=== PATIENT | female | born 1945 | race Caucasian/White ===

== ENCOUNTER 2023-12-09 09:37 | Day surgery (SDC) | payer OTHER, SELFPAY ==
[2023-12-09] VITALS (9 sets, daily range): BP systolic 142–179; BP diastolic 33–99; BMI 33.1
[2023-12-09] MEDS: NSS 262 ML IV (10:28)
[2023-12-09 10:33] LABS: Glucose - Point of Care 152 mg/dl (70-99)
[2023-12-09 12:07] LABS: ACT-LR - POC 361 Seconds (116-155)
--- NOTE | 2023-12-09 16:50 | ITS.CL.CATH ---
[employer] - Catheterization
Cardiac Catheterization
Procedure Report:
LEFT HEART CATHETERIZATION
Date of Procedure: December 09, 2023
Procedures performed:
1: Coronary angiography
2: Left ventricular hemodynamic assessment
3: Physiologic lesion assessment left anterior descending artery
Primary Care Physician: Dr. Radha Tamez
Primary Medical Office Administrator: Dr. Fernie Cox
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
hyperlipidemia, diabetes mellitus, and known perivalvular aortic insufficiency with preserved LV systolic function. She developed a gangrenous appendix and had a somewhat complicated hospitalizations at [facility] which was treated with
IV antibiotics and percutaneous placement of a drain by interventional radiology which was later pulled. She had no cardiac complications during that admission in August. Since then she has reported increasing exertional chest discomfort concerning
for angina. Of note, she was in the [facility] emergency room on November 27 and ruled out for ACS. At that time she did have episodes of significant bradycardia with heart rates in the 40s. Last echocardiography was performed in July
which revealed normal LV systolic function with a mean gradient across the 21 mm trifecta tissue valve of 23 mmHg along with moderate aortic regurgitation which was believed to be possibly perivalvular. Her creatinine has also been inching up was
1.0 in April 2023, 1.45 in July 2023 and 1.67 on December 07, 2023.
ACCESS: The patient was prepped and draped in usual sterile fashion. A 6 Ecuadorean sheath was placed in the right radial artery using the Seldinger over the wire technique.
HEMODYNAMIC FINDINGS (mmHg):
LV(s/d,EDP): 208/11, 19
Ao(s/d,m): 180/46, 96
Mean aortic valve gradient with simultaneous pressure measurement: 39 mmHg
ANGIOGRAPHIC FINDINGS:
Single-plane Left Ventriculography in AVILES Projection: Not done.
Coronary Angiography:
Dominance: Right
Left Main: Normal
Left Anterior Descending: The left anterior descending artery is a medium caliber vessel that gives rise to 1 major diagonal branch. The LAD has moderate proximal and mid calcification which is also notable at the mid LAD/diagonal bifurcation which
makes accurate angiographic assessment difficult. There appears to be a smooth 50% stenosis in the LAD at the diagonal takeoff. There is a smooth 40% focal mid LAD stenosis just beyond that. The distal vessel appears widely patent with normal
flow. There are extensive septal collaterals that fill the right-sided posterior descending artery. The major diagonal branch has a calcific eccentric 60-70% proximal stenosis which again is difficult to visualize due to calcification and vascular
overlap. The distal diagonal branch has normal flow. This is unchanged from prior cath performed in November 2022 at [facility].
Left Circumflex: The left circumflex is a medium caliber vessel that gives rise to a small OM1, medium sized OM 2, and larger OM 3. The previously placed stent is widely patent and extends from the circumflex into the third obtuse marginal branch
jailing OM1 and OM 2. The proximal circumflex has mild diffuse luminal irregularity. OM1 is patent with mild ostial disease and normal distal flow. The second obtuse marginal branch also has a severe ostial 80% stenosis but improved antegrade
flow as compared to when the stent was placed in 2019 and unchanged from last cath 11/2022. The distal OM 2 fills via apical left to left collaterals. There is normal flow in OM 3.
Right Coronary: The right coronary artery is a small caliber dominant vessel that is occluded in the midportion just beyond an RV marginal branch. The PDA fills via faint right to right and left to right collaterals. This is unchanged compared to
prior angiography 11/2022.
SVG to OM-2: Known to be previously occluded by cath in 2019.
Other angiography:
1: In light of her new symptoms and somewhat ambiguous calcific disease in the LAD diagonal bifurcation, I elected to perform physiologic lesion assessment. The patient was pretreated with aspirin and unfractionated heparin was given. A 6 Ecuadorean
XB 3.0 guiding catheter was used to engage the left main. A Omni pressure wire was advanced easily down across the lesion with the transducer positioned in the mid to distal LAD. The IFR was measured at 0.84, 0.84, and 0.85 which is below the
ischemic threshold. The wire was removed and final angiography confirmed no change.
Fluoroscopy Time (min): 14.1
Radiation Dose (mGy): 523
DAP (Gy.cm2): 39
Closure device: None. A TR band was applied for hemostasis at the right wrist.
Complications: None.
ASSESSMENT:
1: Unchanged coronary anatomy with on grafted dominant distal RCA and widely patent deering left circumflex stent. iFR positive physiologic lesion assessment of the left anterior descending artery. I suspect this was probably also positive in
November 2022 since imaging was similar at that time. The involved major diagonal branch seems to be a reasonable surgical target and certainly also has obstructive disease.
2: Very wide pulse pressure with hemodynamics suggesting significant aortic insufficiency. On review of serial echoes this appears to be newly present on 09/24/2022 echo and was not noted on 2017, 2018, and 2020 echoes. Although some transthoracic
imaging suggest this may be paravalvular, given that it is new in 2022 I suspect it may just be valve deterioration. The gradients across that valve are certainly going up with a mean gradient of 39 mmHg measured today in the setting of significant
systemic hypertension. The mean gradient measured on July 24, 2023 echo was 23 mmHg.
3: Fairly well compensated LV filling pressures despite significant AI.
CONCLUSIONS and RECOMMENDATIONS:
1: Formal CT surgical evaluation for possible repeat aortic intervention in the setting of significant aortic insufficiency and some degree of aortic stenosis. May consider DEMAR to better delineate etiology for valve dysfunction. If repeat aortic
valve indication is felt to be indicated, would then consider GARCIA to LAD, SVG to diagonal, and SVG to distal RCA (which was not found surgically in 2017 and therefore may be impossible). If she is felt to be a poor redo surgical candidate we could
consider PCI of the LAD however this would certainly jeopardize the major diagonal branch. Case discussed with Dr. Jaime Trivedi who will see the patient on December 17 in formal consult.
2: Continue aggressive medical therapy for coronary artery disease and hypertension with close clinical follow-up with Dr. Cox as scheduled.
3: Will place 7-day Bardy monitor given her episodic bradycardia. I doubt this is playing a significant role however she has had heart rates in the 40s during her [facility] ER visit and had intermittent low heart rates in the 50s and
recovery after her catheterization today.
4: Will perform repeat echo today to reassess LV systolic function as well as LV size and reevaluate aortic insufficiency given that this has not been done since her septic illness in August.
Tim Cochran M.D.
== END 2023-12-09 17:09 | disposition home or self-care (01) ==
LOC: CATH 09:37
PROVIDERS: ATTENDING PHYSICIAN Internal Medicine Interventional Cardiology; PRIMARYCARE PHYSICIAN Family Medicine; REFERRING PHYSICIAN Internal Medicine Cardiovascular Disease
DX: I25.10 Atherosclerotic heart disease of native coronary artery without angina pectoris (principal); R07.89 Other chest pain; I08.0 Rheumatic disorders of both mitral and aortic valves; Z95.1 Presence of aortocoronary bypass graft; Z95.5 Presence of coronary angioplasty implant and graft; I10 Essential (primary) hypertension; E78.5 Hyperlipidemia, unspecified; E11.9 Type 2 diabetes mellitus without complications; Z79.82 Long term (current) use of aspirin; Z79.02 Long term (current) use of antithrombotics/antiplatelets; Z79.84 Long term (current) use of oral hypoglycemic drugs
CPT/HCPCS: 93799; C1894; C1887; C1769; 82962; 85347; 93306; 93459; Q9967

== ENCOUNTER → 2023-12-21 08:27 | Outpatient (REF) | payer OTHER, SELFPAY | LOC: RAD 08:27 | PROVIDERS: ATTENDING PHYSICIAN Thoracic Surgery (Cardiothoracic Vascular Surgery); FAMILY PHYSICIAN Family Medicine; OTHER PHYSICIAN Internal Medicine Interventional Cardiology; REFERRING PHYSICIAN Internal Medicine Cardiovascular Disease | DX: I35.0 Nonrheumatic aortic (valve) stenosis (principal); I35.1 Nonrheumatic aortic (valve) insufficiency; I25.10 Atherosclerotic heart disease of native coronary artery without angina pectoris | CPT/HCPCS: 74174; 75572; Q9967 ==

== ENCOUNTER → 2024-01-15 11:58 | Outpatient (REF) | payer OTHER, SELFPAY | LOC: RAD 11:58 | PROVIDERS: ATTENDING PHYSICIAN Thoracic Surgery (Cardiothoracic Vascular Surgery); FAMILY PHYSICIAN Family Medicine | DX: I65.21 Occlusion and stenosis of right carotid artery (principal) | CPT/HCPCS: 70496; 70498; Q9967 ==

== ENCOUNTER 2024-01-19 04:38 | Inpatient (IN) | payer OTHER, SELFPAY ==
[2024-01-11 09:25] LABS: Urine Albumin 1+ (Neg - Trace); Urine Bilirubin Negative (Negative); Urine Character Clear (Clear); Urine Color Yellow; Urine Glucose 3+ (Negative); Urine Ketone Negative (Negative); Urine Leukocyte Negative (Negative); Urine Nitrite Negative (Negative); Urine Occult Blood Negative (Negative); Urine Specific Gravity 1.015 (<1.030); Urine Urobilinogen Negative (Neg - 1+)
[2024-01-11 09:40] LABS: INR 1.03; PT 13.3 Sec (11.4-14.6)
[2024-01-11 09:42] LABS: % Basophils 0.7 % (0-2); % Lymphocytes 10.2 % (20.5-51.1); % Neutrophils 77.1 % (42.2-75.2); Absolute Basophils 0.1 10^3/uL (0-0.2); Absolute Eosinophils 0.2 10^3/uL (0-0.7); Absolute Immature Granulocytes 0.1 10^3/uL (0-0.05); Absolute Lymphocytes 0.8 10^3/uL (1.2-3.4); Absolute Monocytes 0.7 10^3/uL (0.1-0.6); Absolute Neutrophils 6.2 10^3/uL (1.4-6.5); Hematocrit 35.2 % (37.0-47.0); Hemoglobin 11.7 g/dL (12.0-16.0); Mean Corp Hgb Conc. 33.2 g/dL (33.0-37.0); Mean Corpuscular Volume 87.3 fL (81.0-99.0); Mean Platelet Volume 10.6 fL (7.4-10.4); Nucleated Red Blood Cells % 0 %; Platelet Count 147 10^3/uL (130-400); Red Blood Cell Count 4.03 10^6/uL (4.20-5.40); Red Cell Dist. Width 14.4 % (11.5-14.5)
[2024-01-11 10:15] LABS: Glycohemoglobin (HgbA1c) 6.8 % (4.0-5.6)
[2024-01-11 10:22] LABS: ALT (SGPT) 16 U/L (0-35); AST (SGOT) 21 U/L (14-36); Albumin 4.4 g/dl (3.5-5.0); Alkaline Phosphatase 72 U/L (38-126); Blood Urea Nitrogen 45 mg/dl (7-17); Calcium 10.6 mg/dl (8.4-10.2); Carbon Dioxide 25 mmol/L (22-30); Chloride 105 mmol/L (98-107); Direct Bilirubin 0.1 mg/dl (0.0-0.4); Glucose 160 mg/dl (70-99); Potassium 4.6 mmol/L (3.5-5.1); Sodium 141 mmol/L (135-145); Total Bilirubin 0.6 mg/dl (0.2-1.3); Total Protein 6.7 g/dl (6.3-8.2); eGFR 38.27
[2024-01-11 10:54] LABS: Urine Squamous Cell 26-30 /LPF (Few); Urine Urothelial Cell 0-2 /LPF (FEW)
[2024-01-11 10:56] LABS: Urine Bacteria Moderate (Negative)
--- NOTE | 2024-01-11 13:22 | CM ---
spoke to pt i PAT's, we discussed PAT AVR/CABG/Aortic root teaching including sternal and driving restrictions. pt is prev indep, lives alone in a 1 story home with no steps to enter. she has a cane and a walker to use if needed from her husb.
when he was ill. she has the cardiac educ book, soap and instructions. her daughter will be staying with her for a while after her dc. cm role explained and all questions answered. plan is for AVR/CABG/Aortic root 01/18.
[2024-01-11 13:49] VITALS: BMI 34.0
[2024-01-19 04:54] VITALS: BP 183/37
[2024-01-19 05:04] VITALS: BP 167/56
[2024-01-19] MEDS: BACTROBAN 2% OINTMENT 1 APPLIC NASAL ×2 (05:12→23:20)
[2024-01-19] MEDS: LOPRESSOR 25 MG PO (05:12)
[2024-01-19] MEDS: MAGNESIUM OXIDE 500 MG PO (05:12)
[2024-01-19] MEDS: PROTONIX 40 MG PO (05:12)
--- NOTE | 2024-01-19 05:44 | PTCARENOTE ---
Patient arrived onto unit and showed to her room. AOx3, no acute complaints. Patient changed into gown and socks, patient's own clothing stored in room closet. Admission questionnaire completed, VS and height and weight obtained, medications
confirmed, and patient clipped and prepped per protocol for surgery.
[2024-01-19 06:00] VITALS: BMI 33.0
--- NOTE | 2024-01-19 06:27 | W.CVOR.SURPR ---
CVOR Surgeon Immed Pre Op
-
I have examined this patient prior to performance of the scheduled procedure.
The patient's condition is unchanged from the time of the dictated/written History and
Physical and the patient is able to undergo the scheduled procedure.
High risk, redo sternotomy, AVR/Root replacement, CABG
[2024-01-19 07:36] LABS: ACT+ - POC 93 Seconds (82-134)
[2024-01-19 07:51] LABS: Urine Albumin 2+ (Neg - Trace); Urine Bilirubin Negative (Negative); Urine Character Clear (Clear); Urine Color Straw; Urine Glucose 3+ (Negative); Urine Ketone Negative (Negative); Urine Leukocyte Negative (Negative); Urine Nitrite Negative (Negative); Urine Occult Blood Negative (Negative); Urine Urobilinogen Negative (Neg - 1+)
[2024-01-19 08:06] LABS: Urine Bacteria Few (Negative); Urine Red Blood Cell 0-2 /HPF (0-2); Urine White Cell 0-2 /HPF (0-5)
[2024-01-19 09:02] LABS: B.E. - POC -5.9 mmol/L; HCO3 - POC 19 mmol/L (21-28); Hematocrit - POC 29 % PCV (37-47); O2 Saturation %Calculated-POC 99.5 % (94-98); PCO2 - POC 35 mmHg (35-48); PO2 - POC 175 mmHg (83-108); POC Comment BASELINE; Sodium - POC 143 mmol/L (136-145); pH - POC 7.35 (7.35-7.45)
[2024-01-19 09:03] LABS: Glucose - POC 141 mg/dl (70-99); Hemodilution- POC No; Hemoglobin Calculated - POC 9.8; Ionized Calcium - POC 1.26 mmol/L (1.15-1.33); Potassium - POC 4.4 mmol/L (3.5-5.1)
--- NOTE | 2024-01-19 10:41 | CM ---
Chart reviewed. Patient is in the OR today. Patient is independent of ADLS, lives alone in a 1 STH, 0 SERGIO, has a SPC and walker if needed. Plan is for her daughter to stay with her when she is medically stable for discharge. Patient will go
home with her daughter and CT Transitional RN. CM to follow
[2024-01-19 10:52] LABS: B.E. - POC -1.1 mmol/L; Glucose - POC 169 mg/dl (70-99); HCO3 - POC 24 mmol/L (21-28); Hematocrit - POC 24 % PCV (37-47); Hemodilution- POC Yes; Hemoglobin Calculated - POC 8.2; Ionized Calcium - POC 1.12 mmol/L (1.15-1.33); PCO2 - POC 39 mmHg (35-48); PO2 - POC 484 mmHg (83-108); POC Comment CPB; Potassium - POC 4.5 mmol/L (3.5-5.1); Sodium - POC 141 mmol/L (136-145); pH - POC 7.39 (7.35-7.45)
[2024-01-19 11:28] LABS: B.E. - POC -2.2 mmol/L; Glucose - POC 154 mg/dl (70-99); HCO3 - POC 22 mmol/L (21-28); Hematocrit - POC 24 % PCV (37-47); Hemodilution- POC Yes; Hemoglobin Calculated - POC 8.2; PCO2 - POC 35 mmHg (35-48); PO2 - POC 394 mmHg (83-108); POC Comment CPB; Potassium - POC 5.2 mmol/L (3.5-5.1); Sodium - POC 143 mmol/L (136-145); pH - POC 7.41 (7.35-7.45)
[2024-01-19 12:20] LABS: B.E. - POC -2.3 mmol/L; Glucose - POC 146 mg/dl (70-99); HCO3 - POC 22 mmol/L (21-28); Hematocrit - POC 25 % PCV (37-47); Hemodilution- POC Yes; Hemoglobin Calculated - POC 8.6; Ionized Calcium - POC 1.19 mmol/L (1.15-1.33); PCO2 - POC 37 mmHg (35-48); PO2 - POC 400 mmHg (83-108); POC Comment CPB; Potassium - POC 4.6 mmol/L (3.5-5.1); Sodium - POC 143 mmol/L (136-145); pH - POC 7.39 (7.35-7.45)
[2024-01-19 12:51] LABS: B.E. - POC -0.3 mmol/L; Glucose - POC 165 mg/dl (70-99); HCO3 - POC 25 mmol/L (21-28); Hematocrit - POC 25 % PCV (37-47); Hemodilution- POC Yes; Hemoglobin Calculated - POC 8.5; O2 Saturation %Calculated-POC 99.9 % (94-98); PCO2 - POC 43 mmHg (35-48); PO2 - POC 345 mmHg (83-108); POC Comment CPB; Potassium - POC 4.5 mmol/L (3.5-5.1); Sodium - POC 145 mmol/L (136-145); pH - POC 7.37 (7.35-7.45)
[2024-01-19 13:09] LABS: ACT+ - POC > 1003 Seconds (82-134)
[2024-01-19 13:09] LABS: ACT+ - POC > 1003 Seconds (82-134)
[2024-01-19 13:09] LABS: ACT+ - POC > 1003 Seconds (82-134)
[2024-01-19 13:09] LABS: ACT+ - POC > 1003 Seconds (82-134)
[2024-01-19 13:09] LABS: ACT+ - POC > 1003 Seconds (82-134)
[2024-01-19 13:09] LABS: ACT+ - POC > 1003 Seconds (82-134)
[2024-01-19 13:26] LABS: B.E. - POC -2.7 mmol/L; Glucose - POC 169 mg/dl (70-99); HCO3 - POC 24 mmol/L (21-28); Hematocrit - POC 26 % PCV (37-47); Hemodilution- POC Yes; O2 Saturation %Calculated-POC 99.9 % (94-98); PCO2 - POC 46 mmHg (35-48); PO2 - POC 336 mmHg (83-108); POC Comment CPB; Potassium - POC 3.9 mmol/L (3.5-5.1); Sodium - POC 144 mmol/L (136-145); pH - POC 7.32 (7.35-7.45)
[2024-01-19 14:27] LABS: B.E. - POC -2.3 mmol/L; Glucose - POC 129 mg/dl (70-99); HCO3 - POC 23 mmol/L (21-28); Hematocrit - POC 26 % PCV (37-47); Hemodilution- POC Yes; Hemoglobin Calculated - POC 8.9; Ionized Calcium - POC 1.21 mmol/L (1.15-1.33); O2 Saturation %Calculated-POC 99.9 % (94-98); PCO2 - POC 40 mmHg (35-48); PO2 - POC 356 mmHg (83-108); POC Comment CPB; Potassium - POC 3.7 mmol/L (3.5-5.1); Sodium - POC 146 mmol/L (136-145); pH - POC 7.36 (7.35-7.45)
[2024-01-19 14:43] LABS: ACT+ - POC 789 Seconds (82-134)
[2024-01-19 14:45] LABS: B.E. - POC 3.3 mmol/L; Glucose - POC 103 mg/dl (70-99); HCO3 - POC 29 mmol/L (21-28); Hematocrit - POC 22 % PCV (37-47); Hemodilution- POC Yes; Hemoglobin Calculated - POC 7.5; Ionized Calcium - POC 1.04 mmol/L (1.15-1.33); PCO2 - POC 47 mmHg (35-48); PO2 - POC 563 mmHg (83-108); POC Comment WARM; Potassium - POC 3.2 mmol/L (3.5-5.1); Sodium - POC 149 mmol/L (136-145)
[2024-01-19 15:07] LABS: ACT+ - POC 731 Seconds (82-134)
[2024-01-19 15:19] LABS: B.E. - POC -2.3 mmol/L; Glucose - POC 103 mg/dl (70-99); HCO3 - POC 20 mmol/L (21-28); Hematocrit - POC 25 % PCV (37-47); Hemodilution- POC Yes; Hemoglobin Calculated - POC 8.5; Ionized Calcium - POC 0.97 mmol/L (1.15-1.33); PCO2 - POC 26 mmHg (35-48); PO2 - POC 337 mmHg (83-108); POC Comment WARM; Potassium - POC 4.3 mmol/L (3.5-5.1); Sodium - POC 147 mmol/L (136-145)
[2024-01-19 15:29] LABS: ACT+ - POC 517 Seconds (82-134)
[2024-01-19 16:11] LABS: B.E. - POC -3.6 mmol/L; Glucose - POC 119 mg/dl (70-99); HCO3 - POC 21 mmol/L (21-28); Hematocrit - POC 26 % PCV (37-47); Hemodilution- POC Yes; Ionized Calcium - POC 1.03 mmol/L (1.15-1.33); PCO2 - POC 33 mmHg (35-48); PO2 - POC 446 mmHg (83-108); POC Comment WARM; Potassium - POC 4.1 mmol/L (3.5-5.1); Sodium - POC 149 mmol/L (136-145)
[2024-01-19 16:14] LABS: ACT+ - POC 85 Seconds (82-134)
[2024-01-19 16:32] LABS: B.E. - POC -1.1 mmol/L; Glucose - POC 127 mg/dl (70-99); HCO3 - POC 24 mmol/L (21-28); Hematocrit - POC 25 % PCV (37-47); Hemodilution- POC Yes; Hemoglobin Calculated - POC 8.7; Ionized Calcium - POC 0.75 mmol/L (1.15-1.33); O2 Saturation %Calculated-POC 99.9 % (94-98); PCO2 - POC 38 mmHg (35-48); PO2 - POC 350 mmHg (83-108); POC Comment POST; Potassium - POC 4.3 mmol/L (3.5-5.1); Sodium - POC 150 mmol/L (136-145)
[2024-01-19 17:01] LABS: Glucose - Point of Care 152 mg/dl (70-99)
--- NOTE | 2024-01-19 17:02 | W.PN.CT.SURG ---
CT Surgery Operative Note
-
CARDIAC SURGERY OPERATIVE REPORT
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
Postoperative Diagnosis: Same
Procedure(s) Performed:
1. Ultrasound-guided Seldinger access to the right common femoral artery and vein with placement of 5 Gabonese sheath
2. Redo sternotomy with extensive adhesiolysis needed secondary to previous cardiac surgery (modifier 22)
3. Coronary bypass grafting x 2 [in situ GARCIA to LAD and reverse saphenous vein graft from ascending aortic graft to distal RCA
4. Explant of prior 21 mm trifecta aortic valve
5. Freestyle aortic root replacement with reimplantation of coronary buttons
6. Hypothermic circulatory arrest with selective cerebral perfusion, ascending aortic replacement with a 26 mm straight tube graft
7. Placement of temporary ventricular pacing wire
8. Transesophageal echocardiography
9. Chest left open and packed with sternal brace (one retained vaginal pack)
10. Endoscopic vein harvest of the right lower extremity
Date of Surgery: 01/19/2024
Comorbidities:
1. 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
2. Multivessel coronary artery disease with anginal/exertional chest pain
3. Morbidly obese with a BMI of greater than 30
4. Hypertension
5. Hyperlipidemia
6. Previous PCI with cardiac stent to the OM
7. Previous cardiac surgery with aortic valve replacement and single-vessel bypass to the OM
7. Diabetes mellitus
8. Severe carotid stenosis of the right side
9. Hard of hearing
Attending Surgeon: Durga Trivedi MD, MS
Assistants: Durga Cheatham PA-C (present and necessary to assistant unit forester, retraction, suction, exposure, suture management, and wound closure under my direction), Dr. Rufus Perea (can in to assist with hemostasis and packing of open chest), and Pat
RAKESH Plummer (vein harvest)
Anesthesiology: Prateek Allen MD and Connor Wetzel CRNA
Scrub and Circulating RNs: Kavya No RN and Abi Kaiser, RN, Tali Hemphill, YUDY and Alexandra Al RN
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
Anesthesia: GETA
EBL: per perfusion records
Products: 2 plts, 2 ffp, factor 7
CPB Time: 332 minutes
Aortic Cross Clamp Time: 249 minutes
Circulatory Arrest Time: 21 minutes
Selective Antegrade Cerebral Perfusion: 14 minutes
Indication(s) for Procedures: This is a 78-year-old female who underwent previous cardiac surgery 2017 the form of a s1 mm trifecta aortic valve replacement and single-vessel bypass to the OM. The vein graft subsequently went down and she recently
developed worsening progressive heart failure symptoms. She was found to have an intra valvular leak secondary to a torn leaflet resulting in severe AI. She was initially evaluated for TAVR and possible complex PCI however a coronary heights were
discovered to be extremely low with a stovepipe sinus of Valsalva making TAVR inside SAVR not possible. Given her ongoing symptoms, she was brought back to my office twice and also discussed at our multidisciplinary team meeting. She was offered
high risk surgical reintervention which she accepted and so we proceeded. I quoted her mortality risk of approximate 10% as anticipated explant of her prior bioprosthetic AVR would result in destruction of her root necessitating a replacement with
extremely low coronaries inserting nearly at the annulus.
Aortic Valve bioprosthetic description: Heavily diseased with torn leaflets. The core knots of the bioprosthetic valve were also embedded into the annulus and lower portion of the sinuses. The left main coronary ostia came off basically at the
annulus and the right coronary ostium had 2 small conal branches and was extremely hard to cannulate to give cardioplegia.
Findings: Her left ventricular ejection fraction preoperatively was preserved at approximately 55 to 60%. Following surgery EF remained the same at approximate 50-55% on 5 dobutamine and some Cardene. Her RV function was normal preoperatively and
mild to moderately depressed postoperatively. The vein conduit obtained from the right lower extremity was marginal at best. There was significant sections of varicosities and the tissue itself was very friable. I was able to identify the distal
RCA and a vein graft was placed here with the proximal anastomosis coming off of the ascending aortic graft. Her LAD was identified and found to be a very suitable target. The GARCIA was harvested in a skeletonized fashion and grafted here in an
end-to-side anastomosis. Following aortic root replacement, there was no aortic valve insufficiency with a new freestyle porcine root replacement. Her previous Trifecta valve was explanted and a total of 11 core knots were retrieved with some
pledgets. As the bioprosthetic valve was extremely embedded into the annulus, the annulus became shredded with explant of that bioprosthetic valve. The coronary buttons were mobilized accordingly in order to produce some height. Using a freestyle
sizer, the annulus was sized to a 21 Medtronic freestyle valve. A total of 24 single interrupted nonpledgeted 2 Ethibond sutures were placed circumferentially securing the porcine valve in place using bovine pericardium as a gasket. Each of the
securing sutures were tied down with approximately 6 to 8 knots. Before performing the freestyle valve to afognak aortic anastomosis, I inspected the inside of the aorta and found that there is heavy calcification that had crumbled resulting in a
tear of the ascending aorta. This propagated distally towards the clamp site. At this point I chose to cooled down to 28 �C and performed hypothermic circulatory arrest with selective cerebral perfusion up the left common carotid using a
retrograde cannula. Her head sats maintained in the high 60s throughout the procedure. This required approximately 14 minutes of ACP time and a total circulatory arrest time of 21 minutes. A 26 mm straight graft was then used to perform the
distal anastomosis. The clip was then repositioned on the new ascending aortic graft and we started to rewarmed to a target temperature 35 �C. The proximal anastomosis was then performed in a running fashion with 4-0 Prolene. Using eye cautery,
small hole was made in the ascending aortic graft and the vein graft was anastomosed in end-to-side fashion with 7-0 Prolene. There was a significant mismatch in size of the ascending aortic graft to the Medtronic freestyle graft. Multiple repair
sutures were placed to the graft graft as well as the proximal vein graft anastomosis. After coming off of cardiopulmonary bypass, we reversed with protamine and then gave factor VII as well as blood products. Her cardiac index was depressed at
approximately 1.5 on 5 dobutamine. She did not require any pacing and was not her own afognak sinus rhythm following surgery. Due to the extended pump time, mild RV dysfunction, and required multiple blood products due to coagulopathy, I elected to
leave her chest open and packed with 1 vaginal pack. Sternum was braced with a 60 cc syringe fashion in order to help keep the bone . Modifier 22: Due to the extensive adhesions and difficult to dissection in this case, and an additional
1 to 2 hours of surgical time was require,
Specimen(s): Previous bioprosthetic aortic valve and ascending aortic tissue.
Prosthesis:
1. 21 mm Medtronic freestyle bioprosthetic aortic root complex, serial number [id number]
2. 26 mm Hemashield [place] straight tube graft, serial #[id number]
3. Bovine pericardium, serial number [id number]
4. BioGlue, serial number [id number]
Description of Procedure: The patient was taken to the operating room. Their identity and procedure to be performed were verified and they were positioned supine on the operating table. Induction via general anesthesia with endotracheal intubation
was performed and central venous access and arterial monitoring were inserted. A preoperative transesophageal echocardiogram was performed to assess cardiac function and valvular function. The patient was then prepped and draped from chin to feet in
a sterile fashion. A preoperative time-out was performed with all members of the team present. Ultrasound was used to obtain access to the right common femoral vessels using Seldinger technique with micropuncture. 5 Gabonese sheath were placed and
each 1 and flushed with hep saline. A midline chest incision was performed along with redo median sternotomy using an oscillating saw after extraction of the sternal wire. The left hemisternum was then elevated and the heart was freed from the
posterior table. The same was done with the right side hemisternum. A Rultract retractor was then placed to elevate the left hemisternum and I entered into the pleural space. The GARCIA was harvested in a skeletonized fashion. Simultaneous
endoscopic harvesting converted to open harvesting of the right lower extremity was performed. Once completed, a median sternotomy retractor was then placed and I started with dissection at the base of the heart towards the diaphragm. A plane was
then developed and carried towards the apex and laterally towards the right atrium. Next I entered down onto the previous saphenous vein graft and dissected circumferentially around the aorta. The previous cannulation site was identified as well
as a previous aortic suture line. Additional dissection was then performed along the lateral side of the heart and more towards the right atrium. Once I felt I had sufficient cannulation sites, full heparinization was given equaling to a total of
50,000 units of heparin. The aortic cannulation site was chosen where it was soft, pliable, and free of calcium just below the previous cannulation site. Cannulation was performed with an arterial cannula in the ascending aorta and 25 Gabonese
percutaneous right common femoral vein using Seldinger access with DEMAR guidance visualizing the wire in the SVC. The tract was serially dilated and then a 25 Gabonese cannulas placed with ease into the SVC. The arterial cannula line had an
appropriate bounce and correlating pressures with test dosing. The pulmonary artery was away from the aorta to facilitate a clamp site and aortotomy. A retrograde coronary sinus catheter was placed for the RA with DEMAR and manual guidance.
The ACT was confirmed to be over 400 and retrograde autologous priming was performed before commencing cardiopulmonary bypass. I was unable to identify the right superior pulmonary vein in a safe fashion and so an LV vent was not placed. The aortic
cross-clamp was placed after decreasing the flow on the bypass and mean arterial pressure. An aortotomy was performed just below the previous suture line and stay sutures were placed in order to allow for visualization. A total of 1.2L initial
dose of a retrograde and antegrade Del-Nido cardioplegia solution was given and planned for re-dosing every 75 minutes as necessary. Cardioplegia was visualized emanating from the left main and some from the right coronary ostium. There was rapid
electro-mechanical arrest of the heart at 500 cc of cardioplegia. The left ventricle was observed for distention on echocardiogram and manual palpation. Cold slush was placed into a sponge and topically on the RV while we systemically cooled to 32
degrees centigrade.
I then identified the distal right coronary artery and dissected with a [place] blade. A small coronary arteriotomy was created and enlarged with Whiting scissors. The vein graft was then beveled accordingly and end-to-side anastomosis was created
with 7-0 Prolene in a running fashion. Test dosing of antegrade was given down the vein graft which demonstrated a mean flow of approximately 50 cc a minute with a pressure of 80 mmHg. There was good hemostasis. The vein graft was in the left as
her access to the right coronary system for cardioplegia. I then turned my attention towards the LAD identified it using a [place] blade. Again a small coronary arteriotomy was created and enlarged with Whiting scissors. The GARCIA was then brought
back into the field and found to have excellent flow. It was beveled accordingly and end-to-side anastomosis was created with 7-0 Prolene. Due to the dense amount of adhesions and scar on top of the heart, I was unable to visualize the usual flow
in the LAD territory, however removal of the bulldog clamp did result in pinking up of the apex and lateral side of the heart.
Carbon dioxide was used to flood the field. Additional dissection was then performed around the root. Mobilizing the pulmonary artery off of the left main coronary artery. I started with using a Schnidt clamps in order to mobilize the previous
trifecta valve. It was very clear that the previous valve was wedged into place at the core knots were heavily embedded and pointing sideways. Once a core knot was able to identify address this with a Schnidt clamp and using a freer elevator I
mobilized in order to expose the suture at its base. This was cut with a 15 blade and serially repeated circumferentially. Once the cuff was then freed, I used a freer elevator to lift the sewing cuff off of the afognak annulus. It was densely
embedded into the afognak tissue. As I mentioned previously, the left and right coronary ostia were found coming off very low to the annulus. After fully explanting the previous aortic valve, it was apparent that the annulus was shredded with some
of the fragile tissue dissecting up towards the left main ostium. At this point stay sutures were placed at the 12 o'clock position of each coronary ostium and they were mobilized using tenotomy scissors. The afognak aortic tissue was then cut out,
and I placed circumferentially interrupted 2 Ethibond sutures into the annulus and what ever suitable tissue I could find. A total of 24 nonpledgeted 2 Ethibond sutures were used. A freestyle sizer was used and I was able to easily pass a 21 mm
sizer. The porcine aortic root was then brought into the field and then sutures were placed through the base of the complex. An 8 mm strip of bovine pericardium was then passed between the sutures and then the aortic root complex was then
parachuted into place. I then circumferentially tied down each of the Ethibond sutures using a total of 6 to 8 knots. BioGlue was used to reinforce the root. On the left side, the afognak left main on the porcine root was then transected and the
incision was enlarged. I reimplanted the left main coronary ostium using 5-0 Prolene in a running fashion using bovine pericardium as a gasket. BioGlue was also used to reinforce the suture line. The right coronary ostium was very very low I
mobilized it as best I could and a small incision was made just below the porcine afognak right coronary ostium. The patient's right coronary button was then reimplanted with 5-0 Prolene in a running fashion also using bovine pericardium as a
gasket. BioGlue was also used to reinforce the suture line. I then turned my attention towards the ascending aorta. I inspected it as it was heavily calcified towards the lesser curve. There was disruption of the calcium here which then
propagated up towards the clamp site demonstrating a very clear tear in the ascending aorta distally. This was unsuitable for suturing and so I opted to cooled the patient down to 28 �C and placed the patient to asleep Trendelenburg position. Once
we reached our target temperature, circulatory arrest was performed with selective cerebral perfusion of the left common carotid using a retrograde coronary sinus catheter. The ascending aorta was sized to a 26 mm straight graft which was sewn with
4-0 Prolene using bovine pericardium as a gasket. Once anastomosis was created, I slowly turned on to 1.5 L of flow to the air the patient's ascending thoracic aorta. The cross-clamp was then placed on the ascending aortic graft. The graft was
trimmed according to size as was the Medtronic freestyle valve conduit. An end-to-end anastomosis was graded with 4-0 Prolene. There was some mismatch in size and so I had to plicate the ascending aortic 26 mm graft in order to fit the Medtronic
freestyle conduit. De-airing maneuvers were performed and temporary bipolar ventricular pacing wires were placed on the base of the right ventricle. The patient was placed in a Trendelenburg position and flows on bypass were lowered. The aortic
cross clamp was removed and flows were slowly brought back up. Using 2 Schnidt clamps, I clamped partially on the ascending aortic graft in order to allow me to create a small hole using eye cautery. The vein graft was then anastomosed while the
heart was reperfusing. Transesophageal echocardiography revealed no AI and appropriate prosthetic function. Multiple repair sutures were placed along the proximal anastomosis as well as the vein graft. After verifying acceptable parameters, we
initiated weaning from cardiopulmonary bypass. Once we were off cardiopulmonary bypass, the venous cannula was clamped. A test dose of protamine was administered and the patient was monitored for any adverse reaction before resuming protamine. Once
half of the protamine dose was delivered, pump suckers were turned off and the systolic blood pressure was lowered for aortic decannulation. The aortic cannula was removed and pursestrings were tied down. All cannulation sites were oversewn with a
4-0 prolene. Hemostasis was achieved with multiple packing routines around the proximal and distal suture lines as well as the vein graft. Factor VII was also given at this point with good effect. Once I felt that we had achieve acceptable level
of hemostasis, fibrillar was packed around the surgical sites and drains were placed. A total of 2 x 24 Oscar drains were placed within the pericardium as well as a 24 Oscar drain to the left pleural space. The suture lines were inspected and
hemostasis was confirmed. Mediastinal hemostasis was obtained and a single vaginal pack was then placed around the root and circumferentially. A 28 straight chest tube was then placed over top of the dressing and [place] was used to cover the open
chest after placing a sternal bar which was fashioned from a 60 cc syringe. All drains were then placed to suction and the skin wound was cleansed and dressed.
All instrument, sponge, and needle counts were confirmed to be correct x 2 at the end of the operation. Again there was 1 retained vaginal pack that was purposely placed for the open chest. The patient was transferred to the cardiac intensive care
unit in guarded condition.
I, Dr. Durga Trivedi, was present, scrubbed for, and performed all critical elements of this procedure.
Durga Trivedi MD, MS
Cardiothoracic Surgeon
[facility]
This dictation was created using the [employer] dictation system. Please excuse any grammatical, typographical, or 'sound alike' errors
[2024-01-19 17:08] LABS: B.E. -0.7 mmol/L; HCO3 24.2 mmol/L (21-28); Ionized Calcium 1.14 mMOL/L (1.15-1.33); O2 Saturation % 99.4 % (94-98); PCO2 40 mmHg (32-35); PO2 263 mmHg (83-108); Potassium 3.8 mMOL/L (3.5-5.1); Sodium 145 mMOL/L (136-145); pH 7.39 (7.35-7.45)
--- NOTE | 2024-01-19 17:10 | PTCARENOTE ---
Received pt from [facility] at 1645; pt intubated and sedated; Open chest dressing C/D/I; Epicardial V wires set to 30/15/0.8 and no pacing noted; RIJ [place], [place] floated to 40, Left radial A-line, Right femoral A-line and PIV x1 all lines leveled and
zeroed; Insulin, Dobutamine, Cardene, Milrinone, Precedex see flow sheet for details; Lungs diminished; CT x4 to -20 to wall suction, no air leak and on crepitus noted; Hypoactive bowel sounds; NG tube placed by CVNP and confirmed on Xray; Crowder
catheter draining blood tinged urine; weal lower extremity pulses and positive radial pulses present; generalized +1 edema noted; all surgical sites C/D/I; see nursing documentation for further details.
CI 1.61
CO 3.10
SVR 1338
[2024-01-19 17:12] LABS: Hematocrit 27.5 % (37.0-47.0); Hemoglobin 9.9 g/dL (12.0-16.0); O2 Therapy Air vent; Platelet Count 55 10^3/uL (130-400)
[2024-01-19 17:21] LABS: INR 1.04; PT 13.4 Sec (11.4-14.6)
[2024-01-19 17:23] LABS: APTT 43.6 Sec (23.4-35.0)
[2024-01-19] MEDS: CALCIUM GLUCONATE 100 IV (17:29)
[2024-01-19] MEDS: KCL 50 IV (17:29)
--- NOTE | 2024-01-19 17:30 | CON.CAR ---
Consultation
Consultation Request
Date/Time Consultation Requested: January 19, 2024
Requesting Provider: Dr. Durga Trivedi
Performing Provider: Dr. René Case
Reason for Consultation: Postop complex redo median sternotomy w Ao root and AV and CABx2
Medical History
-
History of Present Illness:
This is a 78-year-old female with a complex prior medical history including SAVR wtih CABG (single-vessel SVG-OM) in 2016 nad PCI of the [place] circumflex with REBECCA in 2019. She has a history of hypertension, hyperlipidemia, and DM. The prior
history AVR replacement was with a 21 mm Trifecta aortic valve in 2016. She developed significant paravalvular aortic insufficiency as well as bioprosthetic valve aortic stenosis. As discussed at a [facility]ve [facility] and it was unclear whether
transcatheter aortic valve would actually seal the eccentric jet of aortic. A TAVR CT scan was performed and was notable for very low coronary heights measuring 4.6 mm on the left and 7.2 mm on the right. Given this finding it was felt that
surgical intervention would be most appropriate.
She underwent a long complex surgery today including resection of the existing Trifecta AV with placement of a Freestyle 21 mm valve and reimplantation of her coronary arteries. She required replacement of her ascending aorta and underwent CABG
with GARCIA-LAD and SVG-RCA. She came out of the OR with open sternum because of oozing, edema, and RV dysfunction. Slowly improving
PMH/PSH:
-Prior median sternotomy and AVR with Trifecta 21 mm valve and single vessel SVG-OM in 03/2016
-CADz with PCI of LCx
-Hypertension
-Hyperlipidemia
-Bioprosthetic Aortic valve dysfunction with and AI
-Gangrenous appendix
SH: deferred. Patient intubated
ROS: Deferred patient intubated
Allergies / Home Medications
Allergy/AdvReac Type Severity Reaction Status Date / Time
No Known Allergies Allergy Unverified 01/08/24 13:37
�Medication �Instructions �Recorded �Confirmed �Type
aspirin 81 mg tablet,delayed 81 mg PO DAILY Blood clot 03/26/16 01/19/24 History
release (Aspir-Low) prevention/tx
atorvastatin 20 mg tablet 20 mg PO QPM High cholesterol 09/22/19 01/19/24 History
clopidogrel 75 mg tablet 75 mg PO DAILY #90 tabs 09/22/19 01/19/24 Rx
metoprolol tartrate 50 mg tablet 50 mg PO BID Heart 09/22/19 01/19/24 History
disease/condition
amlodipine 5 mg tablet 5 mg PO DAILY 12/09/23 01/19/24 History
empagliflozin 25 mg tablet 25 mg PO DAILY 12/09/23 01/19/24 History
(Jardiance)
furosemide 20 mg tablet 20 mg PO DAILY 12/09/23 01/19/24 History
isosorbide mononitrate 30 mg 30 mg PO DAILY 12/09/23 01/19/24 History
tablet,extended release 24 hr
spironolactone 25 mg tablet 25 mg PO DAILY 12/09/23 01/19/24 History
valsartan 160 mg tablet 160 mg PO BID 12/09/23 01/19/24 History
Physical Exam
Vital Signs
Temp Pulse Resp BP Pulse Ox
95.9 F L 68 10 167/56 100
01/19/24 17:00 01/19/24 16:50 01/19/24 16:55 01/19/24 05:12 01/19/24 17:05
PHYSICAL EXAM:
GEN: Post op critically ill. Chest incision is dressed but not closed. She is intubated and unresponsive coming from anesthesia
HEENT: NC/AT, ET tube in place
LUNGS: Intubated. Clear anterolateral lung naqvi. No wheezing
CV: Median sternotomy is open but dressed. Regular rate and rhythm. II/ murmur at USB.
ABD : Soft, Scant bowel sounds are present.
EXT: No CCE
NEURO: No focal neurologic deficits
Impression / Plan
-
Cardiology: Dr. Fernie Cox
PCP: Dr. Radha Tamez
IMPRESSION:
-Bioprosthetic valve aortic stenosis and aortic insufficiency: Not TAVR candidate with low coronary heights and narrow SOV
Freestyle 21 mm AV replacement with replacement of ascending aorta to innominate
-Coronary artery disease s/p CABG with GARCIA-LAD and SVG-RCA. Diagonal could not be grafted
-Open sternotomy secondary to oozing, edema, RV dysfunction on multiple pressors dobutamine and milrinone
-Diabetes
-Hyperlipidemia
RECOMMENDATIONS
-Supportive care for now
-PA catheter in place. Hemodynamics improving
-Will continue to follow
Data Reviewed
-
CT Scan: Image Personally Visualized and interpreted and Report Reviewed by me
Medical Tests (Nuc Med, Echo etc): Image Personally Visualized and interpreted
Labs: Labs Reviewed by me, Discussed with Physician and Discussed with Nurse
Old Records: Reviewed
Total Time Spent with Patient (in minutes): 90
[2024-01-19] MEDS: ANCEF 10 IV ×2 (17:32→17:33)
--- NOTE | 2024-01-19 17:32 | W.PN.UPDATE ---
Update Note
Progress Note Update
IV fluids: 1500
U.O.:� 950
UF:� 2200
Blood:� 5 uPRBCS, 2 FFp, 2 plts
Wires:� V wires
Inotropes:� Dobutamine
Pressors:� None (patient arrived on Cardene)
Sedatives:� Precedex
�
NEURO: sedated on precedex, pupils +2mm B/L
RESP: #8OT @22cm> 10/500/100/5 Lungs clear B/L. Med A 0ml, Med B 70, Lpl 5ml on arrival chest tubes to -20cm suction. Sanguineous drainage
CV: RRR +S1, S2, no S3, no�rub, no murmur. Dermabond to median sternotomy. RIJ w/[place] locked @ XXcm. PA 27/13; CVP 14; C.O 3.4/CI 1.6
ABD: round, soft, no BS
EXT: no edema, +2/4 DP pulses B/L, no femoral bruit, RLE LEEROY wrap intact; Left radial A-line intact Right femoral arterial line
: Crowder with erin pink urine
�
A/P: POD #0 s/p Coronary bypass grafting x 2 [in situ GARCIA to LAD and reverse saphenous vein graft from ascending aortic graft to distal RCA, Explant of prior 21 mm trifecta aortic valve, and Freestyle aortic root replacement with reimplantation of
coronary buttons
DEMAR: EF�Nml
- Will keep intubated until chest closure.
>>goal to wean precedex and check neurostatus, once complete can switch to propofol and fentanyl infusion for sedation
- Monitor CT and urine output
- OGT placed for low intermittent suction and medications
- Follow up labs and CXR
- Wean levophed for maps >65
- Wean cardene for goal SBP 90-100
- Gavin 0.9 upon arrival and with concern for RV function patient was started on milrinone. If there continues to be concern for RV dysfunction will start inhaled flolan
- Labs (cmp, MVO2, ABG will be trended q6h)
- will hold ASA and start tomorrow.
- EKG done
- Cards consulted
- will need instruction regarding antibiotic prophylaxis for dental and invasive procedures
�
# acute surgical blood loss anemia-expected
- trend CBC
- Will transfuse 1 ffp and 1 plt now
- given novoseven in the OR
- continue to monitor for signs of bleeding
�
# T2DM (A1C 6.8)
- insulin infusion x 48h
�
# Hyperlipidemia
- resume�statin when able
[2024-01-19 17:33] LABS: Fibrinogen 230 MG/DL (199-459)
[2024-01-19] MEDS: NEURONTIN 100 MG PO (17:33)
[2024-01-19] MEDS: NSS 500 IV (17:34)
[2024-01-19] MEDS: PACERONE PO ×2 (17:35→23:21)
[2024-01-19] MEDS: TYLENOL PO ×2 (17:35→23:21)
--- NOTE | 2024-01-19 17:43 | PTCARENOTE ---
OG Tube not NG tube placed by CVNP.
--- NOTE | 2024-01-19 17:46 | PTCARENOTE ---
Pupils 2mm, equal and reactive; Precedex off to check mental status.
[2024-01-19 17:52] LABS: Blood Urea Nitrogen 32 mg/dl (7-17); Estimated Creatinine Clearance 54 ml/min; Glucose 136 mg/dl (70-99); Triglycerides 80 mg/dl (10-149)
--- NOTE | 2024-01-19 18:00 | PTCARENOTE ---
1 unit of FFP and 1 unit Platelets transfused without difficulties.
[2024-01-19 18:17] LABS: Glucose - Point of Care 172 mg/dl (70-99)
[2024-01-19 18:50] VITALS: BP_SYST 92
--- NOTE | 2024-01-19 19:00 | PTCARENOTE ---
received pt from precvious rn. pt sedated and intubated. pt NSR per tele HR 70s, v wire set to 30 15 0.8. ABP SBP 90s, ART 90/30, PA 24/15, CVP 10-12, CI 1.89 CO 3.64, weak pedal pulses, palpbale radial pulses. ET tube 8.0 21 at the lip. Vent set to
SIMV 80% 500 10 5 5, pox 100%, lungs diminished, CTx4 hooked to -20cm wall suction draingin red blood, no air leak/tidaling/crepitus, hypoactive bs, OG tube 59 at the lip, [place] draining yellow urine, all surgical incisions intact, RIJ Cordis, [place]
floated to 40, Left radial A-line, Right femoral A-line and PIV x1 all lines leveled and zeroed
Insulin, Dobutamine, Milrinone, Levo,
[2024-01-19] MEDS: VANCOCIN 200 IV (19:02)
[2024-01-19 19:07] LABS: Glucose - Point of Care 187 mg/dl (70-99)
--- NOTE | 2024-01-19 19:30 | PTCARENOTE ---
sedation paused to check mental status, pt arousable, able to follow commands, and move all extremities. fentanyl and propofol started per CTNP Kailyn
[2024-01-19] MEDS: SUBLIMAZE 85 MCG IV (19:43)
[2024-01-19] MEDS: SUBLIMAZE 100 IV (19:50)
--- NOTE | 2024-01-19 20:00 | PTCARENOTE ---
pt experiencing ectopy, frequent PACs SBP dropping to 50s, titrating up on levo CTPA Tsilina at bedside, labs drawn and sent
[2024-01-19 20:15] LABS: Mixed Venous O2 Saturation 70.7 %
[2024-01-19 20:18] LABS: B.E. -0.4 mmol/L; HCO3 24.1 mmol/L (21-28); Ionized Calcium 1.26 mMOL/L (1.15-1.33); O2 Saturation % 99.4 % (94-98); PCO2 38 mmHg (32-35); PO2 192 mmHg (83-108); Potassium 4.8 mMOL/L (3.5-5.1); pH 7.41 (7.35-7.45)
[2024-01-19 20:20] LABS: Glucose - Point of Care 251 mg/dl (70-99)
[2024-01-19] MEDS: DIPRIVAN 100 IV (20:21)
[2024-01-19 20:23] LABS: Hematocrit 22.9 % (37.0-47.0); Hemoglobin 8.3 g/dL (12.0-16.0); Platelet Count 119 10^3/uL (130-400)
[2024-01-19 20:58] LABS: Glucose - Point of Care 232 mg/dl (70-99)
--- NOTE | 2024-01-19 21:20 | PTCARENOTE ---
1 unit of RBC transfusing
[2024-01-19 21:54] LABS: Glucose - Point of Care 246 mg/dl (70-99)
[2024-01-19] MEDS: ANCEF 5 IV (22:54)
[2024-01-19 22:55] LABS: B.E. -0.8 mmol/L; HCO3 23.4 mmol/L (21-28); Ionized Calcium 1.27 mMOL/L (1.15-1.33); O2 Saturation % 99.4 % (94-98); PCO2 36 mmHg (32-35); PO2 146 mmHg (83-108); Potassium 4.5 mMOL/L (3.5-5.1); pH 7.42 (7.35-7.45)
[2024-01-19 22:57] LABS: Mixed Venous O2 Saturation 70.8 %
[2024-01-19 22:59] LABS: Hematocrit 27.5 % (37.0-47.0); Hemoglobin 9.9 g/dL (12.0-16.0); Platelet Count 160 10^3/uL (130-400)
[2024-01-19 23:00] LABS: Glucose - Point of Care 242 mg/dl (70-99)
[2024-01-19 23:05] LABS: INR 0.85; PT 11.4 Sec (11.4-14.6)
[2024-01-19 23:06] LABS: APTT 32.5 Sec (23.4-35.0)
--- NOTE | 2024-01-19 23:07 | PTCARENOTE ---
labs drawn and sent, BP 92/43 on 18 of levo, assessment remains unchanged otherwise
[2024-01-19 23:09] LABS: Estimated Creatinine Clearance 37 ml/min
[2024-01-19] MEDS: NEURONTIN PO (23:21)
[2024-01-19] MEDS: SENOKOT-S PO (23:21)
[2024-01-19] MEDS: LEVOPHED 250 IV (23:40)
[2024-01-19 23:57] LABS: Glucose - Point of Care 227 mg/dl (70-99)
[2024-01-20] MEDS: CORDARONE 103 MG IV (00:28)
[2024-01-20] MEDS: CALCIUM CHLORIDE 10% SYRINGE 500 MG IV (00:34)
[2024-01-20 00:38] LABS: Mixed Venous O2 Saturation 68.8 %
[2024-01-20 00:41] LABS: Hemoglobin 10.4 g/dL (12.0-16.0); Mean Corp Hgb Conc. 35.9 g/dL (33.0-37.0); Mean Corpuscular Hgb 29.4 pg (27.0-31.0); Mean Corpuscular Volume 81.9 fL (81.0-99.0); Mean Platelet Volume 11.1 fL (7.4-10.4); Platelet Count 155 10^3/uL (130-400); Red Blood Cell Count 3.54 10^6/uL (4.20-5.40); Red Cell Dist. Width 14.6 % (11.5-14.5); White Blood Cell Count 14.9 10^3/uL (4.8-10.8)
[2024-01-20 00:58] LABS: Glucose - Point of Care 235 mg/dl (70-99)
[2024-01-20] MEDS: NOVOLIN R INSULIN INFUSION 100 IV ×2 (00:59→06:27)
[2024-01-20 01:05] LABS: AST (SGOT) 67 U/L (14-36); Albumin 2.9 g/dl (3.5-5.0); Alkaline Phosphatase 52 U/L (38-126); Blood Urea Nitrogen 38 mg/dl (7-17); Calcium 9.3 mg/dl (8.4-10.2); Carbon Dioxide 23 mmol/L (22-30); Chloride 107 mmol/L (98-107); Estimated Creatinine Clearance 35 ml/min; Glucose 220 mg/dl (70-99); Potassium 4.1 mmol/L (3.5-5.1); Sodium 142 mmol/L (135-145); Total Bilirubin 1.1 mg/dl (0.2-1.3); Total Protein 4.7 g/dl (6.3-8.2); eGFR 38.27
[2024-01-20 01:10] LABS: Magnesium 2.7 mg/dl (1.6-2.3)
[2024-01-20] MEDS: CORDARONE 518 MG IV ×2 (01:13→16:16)
[2024-01-20 01:20] LABS: B.E. -3.3 mmol/L; HCO3 21.2 mmol/L (21-28); Ionized Calcium 1.39 mMOL/L (1.15-1.33); O2 Saturation % 99.2 % (94-98); PCO2 35 mmHg (32-35); PO2 106 mmHg (83-108); Potassium 4.1 mMOL/L (3.5-5.1); Sodium 141 mMOL/L (136-145); pH 7.39 (7.35-7.45)
[2024-01-20 01:22] LABS: O2 Therapy VENT
[2024-01-20 01:23] LABS: ALT (SGPT) 31 U/L (0-35)
[2024-01-20] MEDS: SODIUM BICARBONATE 50 MEQ IV ×2 (01:25→02:45)
--- NOTE | 2024-01-20 01:52 | PTCARENOTE ---
per Dr. Trivedi to turn off Milronone
[2024-01-20 01:59] LABS: Glucose - Point of Care 205 mg/dl (70-99)
[2024-01-20] MEDS: FLEXBUMIN 100 IV ×2 (02:20→09:53)
[2024-01-20 02:33] LABS: B.E. -3.4 mmol/L; HCO3 21.3 mmol/L (21-28); O2 Saturation % 98.3 % (94-98); PCO2 36 mmHg (32-35); PO2 96 mmHg (83-108); Potassium 3.8 mMOL/L (3.5-5.1); pH 7.38 (7.35-7.45)
[2024-01-20] MEDS: PITRESSIN 100 IV ×2 (02:49→15:14)
[2024-01-20] MEDS: LEVOPHED 258 MG IV (02:50)
[2024-01-20] MEDS: DOBUTREX 250 MG IV (02:50)
[2024-01-20 02:59] LABS: Glucose - Point of Care 199 mg/dl (70-99)
[2024-01-20 03:00] VITALS: BP_SYST 96
[2024-01-20] MEDS: ALBUMIN 5% 250 IV (03:15)
[2024-01-20] MEDS: KCL 50 IV (03:53)
[2024-01-20 04:01] LABS: Glucose - Point of Care 145 mg/dl (70-99)
--- NOTE | 2024-01-20 04:09 | PTCARENOTE ---
pt now on 10 of levo and 0.02 of vaso BP 97/42, assessment remains unchanged otherwise.
[2024-01-20] MEDS: VERSED 0.5 MG IV (04:28)
--- NOTE | 2024-01-20 05:00 | PTCARENOTE ---
pt had episode of bradycardia, HR 50s, CTPA Tsilina at bedside paced with v wire at 90 for a minute, pacer paused pt back into NSR
[2024-01-20] MEDS: DIPRIVAN 100 IV ×4 (05:14→20:17)
[2024-01-20] MEDS: TYLENOL PO ×3 (05:21→22:41)
[2024-01-20 05:32] LABS: B.E. 0 mmol/L; HCO3 23.3 mmol/L (21-28); Ionized Calcium 1.27 mMOL/L (1.15-1.33); O2 Saturation % 98.6 % (94-98); PCO2 32 mmHg (32-35); PO2 104 mmHg (83-108); Potassium 4.3 mMOL/L (3.5-5.1); Sodium 144 mMOL/L (136-145); pH 7.47 (7.35-7.45)
[2024-01-20 05:34] LABS: Mixed Venous O2 Saturation 61.2 %; O2 Therapy VENT
[2024-01-20 05:40] VITALS: BMI 35.4
[2024-01-20 05:41] LABS: Hematocrit 24.9 % (37.0-47.0); Hemoglobin 8.9 g/dL (12.0-16.0); Mean Corp Hgb Conc. 35.7 g/dL (33.0-37.0); Mean Corpuscular Hgb 29.9 pg (27.0-31.0); Mean Corpuscular Volume 83.6 fL (81.0-99.0); Mean Platelet Volume 11.3 fL (7.4-10.4); Platelet Count 96 10^3/uL (130-400); Red Blood Cell Count 2.98 10^6/uL (4.20-5.40); Red Cell Dist. Width 14.7 % (11.5-14.5); White Blood Cell Count 12.9 10^3/uL (4.8-10.8)
--- NOTE | 2024-01-20 05:55 | W.PN.CT ---
Today's Communication / Plan
-
-pod #1
-remains intubated, sedated with open chest
-pt was moving all extremities and followed commands prior to starting sedation
-hypotensive overnight - s/p 1 PRBC, 250cc 5% Albumin, and 25% Albumin x2
-at 5 am became bradycardic 50s and hypotensive - briefly paced @ 88- back to nsr 70s
-drips: Levo 10, Dobut 5, Vaso 0.02, Fentanyl 30, Propofol 10, Insulin 12. Milrinone is off d/t ectopy and low BP
-CI 1.78, CO 3.41, SVR 1000. mVO2 61.2
-CT outputs: 2 meds 125/315, Med A 240/370. L pleur 70/130
-Levo and Dobut are double concentrated
-on vent 10/500/40% fiO2/peep 5
-OG tube in place
-maintain Hansa rodrigues, pw (VVI), [place]ha
Assessment / Plan
-
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
LAD and reverse saphenous vein graft from ascending aortic graft to distal RCA; EVH of RLE; Explant of prior 21 mm trifecta aortic valve; 21 mm Medtronic Freestyle aortic root complex replacement with reimplantation of coronary buttons; Hypothermic
circulatory arrest with selective cerebral perfusion, ascending aortic replacement with a 26 mm straight tube graft pm 01/19/[address] Trivedi, pod #1
- Intraop DEMAR: LVEF preop was preserved at approximately 55 to 60%. Following surgery EF remained the same at approximate 50-55% on 5 dobutamine and some Cardene. Her RV function was normal preoperatively and mild to moderately depressed
postoperatively. Following aortic root replacement, there was no aortic valve insufficiency with a new freestyle porcine root replacement.
-Her cardiac index was depressed at approximately 1.5 on 5 dobutamine. She did not require any pacing and was on her own [place] sinus rhythm following surgery. Due to the extended pump time, mild RV dysfunction, and required multiple blood
products due to coagulopathy, chest was left open and packed with 1 vaginal pack.
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
- Multivessel coronary artery disease with anginal/exertional chest pain
- Class 1 obesity, BMI 33
- Hypertension
- Hyperlipidemia
- Previous PCI with cardiac stent to the OM
- Previous cardiac surgery with [place] trifecta # 21 aortic valve replacement and single-vessel bypass to the OM in 2017
- Diabetes mellitus (A1c 6.8)
- Severe carotid stenosis of the right side
(US 01/11/24: Mixed plaque within the right carotid bulb, velocity measurements suggestive of greater than 70% stenosis, internal to common carotid ratio suggestive of 50-69% stenosis)
- Hard of hearing
- WILNER
- b/l breast biopsies
- Acute postop anemia- s/p 6 pRBCs
- Acute postop coagulopathy/thrombocytopenia - s/p Factor 7 in OR, total 3 FFPs, 3 units platelets
- Acute postop atelectasis
- Acute postop hypovolemia with subsequent hypervolemia
- Acute postop hypotension d/t cardiogenic shock, requiring inotrops and pressors
- Acute postop ectopy (PACs, PVCs)- tx with Amio bolus and drip, now off - improved with discontinuing Milrinone
Discussed patient care with: Nursing and Care Team
Subjective
-
Date of Service: January 20, 2024
Objective Data
-
PT 11.4 Sec (11.4-14.6) 01/19/24 22:50
INR 0.85 01/19/24 22:50
APTT 32.5 Sec (23.4-35.0) 01/19/24 22:50
Vital Signs
Vital Signs
Temp Pulse Resp BP Pulse Ox
98.1 F 86 0 167/56 98
01/20/24 00:00 01/20/24 00:05 01/20/24 00:05 01/19/24 05:12 01/20/24 00:35
CT Intake/Output/Weight
01/19/24 01/19/24 01/20/24
06:59 18:59 06:59
Intake Total 158.8 / 1075.7 916.9 / 1075.7
Output Total 500 / 1000 500 / 1000
Balance -341.2 / 75.7 416.9 / 75.7
SaO2: 98
Physical Exam
-
General: Other (intubated, sedated. Pt was waking up and moving all extremities and squeezing hands b/l prior to sedation)
Cardiovascular: Regular rate & rhythm, No Murmurs and No Rub
Respiratory: Decreased Breath Sounds
Sternum: Other (left open)
Incision: Other
Extremities: Edema +1 (DPs by Doppler b/l, warm, soft b/l. Bryan wrap on RLE)
Data Reviewed
-
Lab Results: Results Reviewed
Medications: Active Meds Reviewed
Chest X-Ray: Report Reviewed and Image Reviewed
ECG: Report Reviewed and Image Reviewed
[2024-01-20 05:59] LABS: AST (SGOT) 70 U/L (14-36); Albumin 3.5 g/dl (3.5-5.0); Alkaline Phosphatase 36 U/L (38-126); Blood Urea Nitrogen 38 mg/dl (7-17); Calcium 9.9 mg/dl (8.4-10.2); Carbon Dioxide 23 mmol/L (22-30); Chloride 108 mmol/L (98-107); Estimated Creatinine Clearance 32 ml/min; Glucose 115 mg/dl (70-99); Magnesium 2.6 mg/dl (1.6-2.3); Potassium 4.2 mmol/L (3.5-5.1); Sodium 147 mmol/L (135-145); Total Bilirubin 0.8 mg/dl (0.2-1.3)
[2024-01-20] MEDS: ANCEF 5 IV ×3 (06:12→22:40)
[2024-01-20 06:34] LABS: ALT (SGPT) < 30 U/L (0-35)
[2024-01-20 06:51] VITALS: BP_SYST 110
--- NOTE | 2024-01-20 07:14 | W.PN.ANS.POP ---
Anesthesia Post Operative
- Anesthesia Post Op Note
Vital Signs Stable-See Nursing Note: Yes
Airway Patent: Yes
Adequate Pain Control: Yes
Change in Mental Status: No
Current Postoperative Nausea & Vomiting: No
Anesthesia Complications: No
General Anesthetic Recall: No
Unplanned Admission: No
Post Op Hydration Adequate: Yes
--- NOTE | 2024-01-20 08:00 | PTCARENOTE ---
Patient received from seam feller resting in bed, intubated and sedated. NSR via cm, SaO2 @ 96% on ventilator, FiO2 @ 40%. RIJ Cordis/Dalbo-Zane catheter, L radial arterial line, R femoral arterial line, all leveled, flushed, and calibrated w/good
waveforms returned. Epicardial V-wire to pulse generator, no spikes noted. Mediastinal chest tubes x 3 (2 pleurevacs), L pleural chest tube to seperate pleurevac - all to -10cm suction w/no air leak appreciated. Crowder catheter to gravity. OGT to
LIWS, scant drainage. LE DP/PT obtainable via doppler. Open chest, all procedural sites stable. Dr. Trivedi and team to bedside for am rounds. See work list for full assessment, interventions performed, and intravenous infusions and titrations.
--- NOTE | 2024-01-20 08:07 | CON.INTV ---
Consultation
Consultation Request
Date/Time Consultation Requested: 01/19/2024
Date/Time Consultation Performed: 01/20/2020
Requesting Provider: Dr. Trivedi
Performing Provider: Dr. Dion Mayes
Medical History
-
History of Present Illness:
78-year-old woman with complex cardiac history including surgical valve aortic replacement with coronary artery bypass in 2016, prior stent placement in 2019. Admitted for complex cardiac surgery due to deemed not a candidate for percutaneous
approach.
Underwent prolonged complex cardiothoracic surgery, explantation of existing aortic valve with a replacement,, coronary artery bypass, came out of the operating room with open chest due to hemodynamic instability, RV dysfunction, edema and oozing.
Overnight remained intubated, sedated, open chest.
On evaluation following commands with sedation breaks.
Overnight hypotensive requiring blood transfusion and volume resuscitation with colloids.
Remains on multiple inotropes/vasopressors.
Unable to provide history, records reviewed
Past Medical History
Past Medical History: Other (See assessment and plan)
Social History
Tobacco: Non-smoker
Personal:
Living: Alone
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
Family History
Family History: Unable to Obtain
Allergies / Home Medications
Allergies
Allergy/AdvReac Type Severity Reaction Status Date / Time
No Known Allergies Allergy Unverified 01/08/24 13:37
Home Medications
�Medication �Instructions �Recorded �Confirmed �Last Taken �Type
aspirin 81 mg tablet,delayed 81 mg PO DAILY Blood clot 03/26/16 01/19/24 01/14/24 09:00 History
release (Aspir-Low) prevention/tx
atorvastatin 20 mg tablet 20 mg PO QPM High cholesterol 09/22/19 01/19/24 01/18/24 09:00 History
clopidogrel 75 mg tablet 75 mg PO DAILY #90 tabs 09/22/19 01/19/24 01/13/24 09:00 Rx
metoprolol tartrate 50 mg tablet 50 mg PO BID Heart 09/22/19 01/19/24 01/18/24 09:00 History
disease/condition
amlodipine 5 mg tablet 5 mg PO DAILY 12/09/23 01/19/24 01/18/24 09:00 History
empagliflozin 25 mg tablet 25 mg PO DAILY 12/09/23 01/19/24 01/18/24 09:00 History
(Jardiance)
furosemide 20 mg tablet 20 mg PO DAILY 12/09/23 01/19/24 01/18/24 09:00 History
isosorbide mononitrate 30 mg 30 mg PO DAILY 12/09/23 01/19/24 01/18/24 09:00 History
tablet,extended release 24 hr
spironolactone 25 mg tablet 25 mg PO DAILY 12/09/23 01/19/24 01/18/24 09:00 History
valsartan 160 mg tablet 160 mg PO BID 12/09/23 01/19/24 01/18/24 09:00 History
Review of Systems
-
Unable to Obtain full review of systems at this time due to: Patient Intubation
Vitals / Labs / Diagnostic Testing
Vital Signs
Temp Pulse Resp BP Pulse Ox
97.8 F 70 20 167/56 98
01/20/24 07:00 01/20/24 07:10 01/20/24 07:10 01/19/24 05:12 01/20/24 07:05
Laboratory Results
01/19/24 01/19/24 01/19/24
16:55 20:08 22:49
PT 13.4
INR 1.04
APTT 43.6 H
pH 7.39 7.41 7.42
pCO2 40 H 38 H 36 H
pO2 263 H 192 H 146 H
HCO3 24.2 24.1 23.4
O2 Delivery Level Air vent 80% fio2
01/19/24 01/20/24 01/20/24
22:50 01:08 02:20
PT 11.4
INR 0.85
APTT 32.5
pH 7.39 7.38
pCO2 35 36 H
pO2 106 96
HCO3 21.2 21.3
O2 Delivery Level Vent unk
01/20/24
04:56
PT
INR
APTT
pH 7.47 H
pCO2 32
pO2 104
HCO3 23.3
O2 Delivery Level Vent
Diagnostic Testing:
Physical Exam
-
HEENT: Normocephalic and Other ( ET tube in place)
Cardiovascular: S1/S2 and Other (Open chest,)
Respiratory: Non-Labored Respirations
GI: Soft
Neurology: Other (Sedated, mechanical ventilation. Opening eyes occasionally. Following commands with sedation)
Skin: Warm
General: Comfortable
Assessment
-
Status post coronary artery bypass/aortic root replacement/redo sternotomy with lysis of adhesions/explant of prior aortic valve.
Open chest
Postoperative respiratory failure require mechanical ventilation
Postoperative
Conditions present prior admission:
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
Heart failure
Multivessel coronary artery disease
Morbid obesity
Hypertension
Hyperlipidemia
Coronary artery disease with prior stents
Prior aortic valve replacement with single-vessel bypass
Type 2 diabetes
Severe carotic stenosis on the right
Hard of hearing
Assessment and plan
Critically ill, open chest postoperatively-currently on mechanical ventilation and appears comfortable.
ABG reviewed:
Continue mechanical ventilation without tgixlo-[id number]-[id number]/500/10/40%/+ 5
Serial ABGs
Not ready for spontaneous breathing trial
Anemia noted-no evidence of acute bleeding
Follow H&H serially
Hemodynamics -remains tenuous but stable from overnight
Continue to titrate inotropic vasopressor based on hemodynamics
PA catheter and arterial line in place. Normal renal function
Crowder placed
Adequate urinary output
Diuretics to be started
Chest tube with no excessive drainage-no air leak.
Chest x-ray reviewed: Lines endotracheal tube in correct position. No pneumothorax. No significant collections.
Remain nothing by mouth
Head of the bed elevation
Glycemic control per protocol
DVT prophylaxis when safe from the surgical perspective.
Critical care statement: A total of 31 minutes of critical care time was provided for this patient today. This includes management of unstable vital signs, evaluation of the patient at bedside, reviewing the patient's pertinent medical records
including ventilator settings, arterial blood gases, radiographs, microbiology, laboratory evaluations and discussion with primary team, critical care nursing, and respiratory therapy.
[2024-01-20] MEDS: BUMEX 50 IV (08:11)
[2024-01-20] MEDS: BACTROBAN 2% OINTMENT 1 APPLIC NASAL ×2 (08:56→21:53)
[2024-01-20 08:57] LABS: ACT+ - POC > 1003 Seconds (82-134)
[2024-01-20] MEDS: LIDOCAINE 4% PATCH TOPICAL (09:00)
[2024-01-20] MEDS: MAGNESIUM OXIDE PO ×2 (09:49→21:52)
[2024-01-20] MEDS: PACERONE PO ×3 (09:49→22:41)
[2024-01-20] MEDS: NEURONTIN PO ×3 (09:49→22:41)
[2024-01-20] MEDS: FEOSOL PO (09:49)
[2024-01-20] MEDS: VITAMIN C PO (09:50)
[2024-01-20] MEDS: SENOKOT-S PO ×2 (09:50→21:52)
[2024-01-20 09:54] LABS: Mixed Venous O2 Saturation 64.7 %
[2024-01-20 10:00] LABS: Glucose - Point of Care 92 mg/dl (70-99)
[2024-01-20 10:00] LABS: Glucose - Point of Care 79 mg/dl (70-99)
[2024-01-20 10:00] LABS: Glucose - Point of Care 128 mg/dl (70-99)
[2024-01-20 10:04] LABS: Glucose - Point of Care 112 mg/dl (70-99)
[2024-01-20] MEDS: PROTONIX IV 40 MG IV (10:29)
[2024-01-20] MEDS: NSS (PRESERVATIVE FREE) 10 ML IV (10:29)
[2024-01-20 11:00] VITALS: BP_SYST 127
[2024-01-20 11:00] LABS: Glucose - Point of Care 105 mg/dl (70-99)
--- NOTE | 2024-01-20 11:00 | PTCARENOTE ---
R femoral arterial line d/c'd by Jamar Bowman PA-C. Hemostasis obtained, distal pulse obtainable via doppler. Patient tolerated well.
[2024-01-20] MEDS: LOW STRENGTH ASPIRIN 81 MG PO (11:05)
--- NOTE | 2024-01-20 11:20 | CM ---
Chart reviewed. Patient remains in critical condition. Patient is independent of ADLS, lives alone in a 1 STH, 0 SERGIO, 0 DME but has a SPC and RW at home if needed. Plan is for the patient's daughter to stay with her when medically stable for
discharge. Plan is for the patient to return home with CT Transitional RN and daughter. CM to follow
[2024-01-20 12:15] LABS: Glucose - Point of Care 95 mg/dl (70-99)
[2024-01-20 12:23] LABS: B.E. 5.3 mmol/L; HCO3 27.2 mmol/L (21-28); Ionized Calcium 1.25 mMOL/L (1.15-1.33); O2 Saturation % 98.8 % (94-98); PCO2 29 mmHg (32-35); PO2 91 mmHg (83-108); Potassium 4.7 mMOL/L (3.5-5.1); Sodium 142 mMOL/L (136-145); pH 7.58 (7.35-7.45)
[2024-01-20 12:26] LABS: Mixed Venous O2 Saturation 68.7 %
[2024-01-20 12:32] LABS: Hematocrit 22.5 % (37.0-47.0); Hemoglobin 8.2 g/dL (12.0-16.0); Mean Corp Hgb Conc. 36.4 g/dL (33.0-37.0); Mean Corpuscular Hgb 30.3 pg (27.0-31.0); Mean Platelet Volume 10.6 fL (7.4-10.4); Platelet Count 75 10^3/uL (130-400); Red Blood Cell Count 2.71 10^6/uL (4.20-5.40); Red Cell Dist. Width 14.9 % (11.5-14.5); White Blood Cell Count 10.3 10^3/uL (4.8-10.8)
[2024-01-20 12:36] LABS: ALT (SGPT) 16 U/L (0-35); AST (SGOT) 108 U/L (14-36); Albumin 3.7 g/dl (3.5-5.0); Alkaline Phosphatase 35 U/L (38-126); Blood Urea Nitrogen 39 mg/dl (7-17); Calcium 9.9 mg/dl (8.4-10.2); Carbon Dioxide 28 mmol/L (22-30); Chloride 108 mmol/L (98-107); Estimated Creatinine Clearance 30 ml/min; Glucose 87 mg/dl (70-99); Potassium 4.6 mmol/L (3.5-5.1); Sodium 147 mmol/L (135-145); Total Bilirubin 0.9 mg/dl (0.2-1.3); Total Protein 5.2 g/dl (6.3-8.2); eGFR 30.32
[2024-01-20 13:02] LABS: Glucose - Point of Care 77 mg/dl (70-99)
--- NOTE | 2024-01-20 13:07 | PN.CDI ---
CDI
- -
CDI:
Physician Documentation Request
Admit Date: 01/19/24 04:[address] Surgery,
Clinical Indicators:
Patient admitted with failed bioprosthetic aortic valve & CAD.
01/19 PN, 'Acute postop hypotension d/t cardiogenic shock, requiring inotrops and pressors'
01/18 21:00 - 01/19 09:00 Urine output 20-30 ml/hr
Cr/GFR trend:
01/19/24 01/19/24 01/20/24
16:55 22:50 00:26
Creatinine 0.9 1.3 H 1.4 H
eGFR 38.27
Please clarify which of the following accurately represents the patient's renal status:
FABIAN
FABIAN with suspected ATN
Other, please specify
Criteria for FABIAN*
1 Increase in serum creatinine by > or = to 0.3 mg/dL (> or = to 26.5 micromol/L) within 48 hours, OR
2 Increase in serum creatinine to > or = to 1.5 times baseline, which is known or presumed to have occurred within 7 days, OR
3 Urine volume < 0.5 nL/kg/hour for six hours
Use of terms such as suspected, likely, concern for, or probable (associated with a specific diagnosis that is being evaluated, monitored, or treated as if it exists) are acceptable and can be coded in the inpatient setting, when documented at the
time of discharge.
Thank you,
Porsha Jaramillo RN BSN
CDI Specialist
available via tiger text
Please use your independent medical judgment in providing your response.
*Source: Kidney Disease: Improving Global Outcomes (KDIGO) 2012
[2024-01-20] MEDS: VERSED 2 MG IV (13:16)
[2024-01-20] MEDS: FERRLECIT 110 MG IV (13:24)
[2024-01-20 14:01] LABS: Glucose - Point of Care 106 mg/dl (70-99)
--- NOTE | 2024-01-20 14:39 | W.PN.CARDCBS ---
Addendum entered and electronically signed by Landy Mayer MD 01/20/24 16:05:
I saw and examined the patient.
The Social Service Agency Director's note was reviewed and I agree with the note.
Comment: Intubated and sedated on ventilator. Continues on pressor support, now on IV infusion Bumex. Also on amiodarone to suppress ectopy. Predominantly PACs noted. Continue to follow telemetry.
Avoid overdiuresis given prior history of RV dysfunction although last 2 echocardiograms reviewed visually RV looks fairly stable.
Geometry and dynamics of heart changed in particular intraventricular interaction given open chest. Continue to be cautious with weaning off pressors and with volume status.
Oxygenation stable.
Would not be surprised if patient does go into atrial fibrillation. Monitor telemetry.
Continue postop care.
Original Note:
Today's Communication / Plan
-
Remains on dobutamine and Vaso
Increased PACs overnight, seems better now
Impression / Plan
-
Cardiology: Dr. Fernie Cox
PCP: Dr. Radha Tamez
IMPRESSION:
s/p Freestyle 21 mm AV replacement with replacement of ascending aorta to innominate for and aortic insufficiency of previously placed tissue AVR 01/19/24
s/p tissue AVR 2016
Not TAVR candidate with low coronary heights and narrow SOV
CAD s/p CABG with GARCIA to LAD and SVG to RCA, Diagonal could not be grafted 01/19/24
previous CABG with SVG to OM-2 in 2017 known to be occluded since cath in 2019
Open sternotomy secondary to oozing, edema, RV dysfunction on multiple pressors dobutamine and milrinone 01/19/24
DM 2
Hyperlipidemia
RECOMMENDATIONS:
-Patient has been weaned form Levo 01/20/24. Remains on dobutamine at 5 and Vasopressin at 0.02. BP 81/38 at the time of my exam.
-Milrinone stopped overnight for frequent PACs and hypotension
-Tele reviewed by me and was SR without ectopy in the room.
-Pulm note reviewed, remains intubated
-CT surgery team note reviewed, plan is to close the chest 01/21/24.
Progress Note - Diet Technician Registered
Subjective
Date of Service: January 20, 2024
Intubated and sedated
Objective
Labs:
Labs
Hgb 8.2 g/dL (12.0-16.0) L 01/20/24 12:11
Hct 22.5 % (37.0-47.0) L 01/20/24 12:11
Plt Count 75 10^3/uL (130-400) L D 01/20/24 12:11
PT 11.4 Sec (11.4-14.6) 01/19/24 22:50
INR 0.85 01/19/24 22:50
APTT 32.5 Sec (23.4-35.0) 01/19/24 22:50
Sodium 147 mmol/L (135-145) H 01/20/24 12:11
Potassium 4.6 mmol/L (3.5-5.1) 01/20/24 12:11
BUN 39 mg/dl (7-17) H 01/20/24 12:11
Creatinine 1.7 mg/dL (0.6-1.0) H 01/20/24 12:11
Glucose 87 mg/dl (70-99) 01/20/24 12:11
Vital Signs and I&O:
Vital Signs
Temp Pulse Resp BP Pulse Ox
97.5 F 66 21 167/56 96
01/20/24 14:00 01/20/24 14:00 01/20/24 14:00 01/19/24 05:12 01/20/24 14:00
Vital Signs
Temp Pulse Resp BP Pulse Ox
97.5 F 66 21 167/56 96
01/20/24 14:00 01/20/24 14:00 01/20/24 14:00 01/19/24 05:12 01/20/24 14:00
Intake & Output
01/18/24 01/19/24 01/20/24 01/21/24
06:59 06:59 06:59 06:59
Intake Total 2416.2 / 2474.7 615.6 / 615.6
Output Total 1255 / 1325 595 / 595
Balance 1161.2 / 1149.7 20.6 / 20.6
Physical Exam
Physical Exam
GEN: NAD
HEENT: MMM
LUNGS: Intubated and on the ventilator. Clear anterolaterally without wheeze
CV: Median sternotomy is open but dressed. SR on tele
ABD : ND
EXT: No edema B/L
NEURO: Sedated
[2024-01-20 15:00] VITALS: BP_SYST 85
[2024-01-20 15:11] LABS: Glucose - Point of Care 104 mg/dl (70-99)
[2024-01-20 15:14] LABS: B.E. 3.2 mmol/L; HCO3 26.1 mmol/L (21-28); Ionized Calcium 1.23 mMOL/L (1.15-1.33); O2 Saturation % 99.6 % (94-98); PCO2 32 mmHg (32-35); PO2 113 mmHg (83-108); pH 7.52 (7.35-7.45)
[2024-01-20] MEDS: NSS IV (15:54)
[2024-01-20] MEDS: SUBLIMAZE 100 IV ×2 (15:55→22:17)
[2024-01-20 16:03] LABS: Glucose - Point of Care 95 mg/dl (70-99)
[2024-01-20 16:59] LABS: Glucose - Point of Care 102 mg/dl (70-99)
[2024-01-20] MEDS: LIPITOR PO (17:34)
[2024-01-20 18:04] LABS: Glucose - Point of Care 96 mg/dl (70-99)
[2024-01-20 18:13] LABS: B.E. 3.9 mmol/L; HCO3 27.6 mmol/L (21-28); Ionized Calcium 1.24 mMOL/L (1.15-1.33); O2 Saturation % 99.1 % (94-98); PCO2 37 mmHg (32-35); PO2 103 mmHg (83-108); Potassium 5.3 mMOL/L (3.5-5.1); Sodium 144 mMOL/L (136-145); pH 7.48 (7.35-7.45)
[2024-01-20 18:16] LABS: Mixed Venous O2 Saturation 61.1 %
[2024-01-20 18:19] LABS: Hematocrit 22.2 % (37.0-47.0); Hemoglobin 8.1 g/dL (12.0-16.0); Mean Corp Hgb Conc. 36.5 g/dL (33.0-37.0); Mean Corpuscular Hgb 29.6 pg (27.0-31.0); Mean Platelet Volume 10.8 fL (7.4-10.4); Platelet Count 74 10^3/uL (130-400); Red Blood Cell Count 2.74 10^6/uL (4.20-5.40); Red Cell Dist. Width 15.5 % (11.5-14.5); White Blood Cell Count 11.3 10^3/uL (4.8-10.8)
[2024-01-20 18:25] LABS: ALT (SGPT) 16 U/L (0-35); AST (SGOT) 140 U/L (14-36); Albumin 3.4 g/dl (3.5-5.0); Alkaline Phosphatase 35 U/L (38-126); Blood Urea Nitrogen 40 mg/dl (7-17); Calcium 9.3 mg/dl (8.4-10.2); Carbon Dioxide 28 mmol/L (22-30); Chloride 106 mmol/L (98-107); Estimated Creatinine Clearance 28 ml/min; Glucose 88 mg/dl (70-99); Potassium 5.2 mmol/L (3.5-5.1); Sodium 147 mmol/L (135-145); Total Bilirubin 0.8 mg/dl (0.2-1.3); eGFR 28.31
--- NOTE | 2024-01-20 19:40 | PTCARENOTE ---
received pt from previous rn. pt intubated and sedated. pt switching rhythms from a-fib/junctional w/ PACs. PERRLA. SaO2 @ 96% on ventilator, FiO2 @ 40%. RIJ Cordis/[place]-Zane catheter, L radial arterial line,, all leveled, flushed. CTx4 to -10 cm
wall suction, no air leak/tidaling/crepitus. lungs diminished. hypoactive bs, [place] draining clear yellow urine. OGT to LATASHA FUENTES DP/PT obtainable via doppler. Open chest, all procedural sites stable. 1 unit of RBC started and transfusing.
[2024-01-20 20:01] LABS: Glucose - Point of Care 109 mg/dl (70-99)
[2024-01-20 21:02] LABS: B.E. 2.9 mmol/L; HCO3 27.1 mmol/L (21-28); Ionized Calcium 1.22 mMOL/L (1.15-1.33); O2 Saturation % 98.3 % (94-98); PCO2 39 mmHg (32-35); PO2 95 mmHg (83-108); Potassium 5.6 mMOL/L (3.5-5.1); pH 7.45 (7.35-7.45)
[2024-01-20 21:05] LABS: Mixed Venous O2 Saturation 58.9 %
[2024-01-20 21:09] LABS: Hematocrit 24.7 % (37.0-47.0); Platelet Count 75 10^3/uL (130-400)
[2024-01-20] MEDS: DEXTROSE 50% SYRINGE 25 GRAMS IV (21:26)
[2024-01-20] MEDS: NOVOLIN R 10 UNITS IV (21:32)
[2024-01-20 22:00] LABS: Glucose - Point of Care 190 mg/dl (70-99)
[2024-01-20 22:24] LABS: Glucose - Point of Care 148 mg/dl (70-99)
[2024-01-20 22:27] LABS: B.E. 1.2 mmol/L; Ionized Calcium 1.24 mMOL/L (1.15-1.33); O2 Saturation % 96.2 % (94-98); PCO2 41 mmHg (32-35); PO2 70 mmHg (83-108); Potassium 4.6 mMOL/L (3.5-5.1); pH 7.41 (7.35-7.45)
[2024-01-20 22:55] LABS: Glucose - Point of Care 111 mg/dl (70-99)
[2024-01-20 23:00] VITALS: BP_SYST 108
[2024-01-20 23:07] LABS: Mixed Venous O2 Saturation 65.9 %
[2024-01-20 23:31] LABS: Blood Urea Nitrogen 41 mg/dl (7-17); Calcium 9.1 mg/dl (8.4-10.2); Carbon Dioxide 28 mmol/L (22-30); Chloride 107 mmol/L (98-107); Estimated Creatinine Clearance 27 ml/min; Glucose 98 mg/dl (70-99); Potassium 4.5 mmol/L (3.5-5.1); Sodium 145 mmol/L (135-145); eGFR 26.53
--- NOTE | 2024-01-20 23:38 | PTCARENOTE ---
labs drawn and sent, BP 114/48 on 4 of levo and 0.02 of vaso, assessment remains unchanged.
[2024-01-21] VITALS (17 sets, daily range): BP systolic 87–132; BP diastolic 38–57; BMI 35.6
--- NOTE | 2024-01-21 | PTCARENOTE ---
pt in junctional rhythm Hr 60-70s, v paced at 80 briefly, NSR returned after pacing
[2024-01-21 00:37] LABS: Mixed Venous O2 Saturation 65.7 %
[2024-01-21 00:40] LABS: B.E. 2.9 mmol/L; HCO3 27.9 mmol/L (21-28); Ionized Calcium 1.27 mMOL/L (1.15-1.33); O2 Saturation % 98.5 % (94-98); PCO2 44 mmHg (32-35); PO2 100 mmHg (83-108); Potassium 4.8 mMOL/L (3.5-5.1); Sodium 143 mMOL/L (136-145); pH 7.41 (7.35-7.45)
[2024-01-21 00:52] LABS: ALT (SGPT) 16 U/L (0-35); AST (SGOT) 169 U/L (14-36); Albumin 3.4 g/dl (3.5-5.0); Alkaline Phosphatase 36 U/L (38-126); Blood Urea Nitrogen 39 mg/dl (7-17); Calcium 9.1 mg/dl (8.4-10.2); Carbon Dioxide 29 mmol/L (22-30); Chloride 108 mmol/L (98-107); Estimated Creatinine Clearance 27 ml/min; Glucose 70 mg/dl (70-99); Potassium 4.7 mmol/L (3.5-5.1); Sodium 148 mmol/L (135-145); Total Bilirubin 0.8 mg/dl (0.2-1.3); eGFR 26.53
[2024-01-21] MEDS: DIPRIVAN 100 IV ×3 (00:58→12:17)
[2024-01-21 01:03] LABS: Glucose - Point of Care 63 mg/dl (70-99)
[2024-01-21] MEDS: DEXTROSE 50% SYRINGE 12.5 GRAMS IV (01:04)
[2024-01-21 01:28] LABS: Glucose - Point of Care 126 mg/dl (70-99)
[2024-01-21 02:07] LABS: B.E. 3.8 mmol/L; HCO3 28.5 mmol/L (21-28); Ionized Calcium 1.24 mMOL/L (1.15-1.33); O2 Saturation % 99.4 % (94-98); PCO2 43 mmHg (32-35); PO2 117 mmHg (83-108); Potassium 4.9 mMOL/L (3.5-5.1); pH 7.43 (7.35-7.45)
[2024-01-21 02:31] LABS: Magnesium 2.4 mg/dl (1.6-2.3)
--- NOTE | 2024-01-21 03:03 | PTCARENOTE ---
pt had hypertensive episode, SBP 160s Cardene and nitro gtt started, pt sbp returned back to 100-110s,
[2024-01-21 03:26] LABS: Glucose - Point of Care 97 mg/dl (70-99)
[2024-01-21 03:26] LABS: Glucose - Point of Care 91 mg/dl (70-99)
[2024-01-21] MEDS: NSS 500 IV (03:31)
[2024-01-21] MEDS: VERSED 0.5 MG IV ×3 (03:45→06:10)
[2024-01-21 04:10] LABS: Glucose - Point of Care 107 mg/dl (70-99)
--- NOTE | 2024-01-21 04:37 | W.PN.CT ---
Today's Communication / Plan
-
-pod #2
-plans for chest closure today
-labile rhythm and BP (intermittent junctional rhythm with hypotension, required brief V-pacing). Stopped Amio drip d/t junctional rhythm
-s/p 1 pRBC yesterday- diuresed with Bumex afterwards (10pm-1am)
-drips: Dobut 7, Vaso 0.02, Levo 4, Insulin, Propofol 30, Fentanyl 100
-CT outputs: L pleur 55/85, med A 110/270, 2 meds 25/55
-follow Cr
-vent settings Simv 10/500/peep 5/60% fiO2
Assessment / Plan
-
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
LAD and reverse saphenous vein graft from ascending aortic graft to distal RCA; EVH of RLE; Explant of prior 21 mm trifecta aortic valve; 21 mm Medtronic Freestyle aortic root complex replacement with reimplantation of coronary buttons; Hypothermic
circulatory arrest with selective cerebral perfusion, ascending aortic replacement with a 26 mm straight tube graft pm 01/19/[address] Trivedi, pod #2
- Intraop DEMAR: LVEF preop was preserved at approximately 55 to 60%. Following surgery EF remained the same at approximate 50-55% on 5 dobutamine and some Cardene. Her RV function was normal preoperatively and mild to moderately depressed
postoperatively. Following aortic root replacement, there was no aortic valve insufficiency with a new freestyle porcine root replacement.
-Her cardiac index was depressed at approximately 1.5 on 5 dobutamine. She did not require any pacing and was on her own rincon sinus rhythm following surgery. Due to the extended pump time, mild RV dysfunction, and required multiple blood
products due to coagulopathy, chest was left open and packed with 1 vaginal pack.
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
- Multivessel coronary artery disease with anginal/exertional chest pain
- Class 1 obesity, BMI 33
- Hypertension
- Hyperlipidemia
- Previous PCI with cardiac stent to the OM
- Previous cardiac surgery with St Randy trifecta # 21 aortic valve replacement and single-vessel bypass to the OM in 2017
- Diabetes mellitus (A1c 6.8)
- Severe carotid stenosis of the right side
(US 01/11/24: Mixed plaque within the right carotid bulb, velocity measurements suggestive of greater than 70% stenosis, internal to common carotid ratio suggestive of 50-69% stenosis)
- Hard of hearing
- WILNER
- b/l breast biopsies
- Acute postop anemia- s/p 7 pRBCs
- Acute postop coagulopathy/thrombocytopenia - s/p Factor 7 in OR, total 3 FFPs, 3 units platelets
- Acute postop atelectasis
- Acute postop hypovolemia with subsequent hypervolemia
- Acute postop hypotension d/t cardiogenic shock, requiring inotrops and pressors
- Acute postop ectopy (PACs, PVCs)- tx with Amio bolus and drip, now off - improved with discontinuing Milrinone
- FABIAN
- Acute postop hyperkalemia
- Acute postop junctional rhythm
- Acute postop metabolic alkalosis with respiratory compensation
Discussed patient care with: Nursing and Care Team
Subjective
-
Date of Service: January 21, 2024
Objective Data
-
PT 11.4 Sec (11.4-14.6) 01/19/24 22:50
INR 0.85 01/19/24 22:50
APTT 32.5 Sec (23.4-35.0) 01/19/24 22:50
Vital Signs
Vital Signs
Temp Pulse Resp BP Pulse Ox
97.5 F 78 12 167/56 98
01/21/24 04:00 01/21/24 04:15 01/21/24 04:15 01/19/24 05:12 01/21/24 04:15
CT Intake/Output/Weight
01/20/24 01/20/24 01/21/24
06:59 18:59 06:59
Intake Total 2257.4 / 2474.7 990.1 / 2108.5 1118.4 / 2108.5
Output Total 755 / 1325 1080 / 2175 1095 / 2175
Balance 1502.4 / 1149.7 -89.9 / -66.5 23.4 / -66.5
SaO2: 98
Physical Exam
-
General: Other (intubated, sedated. Pt was waking up and moving all extremities and squeezing hands b/l prior to sedation)
Cardiovascular: Regular rate & rhythm, No Murmurs and No Rub
Respiratory: Decreased Breath Sounds
Sternum: Other (left open)
Incision: Other
Extremities: Edema +1 , DPs by Doppler b/l, warm, soft b/l.
Data Reviewed
-
Lab Results: Results Reviewed
Medications: Active Meds Reviewed
Chest X-Ray: Report Reviewed and Image Reviewed
ECG: Report Reviewed and Image Reviewed
[2024-01-21 04:55] LABS: Glucose - Point of Care 103 mg/dl (70-99)
[2024-01-21] MEDS: ANCEF 5 IV (05:45)
[2024-01-21] MEDS: BACTROBAN 2% OINTMENT 1 APPLIC NASAL ×3 (05:51→22:03)
[2024-01-21] MEDS: TYLENOL PO ×2 (05:52→15:31)
[2024-01-21 05:57] LABS: HCO3 27.1 mmol/L (21-28); Ionized Calcium 1.23 mMOL/L (1.15-1.33); O2 Saturation % 98.8 % (94-98); PCO2 34 mmHg (32-35); PO2 124 mmHg (83-108); Sodium 142 mMOL/L (136-145); pH 7.51 (7.35-7.45)
[2024-01-21 05:59] LABS: O2 Therapy VENT
[2024-01-21 06:01] LABS: Glucose - Point of Care 103 mg/dl (70-99)
[2024-01-21 06:15] LABS: Hematocrit 25.8 % (37.0-47.0); Hemoglobin 9.2 g/dL (12.0-16.0); Mean Corp Hgb Conc. 35.7 g/dL (33.0-37.0); Mean Corpuscular Hgb 30.6 pg (27.0-31.0); Mean Corpuscular Volume 85.7 fL (81.0-99.0); Mean Platelet Volume 11.9 fL (7.4-10.4); Platelet Count 71 10^3/uL (130-400); Red Blood Cell Count 3.01 10^6/uL (4.20-5.40); Red Cell Dist. Width 15.9 % (11.5-14.5)
[2024-01-21 06:28] LABS: ALT (SGPT) 15 U/L (0-35); AST (SGOT) 158 U/L (14-36); Albumin 3.1 g/dl (3.5-5.0); Alkaline Phosphatase 44 U/L (38-126); Blood Urea Nitrogen 39 mg/dl (7-17); Calcium 8.9 mg/dl (8.4-10.2); Carbon Dioxide 26 mmol/L (22-30); Chloride 108 mmol/L (98-107); Estimated Creatinine Clearance 27 ml/min; Glucose 101 mg/dl (70-99); Magnesium 2.2 mg/dl (1.6-2.3); Potassium 4.8 mmol/L (3.5-5.1); Sodium 146 mmol/L (135-145); Total Bilirubin 0.7 mg/dl (0.2-1.3); Total Protein 4.7 g/dl (6.3-8.2); eGFR 26.53
--- NOTE | 2024-01-21 07:16 | PTCARENOTE ---
assumed care of pt from previous shift RN, Pt awakens to painful stimuli, RASS -3, pupils +2 equally reactive to light. sinus rhythm on tele w HR 78, epicardial V wire set to 60/15, BP via left radial sang 101/40 (55), + doppler peripheral pulses,
generalize anasarca noted. Lungs diminished, #8 ETT/21cm at right lip, VENT SETTINGS: SIMV 60%/500/10/+5, POX 99%. +hypoactive BS, OGT maintained to LIS. Crowder catheter draining clear yellow. CT x4 to -10 suction w minimal red drainage. Sternum
remains open w ioban clear covering intact, right knee harvest site approximated without drainage, right groin w retention suture maintained. Right IJ cordis w swan floated to 40, PAP 26/16, CVP 12, CI 2.13 CO 4.09 SVR 860.
DRIPS: Bumex 0.5mg/hr
Dobutamine 7mcg/kg/min
Propofol 30 mcg/kg/min
Fentanyl 100 mcg/hr
Insulin titrated per glycemic protocol
[2024-01-21 08:00] LABS: Glucose - Point of Care 91 mg/dl (70-99)
[2024-01-21] MEDS: LIDOCAINE 4% PATCH TOPICAL (08:54)
[2024-01-21] MEDS: FEOSOL PO (08:54)
[2024-01-21] MEDS: SENOKOT-S PO (08:55)
[2024-01-21] MEDS: VITAMIN C PO (08:55)
[2024-01-21] MEDS: MAGNESIUM OXIDE PO (08:55)
[2024-01-21] MEDS: NEURONTIN PO ×2 (08:55→15:31)
[2024-01-21] MEDS: PACERONE PO ×2 (08:56→15:31)
[2024-01-21] MEDS: SUBLIMAZE 100 IV (08:57)
[2024-01-21] MEDS: NOVOLIN R INSULIN INFUSION 100 IV (08:58)
[2024-01-21] MEDS: NSS (PRESERVATIVE FREE) 10 ML IV (09:08)
[2024-01-21] MEDS: LOW STRENGTH ASPIRIN 81 MG PO (09:09)
[2024-01-21] MEDS: PROTONIX IV 40 MG IV (09:09)
[2024-01-21] MEDS: BUMEX 50 IV (09:39)
[2024-01-21 10:11] LABS: Glucose - Point of Care 100 mg/dl (70-99)
[2024-01-21 11:00] LABS: Glucose - Point of Care 111 mg/dl (70-99)
--- NOTE | 2024-01-21 11:12 | PTCARENOTE ---
labs drawn and sent as ordered.
[2024-01-21 11:13] LABS: Ionized Calcium 1.18 mMOL/L (1.15-1.33); PCO2 38 mmHg (32-35); PO2 122 mmHg (83-108); Sodium 141 mMOL/L (136-145); pH 7.46 (7.35-7.45)
--- NOTE | 2024-01-21 11:13 | CM ---
Chart reviewed. Patient still remains in critical condition. Patient is independent of ADLS, lives alone in a [address] [facility], has a SPC and RW in the home, 0 [place]. Plan is for the daughter to stay with the patient and to return home with CT Transitional
RN. ANDREEA to follow
[2024-01-21 11:18] LABS: Mixed Venous O2 Saturation 63.8 %
[2024-01-21 11:23] LABS: ALT (SGPT) 15 U/L (0-35); AST (SGOT) 152 U/L (14-36); Albumin 3.3 g/dl (3.5-5.0); Alkaline Phosphatase 48 U/L (38-126); Blood Urea Nitrogen 41 mg/dl (7-17); Carbon Dioxide 27 mmol/L (22-30); Chloride 106 mmol/L (98-107); Estimated Creatinine Clearance 23 ml/min; Fibrinogen 439 MG/DL (199-459); Glucose 128 mg/dl (70-99); PT 14.7 Sec (11.4-14.6); Sodium 144 mmol/L (135-145); Total Bilirubin 0.7 mg/dl (0.2-1.3); Total Protein 4.8 g/dl (6.3-8.2); eGFR 22.25
[2024-01-21 11:24] LABS: APTT 32.7 Sec (23.4-35.0); Lactic Acid 1.4 mmol/L (0.7-2.0)
--- NOTE | 2024-01-21 11:44 | PTCARENOTE ---
pt w bursts of SVT, self limiting. CT BRO made aware. Amio bolus and gtt ordered.
[2024-01-21 11:48] LABS: % Basophils 0.2 % (0-2); % Immature Granulocytes 0.9 % (0-0.5); % Lymphocytes 2.3 % (20.5-51.1); % Neutrophils 87.6 % (42.2-75.2); Absolute Immature Granulocytes 0.2 10^3/uL (0-0.05); Absolute Lymphocytes 0.4 10^3/uL (1.2-3.4); Absolute Monocytes 1.6 10^3/uL (0.1-0.6); Absolute Neutrophils 15.4 10^3/uL (1.4-6.5); Hematocrit 26.3 % (37.0-47.0); Hemoglobin 9.3 g/dL (12.0-16.0); Mean Corp Hgb Conc. 35.4 g/dL (33.0-37.0); Mean Corpuscular Hgb 30.8 pg (27.0-31.0); Mean Corpuscular Volume 87.1 fL (81.0-99.0); Mean Platelet Volume 11.8 fL (7.4-10.4); Nucleated Red Blood Cells % 0.1 %; Platelet Count 73 10^3/uL (130-400); Red Blood Cell Count 3.02 10^6/uL (4.20-5.40); Red Cell Dist. Width 16.1 % (11.5-14.5); White Blood Cell Count 17.6 10^3/uL (4.8-10.8)
[2024-01-21 12:13] LABS: Glucose - Point of Care 113 mg/dl (70-99)
[2024-01-21] MEDS: DOBUTREX 250 MG IV (12:19)
[2024-01-21] MEDS: CORDARONE 103 MG IV (12:26)
--- NOTE | 2024-01-21 12:52 | W.PN.CARDCBS ---
Addendum entered and electronically signed by Alfredo Andrew MD 01/21/24 17:18:
I saw and examined the patient.
The Dispatcher Chief Oil's note was reviewed and I agree with the note.
Patient seen and examined on morning rounds
Comment: Briefly, 78-year-old woman past medical history of bioprosthetic AVR and CABG (2016) who presented for redo AVR and CABG on 01/19/2024
Remains in the CVICU today where she is intubated and sedated - was planned was for chest closure today
On dobutamine for inotrope support
Bumex drip to augment diuresis
Filling pressures are reasonable based on invasive hemodynamics earlier today
Back on amiodarone drip today, was maintaining sinus rhythm this morning on telemetry
We will follow with you
Original Note:
Today's Communication / Plan
-
Back on amiodarone gtt
Impression / Plan
-
Cardiology: Dr. Fernie Cox
PCP: Dr. Radha Tamez
IMPRESSION:
s/p Freestyle 21 mm AV replacement with replacement of ascending aorta to innominate for and aortic insufficiency of previously placed tissue AVR 01/19/24
s/p tissue AVR 2016
Not TAVR candidate with low coronary heights and narrow SOV
CAD s/p CABG with GARCIA to LAD and SVG to RCA, Diagonal could not be grafted 01/19/24
previous CABG with SVG to OM-2 in 2017 known to be occluded since cath in 2019
Open sternotomy secondary to oozing, edema, RV dysfunction on multiple pressors dobutamine and milrinone 01/19/24
DM 2
Hyperlipidemia
RECOMMENDATIONS:
-Levo at 4, Dobut at 7, Vaso stopped
-Bumex gtt on hold for now and might get albumin post-op
-Patient is planned for closure 01/21/24
-No h/o atrial arrhythmia prior to admission, but increased atrial ectopy on milrinone and then Afib on ECG 01/20/24 PM. Amiodarone gtt started and then junctional and gtt stopped. Amiodarone gtt restarted 01/21/24. Will follow on tele
Progress Note - Histology Teacher
Subjective
Date of Service: January 21, 2024
Returning to OR shortly
Objective
Labs:
01/21/24 10:57
01/21/24 10:57
Labs
Hgb 9.3 g/dL (12.0-16.0) L 01/21/24 10:57
Hct 26.3 % (37.0-47.0) L 01/21/24 10:57
Plt Count 73 10^3/uL (130-400) L 01/21/24 10:57
PT 14.7 Sec (11.4-14.6) H 01/21/24 10:57
INR 1.10 01/21/24 10:57
APTT 32.7 Sec (23.4-35.0) 01/21/24 10:57
Sodium 144 mmol/L (135-145) 01/21/24 10:57
Potassium 5.0 mmol/L (3.5-5.1) 01/21/24 10:57
BUN 41 mg/dl (7-17) H 01/21/24 10:57
Creatinine 2.2 mg/dL (0.6-1.0) H 01/21/24 10:57
Glucose 128 mg/dl (70-99) H 01/21/24 10:57
Vital Signs and I&O:
Vital Signs
Temp Pulse Resp BP Pulse Ox
98.7 F 76 14 107/41 99
01/21/24 12:00 01/21/24 12:00 01/21/24 12:00 01/21/24 11:00 01/21/24 12:00
Vital Signs
Temp Pulse Resp BP Pulse Ox
98.7 F 76 14 107/41 99
01/21/24 12:00 01/21/24 12:00 01/21/24 12:00 01/21/24 11:00 01/21/24 12:00
Intake & Output
01/19/24 01/20/24 01/21/24 01/22/24
06:59 06:59 06:59 06:59
Intake Total 2416.2 / 2474.7 2257.7 / 2345.8 424.4 / 424.4
Output Total 1255 / 1325 2325 / 2365 170 / 170
Balance 1161.2 / 1149.7 -67.3 / -19.2 254.4 / 254.4
Physical Exam
Physical Exam
GEN: NAD
HEENT: MMM
LUNGS: Intubated and on the ventilator. Clear anterolaterally without wheeze
CV: Median sternotomy is open but dressed. SR on tele
ABD : ND
EXT: No edema B/L
NEURO: Sedated
--- NOTE | 2024-01-21 13:00 | PTCARENOTE ---
pt washed w CHG wipes and transported to [facility].
--- NOTE | 2024-01-21 13:15 | W.PN.INTV ---
Today's Communication / Plan
Recommendations
Wean down inotropes/vasopressors as able
Bumex drip
Follow renal function electrolytes
Continue mechanical ventilation without change
For chest closure today
Not ready for spontaneous breathing trial today
Assessment
-
Status post coronary artery bypass/aortic root replacement/redo sternotomy with lysis of adhesions/explant of prior aortic valve.
Open chest
Postoperative respiratory failure require mechanical ventilation
Postoperative
Conditions present prior admission:
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
Heart failure
Multivessel coronary artery disease
Morbid obesity
Hypertension
Hyperlipidemia
Coronary artery disease with prior stents
Prior aortic valve replacement with single-vessel bypass
Type 2 diabetes
Severe carotic stenosis on the right
Hard of hearing
Assessment and plan
Critically ill, open chest postoperatively-currently on mechanical ventilation and appears comfortable.
ABG reviewed: 7/112
Continue mechanical ventilation without poysub-nsxslv-fnicjtu/500/10/40%/+ 5
Daily ABGs
Not ready for spontaneous breathing trial, will be tried after chest is closed if appropriate
Patient for chest closure today 01/21/2024.
Anemia noted-no evidence of acute bleeding
Follow H&H serially
Hemodynamics -remains tenuous but stable from overnight
Continue to titrate inotropic vasopressor based on hemodynamics
Currently on levophed and dobutamine
PA catheter and arterial line in place.
Crowder placed
on Bumex drip
Acute kidney injury noted. Follow urinary output.
No significant metabolic acidosis
Cardiology following
Postoperative A-fib, amiodarone drip ongoing
Chest tube with no excessive drainage-no air leak.
Chest x-ray reviewed: Lines endotracheal tube in correct position. No pneumothorax. No significant collections.
Remain nothing by mouth
Head of the bed elevation
Glycemic control per protocol
DVT prophylaxis when safe from the surgical perspective.
Critical care statement: A total of 32 minutes of critical care time was provided for this patient today. This includes management of unstable vital signs, evaluation of the patient at bedside, reviewing the patient's pertinent medical records
including ventilator settings, arterial blood gases, radiographs, microbiology, laboratory evaluations and discussion with primary team, critical care nursing, and respiratory therapy.
Subjective Dataa
Subjective Data
Date of Service:
Date of Service: January 21, 2024
Chief Complaint: Correctional Counselor Follow Up (Status post redo sternotomy, AVR and CABG)
Subjective:
Remains on mechanical ventilation
Critical ill
Open chest
Review of Systems
General: Fever (n) and Unobtainable - Sedation
Objective Data
Data Reviewed
Vital Signs / I&O / Oxygen:
Vital Signs
Temp Pulse Resp BP Pulse Ox
98.7 F 75 10 107/41 100
01/21/24 12:00 01/21/24 12:45 01/21/24 12:45 01/21/24 11:00 01/21/24 12:45
Intake and Output
01/20/24 01/21/24 01/22/24
06:59 06:59 06:59
Intake Total 2416.2 / 2474.7 2257.7 / 2345.8 424.4 / 424.4
Output Total 1255 / 1325 2325 / 2365 170 / 170
Balance 1161.2 / 1149.7 -67.3 / -19.2 254.4 / 254.4
SaO2 [SIMV] 99
SaO2 100
Physical Exam
General: Comfortable
HEENT: Normocephalic
Cardiovascular: S1-S2, Regular Rhythm and Other ( open chest)
Respiratory: Clear, Non-Labored Respirations and Chest Tube (No evidence for air leak. No excessive drainage)
GI: Soft and Non Distended
Neurology: Other (Sedated, mechanical ventilation)
Skin: Warm
Labs/Micro/Reports
Lab Data
01/21/24 10:57
01/21/24 10:57
Laboratory Results
01/20/24 01/20/24 01/20/24
15:07 18:00 20:48
PT
INR
APTT
pH 7.52 H 7.48 H 7.45
pCO2 32 37 H 39 H
pO2 113 H 103 95
HCO3 26.1 27.6 27.1
O2 Delivery Level Not Reportable
01/20/24 01/21/24 01/21/24
22:22 00:30 02:01
PT
INR
APTT
pH 7.41 7.41 7.43
pCO2 41 H 44 H 43 H
pO2 70 L 100 117 H
HCO3 26.0 27.9 28.5 H
O2 Delivery Level
01/21/24 01/21/24
05:42 10:57
PT 14.7 H
INR 1.10
APTT 32.7
pH 7.51 H 7.46 H
pCO2 34 38 H
pO2 124 H 122 H
HCO3 27.1 27.0
O2 Delivery Level Vent
[2024-01-21 14:02] LABS: B.E. - POC 1.3 mmol/L; Glucose - POC 187 mg/dl (70-99); HCO3 - POC 25 mmol/L (21-28); Hematocrit - POC 24 % PCV (37-47); Hemodilution- POC No; Hemoglobin Calculated - POC 8.2; Ionized Calcium - POC 1.13 mmol/L (1.15-1.33); O2 Saturation %Calculated-POC 99.6 % (94-98); PCO2 - POC 35 mmHg (35-48); PO2 - POC 173 mmHg (83-108); Potassium - POC 5.1 mmol/L (3.5-5.1); Sodium - POC 143 mmol/L (136-145); pH - POC 7.46 (7.35-7.45)
--- NOTE | 2024-01-21 15:00 | PTCARENOTE ---
received pt from the CVOR, sinus rhythm on tele w HR 70's, occasional runs of atach and junctional rhythm, epicardial AV wires set to DDD 30/10, bp via left radial sang 108/46, PAP 33/15, CVP 12. Right IJ cordis w swan floated to 40, + doppler
pulses, generalized anasarca. Lungs diminished, #8 ETT/ 21cm at right lip, VENT SETTINGS: SIMV 80%/500/14/+10 PEEP, pox 98%, mouth care provided. CT x3 w minimal amount of bloody drainage. Crowder draining yellow. Wound VAC maintained to MSI w suction
intact. CPOT 0, RASS -3.
DRIPS: Amiodarone 1 mg/min
Fentanyl 100 mcg/hr
Levophed 2mcg/min
Dobutamine 7 mcg/kg/min
Precedex 0.5 mcg/kg/hr
Insulin titrated per glycemic protocol
[2024-01-21 15:11] LABS: Glucose - Point of Care 206 mg/dl (70-99)
--- NOTE | 2024-01-21 15:12 | W.PN.CT.SURG ---
CT Surgery Operative Note
-
Pre-op Diagnosis: Open chest post cardiotomy
Post-op Diagnosis: Same
Date: 01/21/2024
Procedure:
1. Removal of one vaginal packing
2. Evacuation of minimal clot and old fibrillar/hemostatic agents
3. Washout with warm saline
4. Placement of additional atrial pacing wires and additional ventricular pacing wire
5. Removal of the 28F straight chest tube
6. Chest closure with 4 #7 single and 3 #8 double stainless steal wires
7. Application of skin vac
8. Transesophageal echocardiography
9. Intraoperative chest xray (no retrained objects)
Primary Surgeon: Durga Trivedi MD
Assisting Surgeons: Durga Cheatham PA-C
Specimen: 1 retained vaginal pack
Cultures: None
Complications / Blood Loss: 50cc
Findings:
There is relatively good hemostasis, the old fibrillar was removed from the chest cavity. It was then irrigated with warm saline in order to remove any remaining clots. I inspected the surgical sites and was satisfied with hemostasis. The reverse
saphenous vein graft to the distal RCA appeared to be thrombosed although this was left alone. I inspected the left chest cavity and evacuated a pleural effusion. All drains were then stripped and flushed accordingly. New drains were placed with
3 x 24 Setswana straight Oscar drains with 2 being in the mediastinum and 1 in the left hemithorax. Additional atrial pacing wires were placed at the right atrial SVC junction as well as a new backup ventricular pacing wire at the base of the right
ventricle. Sternal wires were placed in the usual fashion and then the chest was then pulled close with approximately 10 minutes of observation under DEMAR guidance to make sure that the patient tolerated this maneuver. The chest was then closed in
multiple layers with additional skin VAC placed. 2 Vicryl retention sutures were placed at the lower portion of the wound with plans to remove later. An intraoperative chest x-ray was performed before the chest was fully close to survey for any
retained objects, none were found. 1 vaginal pack dressing was removed and set aside.
All instrument, sponge, and needle counts were confirmed to be correct x 2 at the end of the operation. The patient was transferred to the cardiac intensive care unit in critical but stable condition.
I, Dr. Durga Triveid, was present, scrubbed for, and performed all critical elements of this procedure.
Durga Trivedi MD, MS
Cardiothoracic Surgeon
[facility]
This operative dictation was created using the [employer] dictation system. Please excuse any grammatical, typographical, or 'sound alike' errors
[2024-01-21 15:21] LABS: B.E. -1.8 mmol/L; HCO3 24.3 mmol/L (21-28); Ionized Calcium 1.36 mMOL/L (1.15-1.33); O2 Saturation % 95.5 % (94-98); PCO2 46 mmHg (32-35); PO2 73 mmHg (83-108); Sodium 140 mMOL/L (136-145); pH 7.33 (7.35-7.45)
[2024-01-21 15:23] LABS: Mixed Venous O2 Saturation 65.2 %
[2024-01-21 15:31] LABS: Hematocrit 31.5 % (37.0-47.0); Hemoglobin 10.9 g/dL (12.0-16.0); INR 1.13; Mean Corp Hgb Conc. 34.6 g/dL (33.0-37.0); Mean Corpuscular Hgb 30.9 pg (27.0-31.0); Mean Corpuscular Volume 89.2 fL (81.0-99.0); Mean Platelet Volume 12.1 fL (7.4-10.4); Platelet Count 76 10^3/uL (130-400); Red Blood Cell Count 3.53 10^6/uL (4.20-5.40); Red Cell Dist. Width 15.9 % (11.5-14.5); White Blood Cell Count 19.8 10^3/uL (4.8-10.8)
[2024-01-21 15:32] LABS: APTT 31.9 Sec (23.4-35.0)
[2024-01-21 15:36] LABS: Blood Urea Nitrogen 41 mg/dl (7-17); Calcium 9.7 mg/dl (8.4-10.2); Carbon Dioxide 25 mmol/L (22-30); Chloride 106 mmol/L (98-107); Estimated Creatinine Clearance 24 ml/min; Glucose 184 mg/dl (70-99); Sodium 143 mmol/L (135-145); eGFR 23.53
[2024-01-21] MEDS: ANCEF 10 IV ×2 (15:45)
[2024-01-21] MEDS: PRECEDEX 100 IV ×2 (15:46→23:04)
[2024-01-21] MEDS: FLEXBUMIN 100 IV ×2 (15:46→22:01)
--- NOTE | 2024-01-21 16:00 | PTCARENOTE ---
post op labs, EKG and CXR obtained as ordered.
[2024-01-21 16:13] LABS: Glucose - Point of Care 176 mg/dl (70-99)
--- NOTE | 2024-01-21 16:44 | PTCARENOTE ---
precedex started, fentanyl infusion weaned off.
[2024-01-21 17:09] LABS: Glucose - Point of Care 180 mg/dl (70-99)
[2024-01-21 17:15] LABS: B.E. -0.1 mmol/L; HCO3 23.8 mmol/L (21-28); Ionized Calcium 1.25 mMOL/L (1.15-1.33); O2 Saturation % 98.4 % (94-98); PCO2 35 mmHg (32-35); PO2 97 mmHg (83-108); Potassium 4.8 mMOL/L (3.5-5.1); Sodium 141 mMOL/L (136-145); pH 7.44 (7.35-7.45)
[2024-01-21] MEDS: FERRLECIT 110 MG IV (17:21)
[2024-01-21] MEDS: LIPITOR 80 MG PO (17:53)
[2024-01-21 18:17] LABS: Glucose - Point of Care 152 mg/dl (70-99)
[2024-01-21 19:04] LABS: Glucose - Point of Care 164 mg/dl (70-99)
--- NOTE | 2024-01-21 20:00 | PTCARENOTE ---
PT sedated on precidex when weaned moving all extremities and following commands. VSS NS on monitor, 94%O2 on vent CTx3 serSang drainage, GI hypoactive, 70ml/hr austin cath, RIJC and PIC wnl. see worklist for detailed assessment
[2024-01-21 20:55] LABS: Glucose - Point of Care 171 mg/dl (70-99)
[2024-01-21 21:00] LABS: B.E. -1.3 mmol/L; Ionized Calcium 1.16 mMOL/L (1.15-1.33); O2 Saturation % 95.8 % (94-98); PCO2 31 mmHg (32-35); PO2 66 mmHg (83-108); Potassium 4.2 mMOL/L (3.5-5.1); pH 7.46 (7.35-7.45)
[2024-01-21] MEDS: MAGNESIUM OXIDE 500 MG PO (22:03)
[2024-01-21] MEDS: PACERONE 200 MG PO (22:04)
[2024-01-21] MEDS: NEURONTIN 100 MG PO (22:04)
[2024-01-21] MEDS: TYLENOL 1000 MG PO (22:04)
[2024-01-21] MEDS: SENOKOT-S 1 TABLET PO (22:04)
[2024-01-21 23:22] LABS: Glucose - Point of Care 164 mg/dl (70-99)
[2024-01-21 23:29] LABS: B.E. -1.3 mmol/L; HCO3 22.4 mmol/L (21-28); Ionized Calcium 1.12 mMOL/L (1.15-1.33); O2 Saturation % 96.5 % (94-98); PCO2 33 mmHg (32-35); PO2 71 mmHg (83-108); Potassium 4.1 mMOL/L (3.5-5.1); Sodium 139 mMOL/L (136-145); pH 7.44 (7.35-7.45)
[2024-01-21 23:34] LABS: Mixed Venous O2 Saturation 62.6 %
[2024-01-21 23:36] LABS: O2 Therapy VENT
[2024-01-21] MEDS: CALCIUM GLUCONATE 100 IV (23:47)
[2024-01-21] MEDS: SODIUM CHLORIDE 3% FOR INHALATION 1 VIAL INH (23:49)
[2024-01-22] VITALS (25 sets, daily range): BP systolic 97–129; BP diastolic 45–78; BMI 36.7
[2024-01-22 00:49] LABS: Glucose - Point of Care 165 mg/dl (70-99)
[2024-01-22 00:55] LABS: B.E. 0.2 mmol/L; HCO3 24.6 mmol/L (21-28); O2 Saturation % 97.4 % (94-98); PCO2 38 mmHg (32-35); PO2 77 mmHg (83-108); pH 7.42 (7.35-7.45)
[2024-01-22] MEDS: CARDENE 200 IV ×2 (01:26→08:54)
[2024-01-22 02:03] LABS: Glucose - Point of Care 104 mg/dl (70-99)
[2024-01-22 03:51] LABS: Glucose - Point of Care 89 mg/dl (70-99)
--- NOTE | 2024-01-22 04:00 | PTCARENOTE ---
sedation weaned and restarted, PT neurologically intact moving all extremities. see worklist for detailed assessment
[2024-01-22 05:08] LABS: B.E. -1.2 mmol/L; HCO3 23.6 mmol/L (21-28); O2 Saturation % 95.4 % (94-98); PCO2 39 mmHg (32-35); PO2 70 mmHg (83-108); Potassium 4.9 mMOL/L (3.5-5.1); Sodium 140 mMOL/L (136-145); pH 7.39 (7.35-7.45)
[2024-01-22] MEDS: VERSED 0.5 MG IV ×5 (05:14→08:45)
[2024-01-22 05:15] LABS: O2 Therapy VENT
[2024-01-22 05:16] LABS: Hematocrit 29.3 % (37.0-47.0); Mean Corp Hgb Conc. 34.1 g/dL (33.0-37.0); Mean Corpuscular Hgb 30.3 pg (27.0-31.0); Mean Corpuscular Volume 88.8 fL (81.0-99.0); Mean Platelet Volume 12.1 fL (7.4-10.4); Platelet Count 71 10^3/uL (130-400); White Blood Cell Count 20.2 10^3/uL (4.8-10.8)
[2024-01-22 05:35] LABS: Blood Urea Nitrogen 42 mg/dl (7-17); Calcium 9.4 mg/dl (8.4-10.2); Carbon Dioxide 24 mmol/L (22-30); Chloride 108 mmol/L (98-107); Estimated Creatinine Clearance 23 ml/min; Glucose 187 mg/dl (70-99); Magnesium 2.2 mg/dl (1.6-2.3); Potassium 4.9 mmol/L (3.5-5.1); Sodium 144 mmol/L (135-145); eGFR 22.25
[2024-01-22 05:42] LABS: Glucose - Point of Care 191 mg/dl (70-99)
--- NOTE | 2024-01-22 05:44 | W.PN.CT ---
Today's Communication / Plan
-
-pod #3
-plans for broch this am and possible extubation later today
-overnight, increased fiO2 to 60 and peep to 12, decreased Tv 450. Current vent setting SIMV 14/450/60%/12. ABG am: 7.39/39/70/23.6/95.4 O2
-CI 1.76, CO 3.37, SVR 1281, mVO2 59, PA 34/19, CVP 18
-drips: Dobut 7, Amio 0.5, Precedex 0.5, Cardene 7.5, Insulin
-CT output: 2 meds 110/240, L pleur 55/155
-Cr plateaued at 2.2
-Hg 10.0
-maintain swan, pw, a-line, Crowder
Assessment / Plan
-
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
LAD and reverse saphenous vein graft from ascending aortic graft to distal RCA; EVH of RLE; Explant of prior 21 mm trifecta aortic valve; 21 mm Medtronic Freestyle aortic root complex replacement with reimplantation of coronary buttons; Hypothermic
circulatory arrest with selective cerebral perfusion, ascending aortic replacement with a 26 mm straight tube graft pm 01/19/[address] Trivedi, pod #3
- Intraop DEMAR: LVEF preop was preserved at approximately 55 to 60%. Following surgery EF remained the same at approximate 50-55% on 5 dobutamine and some Cardene. Her RV function was normal preoperatively and mild to moderately depressed
postoperatively. Following aortic root replacement, there was no aortic valve insufficiency with a new freestyle porcine root replacement.
-Her cardiac index was depressed at approximately 1.5 on 5 dobutamine. She did not require any pacing and was on her own beaver sinus rhythm following surgery. Due to the extended pump time, mild RV dysfunction, and required multiple blood
products due to coagulopathy, chest was left open and packed with 1 vaginal pack.
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
- Multivessel coronary artery disease with anginal/exertional chest pain
- Class 1 obesity, BMI 33
- Hypertension
- Hyperlipidemia
- Previous PCI with cardiac stent to the OM
- Previous cardiac surgery with St Randy trifecta # 21 aortic valve replacement and single-vessel bypass to the OM in 2017
- Diabetes mellitus (A1c 6.8)
- Severe carotid stenosis of the right side
(US 01/11/24: Mixed plaque within the right carotid bulb, velocity measurements suggestive of greater than 70% stenosis, internal to common carotid ratio suggestive of 50-69% stenosis)
- Hard of hearing
- WILNER
- b/l breast biopsies
- Acute postop anemia- s/p 7 pRBCs
- Acute postop coagulopathy/thrombocytopenia - s/p Factor 7 in OR, total 3 FFPs, 3 units platelets
- Acute postop atelectasis
- Acute postop hypovolemia with subsequent hypervolemia
- Acute postop hypotension d/t cardiogenic shock, requiring inotrops and pressors
- Acute postop ectopy (PACs, PVCs)- tx with Amio bolus and drip, now off - improved with discontinuing Milrinone
- FABIAN
- Acute postop hyperkalemia
- Acute postop junctional rhythm
- Acute postop metabolic alkalosis with respiratory compensation
- Acute postop respiratory insufficiency secondary to volume overload, pulmonary edema
Discussed patient care with: Nursing and Care Team
Subjective
-
Date of Service: January 22, 2024
Objective Data
-
Lab Results
01/22/24 04:59
01/22/24 04:59
PT 15.0 Sec (11.4-14.6) H 01/21/24 15:02
INR 1.13 01/21/24 15:02
APTT 31.9 Sec (23.4-35.0) 01/21/24 15:02
Vital Signs
Vital Signs
Temp Pulse Resp BP Pulse Ox
97.6 F 75 14 119/49 93
01/22/24 04:07 01/22/24 03:45 01/21/24 23:49 01/22/24 03:00 01/22/24 03:45
CT Intake/Output/Weight
01/21/24 01/21/24 01/22/24
06:59 18:59 06:59
Intake Total 1267.6 / 2345.8 1087.0 / 1087.0
Output Total 1245 / 2365 605 / 1275 670 / 1275
Balance 22.6 / -19.2 482.0 / -188.0 -670 / -188.0
SaO2: 93
Physical Exam
-
General: Other (intubated, sedated. Pt was able to focus briefly and follow commands, move all extremities when lightened sedation)
Cardiovascular: Regular rate & rhythm, No Murmurs and No Rub
Respiratory: Decreased Breath Sounds
Sternum: stable, closed
Incision: Other
Extremities: Edema +1 , DPs by Doppler b/l, warm, soft b/l.
Data Reviewed
-
Lab Results: Results Reviewed
Medications: Active Meds Reviewed
Chest X-Ray: Report Reviewed and Image Reviewed
ECG: Report Reviewed and Image Reviewed
[2024-01-22] MEDS: PRECEDEX 100 IV ×4 (06:23→21:45)
[2024-01-22] MEDS: TYLENOL 1000 MG PO ×3 (06:23→22:58)
[2024-01-22] MEDS: FLEXBUMIN 100 IV (06:24)
[2024-01-22 06:31] LABS: Glucose - Point of Care 154 mg/dl (70-99)
--- NOTE | 2024-01-22 07:13 | PTCARENOTE ---
PT sedated VSS precidex
--- NOTE | 2024-01-22 07:18 | PTCARENOTE ---
no change from previous assessmnt see worklist for detailed assessment
--- NOTE | 2024-01-22 07:20 | W.PN.ANS.POP ---
Anesthesia Post Operative
- Anesthesia Post Op Note
Vital Signs Stable-See Nursing Note: Yes
Airway Patent: Yes (Intubated)
Adequate Pain Control: Yes (per vital signs)
Change in Mental Status: No (Still sedated)
Current Postoperative Nausea & Vomiting: No
Anesthesia Complications: No
General Anesthetic Recall: No (Not yet awakened)
Unplanned Admission: No
Post Op Hydration Adequate: Yes
- -
Patient is critical but stable on pharmacological support.
--- NOTE | 2024-01-22 07:30 | PTCARENOTE ---
Received pt from shift supervisor RN. Intubated and sedated on the vent. SIMV 60%, 12, tv 450 ,psv 5 peep 12 pulse ox at 96%. SR on monitor. Epicardial A and V wires to back up of VVI 30. No pacing noted at present. Chest tubes x 3 to - 20 cm
suction. . No air leaks or crepitus noted. Lungs decreased, and coarse t/o. Abdomen obese, hypoactive bowel sounds noted. Crowder draining christelle urine. Sternal wound vac intact. Rt groin sutures intact, and Rt leg [place] site well
approximated. General plus 2 anasarca present. Pulses palpable. Drips infusing at handoff as follows: Dobutamine, Amiodarone, and insulin. Plan for day discussed during rounds.
[2024-01-22] MEDS: LIDOCAINE 4% PATCH TOPICAL (07:32)
[2024-01-22 07:38] LABS: B.E. -0.9 mmol/L; HCO3 23.5 mmol/L (21-28); O2 Saturation % 97.4 % (94-98); PCO2 37 mmHg (32-35); PO2 78 mmHg (83-108); pH 7.41 (7.35-7.45)
--- NOTE | 2024-01-22 07:58 | W.PN.UPDATE ---
Update Note
Progress Note Update
Procedure: Bronchoscopy-emergent due to hypoxemia
Indication: Left lung atelectasis on chest x-ray.
Patient on mechanical ventilation.
Patient was sedated on Precedex and as needed narcotics for pain postoperatively.
Lidocaine 2 mL was instilled through the ET tube. Portable bronchoscope was advanced through the ET tube without resistance. ET tube was in adequate position. Justin was sharp.
Scant whitish thick secretion was found in the justin. Suction without difficulties.
ET tube was advanced throughout the tracheobronchial tree.
Right mainstem bronchus was patent, right upper lobe, right lower lobe and right middle lobe were open without secretions. No endobronchial lesions.
Left mainstem caliber was decreased due to extrinsic compression, likely due to compression from the heart. No significant secretions or endobronchial lesions were found. Bronchoscope was advanced without difficulties. Left upper lobe clear.
Left lower lobe clear. Lingula clear.
Patient tolerated procedure without difficulties.
No samples were obtained.
FiO2 will be decreased to 40%. PEEP pressure will be decreased accordingly based on oxygenation
[2024-01-22] MEDS: NSS (PRESERVATIVE FREE) 10 ML IV (08:11)
[2024-01-22] MEDS: PROTONIX IV 40 MG IV (08:11)
[2024-01-22] MEDS: NEURONTIN 100 MG PO ×3 (08:22→22:58)
[2024-01-22] MEDS: PLAVIX 75 MG PO (08:22)
[2024-01-22] MEDS: VITAMIN C 500 MG PO (08:22)
[2024-01-22] MEDS: PACERONE 200 MG PO ×3 (08:22→22:58)
[2024-01-22] MEDS: BACTROBAN 2% OINTMENT 1 APPLIC NASAL ×2 (08:23→20:18)
[2024-01-22] MEDS: SENOKOT-S PO (08:23)
[2024-01-22] MEDS: MAGNESIUM OXIDE PO (08:23)
[2024-01-22] MEDS: LOW STRENGTH ASPIRIN 81 MG PO (08:23)
[2024-01-22] MEDS: FEOSOL PO (08:23)
[2024-01-22] MEDS: DILAUDID 0.25 MG IV (08:46)
[2024-01-22] MEDS: BUMEX 50 IV (08:54)
[2024-01-22] MEDS: NOVOLIN R INSULIN INFUSION 100 IV (08:55)
[2024-01-22 09:01] LABS: Glucose - Point of Care 145 mg/dl (70-99)
[2024-01-22 09:20] LABS: B.E. -0.4 mmol/L; HCO3 24.1 mmol/L (21-28); Ionized Calcium 1.28 mMOL/L (1.15-1.33); PCO2 38 mmHg (32-35); PO2 78 mmHg (83-108); Potassium 4.4 mMOL/L (3.5-5.1); Sodium 140 mMOL/L (136-145); pH 7.41 (7.35-7.45)
[2024-01-22 09:22] LABS: Mixed Venous O2 Saturation 85.2 %
[2024-01-22 09:27] LABS: Osmolality Urine 403 mOsm/kg (300-900)
[2024-01-22 09:47] LABS: Urine Potassium 85.6 mmol/L (30-90); Urine Protein 36 mg/dl (0-12); Urine Sodium 10 mmol/L (30-90)
[2024-01-22] MEDS: PRIMACOR 20 MG 100 IV (09:59)
[2024-01-22 10:07] LABS: Microalbumin, Random Urine 28.3 mg/dl (0.6-1.7); Microalbumin/creatinine Ratio 201.6 mg/g
--- NOTE | 2024-01-22 10:23 | CM ---
Chart reviewed. Patient remains in critical condition, intubated. Patient is independent of ADLS, lives alone in a 1 STH, 0 SERGIO, has a SPC and walker at home. Plan is for the daughter to go home with the patient and CT Transitional RN. CM to
follow
--- NOTE | 2024-01-22 10:32 | PTCARENOTE ---
Milrinone and bumex drips initiated as per DRIVE WORKER order. Cardene weaned and nitroglycerine drip initiated. Tube feeding Osmolyte 1.2 at 10 ml/hr also initiated. Bedside ECHO obtained. VSS. Awakes spontaneously with turning. Daughter updated .
[2024-01-22 11:08] LABS: Glucose - Point of Care 125 mg/dl (70-99)
[2024-01-22 11:09] LABS: B.E. 0.1 mmol/L; HCO3 24.7 mmol/L (21-28); Ionized Calcium 1.28 mMOL/L (1.15-1.33); O2 Saturation % 97.7 % (94-98); PCO2 39 mmHg (32-35); PO2 79 mmHg (83-108); Potassium 4.4 mMOL/L (3.5-5.1); Sodium 141 mMOL/L (136-145); pH 7.41 (7.35-7.45)
[2024-01-22 11:11] LABS: Mixed Venous O2 Saturation 65.7 %
[2024-01-22] MEDS: VENTOLIN NEBULES 2.5 MG INH (11:11)
[2024-01-22] MEDS: BUMEX 1 MG IV (11:37)
[2024-01-22] MEDS: FLEXBUMIN 50 IV ×2 (11:38→20:17)
--- NOTE | 2024-01-22 12:06 | W.PN.CARDCBS ---
Addendum entered and electronically signed by Carlos Manuel Martinez MD 01/22/24 17:44:
I saw and examined the patient.
The School Fundraising Director's note was reviewed and I agree with the note.
Comment:
GEN: No distress, intubated
HEENT: supple, anicteric, mmm, ET tube
LUNGS: CTA, no wheezes/rales
CV: Reg, S1/S2, 1/6 syst LSB, no gallop
ABD: soft, BS+, NT/ND
EXT: No edema
NEURO: Gross non-focal
SKIN: No rash
Plan:
Chest is now closed. She remains intubated on pressors.
Wean to extubate and continue supportive care.
Continue dobutamine, milrinone, and nitro.
Original Note:
Today's Communication / Plan
-
continue post op mgmt
Impression / Plan
-
Cardiology: Dr. Fernie Cox of [facility]
PCP: Dr. Radha Tamez
IMPRESSION:
s/p Freestyle 21 mm AV replacement with replacement of ascending aorta to innominate for and aortic insufficiency of previously placed tissue AVR 01/19/24
s/p tissue AVR 2016
Not TAVR candidate with low coronary heights and narrow SOV
CAD s/p CABG with GARCIA to LAD and SVG to RCA, Diagonal could not be grafted 01/19/24
previous CABG with SVG to OM-2 in 2017 known to be occluded since cath in 2019
Open sternotomy secondary to oozing, edema, RV dysfunction on multiple pressors dobutamine and milrinone 01/19/24 s/p closure 01/21/24
DM 2
Hyperlipidemia
Hypoxemia resulting in emergent bronch 01/22/24
Acute post op anemia/thrombocytopenia
Post op FABIAN
Post op PAF and junctional rhythm
DEMAR 01/21/24: LV underfilled with all wall segments moving normally, RV severely hypokinetic with akinesis of anterior wall, trace MR and TR, no effusions
RECOMMENDATIONS:
-patient underwent redo sternotomy with CABG x2 in situ GARCIA to LAD and rSVG from asc aortic graft to distal RCA, explant of prior aortic valve, complex Medtronic aortic root replacement, hypothermic circ arrest, ascending aorta replacement 01/19/24.
Due to prolonged pump time, chest was left open. 01/20 with periods of afib then junctional on IV amio gtt. Returned to OR 01/20 for chest closure. s/p bronch 01/21 due to hypoxemia and L lung whiteout on CXR with likely mucous plug
-currently on dobutamine @5, milrinone @0.25, nitro @25
-currently in SR on review of tele. had ~2 hours of afib/atach 01/20. currently on IV amiodarone gtt @0.5. follow on tele. of note, had junctional rhythm on IV amio 01/19.
-CI 1.8
-on IV bumex gtt @0.5. also received 1mg push today. Cr stable at 2.2
-currently on CPAP, continue to wean as able
-hgb 10, plts 71K. s/p 7 U PRBCs, 3 plts, 3 FFP.
-receiving albumin
-continue post op mgmt
-critically ill
-d/w nursing
Progress Note - Pellet Preparation Operator
Subjective
Date of Service: January 22, 2024
intubated, sedated
Objective
Labs:
01/22/24 04:59
01/22/24 04:59
Labs
Hgb 10.0 g/dL (12.0-16.0) L 01/22/24 04:59
Hct 29.3 % (37.0-47.0) L 01/22/24 04:59
Plt Count 71 10^3/uL (130-400) L 01/22/24 04:59
PT 15.0 Sec (11.4-14.6) H 01/21/24 15:02
INR 1.13 01/21/24 15:02
APTT 31.9 Sec (23.4-35.0) 01/21/24 15:02
Sodium 144 mmol/L (135-145) 01/22/24 04:59
Potassium 4.9 mmol/L (3.5-5.1) 01/22/24 04:59
BUN 42 mg/dl (7-17) H 01/22/24 04:59
Creatinine 2.2 mg/dL (0.6-1.0) H 01/22/24 04:59
Glucose 187 mg/dl (70-99) H 01/22/24 04:59
Vital Signs and I&O:
Vital Signs
Temp Pulse Resp BP Pulse Ox
96.8 F L 73 16 109/51 93
01/22/24 11:59 01/22/24 12:00 01/22/24 11:59 01/22/24 12:00 01/22/24 12:00
Vital Signs
Temp Pulse Resp BP Pulse Ox
96.8 F L 73 16 109/51 93
01/22/24 11:59 01/22/24 12:00 01/22/24 11:59 01/22/24 12:00 01/22/24 12:00
Intake & Output
01/20/24 01/21/24 01/22/24 01/23/24
07:59 07:59 07:59 07:59
Intake Total 2474.7 / 2540.4 2287.3 / 2344.8 1688.1 / 1770.8 724.0 / 724.0
Output Total 1325 / 1360 2295 / 2315 1390 / 1420 180 / 180
Balance 1149.7 / 1180.4 -7.7 / 29.8 298.1 / 350.8 544.0 / 544.0
Physical Exam
Physical Exam
GEN: No distress, intubated, sedated
HEENT: supple, mmm
LUNGS: Decreased L lung, no wheezes
CV: Reg, S1/S2, 2/6 murmur
ABD: soft, BS+, NT/ND
EXT: No cyanosis, clubbing. trace edema of B/L LE
NEURO: sedated
SKIN: Warm, pink, dry. No rash. Sternotomy with wound vac in place
--- NOTE | 2024-01-22 12:14 | W.PN.INTV ---
Today's Communication / Plan
Recommendations
Continue diuresis
Wean off dobutamine
Hopefully spontaneous breathing trial later today
Nebulizers as needed for secretion clearance
Follow chest tube output
Follow renal function and urinary output
Follow hemoglobin and transfuse as necessary
Will continue to follow
Assessment
-
Status post coronary artery bypass/aortic root replacement/redo sternotomy with lysis of adhesions/explant of prior aortic valve.
Open chest-status postclosure 01/21/2024
Postoperative respiratory failure require mechanical ventilation
Left lung whiteout 01/22/2024-likely mucous plug
Bronchoscopy 01/22/2024
Conditions present prior admission:
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
Heart failure
Multivessel coronary artery disease
Morbid obesity
Hypertension
Hyperlipidemia
Coronary artery disease with prior stents
Prior aortic valve replacement with single-vessel bypass
Type 2 diabetes
Severe carotic stenosis on the right
Hard of hearing
Assessment and plan
Postoperative day #3
Status post chest closure 01/21/2024.
ABG reviewed: 7.41/39/79
Continue mechanical ventilation without dhmbbs-[id number]/500/10/40%/+ 5
Daily ABGs
Not ready for spontaneous breathing trial, will be tried after chest is closed if appropriate
Patient for chest closure 01/21/2024.
Hopefully can try spontaneous breathing trial later today.
Chest x-ray: Left lung atelectasis.
Bronchoscopy 01/21/2024: Scant amount of thick whitish phlegm suctioned from the justin. Otherwise patent tracheobronchial tree. No samples were sent
Anemia noted-no evidence of acute bleeding
Follow H&H serially
Hemodynamics -remains on dobutamine.
Continue to wean dobutamine as able.
PA catheter and arterial line in place.
on Bumex drip
Acute kidney injury noted. Follow urinary output. Creatinine has plateaued.
No significant metabolic acidosis
Cardiology following
Postoperative A-fib, amiodarone drip ongoing
Chest tube with no excessive drainage-no air leak.
Chest x-ray reviewed: Lines endotracheal tube in correct position. No pneumothorax. No significant collections.
Remain nothing by mouth
Head of the bed elevation
Glycemic control per protocol
DVT prophylaxis when safe from the surgical perspective.
Critical care statement: A total of 31 minutes of critical care time was provided for this patient today. This includes management of unstable vital signs, evaluation of the patient at bedside, reviewing the patient's pertinent medical records
including ventilator settings, arterial blood gases, radiographs, microbiology, laboratory evaluations and discussion with primary team, critical care nursing, and respiratory therapy.
Subjective Dataa
Subjective Data
Date of Service:
Date of Service: January 22, 2024
Chief Complaint: Tire Tester Follow Up (Status post redo sternotomy, AVR and CABG)
Subjective:
Remains intubated and on mechanical ventilation.
This AM with left lung white out on CXR.
Review of Systems
General: Unobtainable - Sedation
Objective Data
Data Reviewed
Vital Signs / I&O / Oxygen:
Vital Signs
Temp Pulse Resp BP Pulse Ox
96.8 F L 73 16 109/51 93
01/22/24 11:59 01/22/24 12:00 01/22/24 11:59 01/22/24 12:00 01/22/24 12:00
Intake and Output
01/21/24 01/22/24 01/23/24
06:59 06:59 06:59
Intake Total 2257.7 / 2345.8 1576.0 / 1776.2 924.2 / 924.2
Output Total 2325 / 2365 1375 / 1430 235 / 235
Balance -67.3 / -19.2 201.0 / 346.2 689.2 / 689.2
SaO2 [SIMV] 93
SaO2 93
Physical Exam
General: Comfortable
HEENT: Normocephalic
Cardiovascular: S1-S2 and Regular Rhythm
Respiratory: Clear, Non-Labored Respirations and Chest Tube (No evidence for air leak. No excessive drainage)
GI: Soft and Non Distended
Neurology: Other (Sedated, mechanical ventilation)
Skin: Warm
Labs/Micro/Reports
Lab Data
01/22/24 04:59
01/22/24 04:59
Laboratory Results
01/21/24 01/21/24 01/21/24
15:02 15:26 17:05
PT 15.0 H
INR 1.13
APTT 31.9
pH 7.33 L Cancelled 7.44
pCO2 46 H Cancelled 35
pO2 73 L Cancelled 97
HCO3 24.3 Cancelled 23.8
O2 Delivery Level Cancelled
01/21/24 01/21/24 01/22/24
20:54 23:21 00:49
PT
INR
APTT
pH 7.46 H 7.44 7.42
pCO2 31 L 33 38 H
pO2 66 L 71 L 77 L
HCO3 22.0 22.4 24.6
O2 Delivery Level Vent peep 8, 60% fio2
01/22/24 01/22/24 01/22/24
04:59 07:22 09:11
PT
INR
APTT
pH 7.39 7.41 7.41
pCO2 39 H 37 H 38 H
pO2 70 L 78 L 78 L
HCO3 23.6 23.5 24.1
O2 Delivery Level Vent
01/22/24
10:55
PT
INR
APTT
pH 7.41
pCO2 39 H
pO2 79 L
HCO3 24.7
O2 Delivery Level
[2024-01-22 12:32] LABS: HCO3 26.5 mmol/L (21-28); Ionized Calcium 1.29 mMOL/L (1.15-1.33); O2 Saturation % 97.5 % (94-98); PCO2 40 mmHg (32-35); PO2 77 mmHg (83-108); Potassium 4.4 mMOL/L (3.5-5.1); Sodium 142 mMOL/L (136-145); pH 7.43 (7.35-7.45)
--- NOTE | 2024-01-22 12:44 | PTCARENOTE ---
Turned and repositioned by RN x 2. Opening eyes spontaneously, shakes head no to pain/cold/ etc.. CPAP trial remains in progress.
[2024-01-22 13:10] LABS: Glucose - Point of Care 133 mg/dl (70-99)
[2024-01-22] MEDS: DILAUDID 0.5 MG IV ×3 (13:10→21:40)
[2024-01-22] MEDS: CORDARONE 518 MG IV (13:12)
[2024-01-22] MEDS: ROXICODONE 5 MG PO (13:36)
[2024-01-22] MEDS: FERRLECIT 110 MG IV (13:37)
--- NOTE | 2024-01-22 13:38 | PTCARENOTE ---
Grabbing at sheets, restless, shaking head yes to pain. Medicated as appropriate
[2024-01-22 14:58] LABS: Glucose - Point of Care 137 mg/dl (70-99)
[2024-01-22] MEDS: DOBUTREX 250 MG IV (15:00)
[2024-01-22] MEDS: NSS IV (15:20)
[2024-01-22 15:34] LABS: Blood Urea Nitrogen 49 mg/dl (7-17); Calcium 9.2 mg/dl (8.4-10.2); Carbon Dioxide 26 mmol/L (22-30); Chloride 107 mmol/L (98-107); Estimated Creatinine Clearance 25 ml/min; Glucose 130 mg/dl (70-99); Potassium 4.3 mmol/L (3.5-5.1); Sodium 143 mmol/L (135-145); eGFR 23.53
[2024-01-22 16:07] LABS: Glucose - Point of Care 124 mg/dl (70-99)
[2024-01-22 17:03] LABS: Glucose - Point of Care 123 mg/dl (70-99)
[2024-01-22 17:06] LABS: B.E. 1.9 mmol/L; HCO3 26.6 mmol/L (21-28); Ionized Calcium 1.28 mMOL/L (1.15-1.33); O2 Saturation % 96.9 % (94-98); PCO2 41 mmHg (32-35); PO2 74 mmHg (83-108); Potassium 4.4 mMOL/L (3.5-5.1); Sodium 140 mMOL/L (136-145); pH 7.42 (7.35-7.45)
[2024-01-22 17:09] LABS: Mixed Venous O2 Saturation 61.2 %
[2024-01-22] MEDS: HEPARIN 5000 UNITS SC (17:16)
[2024-01-22] MEDS: LIPITOR 80 MG PO (17:17)
[2024-01-22] MEDS: ROXICODONE ORAL SOLUTION 5 MG TUBE ×2 (17:58→22:58)
[2024-01-22 18:07] LABS: Glucose - Point of Care 110 mg/dl (70-99)
--- NOTE | 2024-01-22 18:29 | PTCARENOTE ---
Continues to have lowering oxygenation pulse ox down to 92%. CT VISION TEACHER in room, Placed on 100% Fio2 with rapid increase to 95%. Aggressively suctioned through ETT. Small amount of mccain secretions obtained. CT Surgeon notified.
[2024-01-22] MEDS: HEPARIN 25000 UNITS/250 ML IV (18:49)
[2024-01-22 18:56] LABS: APTT 39.4 Sec (23.4-35.0)
[2024-01-22] MEDS: CORDARONE 103 MG IV (19:02)
--- NOTE | 2024-01-22 19:04 | PTCARENOTE ---
Afib [address] SMALL PARTS SHAPER OPERATOR notified, Amio bolus ordered.
[2024-01-22 19:26] LABS: Glucose - Point of Care 126 mg/dl (70-99)
--- NOTE | 2024-01-22 20:00 | PTCARENOTE ---
Assumed care of patient at 1900. Patient found in bed at time of assessment. Patient is intubated and lightly sedated per RASS, when awake does nod head appropriately and moves extremities. Lung sounds are diminished throughout, coarse over the
bases, patient has a 7.5 ETT sitting 21cm on the lip on AC ventilator settings see worksheet for setting. Heart sounds are audible and irregular, patient is currently in afib with HR ranging 120-150, patient has normal palpable pulses, patient is
edematous with +2 generalized anasarca. Hypoactive BS present in all four quadrants, there is an OG tube present sitting 50 cm on the lip with tube feeding of osmolite 1.2 at 10mL/hr with 25mL flushes. There is a austin present draining clear yellow
urine. Patient has a sternal incision approx with wound vac present, there is a R groin puncture approx with sutures, a RLE incision approx with surg adhesive RUFUS ecchymotic. Patient has R IJ cordis with swan @45, L radial A line, and R FA 20G.
Patient has the following gtts: Dobut@5, Milrinone@0.125, Heparin@5, Insulin@3.5, Precedex@1, Amio@0.5, Cordis/VIP KVO. Amio bolus administered for afib prior to change of shift. Remains on amio gtt. No further orders at this time.
[2024-01-22] MEDS: MAGNESIUM OXIDE 500 MG PO (20:16)
[2024-01-22] MEDS: SENOKOT-S 1 TABLET PO (20:16)
[2024-01-22 20:56] LABS: Glucose - Point of Care 120 mg/dl (70-99)
[2024-01-22 21:20] LABS: B.E. 0.7 mmol/L; HCO3 25.4 mmol/L (21-28); Ionized Calcium 1.27 mMOL/L (1.15-1.33); O2 Saturation % 96.8 % (94-98); PCO2 40 mmHg (32-35); PO2 76 mmHg (83-108); pH 7.41 (7.35-7.45)
[2024-01-22 21:23] LABS: Mixed Venous O2 Saturation 61.1 %
[2024-01-22 21:28] LABS: Hematocrit 26.1 % (37.0-47.0); Hemoglobin 8.8 g/dL (12.0-16.0); Mean Corp Hgb Conc. 33.7 g/dL (33.0-37.0); Mean Corpuscular Hgb 29.9 pg (27.0-31.0); Mean Corpuscular Volume 88.8 fL (81.0-99.0); Mean Platelet Volume 11.9 fL (7.4-10.4); Platelet Count 69 10^3/uL (130-400); Red Blood Cell Count 2.94 10^6/uL (4.20-5.40); Red Cell Dist. Width 15.9 % (11.5-14.5); White Blood Cell Count 18.6 10^3/uL (4.8-10.8)
[2024-01-22 21:33] LABS: Blood Urea Nitrogen 49 mg/dl (7-17); Calcium 8.5 mg/dl (8.4-10.2); Carbon Dioxide 24 mmol/L (22-30); Chloride 108 mmol/L (98-107); Estimated Creatinine Clearance 23 ml/min; Glucose 118 mg/dl (70-99); Potassium 3.9 mmol/L (3.5-5.1); Sodium 144 mmol/L (135-145); eGFR 22.25
[2024-01-22 23:03] LABS: Glucose - Point of Care 114 mg/dl (70-99)
[2024-01-22 23:56] LABS: Glucose - Point of Care 103 mg/dl (70-99)
[2024-01-23] VITALS (33 sets, daily range): BP systolic 87–136; BP diastolic 43–115; BMI 36.6
[2024-01-23 00:09] LABS: APTT 49.7 Sec (23.4-35.0)
--- NOTE | 2024-01-23 00:10 | PTCARENOTE ---
Patient reassessed. Remains in Afib with HR ranging 120s-130s at this time. Per CT PA Amio rate increased from 0.5 to 1 from 2200 to 0400. Dobut also tapered down to 4mcg per CT PA. Ventilator settings adjusted by RT RR increased to 18 fiO2 remains
at 70%. All other VSS. Crowder care provided. Will continue to monitor.
[2024-01-23 01:01] LABS: Glucose - Point of Care 142 mg/dl (70-99)
[2024-01-23] MEDS: PRECEDEX 100 IV ×3 (01:51→18:01)
[2024-01-23 02:06] LABS: Glucose - Point of Care 115 mg/dl (70-99)
[2024-01-23 03:08] LABS: Glucose - Point of Care 86 mg/dl (70-99)
--- NOTE | 2024-01-23 03:15 | W.PN.CT ---
Addendum entered and electronically signed by Rufus Perea MD 01/23/24 09:09:
I saw and examined the patient.
The PA's note was reviewed and I agree with the note.
Comment:
N: Intubated/sedated, precedex decreased to 0.6 this AM; when OFF sedation pt. follows commands/NORWOOD; intermittent diaudid for pain control
CV: Milrinone 0.125, Dobutamine 4.5. Converted to NSR at 6AM post 11hrs of AF. CI: 1.7; MvO2 60 - 115/48;
P: CXR improved this AM, no significant effusions. Change to SIMV vent mode from AC. PEEP to 8 from 10 - follow ABGs: 7.43/35/97/23.2/-0.9 on 70% FiO2 - decreased to 60%
GI: Trophic TF - increase to goal today; hold at MN tonight if patient making good progress from respiratory standpoint with potential for extubation tomorrow
: +[place]; UO: 1040/last 24 hours. Bumex is currently on hold - will resume at 0.5 today
HEME: Hgb 8.9; PLT 72 (from 69)
ID: No ABX currently; WBC 17.8; no fevers
ENDO: Insulin gtt
FEN: lytes OK
LINES: RIJ cordis/SGJ; A-line; PIVs
PROPH: SCDs, ETT care, Heparin gtt
DISPO: Full code
Original Note:
Today's Communication / Plan
-
-No major issues overnight. Pt remains Pt intubated and sedated on Precedex, follows commands and moving all extremities appropriately when off sedation
-Went into a-fib with RVR ( 140-150's) @ 1900 yesterday 01/21. Started on Amiodarone gtt and was given a bolus. Converted to NSR @ 0540 this AM, was in a-fib x 11hrs
-Remains on Milrinone @ 0.125 mcg/kg/min and Dobutamine @ 4.5 mcg/kg/min. A-fib likely secondary to chronotropic effects of inotropes
-Able to wean dobutamine to 4.5 mcg/kg/min but no further, CI < 2.0 when dobutamine weaned to 4 mcg/kg/min
-Current drips includes: Milrinone 0.125, Dobutamine 4.5, Amiodarone 0.5, Precedex 0.1, Heparin gtt @ 500 u/hr, and insulin. Was on bumex gtt @ 0.5 mg/hr yesterday until 6 pm
-Last CI 2.05, MVO2 61.1%, 24hr u/o 1040 mL
-Current vent settings: A/C, TV 500, R 16, PEEP 10, Fio2 .70. AB.43/35/97/23.2/98.7
-Chest tube output: 2meds 120/240, Lpl 65/110
-Noted to have left basilar opacification on cxr S/P bronchoscopy 12/21 was unremarkable
-Echo obtained yesterday 12/21 showed a well seated AVR, PG/MG of 28/19, no AI, LVEF 55-60%. Moderate enlarged RV with hypokinesis. An echodensity @ sub-aortic extending towards left atrium (LVOT/LA jxn)
-Wean inotropes as tolerated
-D/C swan and a-line when able to wean off inotropes
-Wean off ventilator as tolerated
-Maintain austin catheter to measure I/O's
-Monitor creatinine 2.1, was 2.2 yesterday. Was 0.9 preop
-Maintain cordis
-Maintain temporary pacer wire (will cut before d/c home)
Assessment / Plan
-
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
LAD and reverse saphenous vein graft from ascending aortic graft to distal RCA; EVH of RLE; Explant of prior 21 mm trifecta aortic valve; 21 mm Medtronic Freestyle aortic root complex replacement with reimplantation of coronary buttons; Hypothermic
circulatory arrest with selective cerebral perfusion, ascending aortic replacement with a 26 mm straight tube graft pm 01/19/[address] Trivedi, pod #4
- Intraop DEMAR: LVEF preop was preserved at approximately 55 to 60%. Following surgery EF remained the same at approximate 50-55% on 5 dobutamine and some Cardene. Her RV function was normal preoperatively and mild to moderately depressed
postoperatively. Following aortic root replacement, there was no aortic valve insufficiency with a new freestyle porcine root replacement.
-Her cardiac index was depressed at approximately 1.5 on 5 dobutamine. She did not require any pacing and was on her own [place] sinus rhythm following surgery. Due to the extended pump time, mild RV dysfunction, and required multiple blood
products due to coagulopathy, chest was left open and packed with 1 vaginal pack.
S/P Removal of one vaginal packing/Evacuation of minimal clot and old fibrillar/hemostatic agents/[place] with warm saline/Placement of additional atrial pacing wires and additional ventricular pacing wire/Removal of the 28F straight chest
tube/Chest closure with 4 #7 single and 3 #8 double stainless steal wires/Application of skin vac, by Dr. Trivedi, 01/21/24, pod#2
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
- Multivessel coronary artery disease with anginal/exertional chest pain
- Class 1 obesity, BMI 33
- Hypertension
- Hyperlipidemia
- Previous PCI with cardiac stent to the OM
- Previous cardiac surgery with [facility] trifecta # 21 aortic valve replacement and single-vessel bypass to the OM in 2017
- Diabetes mellitus (A1c 6.8)
- Severe carotid stenosis of the right side
(US 01/11/24: Mixed plaque within the right carotid bulb, velocity measurements suggestive of greater than 70% stenosis, internal to common carotid ratio suggestive of 50-69% stenosis)
- Hard of hearing
- WILNER
- b/l breast biopsies
- Acute postop anemia- s/p 7 pRBCs
- Acute postop coagulopathy/thrombocytopenia - s/p Factor 7 in OR, total 3 FFPs, 3 units platelets
- Acute postop atelectasis
- Acute postop hypovolemia with subsequent hypervolemia
- Acute postop hypotension d/t cardiogenic shock, requiring inotrops and pressors
- Acute postop ectopy (PACs, PVCs)- tx with Amio bolus and drip, now off - improved with discontinuing Milrinone
- Acute postop hyperkalemia
- Acute postop junctional rhythm
- Acute postop metabolic alkalosis with respiratory compensation
- Acute postop respiratory insufficiency secondary to volume overload, pulmonary edema
- Acute postop VDRF
- Acute postop bronchoscopy 01/21 -unremarkable
- Acute postop bronchoscopy 01/20 -thick secretions suctioned @ justin
- Acute postop FABIAN
- Acute postop a-fib with RVR 150's
Discussed patient care with: Cardiology, Nursing, Respiratory Therapy, Pharmacy and Care Team
Subjective
-
Date of Service: January 23, 2024
Pt intubated and sedated on Precedex, follows commands and moving all extremities appropriately when off sedation
Objective Data
-
PT 15.0 Sec (11.4-14.6) H 01/21/24 15:02
INR 1.13 01/21/24 15:02
APTT 49.7 Sec (23.4-35.0) H 01/22/24 23:49
Vital Signs
Vital Signs
Temp Pulse Resp BP Pulse Ox
98.9 F 127 18 111/71 98
01/23/24 03:00 01/23/24 03:00 01/23/24 03:00 01/23/24 03:00 01/23/24 03:00
CT Intake/Output/Weight
01/22/24 01/22/24 01/23/24
06:59 18:59 06:59
Intake Total 489 / 1776.2 1862.7 / 3149.2 1286.5 / 3149.2
Output Total 770 / 1430 440 / 1145 705 / 1145
Balance -281 / 346.2 1422.7 / 2003.2 581.5 / 2004.2
SaO2: 98 (A/C, 500, 18, 10, 70%)
Physical Exam
-
General: Other (Pt intubated and sedated on Precedex, follows commands and moving all extremities appropriately when off sedation)
Cardiovascular: Regular rate & rhythm, No Murmurs, No Rub and No Gallop
Respiratory: Decreased Breath Sounds
Sternum: Stable and Other (with sternal wound vac applied)
Incision: Clean, Dry, Intact and Dressing Intact
Extremities: Edema +1
Data Reviewed
-
Lab Results: Results Reviewed
Medications: Active Meds Reviewed
Chest X-Ray: Report Reviewed and Image Reviewed
ECG: Report Reviewed and Image Reviewed
[2024-01-23 03:53] LABS: B.E. 1.2 mmol/L; HCO3 24.2 mmol/L (21-28); O2 Saturation % 98.7 % (94-98); PCO2 31 mmHg (32-35); PO2 97 mmHg (83-108)
[2024-01-23] MEDS: NSS 500 IV (03:58)
--- NOTE | 2024-01-23 04:00 | PTCARENOTE ---
GRV 100 returned to patient
[2024-01-23 04:04] LABS: Glucose - Point of Care 108 mg/dl (70-99)
[2024-01-23 04:19] LABS: ALT (SGPT) < 10 U/L (0-35); AST (SGOT) 40 U/L (14-36); Albumin 3.4 g/dl (3.5-5.0); Alkaline Phosphatase 36 U/L (38-126); Blood Urea Nitrogen 53 mg/dl (7-17); Calcium 8.8 mg/dl (8.4-10.2); Carbon Dioxide 23 mmol/L (22-30); Chloride 109 mmol/L (98-107); Direct Bilirubin 0.3 mg/dl (0.0-0.4); Estimated Creatinine Clearance 25 ml/min; Glucose 118 mg/dl (70-99); Magnesium 2.1 mg/dl (1.6-2.3); Potassium 4.1 mmol/L (3.5-5.1); Sodium 145 mmol/L (135-145); Total Protein 5.1 g/dl (6.3-8.2); eGFR 23.53
[2024-01-23 04:22] LABS: Hematocrit 25.9 % (37.0-47.0); Hemoglobin 8.9 g/dL (12.0-16.0); Mean Corp Hgb Conc. 34.4 g/dL (33.0-37.0); Mean Corpuscular Hgb 30.9 pg (27.0-31.0); Mean Corpuscular Volume 89.9 fL (81.0-99.0); Mean Platelet Volume 12.3 fL (7.4-10.4); Platelet Count 72 10^3/uL (130-400); Red Blood Cell Count 2.88 10^6/uL (4.20-5.40); White Blood Cell Count 17.8 10^3/uL (4.8-10.8)
--- NOTE | 2024-01-23 04:37 | PTCARENOTE ---
Patient reassessed. Remains in Afib with HR ranging 110s-130s. AM labs obtained. AM hygiene care provided. CI<2 dobut increased to 4.[address] PA[address] Amio decreased to 0.5 mcg as well. Tidal volume increased to 500 by RT. Good UOP overnight. Minimal CT
output. Inappropriate pacing noted on monitor sensitivity decreased from 2.0 to 1.5.
[2024-01-23] MEDS: FLEXBUMIN 50 IV (04:52)
[2024-01-23] MEDS: ROXICODONE ORAL SOLUTION 5 MG TUBE ×4 (05:06→23:54)
[2024-01-23] MEDS: TYLENOL 1000 MG PO ×3 (05:07→23:04)
--- NOTE | 2024-01-23 05:50 | PTCARENOTE ---
Patient converted back to NSR at approx 0540. HR in 80s. Vitals otherwise unchanged.
[2024-01-23 05:55] LABS: Glucose - Point of Care 119 mg/dl (70-99)
[2024-01-23] MEDS: DILAUDID 0.5 MG IV ×4 (06:15→21:51)
[2024-01-23 06:18] LABS: Mixed Venous O2 Saturation 59.7 %
[2024-01-23 06:20] LABS: B.E. -0.9 mmol/L; HCO3 23.2 mmol/L (21-28); O2 Saturation % 98.7 % (94-98); PCO2 35 mmHg (32-35); PO2 97 mmHg (83-108); pH 7.43 (7.35-7.45)
[2024-01-23 06:32] LABS: APTT 48.4 Sec (23.4-35.0)
[2024-01-23] MEDS: LIDOCAINE 4% PATCH TOPICAL (07:40)
[2024-01-23] MEDS: FEOSOL PO (07:40)
--- NOTE | 2024-01-23 07:40 | PTCARENOTE ---
Assumed care of patient from shiftman RN. Intubated dn sedated on the vent. Precedex infusing with adequate sedation delivered. Pt does wake to voice commands, Opens eyes, pupils 2/2 sluggish but reactive. Pt able to move all extremities and
shakes head to yes/no questions. Vent on hand off AC 16 70% 500 peep 10 pulse ox 98%. SR on monitor, 80's. Epicardial A/V wires to temporary pacemaker box set to VVI 30. No pacing at present. RT IJ cordis with swan @ 40 cm. Lt radial A line
transducing. Lines leveled, recalibrated, and flushed. Chest tubes x 3 to - 20 cm suction. No air leak or crepitus noted. Sternal wound vac intact. Dressing c,d,i. Abdomen obese with hypoactive bowel sounds. OGT at 50 cm with Osmolite 1.2
infusing at 10 ml/hr. Residual checked for 80 ml. Crowder draining clear christelle urine. Rt groin site with sutures intact. RT Leg harvest site well approximated with surgical adhesive. General plus 2 anasarca appreciated. Pulses palpable. Plan for
day discussed with CT team.
[2024-01-23] MEDS: SENOKOT-S PO (07:41)
[2024-01-23 08:09] LABS: Glucose - Point of Care 106 mg/dl (70-99)
[2024-01-23] MEDS: PROTONIX IV 40 MG IV (08:15)
[2024-01-23] MEDS: MIRALAX 17 GRAMS TUBE (08:15)
[2024-01-23] MEDS: BACTROBAN 2% OINTMENT 1 APPLIC NASAL (08:16)
[2024-01-23] MEDS: PACERONE 200 MG PO ×3 (08:16→23:04)
[2024-01-23] MEDS: NEURONTIN 100 MG PO ×3 (08:16→23:04)
[2024-01-23] MEDS: NSS (PRESERVATIVE FREE) 10 ML IV (08:16)
[2024-01-23] MEDS: LOW STRENGTH ASPIRIN 81 MG PO (08:16)
[2024-01-23] MEDS: MAGNESIUM OXIDE 500 MG PO ×2 (08:16→20:14)
[2024-01-23] MEDS: VITAMIN C 500 MG PO (08:16)
[2024-01-23] MEDS: PLAVIX 75 MG PO (08:16)
[2024-01-23] MEDS: PRIMACOR 20 MG 100 IV (08:27)
[2024-01-23] MEDS: NOVOLIN R INSULIN INFUSION 100 IV (08:44)
--- NOTE | 2024-01-23 09:19 | PTCARENOTE ---
Turned and repositioned, face washed, teeth brushed. Lip care with AD ointment applied. Multi podis boots applied to b/l feet. Precedex lowered to allow for vent weaning.
[2024-01-23 09:31] LABS: Blood Urea Nitrogen 54 mg/dl (7-17); Calcium 8.7 mg/dl (8.4-10.2); Carbon Dioxide 24 mmol/L (22-30); Chloride 108 mmol/L (98-107); Estimated Creatinine Clearance 25 ml/min; Glucose 93 mg/dl (70-99); Potassium 3.8 mmol/L (3.5-5.1); Sodium 144 mmol/L (135-145); eGFR 23.53
[2024-01-23 10:08] LABS: Glucose - Point of Care 87 mg/dl (70-99)
--- NOTE | 2024-01-23 10:37 | PTCARENOTE ---
Tube feed rate increased to 20 ml/her per CT PA order.
[2024-01-23] MEDS: CORDARONE 518 MG IV (10:45)
--- NOTE | 2024-01-23 10:59 | W.PN.INTV ---
Today's Communication / Plan
Recommendations
Continue inotropes
Continue IV diuresis
Heparin gtt
Follow renal function electrolytes
Mechanical ventilation continue-hopefully spontaneous breathing trial tomorrow
Follow H&H
Follow chest tube output
Assessment
-
Status post coronary artery bypass/aortic root replacement/redo sternotomy with lysis of adhesions/explant of prior aortic valve.
Open chest-status postclosure 01/21/2024
Postoperative respiratory failure require mechanical ventilation
Left lung whiteout 01/22/2024-likely mucous plug
Bronchoscopy 01/22/2024
Conditions present prior admission:
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
Heart failure
Multivessel coronary artery disease
Morbid obesity
Hypertension
Hyperlipidemia
Coronary artery disease with prior stents
Prior aortic valve replacement with single-vessel bypass
Type 2 diabetes
Severe carotic stenosis on the right
Hard of hearing
Assessment and plan
Postoperative day #4
Status post chest closure 01/21/2024.
-
Remains on mechanical ventilation
ABG 01/23/2024: 7.43/35/97 adequate ventilation and oxygenation
Ventilator settings switched to SIMV.
Pulmonary mechanics acceptable
No significant secretion on ET tube.
Daily ABGs
Chest x-ray: Improved aeration of the left lung. Residual left lower lobe atelectasis.
Continue to optimize cardiac status-plan for possible spontaneous breathing trial tomorrow.
Chest x-ray: Left lung atelectasis-improved on chest x-ray.
Bronchoscopy 01/21/2024: Scant amount of thick whitish phlegm suctioned from the justin. Otherwise patent tracheobronchial tree. No samples were sent
Anemia noted-no evidence of acute bleeding
Status post multiple transfusions.
Follow H&H serially
Hemodynamics -remains on dobutamine/Milrinone.
PA catheter and arterial line in place.
on Bumex drip
Acute kidney injury noted-nonoliguric. Follow urinary output. Creatinine has plateaued.
No significant metabolic acidosis
Cardiology following
ECHO 01/22/2024: noted
Normal left ventricular chamber size. Normal left ventricular systolic
function. Left ventricular ejection fraction is 55-60%. Normal regional wall
motion. Mild concentric left ventricular hypertrophy.
Moderately enlarged right ventricular size. Moderate RV hypokinesis.
Mildly dilated left atrium.
There is a circumferential echodensity seen best
in the parasternal short axis views which appears to be sub-aortic extending
towards the left atrium.
Bioprosthetic aortic valve with size 21 Freestyle - Peak gradient 28mmHg/Mean
gradient 19mmHg - no aortic regurgitation is seen. There is a well-
circumscribed approximately 2 cm echodensity which appears to be subaortic at
the LVOT/LA junction.
Postoperative A-fib, continue amiodarone
On Heparin gtt, followptt
Antiplatelet
Chest tube with no excessive drainage-no air leak.
Chest x-ray reviewed: Lines endotracheal tube in correct position. No pneumothorax. Small left lower lobe atelectasis improved compared to prior
Remain nothing by mouth
Head of the bed elevation
Glycemic control per protocol
DVT prophylaxis when safe from the surgical perspective.
Critical care statement: A total of 31 minutes of critical care time was provided for this patient today. This includes management of unstable vital signs, evaluation of the patient at bedside, reviewing the patient's pertinent medical records
including ventilator settings, arterial blood gases, radiographs, microbiology, laboratory evaluations and discussion with primary team, critical care nursing, and respiratory therapy.
Subjective Dataa
Subjective Data
Date of Service:
Date of Service: January 23, 2024
Chief Complaint: Virologist Follow Up (Status post redo sternotomy, AVR and CABG)
Subjective:
Remains on mechanical ventilation
Follows commands with sedation breaks.
Review of Systems
General: Fever (n) and Unobtainable - Sedation
Objective Data
Data Reviewed
Vital Signs / I&O / Oxygen:
Vital Signs
Temp Pulse Resp BP Pulse Ox
97.9 F 84 16 121/52 97
01/23/24 09:59 01/23/24 10:00 01/23/24 09:59 01/23/24 10:00 01/23/24 10:16
Intake and Output
01/22/24 01/23/24 01/24/24
06:59 06:59 06:59
Intake Total 1576.0 / 1776.2 4049.4 / 4159.1 601.3 / 601.3
Output Total 1375 / 1430 1380 / 1475 245 / 245
Balance 201.0 / 346.2 2669.4 / 2684.1 356.3 / 356.3
SaO2 [A/C] 96
SaO2 [SIMV] 97
SaO2 97
Physical Exam
General: Comfortable (On mechanical ventilation)
HEENT: Normocephalic
Cardiovascular: S1-S2 and Regular Rhythm
Respiratory: Clear, Non-Labored Respirations and Chest Tube (No evidence for air leak. No excessive drainage)
GI: Soft and Non Distended
Neurology: Other ( follows commands with sedation breaks) and Other (Sedated, mechanical ventilation)
Skin: Warm
Labs/Micro/Reports
Lab Data
01/23/24 03:38
01/23/24 09:02
Laboratory Results
01/22/24 01/22/24 01/22/24
10:55 12:21 16:59
APTT
pH 7.41 7.43 7.42
pCO2 39 H 40 H 41 H
pO2 79 L 77 L 74 L
HCO3 24.7 26.5 26.6
O2 Delivery Level
01/22/24 01/22/24 01/22/24
18:35 21:06 23:49
APTT 39.4 H 49.7 H
pH 7.41
pCO2 40 H
pO2 76 L
HCO3 25.4
O2 Delivery Level
01/23/24 01/23/24
03:38 06:04
APTT 48.4 H
pH 7.50 H 7.43
pCO2 31 L 35
pO2 97 97
HCO3 24.2 23.2
O2 Delivery Level
--- NOTE | 2024-01-23 11:11 | PTCARENOTE ---
Pt becoming increasingly agitated, unable to redirect, grabbing at tubes/lines. CT PA notified order obtained for restraints. Precedex increased as needed. Tolerating at present.
[2024-01-23 11:12] LABS: B.E. -0.3 mmol/L; Ionized Calcium 1.23 mMOL/L (1.15-1.33); O2 Saturation % 97.8 % (94-98); PCO2 37 mmHg (32-35); PO2 79 mmHg (83-108); Potassium 4.2 mMOL/L (3.5-5.1); pH 7.42 (7.35-7.45)
[2024-01-23 11:16] LABS: O2 Therapy simv 60% peep 8
[2024-01-23] MEDS: KCL 50 IV ×2 (11:34→16:50)
[2024-01-23 12:10] LABS: Glucose - Point of Care 143 mg/dl (70-99)
--- NOTE | 2024-01-23 12:24 | W.PN.CARDCBS ---
Today's Communication / Plan
-
Continue current drips including pressors and inotropes. Cardiac output and cardiac index along with pressures acceptable.
Postop care per CT surgery service.
Follow volume status
Rhythm stable. Continue amiodarone.
Impression / Plan
-
Cardiology: Dr. Fernie Cox of [facility]
PCP: Dr. Radha Tamez
IMPRESSION:
s/p Freestyle 21 mm AV replacement with replacement of ascending aorta to innominate for and aortic insufficiency of previously placed tissue AVR 01/19/24
s/p tissue AVR 2016
Not TAVR candidate with low coronary heights and narrow SOV
CAD s/p CABG with GARCIA to LAD and SVG to RCA, Diagonal could not be grafted 01/19/24
previous CABG with SVG to OM-2 in 2016 known to be occluded since cath in 2019
Open sternotomy secondary to oozing, edema, RV dysfunction on multiple pressors dobutamine and milrinone 01/19/24 s/p closure 01/21/24
DM 2
Hyperlipidemia
Hypoxemia resulting in emergent bronch 01/22/24
Acute post op anemia/thrombocytopenia
Post op FABIAN
Post op PAF and junctional rhythm
DEMAR 01/21/24: LV underfilled with all wall segments moving normally, RV severely hypokinetic with akinesis of anterior wall, trace MR and TR, no effusions
RECOMMENDATIONS:
-She is currently intubated. Multiple pressors and inotropes remaining stable with acceptable cardiac index and cardiac output. Intracardiac pressures stable.
-She t underwent redo sternotomy with CABG x2 in situ GARCIA to LAD and rSVG from asc aortic graft to distal RCA, explant of prior aortic valve, complex Medtronic aortic root replacement, hypothermic circ arrest, ascending aorta replacement 01/19/24.
Due to prolonged pump time, chest was left open. She returned to OR 01/20 for chest closure.
-01/20 with periods of afib then junctional on IV amio gtt. continue. Follow.
-s/p bronch 01/21 due to hypoxemia and L lung whiteout on CXR with likely mucous plug
-currently on dobutamine @5, milrinone @0.25, nitro @25 along with vasopressin
-currently in SR on review of tele. had ~2 hours of afib/atach 01/20.
-on IV bumex gtt. Stable creatinine 2.1.
-currently on CPAP, continue to wean as able
-hgb 8.9, plts 72K. s/p 7 U PRBCs, 3 plts, 3 FFP.
-continue post op mgmt
-critically ill
Progress Note - Management Associate
Subjective
Date of Service: January 23, 2024
Intubated on ventilator.
Objective
Labs:
01/23/24 03:38
01/23/24 09:02
Labs
Hgb 8.9 g/dL (12.0-16.0) L 01/23/24 03:38
Hct 25.9 % (37.0-47.0) L 01/23/24 03:38
Plt Count 72 10^3/uL (130-400) L 01/23/24 03:38
PT 15.0 Sec (11.4-14.6) H 01/21/24 15:02
INR 1.13 01/21/24 15:02
APTT 48.4 Sec (23.4-35.0) H 01/23/24 06:04
Sodium 144 mmol/L (135-145) 01/23/24 09:02
Potassium 3.8 mmol/L (3.5-5.1) 01/23/24 09:02
BUN 54 mg/dl (7-17) H 01/23/24 09:02
Creatinine 2.1 mg/dL (0.6-1.0) H 01/23/24 09:02
Glucose 93 mg/dl (70-99) 01/23/24 09:02
Vital Signs and I&O:
Vital Signs
Temp Pulse Resp BP Pulse Ox
98.4 F 87 16 106/52 95
01/23/24 12:00 01/23/24 12:00 01/23/24 12:00 01/23/24 12:00 01/23/24 12:00
Vital Signs
Temp Pulse Resp BP Pulse Ox
98.4 F 87 16 106/52 95
01/23/24 12:00 01/23/24 12:00 01/23/24 12:00 01/23/24 12:00 01/23/24 12:00
Intake & Output
01/21/24 01/22/24 01/23/24 01/24/24
06:59 06:59 06:59 06:59
Intake Total 2257.7 / 2345.8 1576.0 / 1776.2 4049.4 / 4159.1 937.3 / 937.3
Output Total 2325 / 2365 1375 / 1430 1380 / 1475 350 / 350
Balance -67.3 / -19.2 201.0 / 346.2 2669.4 / 2684.1 587.3 / 587.3
Physical Exam
Physical Exam
General: intubated on ventilator
Heart: Distant heart sounds
Lungs: Intubated coarse anterior breath sounds
Extremities: Trace to +1
Neuro: Sedated
[2024-01-23 13:01] LABS: Glucose - Point of Care 116 mg/dl (70-99)
--- NOTE | 2024-01-23 13:55 | PTCARENOTE ---
Family at bedside. Pt becoming increasingly agitated with family interacting with pt. Became hypotensive 80's/40's, thrashing in bed. PRN dilaudid administered and precedex increased to achieve a therapeutic level of sedation VSS after.
[2024-01-23 15:02] LABS: Glucose - Point of Care 108 mg/dl (70-99)
[2024-01-23 15:09] LABS: B.E. -0.9 mmol/L; HCO3 23.2 mmol/L (21-28); O2 Saturation % 97.7 % (94-98); PCO2 35 mmHg (32-35); PO2 77 mmHg (83-108); pH 7.43 (7.35-7.45)
[2024-01-23 15:32] LABS: Blood Urea Nitrogen 59 mg/dl (7-17); Calcium 8.5 mg/dl (8.4-10.2); Carbon Dioxide 23 mmol/L (22-30); Chloride 108 mmol/L (98-107); Estimated Creatinine Clearance 25 ml/min; Glucose 106 mg/dl (70-99); Potassium 3.9 mmol/L (3.5-5.1); Sodium 143 mmol/L (135-145); eGFR 23.53
[2024-01-23 17:10] LABS: APTT 49.1 Sec (23.4-35.0)
[2024-01-23 17:11] LABS: Glucose - Point of Care 91 mg/dl (70-99)
[2024-01-23] MEDS: LIPITOR 80 MG PO (18:01)
[2024-01-23] MEDS: LEVOPHED 258 MG IV (18:38)
--- NOTE | 2024-01-23 18:41 | PTCARENOTE ---
Hypotensive this evening, bps dropping into 80/30's . Bumex drip placed on hold per CT PA order at 1800. Levophed initiated at 1 mcg/min. BP improving. Will monitor.
[2024-01-23 19:26] LABS: Glucose - Point of Care 119 mg/dl (70-99)
[2024-01-23] MEDS: SENOKOT-S 1 TABLET PO (20:14)
--- NOTE | 2024-01-23 20:33 | PTCARENOTE ---
Assumed care of pt from daysgaft RN. Walking rounds completed. Pt intubated w/ light sedation. Precedex infusing as ordered. Pt opens eyes to verbal stimulation and nods head appropriately. CPOT 0. RASS -2. Pt able to NORWOOD and squeeze B/L hands when
asked. Pt is SR on the tele monitor. HR 80-90s. Temporary epicardial A/V wires intact. Temporary pacer set to VVI 30/10/1.5 (second v-wire insulated). CO: 3.92. CI: 2.05. SVR 1,000. PAPs 30s/teens. CVP ~12. B/L radial pulses palpable. B/L DP pulses
weak on palpation - confirmed w/ Doppler. Generalized edema +2 and pitting. ETT #7.5, sitting 21 cm in the middle of the mouth. See worklist for full ventilator settings. B/L lung sounds coarse and decreased. POX 95-97%. Mediastinal CTx2 and Left
pleural CT to -20 suction, no air-leak/tidaling/crepitus at this time, and output WNL. CT dressing C/D/I. Abdomen round/obese. Hypoactive BS. OG tube intact and @50 cm on the lip w/ tube feeding of Osmolite 1.2 at 10 mL/hr w/ 25 mL flushed. Crowder
catheter C/D/I and draining yellow urine. Sternal incision w/ wound VAC C/D/I. Right leg SVG site RUFUS and ecchymotic. Right groin suture intact and RUFUS. Right arterial line C/D/I. Right IJ cordis w/ swan @ 40 cm C/D/I. Right forearm 20 gauge C/D/I.
All lines leveled, zeroed, and flushed. Precedex, Heparin, Insulin, Amio, Levo, Milrinone, and dobutamine infusing as ordered and as documented in worklist. See worklist for full nursing assessment and interventions. Pt turned/repositioned in bed.
[2024-01-23 21:03] LABS: Glucose - Point of Care 145 mg/dl (70-99)
[2024-01-23 23:25] LABS: Glucose - Point of Care 125 mg/dl (70-99)
[2024-01-24] VITALS (31 sets, daily range): BP systolic 79–139; BP diastolic 46–82; BMI 37.4
[2024-01-24] MEDS: PRECEDEX 100 IV ×2 (00:16→05:27)
--- NOTE | 2024-01-24 00:35 | PTCARENOTE ---
Pt reassessed. Pt remains intubated and lightly sedated. RASS -2. Precedex infusing. Pt will briefly wake up spontaneously. Pt is SR on the tele monitor. HR 80s. BP 100/40s. PAPs 30s/teens. CVP ~13. CI >2.0. Pt ETT intact and positioned @ the left
lip. See worklist for full vent settings. POX 94%. CT assessment unchanged. Crowder catheter C/D/I. Pt voiding less than 30 ml/hr of urine. CTNP aware. OG tube intact. Tube feeds dc'd at midnight for possible extubation in AM. All surgical sites
stable. Sternal wound vac intact and dressing C/D/I. Left arterial line and swan intact. All lines leveled, zeroed, and flushed. PTT drawn and sent. Dobutamine titrated down to [address] Heparin, dobutamine, Milrinone, Precedex, Levo, and Amio
infusing as documented in worklist. Glycemic protocol followed. Pt repositioned in bed.
[2024-01-24 00:38] LABS: APTT 47.1 Sec (23.4-35.0)
[2024-01-24 00:54] LABS: Glucose - Point of Care 106 mg/dl (70-99)
[2024-01-24 03:12] LABS: Glucose - Point of Care 80 mg/dl (70-99)
[2024-01-24 04:08] LABS: 24 Hour Urine Total Volume Random mL; Creatinine, Urine per Volume 130 mg/dL; Phosphorus, Urine 93 mg/dL; Phosphorus/Creatinine Ratio 715 mg/g; Urine Collection Length Random hr
[2024-01-24 04:10] LABS: 24 Hour Urine Total Volume Random mL; Citric Acid, Urine 63 mg/L; Citric Acid/Creatinine Ratio 48 mg/g (>=150); Creatinine, Urine per Volume 131 mg/dL; Urine Collection Length Random hr
--- NOTE | 2024-01-24 04:13 | W.PN.CT ---
Addendum entered and electronically signed by Rufus Perea MD 01/24/24 09:24:
I saw and examined the patient.
The PA's note was reviewed and I agree with the note.
Comment:
N: Intact, NORWOOD, follows. Precedex currently held
CV: Dobutamine 4, milrinone OFF, levophed 4 added overnight - Last CI 2.0, MvO2 64.7
P: CPAP currently, 50%, 5peep, TV 480. 7.37/37/76/21.4/-3.5 - work toward potential extubation
GI: TF held at KS for attempted extubation today
: Creat 2.4 (from 2.1 yesterday), UO: Only 30mL since 7AM (last 2.5hrs) - LR bolus now (500mL) - closely follow UO. No significant response to Bumex gtt yesterday
HEME: Hgb 8.6, PLT: 100
ID: WBC 16.8, afebrile, no ABX
ENDO: BS 79, insulin gtt
FEN: Na/K: 138/4.7; Ca 8.4, Ph 4.2, Mg 2.2. TF were only at 20mL/hr w/ 25mL of H2O - may require maintenance IVF
PROPH: Heparin gtt (goal PTT 60-90; last 58 - gtt increased), SCDs, ETT care, pressure-ulcer prophylaxis, protonix
DISPO: ICU, full code
Original Note:
Today's Communication / Plan
-
-No major issues overnight. Pt remains Pt intubated and sedated on Precedex, follows commands and moving all extremities appropriately when off sedation
-Went into a-fib with RVR ( 140-150's) on 01/21, back in NSR, still on amio @ 0.5
-Remains on Milrinone @ 0.125 mcg/kg/min, Dobutamine @ 3 mcg/kg/min.
-Current drips includes: Milrinone 0.125, Dobutamine 3, Amiodarone 0.5, Precedex 0.1, Levophed @ 6, Heparin gtt @ 800 u/hr, and insulin. Off bumex drip
-Last CI 2.06, CO 3.96 24hr u/o 600 mL in 24 hrs
-Current vent settings: A/C, TV 500, R 16, PEEP 5, Fio2 .50. AB.43/35/97/23.2/98.7
-Chest tube output: 2meds 70/190, Lpl 35/80
-Noted to have left basilar opacification on cxr S/P bronchoscopy 12/21 was unremarkable
-Echo obtained 12/21 showed a well seated AVR, PG/MG of 28/19, no AI, LVEF 55-60%. Moderate enlarged RV with hypokinesis. An echodensity @ sub-aortic extending towards left atrium (LVOT/LA jxn)
-Wean off ventilator as tolerated
-Maintain austin catheter to measure I/O's
-Monitor creatinine , Was 0.9 preop
-Maintain cordis
-Maintain temporary pacer wire (will cut before d/c home)
Assessment / Plan
-
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
LAD and reverse saphenous vein graft from ascending aortic graft to distal RCA; EVH of RLE; Explant of prior 21 mm trifecta aortic valve; 21 mm Medtronic Freestyle aortic root complex replacement with reimplantation of coronary buttons; Hypothermic
circulatory arrest with selective cerebral perfusion, ascending aortic replacement with a 26 mm straight tube graft pm 01/19/[address] Trivedi, pod #5
- Intraop DEMAR: LVEF preop was preserved at approximately 55 to 60%. Following surgery EF remained the same at approximate 50-55% on 5 dobutamine and some Cardene. Her RV function was normal preoperatively and mild to moderately depressed
postoperatively. Following aortic root replacement, there was no aortic valve insufficiency with a new freestyle porcine root replacement.
-Her cardiac index was depressed at approximately 1.5 on 5 dobutamine. She did not require any pacing and was on her own moapa sinus rhythm following surgery. Due to the extended pump time, mild RV dysfunction, and required multiple blood
products due to coagulopathy, chest was left open and packed with 1 vaginal pack.
S/P Removal of one vaginal packing/Evacuation of minimal clot and old fibrillar/hemostatic agents/Washout with warm saline/Placement of additional atrial pacing wires and additional ventricular pacing wire/Removal of the 28F straight chest
tube/Chest closure with 4 #7 single and 3 #8 double stainless steal wires/Application of skin vac, by Dr. Trivedi, 01/21/24, pod#3
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
- Multivessel coronary artery disease with anginal/exertional chest pain
- Class 1 obesity, BMI 33
- Hypertension
- Hyperlipidemia
- Previous PCI with cardiac stent to the OM
- Previous cardiac surgery with [facility] trifecta # 21 aortic valve replacement and single-vessel bypass to the OM in 2017
- Diabetes mellitus (A1c 6.8)
- Severe carotid stenosis of the right side
(US 01/11/24: Mixed plaque within the right carotid bulb, velocity measurements suggestive of greater than 70% stenosis, internal to common carotid ratio suggestive of 50-69% stenosis)
- Hard of hearing
- WILNER
- b/l breast biopsies
- Acute postop anemia- s/p 7 pRBCs
- Acute postop coagulopathy/thrombocytopenia - s/p Factor 7 in OR, total 3 FFPs, 3 units platelets
- Acute postop atelectasis
- Acute postop hypovolemia with subsequent hypervolemia
- Acute postop hypotension d/t cardiogenic shock, requiring inotrops and pressors
- Acute postop ectopy (PACs, PVCs)- tx with Amio bolus and drip, now off - improved with discontinuing Milrinone
- Acute postop hyperkalemia
- Acute postop junctional rhythm
- Acute postop metabolic alkalosis with respiratory compensation
- Acute postop respiratory insufficiency secondary to volume overload, pulmonary edema
- Acute postop VDRF
- Acute postop bronchoscopy 01/21 -unremarkable
- Acute postop bronchoscopy 01/20 -thick secretions suctioned @ justin
- Acute postop FABIAN
- Acute postop a-fib with RVR 150's
Subjective
-
Date of Service: January 24, 2024
Objective Data
-
PT 15.0 Sec (11.4-14.6) H 01/21/24 15:02
INR 1.13 01/21/24 15:02
APTT 47.1 Sec (23.4-35.0) H 01/24/24 00:13
Vital Signs
Vital Signs
Temp Pulse Resp BP Pulse Ox
98.5 F 86 16 109/49 93
01/24/24 04:00 01/24/24 04:01 01/24/24 04:00 01/24/24 04:00 01/24/24 04:01
CT Intake/Output/Weight
01/23/24 01/23/24 01/24/24
06:59 18:59 06:59
Intake Total 2186.7 / 4159.1 2291.3 / 3549.3 1258.0 / 3549.3
Output Total 940 / 1475 595 / 855 260 / 855
Balance 1246.7 / 2684.1 1696.3 / 2694.3 998.0 / 2694.3
SaO2: 93
Physical Exam
-
General: Other (RASS -1)
Cardiovascular: Regular rate & rhythm and No Murmurs
Respiratory: Clear, Equal and Decreased Breath Sounds
Sternum: Stable
Incision: Clean, Dry and Intact
Extremities: Edema +2
Data Reviewed
-
Lab Results: Results Reviewed
Medications: Active Meds Reviewed
Chest X-Ray: Report Reviewed
ECG: Report Reviewed
--- NOTE | 2024-01-24 04:26 | PTCARENOTE ---
Pt reassessed. Pt remains intubated and lightly sedated. Precedex infusing. RASS -2. Pt SR on the tele monitor. HR 80s. BP 100s/40s. PAPs 30s/teens. CVP ~13. CO: 3.85. CI: 2.01. SVR: 852. ETT intact and positioned on the left side of the mouth. See
worklist for full vent settings. POX 95%. CT assessment unchanged from original. Crowder catheter C/D/I and draining urine ~10-25 mL/hr. OG tube C/D/I. All surgical sites stable. Sternal wound VAC C/D/I. Left radial arterial line and [place] C/D/I. All
lines leveled, zeroed, and flushed. Heparin increased to [address]. Dobutamine, Levo, Milrinone, Precedex, and Amiodarone infusing as documented in worklist. Glycemic protocol followed. Pt turned and repositioned in bed. Labs drawn and
sent.
[2024-01-24 04:30] LABS: B.E. -3.5 mmol/L; HCO3 21.4 mmol/L (21-28); O2 Saturation % 97.7 % (94-98); PCO2 37 mmHg (32-35); PO2 76 mmHg (83-108); pH 7.37 (7.35-7.45)
[2024-01-24] MEDS: DOBUTREX 250 MG IV ×2 (04:35→18:20)
[2024-01-24 04:36] LABS: Hematocrit 26.1 % (37.0-47.0); Hemoglobin 8.6 g/dL (12.0-16.0); Mean Corpuscular Hgb 30.2 pg (27.0-31.0); Mean Corpuscular Volume 91.6 fL (81.0-99.0); Mean Platelet Volume 11.5 fL (7.4-10.4); Platelet Count 100 10^3/uL (130-400); Red Blood Cell Count 2.85 10^6/uL (4.20-5.40); Red Cell Dist. Width 15.9 % (11.5-14.5); White Blood Cell Count 16.8 10^3/uL (4.8-10.8)
[2024-01-24 04:48] LABS: Blood Urea Nitrogen 68 mg/dl (7-17); Calcium 8.4 mg/dl (8.4-10.2); Carbon Dioxide 21 mmol/L (22-30); Chloride 108 mmol/L (98-107); Estimated Creatinine Clearance 21 ml/min; Glucose 119 mg/dl (70-99); Magnesium 2.2 mg/dl (1.6-2.3); Phosphorus 4.2 mg/dl (2.5-4.5); Potassium 4.7 mmol/L (3.5-5.1); Sodium 138 mmol/L (135-145); eGFR 20.04
[2024-01-24] MEDS: PRIMACOR 20 MG 100 IV (04:50)
[2024-01-24] MEDS: NOVOLIN R INSULIN INFUSION 100 IV ×2 (04:58→23:20)
[2024-01-24 05:13] LABS: Glucose - Point of Care 119 mg/dl (70-99)
[2024-01-24] MEDS: ROXICODONE ORAL SOLUTION 5 MG TUBE (05:27)
[2024-01-24] MEDS: TYLENOL 1000 MG PO ×2 (05:27→21:43)
[2024-01-24 06:06] LABS: APTT 57.8 Sec (23.4-35.0)
--- NOTE | 2024-01-24 06:27 | PTCARENOTE ---
Per Dr. Trivedi / [employer]IST - turn Milrinone off and increase Dobutamine to 4. Check CI Q1 hour. Heparin increased to 900 units as ordered.
[2024-01-24] MEDS: SODIUM BICARBONATE 50 MEQ IV ×2 (06:33→18:26)
[2024-01-24] MEDS: DILAUDID 0.5 MG IV (06:41)
[2024-01-24 06:55] LABS: ALT (SGPT) < 10 U/L (0-35); AST (SGOT) 28 U/L (14-36); Alkaline Phosphatase 51 U/L (38-126); Direct Bilirubin 0.4 mg/dl (0.0-0.4); Total Protein 4.8 g/dl (6.3-8.2)
[2024-01-24 07:00] LABS: Glucose - Point of Care 149 mg/dl (70-99)
[2024-01-24 07:04] LABS: Mixed Venous O2 Saturation 64.7 %
--- NOTE | 2024-01-24 07:30 | PTCARENOTE ---
Assumed care of patient from lab courier RN. Intubated and sedated on the vent. SIMV 50% 16 tv 500 psv 5 peep 5, pulse ox 95%. Precedex at 0.7 mcg/kg/hr. Opens eyes spontaneously. Able to nod head appropriately at times. NORWOOD, pupils equal and
reactive. Pt does become agitated at times. Bilateral wrist soft limb restraints in place at present to protect from tube/line removal. SR on monitor. Rt IJ cordis with swan floated to 40 cm. Lt radial arterial line transducing. Lines leveled,
recalibrated and flused. Epicardial A and v wires in place one V wire insulated. The other is connected to pacing box. A wire also connected. Box set to VVI 30. No pacing noted at present. Drips infusing at hand off as follows: Levophed,
Dobutamine, Amiodarone, Precedex, and insulin. See flowsheets for titrations, rates, and totals. Chest tubes x 3 to -20 cm suction. No air leaks or crepitus noted. Sternal wound vac intact. Abdomen soft, obese, with hypoactive bowel sounds. OGT
in place at 50 cm. Clamped at present. Crowder cath with christelle urine noted. RT groin suture intact. RT Leg SVG site approximated with surgical adhesive. Ecchymotic with scan drainage noted. Plus 2 pitting anasarca appreciated. Pulses palpable.
. Plan for day discussed with CT team
[2024-01-24] MEDS: PACERONE 200 MG PO ×3 (07:39→21:44)
[2024-01-24] MEDS: LOW STRENGTH ASPIRIN 81 MG PO (07:39)
[2024-01-24] MEDS: PLAVIX 75 MG PO (07:39)
[2024-01-24] MEDS: NEURONTIN 100 MG PO ×3 (07:39→21:44)
[2024-01-24] MEDS: MIRALAX 17 GRAMS TUBE (07:39)
[2024-01-24] MEDS: MAGNESIUM OXIDE 500 MG PO ×2 (07:39→20:06)
[2024-01-24] MEDS: VITAMIN C 500 MG PO (07:39)
[2024-01-24] MEDS: NSS (PRESERVATIVE FREE) 10 ML IV (07:40)
[2024-01-24] MEDS: FEOSOL PO (07:40)
[2024-01-24] MEDS: SENOKOT-S PO ×2 (07:40→20:06)
[2024-01-24] MEDS: PROTONIX IV 40 MG IV (07:40)
[2024-01-24] MEDS: LIDOCAINE 4% PATCH TOPICAL (07:40)
--- NOTE | 2024-01-24 08:30 | PTCARENOTE ---
Lt pleural chest tube removed as per order. RN assisted by RACHELE MC. Tolerated w/o issue. Dressing c,d,i. Wound vac dressing reinforced at this time also. Rt groin suture clipped by RACHELE MC. Dressing applied. c,d,i.
--- NOTE | 2024-01-24 08:41 | PTCARENOTE ---
Sedation vacation initiated. Pt agitated but easily redirected at present. Will start CPAP trial at this time.
[2024-01-24 09:11] LABS: Glucose - Point of Care 79 mg/dl (70-99)
[2024-01-24 09:31] LABS: HCO3 23.5 mmol/L (21-28); O2 Saturation % 96.3 % (94-98); PCO2 37 mmHg (32-35); PO2 71 mmHg (83-108); Potassium 4.4 mMOL/L (3.5-5.1); pH 7.41 (7.35-7.45)
[2024-01-24] MEDS: LR 500 IV (09:34)
[2024-01-24 10:05] LABS: Glucose - Point of Care 100 mg/dl (70-99)
--- NOTE | 2024-01-24 10:30 | PTCARENOTE ---
Pt tolerated CPAP trial. Order to extubate obtained. Extubated to 6 L at 1010. PT agitated but appropriatly answering questions. Attempting to get up. Requesting to go home. Pt Went into AFIB 110's. CT PA aware.
[2024-01-24] MEDS: HEPARIN 25000 UNITS/250 ML IV (10:57)
--- NOTE | 2024-01-24 11:00 | W.PN.CARDCBS ---
Today's Communication / Plan
-
Continue supportive care
Wean pressors as tolerates
Hemodynamics appear acceptable
Back with atrial fibrillation. Continue IV amio. Follow telemetry. Continue heparin.
Impression / Plan
-
Cardiology: Dr. Fernie Cox of [facility]
PCP: Dr. Radha Tamez
IMPRESSION:
s/p Freestyle 21 mm AV replacement with replacement of ascending aorta to innominate for and aortic insufficiency of previously placed tissue AVR 01/19/24
s/p tissue AVR 2016
Not TAVR candidate with low coronary heights and narrow SOV
CAD s/p CABG with GARCIA to LAD and SVG to RCA, Diagonal could not be grafted 01/19/24
previous CABG with SVG to OM-2 in 2016 known to be occluded since cath in 2019
Open sternotomy secondary to oozing, edema, RV dysfunction on multiple pressors dobutamine and milrinone 01/19/24 s/p closure 01/21/24
DM 2
Hyperlipidemia
Hypoxemia resulting in emergent bronch 01/22/24
Acute post op anemia/thrombocytopenia
Post op FABIAN
Post op PAF and junctional rhythm
DEMAR 01/21/24: LV underfilled with all wall segments moving normally, RV severely hypokinetic with akinesis of anterior wall, trace MR and TR, no effusions
RECOMMENDATIONS:
-She was just extubated. She continues on multiple pressors and inotropes remaining stable with acceptable cardiac index and cardiac output. Wean as tolerates.
-She underwent redo sternotomy with CABG x2 in situ GARCIA to LAD and rSVG from asc aortic graft to distal RCA, explant of prior aortic valve, complex Medtronic aortic root replacement, hypothermic circ arrest, ascending aorta replacement 01/19/24. Due
to prolonged pump time, chest was left open. She returned to OR 01/20 for chest closure.
-01/20 with short periods of afib. Was in sinus rhythm and now after extubation in atrial fibrillation. Continue IV amiodarone. Continue IV heparin.
-s/p bronch 01/21 due to hypoxemia and L lung whiteout on CXR with likely mucous plug
-currently in SR on review of tele. had ~2 hours of afib/atach 01/20.
-on IV bumex gtt. creatinine mildly increased. Continue to follow. Volume status positive with third spacing. Gentle with diuresis.
-hgb 8.6, plts improved 100 K. s/p 7 U PRBCs, 3 plts, 3 FFP.
-continue post op mgmt
-critically ill
Progress Note - Postal Sorting Officer
Subjective
Date of Service: January 24, 2024
Just extubated. Unable to get history.
Objective
Labs:
01/24/24 04:22
01/24/24 04:22
Labs
Hgb 8.6 g/dL (12.0-16.0) L 01/24/24 04:22
Hct 26.1 % (37.0-47.0) L 01/24/24 04:22
Plt Count 100 10^3/uL (130-400) L D 01/24/24 04:22
PT 15.0 Sec (11.4-14.6) H 01/21/24 15:02
INR 1.13 01/21/24 15:02
APTT 57.8 Sec (23.4-35.0) H 01/24/24 05:45
Sodium 138 mmol/L (135-145) 01/24/24 04:22
Potassium 4.7 mmol/L (3.5-5.1) 01/24/24 04:22
BUN 68 mg/dl (7-17) H 01/24/24 04:22
Creatinine 2.4 mg/dL (0.6-1.0) H 01/24/24 04:22
Glucose 119 mg/dl (70-99) H 01/24/24 04:22
Vital Signs and I&O:
Vital Signs
Temp Pulse Resp BP Pulse Ox
99.0 F 111 15 108/52 90
01/24/24 10:00 01/24/24 10:15 01/24/24 10:00 01/24/24 10:00 01/24/24 10:39
Vital Signs
Temp Pulse Resp BP Pulse Ox
99.0 F 111 15 108/52 90
01/24/24 10:00 01/24/24 10:15 01/24/24 10:00 01/24/24 10:00 01/24/24 10:39
Intake & Output
01/22/24 01/23/24 01/24/24 01/25/24
06:59 06:59 06:59 06:59
Intake Total 1576.0 / 1776.2 4049.4 / 4159.1 3742.7 / 3850.7 923.1 / 923.1
Output Total 1375 / 1430 1380 / 1475 885 / 930 115 / 115
Balance 201.0 / 346.2 2669.4 / 2684.1 2857.7 / 2920.7 808.1 / 808.1
Physical Exam
Physical Exam
General: Ill woman
Neck: Cordis in place
Heart: Distant heart sounds irregular
Lungs: Coarse anterior breath sounds
Extremities: No clubbing, cyanosis plus edema bilaterally.
Neuro: Awake
[2024-01-24 11:03] LABS: Glucose - Point of Care 97 mg/dl (70-99)
[2024-01-24] MEDS: LASIX 40 MG IV (11:26)
[2024-01-24 11:36] LABS: Mixed Venous O2 Saturation 40.2 %
[2024-01-24] MEDS: ROXICODONE ORAL SOLUTION TUBE ×2 (12:08→15:53)
[2024-01-24 12:17] LABS: Glucose - Point of Care 103 mg/dl (70-99)
[2024-01-24] MEDS: CORDARONE 103 MG IV (12:31)
[2024-01-24 12:32] LABS: Mixed Venous O2 Saturation 63.2 %
[2024-01-24 12:38] LABS: APTT 72.8 Sec (23.4-35.0)
--- NOTE | 2024-01-24 12:38 | PTCARENOTE ---
Becoming increasingly alert. Requests becoming more appropriate at this time. Restraints removed at this time. Pt remains in Afib. Amio bolus administered. Mouth care preformed.
[2024-01-24 13:11] LABS: Glucose - Point of Care 122 mg/dl (70-99)
--- NOTE | 2024-01-24 13:38 | PTOTSP ---
ST Consult
Chart reviewed. Pt extubated this AM at 10:30AM after 6 days of intubation, recent CT sx, advanced age, and multiple baseline comorbidities. Given this information, would recommend keeping pt NPO for now and deferring VARNISH MELTER HELPER evaluation a full 24 hours
have passed s/p extubation.
[2024-01-24] MEDS: PITRESSIN 100 IV (14:02)
[2024-01-24] MEDS: REGLAN 10 MG IV (14:18)
[2024-01-24] MEDS: BUMEX 50 IV (14:23)
[2024-01-24] MEDS: STERILE WATER FOR INJECTION 18 ML IV (14:24)
[2024-01-24] MEDS: DIURIL 0.5 GRAM VIAL 0.5 GRAMS IV (14:27)
[2024-01-24 14:35] LABS: Glucose - Point of Care 109 mg/dl (70-99)
[2024-01-24 15:20] LABS: ALT (SGPT) 12 U/L (0-35); AST (SGOT) 29 U/L (14-36); Albumin 3.3 g/dl (3.5-5.0); Alkaline Phosphatase 47 U/L (38-126); Blood Urea Nitrogen 70 mg/dl (7-17); Calcium 8.3 mg/dl (8.4-10.2); Carbon Dioxide 21 mmol/L (22-30); Chloride 106 mmol/L (98-107); Estimated Creatinine Clearance 20 ml/min; Glucose 108 mg/dl (70-99); Potassium 4.4 mmol/L (3.5-5.1); Sodium 141 mmol/L (135-145); Total Protein 5.1 g/dl (6.3-8.2); eGFR 18.21
--- NOTE | 2024-01-24 15:30 | PTCARENOTE ---
Dobhoff tube placed by CT PA, x ray obtained post to verify placement. Once verified tube feedings restarted at 20 ml/hr. VSS. Very alert this afternoon. ffamily at bedside
--- NOTE | 2024-01-24 15:46 | W.PN.INTV ---
Today's Communication / Plan
Recommendations
Wean down oxygen as able.
IV diuretics-Bumex drip
Amiodarone drip
Nebulizers as needed for secretion clearance
Daily chest x-ray
Follow H&H and transfuse as necessary
Follow chest tube output
Wean off inotrope/vasopressor as able
Assessment
-
Status post coronary artery bypass/aortic root replacement/redo sternotomy with lysis of adhesions/explant of prior aortic valve.
Open chest-status postclosure 01/21/2024
Postoperative respiratory failure require mechanical ventilation
Left lung whiteout 01/22/2024-likely mucous plug
Bronchoscopy 01/22/2024
Conditions present prior admission:
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
Heart failure
Multivessel coronary artery disease
Morbid obesity
Hypertension
Hyperlipidemia
Coronary artery disease with prior stents
Prior aortic valve replacement with single-vessel bypass
Type 2 diabetes
Severe carotic stenosis on the right
Hard of hearing
Assessment and plan
Postoperative day #5
Status post chest closure 01/21/2024.
Extubated 01/24/2024
-
Remains on mechanical ventilation encouraged
on low rate supplemental oxygen wean as able
Encourage incentive spirometry
Currently bedrest, [place] gases state in place.
-
Chest x-ray 01/24/2024: reviewed, showed persistent LLL subsegmental atelectasis.-3
Nebulizers as needed For secretion clearance
-
Status postBronchoscopy 01/21/2024: Scant amount of thick whitish phlegm suctioned from the justin. Otherwise patent tracheobronchial tree. No samples were sent.
Anemia noted-no evidence of acute bleeding
Status post multiple transfusions.
Follow H&H serially
Hemodynamics -acceptable, on low-dose Levophed/vasopressin-wean as able per
PA catheter and arterial line in place.
on Bumex drip-Currently her weight is stable
Acute kidney injury noted-nonoliguric. Follow urinary output. Creatinine Slightly higher today.
No significant metabolic acidosis
Normal potassium.
Cardiology following
ECHO 01/22/2024: noted
Normal left ventricular chamber size. Normal left ventricular systolic
function. Left ventricular ejection fraction is 55-60%. Normal regional wall
motion. Mild concentric left ventricular hypertrophy.
Moderately enlarged right ventricular size. Moderate RV hypokinesis.
Mildly dilated left atrium.
There is a circumferential echodensity seen best
in the parasternal short axis views which appears to be sub-aortic extending
towards the left atrium.
Bioprosthetic aortic valve with size 21 Freestyle - Peak gradient 28mmHg/Mean
gradient 19mmHg - no aortic regurgitation is seen. There is a well-
circumscribed approximately 2 cm echodensity which appears to be subaortic at
the LVOT/LA junction.
-
Postoperative A-fib, continue amiodarone
On Heparin gtt, followptt
Antiplatelet
Chest tube with no excessive drainage-no air leak.
NG tube in place. Speech evaluation in the more
Head of the bed elevation
Glycemic control per protocol
DVT prophylaxis when safe from the surgical perspective.
Critical care statement: A total of 31 minutes of critical care time was provided for this patient today. This includes management of unstable vital signs, evaluation of the patient at bedside, reviewing the patient's pertinent medical records
including ventilator settings, arterial blood gases, radiographs, microbiology, laboratory evaluations and discussion with primary team, critical care nursing, and respiratory therapy.
Subjective Dataa
Subjective Data
Date of Service:
Date of Service: January 24, 2024
Chief Complaint: Director Prospect Follow Up (Status post redo sternotomy, AVR and CABG)
Subjective:
No major overnight events
Remains on inotropes
Objective Data
Data Reviewed
Vital Signs / I&O / Oxygen:
Vital Signs
Temp Pulse Resp BP Pulse Ox
98.6 F 110 18 117/82 92
01/24/24 15:00 01/24/24 15:00 01/24/24 15:00 01/24/24 15:00 01/24/24 15:00
Intake and Output
01/23/24 01/24/24 01/25/24
06:59 06:59 06:59
Intake Total 4049.4 / 4159.1 3742.7 / 3850.7 1435.6 / 1435.6
Output Total 1380 / 1475 885 / 930 290 / 290
Balance 2669.4 / 2684.1 2857.7 / 2920.7 1145.6 / 1145.6
SaO2 [A/C] 96
SaO2 [SIMV] 93
SaO2 92
Physical Exam
General: Comfortable (On mechanical ventilation)
HEENT: Normocephalic
Cardiovascular: S1-S2 and Regular Rhythm
Respiratory: Clear, Non-Labored Respirations and Chest Tube (No evidence for air leak. No excessive drainage)
GI: Soft and Non Distended
Neurology: Awake, Alert, Oriented and No Motor Deficits
Skin: Warm
Labs/Micro/Reports
Lab Data
01/24/24 04:22
01/24/24 14:45
Laboratory Results
01/23/24 01/24/24 01/24/24
16:50 00:13 04:22
APTT 49.1 H 47.1 H
pH 7.37
pCO2 37 H
pO2 76 L
HCO3 21.4
O2 Delivery Level
01/24/24 01/24/24 01/24/24
05:45 09:21 12:14
APTT 57.8 H 72.8 H
pH 7.41
pCO2 37 H
pO2 71 L
HCO3 23.5
O2 Delivery Level
[2024-01-24] MEDS: TYLENOL PO (15:52)
[2024-01-24 16:05] LABS: Glucose - Point of Care 97 mg/dl (70-99)
[2024-01-24] MEDS: CORDARONE 518 MG IV (16:06)
[2024-01-24 16:30] LABS: B.E. -3.4 mmol/L; HCO3 21.3 mmol/L (21-28); Ionized Calcium 1.18 mMOL/L (1.15-1.33); O2 Saturation % 96.2 % (94-98); O2 Therapy 10 L midflow; PCO2 36 mmHg (32-35); PO2 71 mmHg (83-108); Potassium 4.4 mMOL/L (3.5-5.1); pH 7.38 (7.35-7.45)
[2024-01-24] MEDS: LIPITOR 80 MG PO (16:32)
[2024-01-24] MEDS: NSS 500 IV (16:33)
--- NOTE | 2024-01-24 17:41 | PTCARENOTE ---
Pt starting with liquid stools this evening. Rectal trumpet inserted to protect skin.
[2024-01-24 17:58] LABS: Glucose - Point of Care 130 mg/dl (70-99)
[2024-01-24] MEDS: LEVOPHED 258 MG IV (18:21)
--- NOTE | 2024-01-24 19:13 | PTCARENOTE ---
Converted to NSR at 1745. VSS.
[2024-01-24 19:59] LABS: Glucose - Point of Care 105 mg/dl (70-99)
[2024-01-24] MEDS: MELATONIN 5 MG PO (20:05)
--- NOTE | 2024-01-24 20:15 | PTCARENOTE ---
Assumed care of pt from dayshift RN. Walking rounds completed. Pt AAOx3. [place]OD. Following commands and speaking appropriately. Pt is SR on the tele monitor. HR 80s. Temporary epicardial A/V wires intact. Box set to VVI 30/10/1.5 (second v-wire
insulated). PAP's 30s/teens. CVP~13. Arterial BP's 150-160s/40-50s. B/L DP pulses weak. B/L radial pulses palpable. +2 generalized pitting edema present. Pt on mid flow NC at 7L. POX 93-98%. Occasional moist cough. Mediastinal CT x2 to -20 suction,
no airleak/tidaling/crepitus noted, and output WNL. Abdomen round/nontender. Hypoactive BS. Dobhoff in place and secured with tape. Osmolite 1.2 tube feeds running at 30 ml/hr w/ 25 ml flushes. Crowder catheter C/D/I and draining clear/yellow urine.
Rectal trumpet in place to contain liquid stools. Sternal incision w/ wound VAC C/D/I. Right groin site intact and soft. Right leg SVG site intact and ecchymotic. Left arterial line and right IJ cordis w/ SWAN @40 cm C/D/I. All lines leveled,
zeroed, and flushed. Upon handoff - heparin/insulin/amio/dobutamine/bumex/vaso infusing as documented in worklist. Pt repositioned in bed. See worklist for full nursing assessment and interventions. Call portillo within reach.
[2024-01-24 21:57] LABS: Glucose - Point of Care 132 mg/dl (70-99)
[2024-01-24] MEDS: SEROQUEL 25 MG TUBE (22:15)
[2024-01-24 22:23] LABS: ALT (SGPT) 31 U/L (0-35); AST (SGOT) 63 U/L (14-36); Albumin 3.3 g/dl (3.5-5.0); Alkaline Phosphatase 55 U/L (38-126); Blood Urea Nitrogen 76 mg/dl (7-17); Calcium 8.5 mg/dl (8.4-10.2); Carbon Dioxide 23 mmol/L (22-30); Chloride 103 mmol/L (98-107); Estimated Creatinine Clearance 23 ml/min; Glucose 124 mg/dl (70-99); Potassium 4.2 mmol/L (3.5-5.1); Sodium 138 mmol/L (135-145); Total Bilirubin 1.1 mg/dl (0.2-1.3); eGFR 21.09
--- NOTE | 2024-01-24 23:29 | PTCARENOTE ---
CI dropped to 1.90. CO 3.64. SVR 1494. COUNSELOR EDUCATION PROFESSOR notified.
[2024-01-25] VITALS (40 sets, daily range): BP systolic 95–141; BP diastolic 45–71; PULSE 90–93; O2SAT 95–96; BMI 37.9
--- NOTE | 2024-01-25 00:15 | PTCARENOTE ---
Pt reassessed. Remains SR on the tele monitor. HR 80s. Arterial BP's 150s/50s and cuff BPs 120s/60s. PAP's 30s/teens. CVP ~12-13. CI: 2.02 CO: 3.87 SVR: 1364. Left radial arterial line and swan intact. All lines leveled, zeroed, and flushed. Pt on
mid flow NC at 7L. POX 97%. CT assessment unchanged from original. Crowder catheter C/D/I and draining yellow urine. Rectal trumpet in place. Right nare Dobhoff intact and secure w/ tube feed infusing. All surgical sites stable. Sternal wound VAC
C/D/I. Heparin/Insulin/Amiodarone/Dobutamine/Vaso infusing as documented in the worklist. Bumex turned off as ordered. PTT drawn and sent. Pt repositioned in bed. No c/o pain at this time. Call portillo within reach.
[2024-01-25 00:31] LABS: APTT 65.8 Sec (23.4-35.0)
--- NOTE | 2024-01-25 00:43 | W.PN.CT ---
Addendum entered and electronically signed by Durga Trivedi MD 01/25/24 08:44:
I saw and examined the patient.
The PA's note was reviewed and I agree with the note.
Comment:
Auto diuresing, has pulmonary insufficiency secondary to volume overload and right heart dysfunction, continue to diurese. Currently in sinus, on hep gtt for anticoagulation, neuro intact and asking to drink, follows commands
1. Allow her to auto diurese, would hold off on bumex for now unless urine output drops
2. Stop plavix as she's therapeutic on PTT, continue asa (will transition to eliquis eventually when she's eating)
3. COMPLIANCE ENGINEER PRODUCTS eval for appropriate diet, continue enteral nutrition for now
4. D/c A line and go off cuff pressures
5. Maintain swan another day
6. Mobilize as much as you can with her
7. Likely med drains out tomorrow once we verify she's not third spacing and draining from them
8. Pacing wires to be cut when ready
9. Will repeat a TTE tomorrow or when volume status improves
Original Note:
Today's Communication / Plan
-
-No major issues overnight. Successfully extubated to midflow NC yesterday (7L)
-Went into a-fib with RVR ( 140-150's) on 01/21 and 01/23, back in NSR, still on amio @ 0.5
-Milrinone off on 01/23, Dobutamine currently @ 3 mcg/kg/min.
-Current drips includes: Dobutamine 3, Amiodarone 0.5, Heparin gtt @ 900 u/hr, vaso @ 0.01, and insulin. bumex drip to be restarted at 0600 hrs, may hold if UOP still > 200 cc/hr
-Last CI 2.04, CO 3.92 24hr u/o 2825/3630 mL in 12/24 hrs
-Chest tube output: 2meds 75/150, Lpl out yesterday
-Dobhoff placed, on TF
-Noted to have left basilar opacification on cxr S/P bronchoscopy 12/21 was unremarkable
-Echo obtained 12/21 showed a well seated AVR, PG/MG of 28/19, no AI, LVEF 55-60%. Moderate enlarged RV with hypokinesis. An echodensity @ sub-aortic extending towards left atrium (LVOT/LA jxn)
-Maintain austin catheter to measure I/O's
-Monitor creatinine, Was 0.9 preop, q12 bmp to follow large volume UOP
-Maintain cordis
-Maintain temporary pacer wire (will cut before d/c home)
Assessment / Plan
-
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
LAD and reverse saphenous vein graft from ascending aortic graft to distal RCA; EVH of RLE; Explant of prior 21 mm trifecta aortic valve; 21 mm Medtronic Freestyle aortic root complex replacement with reimplantation of coronary buttons; Hypothermic
circulatory arrest with selective cerebral perfusion, ascending aortic replacement with a 26 mm straight tube graft pm 01/19/[address] Trivedi, pod #6
- Intraop DEMAR: LVEF preop was preserved at approximately 55 to 60%. Following surgery EF remained the same at approximate 50-55% on 5 dobutamine and some Cardene. Her RV function was normal preoperatively and mild to moderately depressed
postoperatively. Following aortic root replacement, there was no aortic valve insufficiency with a new freestyle porcine root replacement.
-Her cardiac index was depressed at approximately 1.5 on 5 dobutamine. She did not require any pacing and was on her own reno-sparks sinus rhythm following surgery. Due to the extended pump time, mild RV dysfunction, and required multiple blood
products due to coagulopathy, chest was left open and packed with 1 vaginal pack.
S/P Removal of one vaginal packing/Evacuation of minimal clot and old fibrillar/hemostatic agents/[place]ashout with warm saline/Placement of additional atrial pacing wires and additional ventricular pacing wire/Removal of the 28F straight chest
tube/Chest closure with 4 #7 single and 3 #8 double stainless steal wires/Application of skin vac, by Dr. Trivedi, 01/21/24, pod#4
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
- Multivessel coronary artery disease with anginal/exertional chest pain
- Class 1 obesity, BMI 33
- Hypertension
- Hyperlipidemia
- Previous PCI with cardiac stent to the OM
- Previous cardiac surgery with [facility] trifecta # 21 aortic valve replacement and single-vessel bypass to the OM in 2017
- Diabetes mellitus (A1c 6.8)
- Severe carotid stenosis of the right side
(US 01/11/24: Mixed plaque within the right carotid bulb, velocity measurements suggestive of greater than 70% stenosis, internal to common carotid ratio suggestive of 50-69% stenosis)
- Hard of hearing
- WILNER
- b/l breast biopsies
- Acute postop anemia- s/p 7 pRBCs
- Acute postop coagulopathy/thrombocytopenia - s/p Factor 7 in OR, total 3 FFPs, 3 units platelets
- Acute postop atelectasis
- Acute postop hypovolemia with subsequent hypervolemia
- Acute postop hypotension d/t cardiogenic shock, requiring inotrops and pressors
- Acute postop ectopy (PACs, PVCs)- tx with Amio bolus and drip, now off - improved with discontinuing Milrinone
- Acute postop hyperkalemia
- Acute postop junctional rhythm
- Acute postop metabolic alkalosis with respiratory compensation
- Acute postop respiratory insufficiency secondary to volume overload, pulmonary edema
- Acute postop VDRF
- Acute postop bronchoscopy 01/21 -unremarkable
- Acute postop bronchoscopy 01/20 -thick secretions suctioned @ justin
- Acute postop FABIAN
- Acute postop a-fib with RVR 150's
Subjective
-
Date of Service: January 25, 2024
Objective Data
-
PT 15.0 Sec (11.4-14.6) H 01/21/24 15:02
INR 1.13 01/21/24 15:02
APTT 72.8 Sec (23.4-35.0) H 01/24/24 12:14
Vital Signs
Vital Signs
Temp Pulse Resp BP Pulse Ox
99.5 F 88 18 122/60 97
01/25/24 00:00 01/25/24 00:00 01/25/24 00:00 01/25/24 00:00 01/25/24 00:[address]
CT Intake/Output/Weight
01/24/24 01/24/24 01/25/24
06:59 18:59 06:59
Intake Total 1451.4 / 3850.7 1786.0 / 2583.2 797.2 / 2583.2
Output Total 290 / 930 885 / 2620 1735 / 2620
Balance 1161.4 / 2920.7 901.0 / -36.8 -937.8 / -36.8
SaO2: 97
Physical Exam
-
General: Awake and Oriented
Cardiovascular: Regular rate & rhythm, No Murmurs and No Rub
Respiratory: Clear, Equal and Decreased Breath Sounds
Sternum: Stable
Incision: Clean, Dry and Intact
Extremities: Edema +2
Data Reviewed
-
Lab Results: Results Reviewed
Medications: Active Meds Reviewed
Chest X-Ray: Report Reviewed
ECG: Report Reviewed
[2024-01-25 01:10] LABS: Glucose - Point of Care 112 mg/dl (70-99)
[2024-01-25 03:10] LABS: Glucose - Point of Care 102 mg/dl (70-99)
[2024-01-25 04:32] LABS: B.E. -0.4 mmol/L; O2 Saturation % 99.4 % (94-98); PCO2 37 mmHg (32-35); PO2 105 mmHg (83-108); pH 7.42 (7.35-7.45)
[2024-01-25 04:34] LABS: Mixed Venous O2 Saturation 52.8 %
[2024-01-25 04:44] LABS: Hematocrit 23.7 % (37.0-47.0); Hemoglobin 7.9 g/dL (12.0-16.0); Mean Corp Hgb Conc. 33.3 g/dL (33.0-37.0); Mean Corpuscular Volume 90.1 fL (81.0-99.0); Mean Platelet Volume 11.2 fL (7.4-10.4); Platelet Count 93 10^3/uL (130-400); Red Blood Cell Count 2.63 10^6/uL (4.20-5.40); Red Cell Dist. Width 15.7 % (11.5-14.5); White Blood Cell Count 15.8 10^3/uL (4.8-10.8)
--- NOTE | 2024-01-25 04:46 | PTCARENOTE ---
Pt reassessed. Pt is SR on the tele monitor. HR 80s. BP 130s/50s. PAP's 30s/teens. CVP~ 12. CI: 2.04 CO: 3.92 SVR: 1469. Left radial A-line and [place] intact. All lines leveled, zeroed, and flushed. Pt on 6 L NC. POX 96%. CT assessment unchanged from
original. Crowder catheter C/D/I and draining clear/yellow urine. Rectal trumpet intact and draining appropriately. Dobbhoff intact w/ tube feeds running as ordered. All surgical sites stable. Sternal wound VAC intact. Pt turned and repositioned.
Ordered labs drawn and sent. Insulin/Vaso/Dobutamine/Amiodarone/Heparin infusing as documented in the worklist. No c/o pain at this time. Call portillo within reach.
[2024-01-25 04:59] LABS: Glucose - Point of Care 144 mg/dl (70-99)
[2024-01-25 05:18] LABS: ALT (SGPT) 28 U/L (0-35); AST (SGOT) 69 U/L (14-36); Albumin 3.1 g/dl (3.5-5.0); Alkaline Phosphatase 62 U/L (38-126); Blood Urea Nitrogen 72 mg/dl (7-17); Calcium 8.5 mg/dl (8.4-10.2); Carbon Dioxide 23 mmol/L (22-30); Chloride 104 mmol/L (98-107); Estimated Creatinine Clearance 24 ml/min; Glucose 112 mg/dl (70-99); Magnesium 2.3 mg/dl (1.6-2.3); Phosphorus 4.1 mg/dl (2.5-4.5); Potassium 3.8 mmol/L (3.5-5.1); Sodium 139 mmol/L (135-145); Total Bilirubin 0.8 mg/dl (0.2-1.3); Total Protein 4.8 g/dl (6.3-8.2); eGFR 22.25
[2024-01-25] MEDS: KCL 50 IV (05:49)
[2024-01-25] MEDS: TYLENOL 1000 MG PO (05:50)
[2024-01-25 07:16] LABS: Glucose - Point of Care 117 mg/dl (70-99)
--- NOTE | 2024-01-25 07:46 | PTCARENOTE ---
Received pt from assistant casino shift manager RN; pt AAOX3 and resting comfortably in bed; NSR On monitor and VSS; Epicardial A/V wires set to VVI and no pacing noted; extra Epicardial V wire insulated; RIAnna Santo, Normanna floated to 40, Left A-line and PIV x1
all lines leveled and zeroed; Vaso, Insulin, Amiodarone, Dobutamine and Heparin infusing see flow sheet for details; Lungs diminished; nonproductive wet cough; CT x2 to -20 wall suction no air leak and no crepitus noted; IS to 500; hypoactive bowel
sounds; Rectal trumpet in place and intact; Doppler lower extremity pulses present and positive radial pulses; +2 generalized edema; all surgical sites C/D/I; see nursing documentation for further details.
CI 1.91
CO 3.66
SVR 1398
--- NOTE | 2024-01-25 08:07 | W.PN.INTV ---
Today's Communication / Plan
Recommendations
Start chest PT with sport bed
Start nebulized bronchodilators with Xopenex/Atrovent and add Mucomyst for pulmonary toilet purposes
Aspiration precautions
Diet as per FLOORMAN
Monitor UOP and trend sCr
Titrate down supplemental O2 flow rate while keeping SpO2 >90-94%
Continue with inotropic support with dobutamine and trend MVO2 and CO/CI
Daily chest x-ray
Follow H&H and transfuse as necessary
Removal of mediastinal chest tube per CT surgery
Up OOB as tolerated
Encourage use of IS
Aspiration precautions
Assessment
-
Impression:
Status post coronary artery bypass/aortic root replacement/redo sternotomy with lysis of adhesions/explant of prior aortic valve (OR date: 01/19/2024)
Open chest-status post closure 01/21/2024
Post-operative respiratory failure require mechanical ventilation --> extubated on 01/24/2024 and now on nasal cannula
Severe left lung atelectasis 01/22/2024-likely mucous plug
Bronchoscopy 01/22/2024
Conditions present prior admission:
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
Heart failure
Multivessel coronary artery disease
Morbid obesity
Hypertension
Hyperlipidemia
Coronary artery disease with prior stents
Prior aortic valve replacement with single-vessel bypass
Type 2 diabetes
Severe carotic stenosis on the right
Hard of hearing
Assessment and plan
Status post chest closure 01/21/2024.
Extubated 01/24/2024
-
Continue supplemental oxygen and continue to wean as able, keeping SpO2 >90-94%
Encourage incentive spirometry use 10x per hour for at least 4 hrs a day
Currently bedrest, [place] cuate in place
Sternal wound VAC in place
-
Chest x-ray 01/24/2024: reviewed, showed persistent LLL subsegmental atelectasis
CXR from today (01/25/2024) shows mild improvement in L lung atelectasis
Pulmonary toilet is marshall --> start Mucinex 1200mg BID with mucomyst and chest PT with sport bed vs percussor (if no chest pain) (still has chest tube so vest not possible yet)
Start Xopenex and atrovent TID with prn doses in between for breakthrough symptoms
Suction as needed
Aspiration precautions
Keep HOB >30-45�
Nebulizers as needed for secretion clearance
-
Status post bronchoscopy 01/21/2024: Scant amount of thick whitish phlegm suctioned from the justin. Otherwise patent tracheobronchial tree. No samples were sent.
Anemia noted-no evidence of acute bleeding
Status post multiple transfusions - last PRBC given on 01/21/2024
Follow H&H serially and transfuse if needed to keep Hb>7g/dL
Continue inotrope with dobutamine with goal CI>2, trend MVO2 with goal >60-65 and maintain MAP>65
Monitor for arrhythmia
Replete K>4, Mg>2
Continue vasopressin and wean down as tolerated
PA catheter in place - remove as per CT surgery team
Monitor sCr, with strict I/O and monitor UOP
Trend sHCO3
Monitor K levels
Cardiology following - recs appreciated
-
Postoperative A-fib, continue amiodarone
On Heparin gtt, follow ptt per protocol
ASA
Removal of mediastinal chest tube per CT surgery
NG tube in place. FLOORMAN following - defer diet to them
Glycemic control per protocol
Goal BG 140-180
DVT ppx: heparin gtt
Critical care statement: A total of 37 minutes of critical care time was provided for this patient today. This includes management of unstable vital signs, evaluation of the patient at bedside, reviewing the patient's pertinent medical records
including ventilator settings, arterial blood gases, radiographs, microbiology, laboratory evaluations and discussion with primary team, critical care nursing, and respiratory therapy.
Subjective Dataa
Subjective Data
Date of Service:
Date of Service: January 25, 2024
Chief Complaint: [employer] Follow Up (Status post redo sternotomy, AVR and CABG)
Subjective:
Patient seen and evaluated today at bedside. Amiodarone drip turned off this morning and A-line removed. Remains on dobutamine gtt at 3mcg/kg/min, heparin drip, vasopressin at 0.01 units/min and insulin drip at 3.5units/hr. she has a wet sounding
cough but is able to bring up her phlegm without issue. Mediastinal chest tube x [address] Saturating 95% on 4 L/min, BP 126/60 and heart rate 88. PAP via PA-C 34/15, CVP: 10 and CO/CI: 3.93/2.05. She denies chest pain, CARTWRIGHT, abdominal pain,
nausea, fevers or chills. She wants to drink orange juice.
Review of Systems
General: Other (Negative unless mentioned above)
Objective Data
Data Reviewed
Vital Signs / I&O / Oxygen:
Vital Signs
Temp Pulse Resp BP Pulse Ox
98.9 F 86 18 125/51 96
01/25/24 08:00 01/25/24 08:00 01/25/24 08:00 01/25/24 08:00 01/25/24 08:00
Intake and Output
01/24/24 01/25/24 01/26/24
06:59 06:59 06:59
Intake Total 3742.7 / 3850.7 3427.9 / 3580.0 303.2 / 303.2
Output Total 885 / 930 4010 / 4010 75 / 75
Balance 2857.7 / 2920.7 -582.1 / -430.0 228.2 / 228.2
SaO2 [A/C] 96
SaO2 [SIMV] 93
SaO2 96
Nasal Cannula flow liters per 6
minute
Physical Exam
General: Respiratory Distress (negative), Comfortable (On mechanical ventilation), Chills (negative), Sweats (negative) and Good Appetite
HEENT: Normocephalic and Anicteric
Cardiovascular: S1-S2 and Peripheral Edema (negative)
Respiratory: Wheeze (negative), Crackles (bilateral in posterior lung naqvi, middle to bases), Rhonchi (negative), Non-Labored Respirations and Chest Tube (Mediastinal x1)
GI: Soft, Non Distended, Non Tender and Normal Bowel Sounds
Neurology: AO x 3 and Tremors (negative)
Skin: Warm, Dry, Cyanosis (negative) and Jaundice (negative)
Labs/Micro/Reports
Lab Data
01/25/24 04:24
01/25/24 04:24
Laboratory Results
01/24/24 01/24/24 01/24/24
09:21 12:14 15:37
APTT 72.8 H
pH 7.41 Cancelled
pCO2 37 H
pO2 71 L
HCO3 23.5
O2 Delivery Level
01/24/24 01/24/24 01/24/24
15:37 15:37 15:37
APTT
pH Cancelled 7.38
pCO2 Cancelled Cancelled
pO2
HCO3
O2 Delivery Level
01/24/24 01/24/24 01/24/24
15:37 15:37 15:37
APTT
pH
pCO2 36 H
pO2 Cancelled Cancelled 71 L
HCO3 Cancelled
O2 Delivery Level
01/24/24 01/24/24 01/24/24
15:37 15:37 15:37
APTT
pH
pCO2
pO2
HCO3 Cancelled 21.3
O2 Delivery Level Cancelled Cancelled
01/24/24 01/25/2401/24/24
15:37 00:13 04:24
APTT 65.8 H 67.0 H
pH 7.42
pCO2 37 H
pO2 105
HCO3 24.0
O2 Delivery Level 10 l midflow
[2024-01-25] MEDS: MAGNESIUM OXIDE 500 MG PO ×2 (08:14→19:34)
[2024-01-25] MEDS: LOW STRENGTH ASPIRIN 81 MG PO (08:14)
[2024-01-25] MEDS: PACERONE 200 MG PO ×3 (08:14→22:04)
[2024-01-25] MEDS: NEURONTIN 100 MG PO (08:14)
[2024-01-25] MEDS: VITAMIN C 500 MG PO (08:14)
[2024-01-25] MEDS: LIDOCAINE 4% PATCH TOPICAL (08:14)
[2024-01-25] MEDS: PLAVIX PO (08:15)
[2024-01-25] MEDS: MIRALAX TUBE (08:15)
[2024-01-25] MEDS: NSS (PRESERVATIVE FREE) 10 ML IV (08:15)
[2024-01-25] MEDS: PROTONIX IV 40 MG IV (08:15)
[2024-01-25] MEDS: SENOKOT-S PO ×2 (08:16→19:34)
[2024-01-25] MEDS: FEOSOL 325 MG PO (08:19)
--- NOTE | 2024-01-25 08:45 | PTOTSP ---
Speech Language Pathology
Pt seen for clinical bedside swallow evaluation. Slight hoarse vocal quality noted, but pt reported significantly improved. P.O. trials of puree, regular solids, and thin liquids provided. No oral difficulty noted. Intermittent cough with thin
liquids. Pt also at a high risk for silent aspiration given prolonged intubation, deconditioning, and multiple medical comorbidities. VSE not currently feasible.
Recommend:
(1) NPO
(2) Oral care 4x/day with suctioning as needed
(3) Non-oral meds
(4) Initiate ice chips and sips of water post oral care with supervision via Aspiration Risk Hydration Protocol (ARHP)
(5) REGISTERED NURSE MATERNITY to continue to follow
[2024-01-25 09:12] LABS: Glucose - Point of Care 108 mg/dl (70-99)
--- NOTE | 2024-01-25 10:13 | PN.DE.MGMTRT ---
Insulin Management
- -
01/25/2024: Diabetes management Consult
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 Pt underwent Redo sternotomy with extensive adhesiolysis of adhesions 2/2 to previous cardiac
surgery (modifier 22); CABG x 2 [in situ GARCIA to LAD and reverse saphenous vein graft from ascending aortic graft to distal RCA, 21 mm Medtronic Freestyle aortic root complex replacement with reimplantation of coronary buttons; now POD #6. PMH: chf,
mvcad, Morbid obesity, HTN, HLD, Severe , T2DM, [place], Prior aortic valve replacement with single-vessel bypass. Was taking Jardiance 10mg daily prior to admission. A1C 6.8%, Cr 2.2, eGFR 22.24. Reports she has a working meter with enough supplies
at home.
Pt awake alert, resting in bed offers no complaints, able to discuss diabetes management.
Currently on tube feeds. Glucose has been managed on critical care glycemia protocol, range of 102 to 144, requiring 1.8 to 4.5 units of insulin/hr.
Will transition off drip to sq insulin. Give Lantus 10 units now, drip off 1 hr after administering Lantus. Start Lantus 10 units daily in AM.
Start NovoLog 5 units Q6hrs and moderate corrective q6hrs.
Will follow and adjustment insulin dose if needed.
Discussed with pt and Nurse diabetes plan of care.
Diabetes History
- -
Type of Diabetes: 2 requiring insulin
Pre-Admission Diabetes Regimen
01/24/24 01/24/24 01/25/24
14:45 21:56 04:24
Creatinine 2.6 H 2.3 H 2.2 H
Lab Results
Hemoglobin A1c 6.8 % (4.0-5.6) H 01/11/24 08:40
Insulin Pump Settings
IP Diabetes Regimen
01/24/24 01/24/24 01/24/24
11:01 12:15 13:09
Glucose
POC Glucose 97 103 H 122 H
01/24/24 01/24/24 01/24/24
14:33 14:45 16:04
Glucose 108 H
POC Glucose 109 H 97
01/24/24 01/24/24 01/24/24
17:57 19:57 21:55
Glucose
POC Glucose 130 H 105 H 132 H
01/24/24 01/25/24 01/25/24
21:56 01:08 03:09
Glucose 124 H
POC Glucose 112 H 102 H
01/25/24 01/25/24 01/25/24
04:24 04:57 07:15
Glucose 112 H
POC Glucose 144 H 117 H
01/25/24
09:10
Glucose
POC Glucose 108 H
Patient Education
--- NOTE | 2024-01-25 10:20 | W.PN.CARDCBS ---
Today's Communication / Plan
-
Stable cardiology status on dobutamine
Remains in sinus rhythm on amiodarone 200 mg p.o. 3 times daily
Remains on IV Bumex drip
Impression / Plan
-
Cardiology: Dr. Fernie Cox of [facility]
PCP: Dr. Radha Tamez
IMPRESSION:
s/p Freestyle 21 mm AV replacement with replacement of ascending aorta to innominate for and aortic insufficiency of previously placed tissue AVR 01/19/24
s/p tissue AVR 2016
Not TAVR candidate with low coronary heights and narrow SOV
CAD s/p CABG with GARCIA to LAD and SVG to RCA, Diagonal could not be grafted 01/19/24
previous CABG with SVG to OM-2 in 2016 known to be occluded since cath in 2019
Open sternotomy secondary to oozing, edema, RV dysfunction on multiple pressors dobutamine and milrinone 01/19/24 s/p closure 01/21/24
DM 2
Hyperlipidemia
Hypoxemia resulting in emergent bronch 01/22/24
Acute post op anemia/thrombocytopenia
Post op FABIAN
Post op PAF and junctional rhythm
DEMAR 01/21/24: LV underfilled with all wall segments moving normally, RV severely hypokinetic with akinesis of anterior wall, trace MR and TR, no effusions
RECOMMENDATIONS:
She remains cardiovascular stable on 3 mcg of dobutamine with decent cardiac indexes
She remains in sinus rhythm on oral amiodarone 200 mg p.o. 3 times daily started on 01/18
Volume status is reasonable but likely still an element of volume overload with PAD of 17. Continue IV Bumex drip
Creatinine continues to improve and is 2.2 in 01/25/2024
Hemoglobin of 7.9 which is slightly decreased compared to 8.6 on 01/23
Platelets remain relatively stable at 93,000
Discussed with CVICU nursing
Progress Note - Brand Sales Consultant
Subjective
Date of Service: January 25, 2024
She is without complaints
Objective
Labs:
01/25/24 04:24
01/25/24 04:24
Labs
Hgb 7.9 g/dL (12.0-16.0) L 01/25/24 04:24
Hct 23.7 % (37.0-47.0) L 01/25/24 04:24
Plt Count 93 10^3/uL (130-400) L 01/25/24 04:24
PT 15.0 Sec (11.4-14.6) H 01/21/24 15:02
INR 1.13 01/21/24 15:02
APTT 67.0 Sec (23.4-35.0) H 01/25/24 04:24
Sodium 139 mmol/L (135-145) 01/25/24 04:24
Potassium 3.8 mmol/L (3.5-5.1) 01/25/24 04:24
BUN 72 mg/dl (7-17) H 01/25/24 04:24
Creatinine 2.2 mg/dL (0.6-1.0) H 01/25/24 04:24
Glucose 112 mg/dl (70-99) H 01/25/24 04:24
Vital Signs and I&O:
Vital Signs
Temp Pulse Resp BP Pulse Ox
98.9 F 85 18 113/56 96
01/25/24 10:00 01/25/24 10:00 01/25/24 10:00 01/25/24 10:00 01/25/24 10:00
Vital Signs
Temp Pulse Resp BP Pulse Ox
98.9 F 85 18 113/56 96
01/25/24 10:00 01/25/24 10:00 01/25/24 10:00 01/25/24 10:00 01/25/24 10:00
Intake & Output
01/23/24 01/24/24 01/25/24 01/26/24
06:59 06:59 06:59 06:59
Intake Total 4049.4 / 4159.1 3742.7 / 3850.7 3427.9 / 3580.0 381.5 / 381.5
Output Total 1380 / 1475 885 / 930 4010 / 4010 305 / 305
Balance 2669.4 / 2684.1 2857.7 / 2920.7 -582.1 / -430.0 76.5 / 76.5
Physical Exam
Physical Exam
General: Well developed, well nourished in NAD.
Neck: Supple, no JVD, HJR, carotids +2 B/L, no bruits bilaterally.
Heart: Non displaced PMI, RRR, no murmurs, No S3, S4, no rubs.
Lungs: Scattered rhonchi
Sternal dressings noted
Extremities: No clubbing, cyanosis or edema bilaterally.
Neuro: Grossly nonfocal, awake, alert and oriented x3.
--- NOTE | 2024-01-25 10:22 | PTCARENOTE ---
Left A-line removed per CVPA order; NSR on monitor and VSS; assessment unchanged; Tube Feeding changes to Jevity 1.5 30mls/hr with 25mls/hr water flush; pt turned and repositioned.
[2024-01-25 11:09] LABS: Glucose - Point of Care 114 mg/dl (70-99)
[2024-01-25] MEDS: PITRESSIN 100 IV (11:36)
--- NOTE | 2024-01-25 12:01 | PTCARENOTE ---
PT/OT in with pt; pt sat at side of bed with assistance; Pt stood X2 at bedside with PT/OT and RN; assessment unchanged; NSR on monitor and VSS; new sheets applied to bed and pt resting comfortably in bed.
[2024-01-25] MEDS: LANTUS 0.1 UNITS SC (12:56)
[2024-01-25 12:57] LABS: Glucose - Point of Care 121 mg/dl (70-99)
[2024-01-25] MEDS: ROBITUSSIN 200 MG PO ×3 (13:02→22:03)
[2024-01-25] MEDS: TYLENOL 1000 MG TUBE ×2 (13:02→22:03)
--- NOTE | 2024-01-25 13:50 | PTCARENOTE ---
Pt transferred into [id number] for Sandra lift.
[2024-01-25] MEDS: ATROVENT NEBULES 0.5 MG INH ×2 (13:53→19:24)
[2024-01-25] MEDS: XOPENEX 1.25 MG INHALANT SOLUTION INH ×2 (13:53→19:24)
[2024-01-25 14:11] LABS: Glucose - Point of Care 131 mg/dl (70-99)
--- NOTE | 2024-01-25 14:51 | PTCARENOTE ---
Extra Epicardial V wires pulled by CVPA.
--- NOTE | 2024-01-25 14:53 | W.PN.UPDATE ---
Update Note
Progress Note Update
nonfunctioning V wire removed by me, planned to cut at the skin, but wire pulled out without much resistance. Will watch mediastinal chest tubes 1 more hour prior to removal.
[2024-01-25 14:58] LABS: Hematocrit 22.6 % (37.0-47.0); Hemoglobin 7.4 g/dL (12.0-16.0); Mean Corp Hgb Conc. 32.7 g/dL (33.0-37.0); Mean Corpuscular Hgb 29.6 pg (27.0-31.0); Mean Corpuscular Volume 90.4 fL (81.0-99.0); Platelet Count 94 10^3/uL (130-400); Red Cell Dist. Width 15.9 % (11.5-14.5); White Blood Cell Count 15.5 10^3/uL (4.8-10.8)
[2024-01-25] MEDS: HEPARIN 25000 UNITS/250 ML IV (15:17)
[2024-01-25] MEDS: NSS IV (15:18)
[2024-01-25] MEDS: NEURONTIN 100 MG TUBE ×2 (15:18→22:03)
[2024-01-25 15:42] LABS: Blood Urea Nitrogen 72 mg/dl (7-17); Calcium 8.4 mg/dl (8.4-10.2); Carbon Dioxide 25 mmol/L (22-30); Chloride 102 mmol/L (98-107); Estimated Creatinine Clearance 28 ml/min; Glucose 127 mg/dl (70-99); Potassium 3.7 mmol/L (3.5-5.1); Sodium 139 mmol/L (135-145); eGFR 26.53
[2024-01-25] MEDS: KCL ELIXIR 40 MEQ TUBE (16:07)
--- NOTE | 2024-01-25 16:10 | PTCARENOTE ---
A/V wires insulated per order; CT x2 mediastinals removed per order; Vasopressin turned off per Dr Trivedi; assessment unchanged; NSR on monitor and VSS; pt resting comfortably in bed.
[2024-01-25] MEDS: BUMEX 1 MG IV (16:30)
[2024-01-25] MEDS: DOBUTREX 250 MG IV (17:14)
[2024-01-25] MEDS: LIPITOR 80 MG TUBE (17:15)
[2024-01-25] MEDS: NOVOLOG FLEXPEN 5 UNITS SC (17:48)
[2024-01-25] MEDS: NOVOLOG FLEXPEN-MODERATE RESISTANCE 3 UNITS SC (17:48)
[2024-01-25 17:51] LABS: Glucose - Point of Care 216 mg/dl (70-99)
--- NOTE | 2024-01-25 18:05 | PTCARENOTE ---
Tube Feedings increased to 40mls/hr.
--- NOTE | 2024-01-25 20:00 | PTCARENOTE ---
Assumed care of patient at 1900. Patient found resting in bed with family at bedside at time of assessment. Patient AOx4, follows commands appropriately, moves all extremities. Lung sounds are diminished throughout, patient is on 2L via NC with saO2
96%. Patient has productive, frequent, moist cough sputum not observed at this time requested patient to keep next sample. Heart sounds have a regular rate and rhythm, there is a murmur audible on auscultation, patient has normal palpable radial
pulses, and pedal pulses are present with doppler. There are A+V wires present but insulated at this time. Patient has hypoactive BS throughout with round obese abdomen. Patient has rectal trumpet in place due to diarrhea. Crowder catheter in place
draining clear yellow urine. Patient has sternal incision with wound vac dressing that is CDI on 125 continuous negative pressure. There is a R groin puncture approx with surg adhesive with 4x4 dressing that is CDI, and a RLE incision approx with
surg adhesive OCCUPATIONAL THERAPY INSTRUCTOR ecchymotic. Patient has R IJ cordis with swan floated to 40 cm and R FA PIV available for intermittent infusion. Patient has the following gtts: Dobut@3, Heparin@9. VSS. No c/o pain.
[2024-01-25] MEDS: MELATONIN 5 MG PO (22:04)
[2024-01-26] VITALS (33 sets, daily range): BP systolic 97–145; BP diastolic 45–106; PULSE 129; BMI 37.7
[2024-01-26] MEDS: NOVOLOG FLEXPEN 5 UNITS SC ×2 (00:07→05:38)
[2024-01-26] MEDS: NOVOLOG FLEXPEN-MODERATE RESISTANCE 3 UNITS SC (00:08)
[2024-01-26 00:12] LABS: Glucose - Point of Care 207 mg/dl (70-99)
--- NOTE | 2024-01-26 00:56 | PTCARENOTE ---
Patient reassessed. VSS. Remains NSR on the monitor. No c/o pain. Percussion performed utilizing sports bed. Tolerating tube feeding. Patient is stable.
[2024-01-26 03:26] LABS: Mixed Venous O2 Saturation 48.7 %
[2024-01-26 03:39] LABS: Hematocrit 21.6 % (37.0-47.0); Hemoglobin 7.2 g/dL (12.0-16.0); Mean Corp Hgb Conc. 33.3 g/dL (33.0-37.0); Mean Corpuscular Hgb 30.1 pg (27.0-31.0); Mean Corpuscular Volume 90.4 fL (81.0-99.0); Mean Platelet Volume 11.5 fL (7.4-10.4); Platelet Count 100 10^3/uL (130-400); Red Blood Cell Count 2.39 10^6/uL (4.20-5.40); Red Cell Dist. Width 16.1 % (11.5-14.5); White Blood Cell Count 16.6 10^3/uL (4.8-10.8)
[2024-01-26 03:41] LABS: APTT 59.8 Sec (23.4-35.0)
[2024-01-26 03:51] LABS: Carbon Dioxide 26 mmol/L (22-30); Estimated Creatinine Clearance 29 ml/min; eGFR 28.31
--- NOTE | 2024-01-26 03:59 | W.PN.CT ---
Today's Communication / Plan
-
-No major issues overnight. Neurologically and hemodynamically intact
-Off all drips but dobutamine @ 3 mcg/kg/min and Heparin gtt @ 900 units/hr. Bumex gtt currently off, u/o currently ~ 50 ml/hr, diuresed 1930 mL/24hrs
-Insulin gtt d/c'd per Diabetes management 01/24, started on Lantus and Novolog
-Tolerating tube feeds (Jevity) @ goal of 50 ml/hr
-Cleared for ice-chips and sips of water by speech/swallow, currently tolerating
-Cr 1.8 today, was 1.9 yesterday. 0.9 preop
-Last CI 2.04, MVO2 48.7%
-Monitor h/h for possible transfusion, 7.2/21.6, was 7.4/22.6 yesterday. Plts 100K, was 94K yesterday
-Oxygenation has improved, currently on 2L NC, O2sats 95-96%. F/U CXR
-Noted to have left basilar opacification on cxr S/P bronchoscopy 12/21 was unremarkable
-Echo obtained 12/21 showed a well seated AVR, PG/MG of 28/19, no AI, LVEF 55-60%. Moderate enlarged RV with hypokinesis. An echodensity @ sub-aortic extending towards left atrium (LVOT/LA jxn)
-Repeat echo scheduled for tomorrow 01/26
-Maintain [place] catheter to measure I/O's
-Has rectal trumpet, diarrhea has subsided
-Has sternal wound-vac
-Wean dobutamine as tolerated
-D/C swan when able to wean off inotrope
-Maintain cordis
-Maintain temporary pacer wire, currently insulated (will cut before d/c home)
-OOB/Ambulate as tolerated. PT/OT/SP following
Assessment / Plan
-
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
LAD and reverse saphenous vein graft from ascending aortic graft to distal RCA; EVH of RLE; Explant of prior 21 mm trifecta aortic valve; 21 mm Medtronic Freestyle aortic root complex replacement with reimplantation of coronary buttons; Hypothermic
circulatory arrest with selective cerebral perfusion, ascending aortic replacement with a 26 mm straight tube graft pm 01/19/[address] Trivedi, pod #7
- Intraop DEMAR: LVEF preop was preserved at approximately 55 to 60%. Following surgery EF remained the same at approximate 50-55% on 5 dobutamine and some Cardene. Her RV function was normal preoperatively and mild to moderately depressed
postoperatively. Following aortic root replacement, there was no aortic valve insufficiency with a new freestyle porcine root replacement.
-Her cardiac index was depressed at approximately 1.5 on 5 dobutamine. She did not require any pacing and was on her own [place] sinus rhythm following surgery. Due to the extended pump time, mild RV dysfunction, and required multiple blood
products due to coagulopathy, chest was left open and packed with 1 vaginal pack.
S/P Removal of one vaginal packing/Evacuation of minimal clot and old fibrillar/hemostatic agents/[place] with warm saline/Placement of additional atrial pacing wires and additional ventricular pacing wire/Removal of the 28F straight chest
tube/Chest closure with 4 #7 single and 3 #8 double stainless steal wires/Application of skin vac, by Dr. Trivedi, 01/21/24, pod#5
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
- Multivessel coronary artery disease with anginal/exertional chest pain
- Class 1 obesity, BMI 33
- Hypertension
- Hyperlipidemia
- Previous PCI with cardiac stent to the OM
- Previous cardiac surgery with [facility] trifecta # 21 aortic valve replacement and single-vessel bypass to the OM in 2017
- Diabetes mellitus (A1c 6.8)
- Severe carotid stenosis of the right side
( 01/11/24: Mixed plaque within the right carotid bulb, velocity measurements suggestive of greater than 70% stenosis, internal to common carotid ratio suggestive of 50-69% stenosis)
- Hard of hearing
- WILNER
- b/l breast biopsies
- Acute postop anemia- s/p 7 pRBCs
- Acute postop coagulopathy/thrombocytopenia - s/p Factor 7 in OR, total 3 FFPs, 3 units platelets
- Acute postop atelectasis
- Acute postop hypovolemia with subsequent hypervolemia
- Acute postop hypotension d/t cardiogenic shock, requiring inotrops and pressors
- Acute postop ectopy (PACs, PVCs)- tx with Amio bolus and drip, now off - improved with discontinuing Milrinone
- Acute postop hyperkalemia
- Acute postop junctional rhythm
- Acute postop metabolic alkalosis with respiratory compensation
- Acute postop respiratory insufficiency secondary to volume overload, pulmonary edema
- Acute postop VDRF
- Acute postop bronchoscopy 01/21 -unremarkable
- Acute postop bronchoscopy 01/20 -thick secretions suctioned @ justin
- Acute postop FABIAN
- Acute postop a-fib with RVR 150's
Discussed patient care with: Cardiology, Nursing, Respiratory Therapy, Pharmacy and Care Team
Subjective
-
Date of Service: January 26, 2024
Pt c/o mild incisional pain, otherwise feels well. Making gradual improvement daily
Objective Data
-
Lab Results
01/26/24 03:17
01/26/24 03:17
PT 15.0 Sec (11.4-14.6) H 01/21/24 15:02
INR 1.13 01/21/24 15:02
APTT 59.8 Sec (23.4-35.0) H 01/26/24 03:17
Vital Signs
Vital Signs
Temp Pulse Resp BP Pulse Ox
98.6 F 90 20 121/45 95
01/26/24 03:00 01/26/24 03:00 01/26/24 03:00 01/26/24 03:00 01/26/24 03:00
CT Intake/Output/Weight
01/25/24 01/25/24 01/26/24
06:59 18:59 06:59
Intake Total 1641.9 / 3580.0 1321.7 / 2047.8 726.1 / 2047.8
Output Total 3125 / 4010 1145 / 1755 610 / 1755
Balance -1483.1 / -430.0 176.7 / 292.8 116.1 / 292.8
SaO2: 95 (2L)
Physical Exam
-
General: Awake, Oriented and AOx3
Cardiovascular: Regular rate & rhythm, Murmur (2/6 systolic), No Rub and No Gallop
Respiratory: Decreased Breath Sounds (at bases)
Sternum: Stable
Incision: Clean, Dry, Intact and Dressing Intact
Extremities: Edema +1
Data Reviewed
-
Lab Results: Results Reviewed
Medications: Active Meds Reviewed
Chest X-Ray: Report Reviewed and Image Reviewed
ECG: Report Reviewed and Image Reviewed
--- NOTE | 2024-01-26 04:00 | PTCARENOTE ---
Patient reassessed. VSS. AM hygiene care provided. While turning patient rectal trumpet fell out and replaced with 34 FR trumpet. 50 cc liquid diarrhea output overnight. AM labs obtained. PTT<[address] PA maintain heparin at 9mL/hr recheck
PTT in AM tomorrow.
[2024-01-26 04:01] LABS: Blood Urea Nitrogen 74 mg/dl (7-17); Calcium 8.5 mg/dl (8.4-10.2); Chloride 102 mmol/L (98-107); Glucose 218 mg/dl (70-99); Magnesium 2.3 mg/dl (1.6-2.3); Potassium 4.4 mmol/L (3.5-5.1); Sodium 138 mmol/L (135-145)
[2024-01-26] MEDS: NOVOLOG FLEXPEN-MODERATE RESISTANCE 5 UNITS SC ×2 (05:38→11:53)
[2024-01-26] MEDS: TYLENOL 1000 MG TUBE ×2 (05:39→21:51)
[2024-01-26 05:42] LABS: Glucose - Point of Care 267 mg/dl (70-99)
[2024-01-26] MEDS: CORDARONE 103 MG IV (07:13)
[2024-01-26] MEDS: ATROVENT NEBULES 0.5 MG INH ×2 (07:23→19:43)
[2024-01-26] MEDS: XOPENEX 1.25 MG INHALANT SOLUTION INH ×3 (07:23→19:43)
--- NOTE | 2024-01-26 08:00 | PTCARENOTE ---
Received pt from retail shift leader RN; pt AAOx3 and resting comfortably in bed; A-fib on monitor and VSS; Epicardial A/V wires insulated; RIJ Cordis, [place] floated to 40 and PIV x1 all lines leveled and zeroed; + murmur; Lungs diminished; IS to 500;
nonproductive cough; hypoactive bowel sounds; Crwoder catheter draining yellow urine; Doppler lower extremity pulses present and radials positive; +2 generalized edema; all surgical dressing C/D/I; see nursing documentation for further details.
--- NOTE | 2024-01-26 08:06 | W.PN.INTV ---
Today's Communication / Plan
Recommendations
Chest PT with sport bed
Nebulized bronchodilators with Xopenex/Atrovent and if still with poor cough will add Mucomyst for pulmonary toilet purposes
Aspiration precautions
Diet as per UNDERWRITING MANAGER
Monitor UOP and trend sCr
Titrate down supplemental O2 flow rate while keeping SpO2 >90-94%
Continue with inotropic support with dobutamine and trend MVO2 and CO/CI
Daily chest x-ray
Follow H&H and transfuse as necessary
Up OOB as tolerated
Encourage use of IS
Aspiration precautions
Screwhead Stoner And Polisher/pulmonary service will continue to follow along.
Assessment
-
Impression:
Status post coronary artery bypass/aortic root replacement/redo sternotomy with lysis of adhesions/explant of prior aortic valve (OR date: 01/19/2024)
Open chest-status post closure 01/21/2024
Post-operative respiratory failure require mechanical ventilation --> extubated on 01/24/2024 and now on nasal cannula
Severe left lung atelectasis 01/22/2024-likely mucous plug
Bronchoscopy 01/22/2024
Conditions present prior admission:
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
Heart failure
Multivessel coronary artery disease
Morbid obesity
Hypertension
Hyperlipidemia
Coronary artery disease with prior stents
Prior aortic valve replacement with single-vessel bypass
Type 2 diabetes
Severe carotic stenosis on the right
Hard of hearing
Assessment and plan
Status post chest closure 01/21/2024.
Extubated 01/24/2024
-
Maintain SpO2 >90-94% with supplemental O2 if needed
Encourage incentive spirometry use 10x per hour for at least 4 hrs a day
OOB as tolerated - [place] cuate in place
Sternal wound VAC in place
-
Chest x-ray 01/24/2024: reviewed, showed persistent LLL subsegmental atelectasis
CXR from 01/25/2024 shows mild improvement in L lung atelectasis
Pulmonary toilet is marshall --> continue Mucinex 1200mg BID with chest PT with sport bed vs percussor (if no chest pain) (still has chest tube so vest not possible yet)
On 01/24 I started Xopenex and atrovent TID with prn doses in between for breakthrough symptoms
Suction as needed
Aspiration precautions
Keep HOB >30-45�
Nebulizers as needed for secretion clearance
-
Status post bronchoscopy 01/21/2024: Scant amount of thick whitish phlegm suctioned from the justin. Otherwise patent tracheobronchial tree. No samples were sent.
Anemia noted-no evidence of acute bleeding
Status post multiple transfusions - last PRBC given on 01/21/2024
Follow H&H serially and transfuse if needed to keep Hb>7g/dL
Continue inotrope with dobutamine with goal CI>2, trend MVO2 with goal >60-65 and maintain MAP>65
Monitor for arrhythmia
Replete K>4, Mg>2
[address] - remove as per CT surgery team
Monitor sCr, with strict I/O and monitor UOP
Trend sHCO3
Monitor K levels
Cardiology following - recs appreciated
-
Postoperative A-fib, continue amiodarone
On Heparin gtt, follow ptt per protocol
ASA
Removal of mediastinal chest tube per CT surgery
NG tube in place. UNDERWRITING MANAGER following - defer diet to them - cleared for minced/moist diet today (01/26/2024)
Glycemic control per protocol
Goal BG 140-180
DVT ppx: heparin gtt
Screwhead Stoner And Polisher/pulmonary service will continue to follow along.
Critical care statement: A total of 35 minutes of critical care time was provided for this patient today. This includes management of unstable vital signs, evaluation of the patient at bedside, reviewing the patient's pertinent medical records
including ventilator settings, arterial blood gases, radiographs, microbiology, laboratory evaluations and discussion with primary team, critical care nursing, and respiratory therapy.
Subjective Dataa
Subjective Data
Date of Service:
Date of Service: January 26, 2024
Chief Complaint: Screwhead Stoner And Polisher Follow Up (Status post redo sternotomy, AVR and CABG)
Subjective:
Patient was seen and evaluated this morning. Nursing did chest PT x 2 this morning and minimal phlegm was produced. Her cough is improved, however. She is very tired when I saw her and she was minimally interactive although still answering my
questions appropriately. [place] remains in place with CO/CI: 3.96/2.06, respectively. Saturating 90% on room air. Heart rate 123 and PAP: 43/24. Currently on tube feeds at 50 cc/hr. Being diuresed with Bumex at 1 mg/hr, also on dobutamine at 3
mcg/kg/min + heparin drip.
Review of Systems
General: Other (Negative unless mentioned above)
Objective Data
Data Reviewed
Vital Signs / I&O / Oxygen:
Vital Signs
Temp Pulse Resp BP Pulse Ox
97.9 F 107 18 116/53 94
01/26/24 08:00 01/26/24 08:15 01/26/24 08:00 01/26/24 08:00 01/26/24 08:15
Intake and Output
01/25/24 01/26/24 01/27/24
06:59 06:59 06:59
Intake Total 3427.9 / 3580.0 2176.5 / 2176.5 32.9 / 32.9
Output Total 4010 / 4010 1950 / 1950 30 / 30
Balance -582.1 / -430.0 226.5 / 226.5 2.9 / 2.9
SaO2 [A/C] 96
SaO2 [SIMV] 93
SaO2 94
Nasal Cannula flow liters per 2
minute
Physical Exam
General: Respiratory Distress (negative), Comfortable (On mechanical ventilation), Chills (negative), Sweats (negative) and Good Appetite
HEENT: Normocephalic and Anicteric
Cardiovascular: S1-S2 and Peripheral Edema (negative)
Respiratory: Wheeze (negative), Crackles (bilateral in posterior lung naqvi, middle to bases), Rhonchi (negative) and Non-Labored Respirations
GI: Soft, Non Distended, Non Tender and Normal Bowel Sounds
Neurology: AO x 3 and Tremors (negative)
Skin: Warm, Dry, Cyanosis (negative) and Jaundice (negative)
Labs/Micro/Reports
Lab Data
01/26/24 03:17
01/26/24 03:17
Laboratory Results
01/26/24
03:17
APTT 59.8 H
[2024-01-26] MEDS: LANTUS 0.1 UNITS SC (08:20)
[2024-01-26] MEDS: MAGNESIUM OXIDE 500 MG PO ×2 (08:21→21:15)
[2024-01-26] MEDS: VITAMIN C 500 MG PO (08:21)
[2024-01-26] MEDS: FEOSOL 325 MG TUBE (08:21)
[2024-01-26] MEDS: NSS (PRESERVATIVE FREE) 10 ML IV (08:21)
[2024-01-26] MEDS: PACERONE 200 MG PO ×3 (08:21→21:51)
[2024-01-26] MEDS: ROBITUSSIN 200 MG PO ×3 (08:21→21:51)
[2024-01-26] MEDS: PROTONIX IV 40 MG IV (08:21)
[2024-01-26] MEDS: LOW STRENGTH ASPIRIN 81 MG TUBE (08:21)
[2024-01-26] MEDS: NEURONTIN 100 MG TUBE ×3 (08:21→21:51)
[2024-01-26] MEDS: SENOKOT-S PO ×2 (08:22→21:13)
[2024-01-26] MEDS: LIDOCAINE 4% PATCH TOPICAL (08:22)
--- NOTE | 2024-01-26 08:45 | PTOTSP ---
Speech Language Pathology
Pt seen for dysphagia tx. Improved vocal intensity noted this date. P.O. trials of puree, regular solids, ice chips, and thin liquids via straw provided. Prolonged mastication with regular solids noted, suspect secondary to overall fatigue. No
overt signs of aspiration this date.
Pt is at risk for aspiration, including silent aspiration, given prolonged intubation and multiple medical comorbidities. However, clear vocal quality noted this date with stable vital signs. Per discussion with RN, going off floor for VSE not
feasible at this time.
Recommend:
(1) Initiate IDDSI Level 5 (Minced/Moist) and Thin liquids
(2) Aspiration precautions: full supervision, slow rate, single sips, sit upright
(3) Revert to NPO if any coughing with P.O. intake noted
(4) Meds crushed and via DHT as able
(5) VSE once medically stable to leave floor
(6) CHIEF PROCUREMENT OFFICER to continue to follow
--- NOTE | 2024-01-26 09:21 | PN.DE.MGMTRT ---
Insulin Management
- -
01/26/2024: Diabetes management Consult Follow up
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 Pt underwent Redo sternotomy with extensive adhesiolysis of adhesions 2/2 to previous cardiac
surgery (modifier 22); CABG x 2 [in situ GARCIA to LAD and reverse saphenous vein graft from ascending aortic graft to distal RCA, 21 mm Medtronic Freestyle aortic root complex replacement with reimplantation of coronary buttons; now POD #7. PMH: chf,
mvcad, Morbid obesity, HTN, HLD, Severe , T2DM, [place] RESERVATION, Prior aortic valve replacement with single-vessel bypass. Was taking Jardiance 10mg daily prior to admission. A1C 6.8%, Cr 2.2, eGFR 22.24. Reports she has a working meter with enough supplies
at home.
Pt awake alert, resting in bed offers no complaints, able to discuss diabetes management.
Currently on tube feeds @ 50 per hour. Transitioned from critical care glycemic protocol 01/24 to lantus 10 units with novolog 5 units Q 6 hours and moderate corrective insulin.
AM lantus 10 units, has been given this AM will increase for tomorrow to 14 units, will increase Q 6 hour novolog to 10 units with moderate corrective insulin.
Will follow and adjust insulin dose if needed.
Discussed with pt and Nurse.
Diabetes History
- -
Type of Diabetes: 2
Pre-Admission Diabetes Regimen
01/25/24 01/26/24
14:37 03:17
Creatinine 1.9 H 1.8 H
Lab Results
Hemoglobin A1c 6.8 % (4.0-5.6) H 01/11/24 08:40
Insulin Pump Settings
IP Diabetes Regimen
01/25/24 01/25/24 01/25/24
11:08 12:55 14:10
Glucose
POC Glucose 114 H 121 H 131 H
11/02/0601/25/24 01/26/24
14:37 17:46 00:05
Glucose 127 H
POC Glucose 216 H 207 H
01/26/24 01/26/24
03:17 05:37
Glucose 218 H
POC Glucose 267 H
Patient Education
--- NOTE | 2024-01-26 09:21 | PTCARENOTE ---
1 unit PRBC infusing per VNP otder.
--- NOTE | 2024-01-26 10:08 | W.PN.CARDCBS ---
Addendum entered and electronically signed by Hieu Alford MD 01/26/24 10:44:
I saw and examined the patient.
The TOLL LINE REPAIRER or PA's note was reviewed and I agree with the note.
Comment: General: Well developed, well nourished in NAD.
Neck: Supple, no JVD, HJR, carotids +2 B/L, no bruits bilaterally.
Heart: Non displaced PMI, Irreg, 2/6 basal systolic murmur, No S3, S4, no rubs.
Lungs: Scattered rhonchi
Sternal dressings noted
Extremities: No clubbing, cyanosis or edema bilaterally.
Neuro: Grossly nonfocal, awake, alert and oriented x3.
Currently in A-fib with reasonable rate control. Continue amiodarone and IV heparin. Will continue diuresis with Bumex. Remains on dobutamine. Discussed with nursing.
Original Note:
Today's Communication / Plan
-
continue diuresis. follow Cr
currently back in afib. continue amio, IV heparin
repeat echo in AM
Impression / Plan
-
Cardiology: Dr. Fernie Cox of [facility]
PCP: Dr. Radha Tamez
IMPRESSION:
s/p Freestyle 21 mm AV replacement with replacement of ascending aorta to innominate for and aortic insufficiency of previously placed tissue AVR 01/19/24
s/p tissue AVR 2016
Not TAVR candidate with low coronary heights and narrow SOV
CAD s/p CABG with GARCIA to LAD and SVG to RCA, Diagonal could not be grafted 01/19/24
previous CABG with SVG to OM-2 in 2016 known to be occluded since cath in 2019
Open sternotomy secondary to oozing, edema, RV dysfunction on multiple pressors dobutamine and milrinone 01/19/24 s/p closure 01/21/24
DM 2
Hyperlipidemia
Hypoxemia resulting in emergent bronch 01/22/24
Acute post op anemia/thrombocytopenia
Post op FABIAN
Post op PAF and junctional rhythm
DEMAR 01/21/24: LV underfilled with all wall segments moving normally, RV severely hypokinetic with akinesis of anterior wall, trace MR and TR, no effusions
RECOMMENDATIONS:
-patient underwent redo sternotomy with CABG x2 in situ GARCIA to LAD and rSVG from asc aortic graft to distal RCA, explant of prior aortic valve, complex Medtronic aortic root replacement, hypothermic circ arrest, ascending aorta replacement 01/19/24.
Due to prolonged pump time, chest was left open. 01/20 with periods of afib then junctional on IV amio gtt. Returned to OR 01/20 for chest closure.
-s/p bronch 01/21 due to hypoxemia and L lung whiteout on CXR with likely mucous plug. improving. remains on 2L NC, wean as able
-hgb 7.2. receiving 1 U PRBCs currently
-to resume IV bumex gtt as transfusion ends. Cr 1.8
-back in afib this AM with HRs in 100s. received IV amio bolus. continue po amio. follow on tele
-continue IV heparin, eventual transition to OAC. plts 100K
-remains on dobut @3. CI in SR was 2.1 however in afib CI 1.8
-repeat echo in AM
-tube feeds continue
-remains with sternal wound vac, continue care
-d/w nursing
Progress Note - Grinder Tender
Subjective
Date of Service: January 26, 2024
patient complains of being tired. also reports some L groin discomfort
Objective
Labs:
01/26/24 03:17
01/26/24 03:17
Labs
Hgb 7.2 g/dL (12.0-16.0) L 01/26/24 03:17
Hct 21.6 % (37.0-47.0) L 01/26/24 03:17
Plt Count 100 10^3/uL (130-400) L 01/26/24 03:17
PT 15.0 Sec (11.4-14.6) H 01/21/24 15:02
INR 1.13 01/21/24 15:02
APTT 59.8 Sec (23.4-35.0) H 01/26/24 03:17
Sodium 138 mmol/L (135-145) 01/26/24 03:17
Potassium 4.4 mmol/L (3.5-5.1) 01/26/24 03:17
BUN 74 mg/dl (7-17) H 01/26/24 03:17
Creatinine 1.8 mg/dL (0.6-1.0) H 01/26/24 03:17
Glucose 218 mg/dl (70-99) H 01/26/24 03:17
Vital Signs and I&O:
Vital Signs
Temp Pulse Resp BP Pulse Ox
97.9 F 120 20 103/50 95
01/26/24 09:00 01/26/24 09:00 01/26/24 09:00 01/26/24 09:00 01/26/24 09:33
Vital Signs
Temp Pulse Resp BP Pulse Ox
97.9 F 120 20 103/50 95
01/26/24 09:00 01/26/24 09:00 01/26/24 09:00 01/26/24 09:00 01/26/24 09:33
Intake & Output
01/24/24 01/25/24 01/26/24 01/27/24
07:59 07:59 07:59 07:59
Intake Total 3624.8 / 3737.7 3472.0 / 3623.1 2024.4 / 2132.3 495.8 / 495.8
Output Total 790 / 815 3965 / 4040 1949 / 1979 55 / 55
Balance 2834.8 / 2922.7 -493.0 / -416.9 74.4 / 152.3 440.8 / 440.8
Physical Exam
Physical Exam
GEN: No distress, awake, alert, oriented x3. on supp O2
HEENT: supple, anicteric, mmm, eomi. dobhoff in place
LUNGS: CTA B/L anterolaterally, no wheezes/rales
CV: Irreg, S1/S2, 1/6 murmur
ABD: soft, BS+, NT/ND
EXT: No cyanosis, clubbing. Trace-1+ edema of B/L LE
NEURO: Gross non-focal
SKIN: Warm, pink, dry. No rash. Sternotomy with wound vac in place. RLE incisions c/d/i with sadie-incisional ecchymoses
FORTINO: norman
[2024-01-26] MEDS: BUMEX 50 IV (10:58)
--- NOTE | 2024-01-26 11:01 | PTCARENOTE ---
Bumex drip started per CVNP order.
--- NOTE | 2024-01-26 11:27 | PTCARENOTE ---
1 unit PRBC transfused without difficulties.
[2024-01-26] MEDS: NOVOLOG FLEXPEN 10 UNITS SC ×2 (11:53→17:33)
[2024-01-26 11:56] LABS: Glucose - Point of Care 264 mg/dl (70-99)
--- NOTE | 2024-01-26 11:58 | PTCARENOTE ---
A-fib on monitor and VSS; Bumex Heparin and Dobutamine infusing see flow sheet for details; assessment unchanged.
[2024-01-26] MEDS: ZOFRAN 4 MG IV (14:07)
[2024-01-26] MEDS: ATROVENT NEBULES INH (14:12)
--- NOTE | 2024-01-26 14:12 | PTCARENOTE ---
Pt ODB x3 to chair with PT/OT and RN; pt vomited approximately 150mls of tube feedings; A-fib on monitor and VSS; assessment unchanged and pt resting comfortably in chair.
[2024-01-26] MEDS: TYLENOL TUBE (14:18)
[2024-01-26] MEDS: REGLAN 10 MG IV (14:18)
[2024-01-26] MEDS: ROBITUSSIN PO (14:30)
--- NOTE | 2024-01-26 15:57 | PTCARENOTE ---
NSR on monitor and VSS; assessment unchanged and pt resting comfortably in chair.
[2024-01-26 16:36] LABS: Mixed Venous O2 Saturation 57.3 %
[2024-01-26 16:50] LABS: Blood Urea Nitrogen 77 mg/dl (7-17); Calcium 8.3 mg/dl (8.4-10.2); Carbon Dioxide 26 mmol/L (22-30); Chloride 101 mmol/L (98-107); Estimated Creatinine Clearance 33 ml/min; Glucose 236 mg/dl (70-99); Potassium 4.2 mmol/L (3.5-5.1); Sodium 137 mmol/L (135-145)
[2024-01-26 16:51] LABS: Hemoglobin 8.5 g/dL (12.0-16.0)
[2024-01-26] MEDS: LIPITOR 80 MG TUBE (17:29)
[2024-01-26] MEDS: DOBUTREX 250 MG IV (17:30)
[2024-01-26 17:33] LABS: Glucose - Point of Care 221 mg/dl (70-99)
[2024-01-26] MEDS: NOVOLOG FLEXPEN-LOW RESISTANCE 2 UNITS SC (17:33)
[2024-01-26] MEDS: NSS 500 IV (17:34)
--- NOTE | 2024-01-26 19:05 | PTCARENOTE ---
Heparin drip turned off per order.
--- NOTE | 2024-01-26 20:00 | SUR.OPER ---
Assumed care of patient at 1900. Patient found in bed at time of assessment. Patient is AOx4, follows commands, appropriately, moves all extremities. Lung sounds are diminished thoughtout, patient has moist, nonproductive cough, saO2 100% on 2L via
NC. Heart sounds are audible, patient is SR/ST on the monitor, murmur is audible on auscultation, there are normal palpable radial pulses and pedals are present with doppler. Patient has active BS throughout all four quadrants of round obese
abdomen. There is a dobhoff in the right nare at 73 cm no longer actively receiving tube feedings at this time. There is a austin in place draining clear yellow urine. Patient has sternal incision approx with wound vac present, there is a R groin
puncture with 4x4 dressing with drainage d/t be changed, ABD dressing over CT wounds CDI d/t be changed, RLE incision approx with surg adhesive RUFUS. Patient has R IJ cordis with swan@40cm with 20 G PIV present in R upper arm available for
intermittent infusion. Patient is receiving Dobut@3, Bumex@1, Cordis/VIP KVO. No c/o pain. Patient is stable.
[2024-01-26] MEDS: ELIQUIS 5 MG TUBE (21:15)
[2024-01-26] MEDS: MELATONIN 5 MG PO (21:51)
[2024-01-27] VITALS (38 sets, daily range): BP systolic 82–133; BP diastolic 39–94; PULSE 98; O2SAT 98; BMI 37.1
--- NOTE | 2024-01-27 | PTCARENOTE ---
Patient reassessed. VSS. Hygiene care provided. CT wound dressing changed. R groin puncture dressing changed. Remains SR/ST on the monitor. Percussion therapy provided via sports bed. Small soft loose BM noted while turning patient.
[2024-01-27] MEDS: NOVOLOG FLEXPEN 10 UNITS SC ×2 (00:20→06:00)
[2024-01-27 00:21] LABS: Glucose - Point of Care 174 mg/dl (70-99)
[2024-01-27] MEDS: NOVOLOG FLEXPEN-LOW RESISTANCE 1 UNITS SC ×2 (00:21→12:17)
[2024-01-27 04:18] LABS: Hematocrit 23.2 % (37.0-47.0); Hemoglobin 7.9 g/dL (12.0-16.0); Mean Corp Hgb Conc. 34.1 g/dL (33.0-37.0); Mean Corpuscular Hgb 30.9 pg (27.0-31.0); Mean Corpuscular Volume 90.6 fL (81.0-99.0); Mean Platelet Volume 10.7 fL (7.4-10.4); Platelet Count 116 10^3/uL (130-400); Red Blood Cell Count 2.56 10^6/uL (4.20-5.40); Red Cell Dist. Width 16.5 % (11.5-14.5); White Blood Cell Count 20.1 10^3/uL (4.8-10.8)
--- NOTE | 2024-01-27 04:33 | W.PN.CT ---
Addendum entered and electronically signed by Rufus Perea MD 01/27/24 08:16:
I saw and examined the patient.
The PA's note was reviewed and I agree with the note.
Comment:
Patient looks very good this morning. No complaints. No overnight issues.
N: Intact
CV: Wean dobutamine to 2 mcg/kg/min and hold. Maintain [place] catheter today.
P: Continued I-S, head of bed 30 degrees, chest PT
GI: Resume tube feeds via Dobbhoff tube, okay for dysphagia 5 diet, calorie count
: Maintain [place] today, resume Bumex drip. Will plan on hopeful [place] removal tomorrow
HEME: Hemoglobin stable, platelets stable
ID: No antibiotics, afebrile, WBC count up slightly today to 20.1 from 16.6 -continue to follow
ENDO: Follow blood sugar, continue Lantus and NovoLog. Adjust as needed with reinstitution of tube feeds
FEN: Electrolytes ok
PROPH: SCDs, OOB, Protonix
DISPO: ICU, full code
Original Note:
Today's Communication / Plan
-
-No major issues overnight. Neurologically and hemodynamically intact
-Currently in NSR @ 95 bpm
-Off all drips but dobutamine @ 3 mcg/kg/min
-Transitioned off heparin gtt to Eliquis yesterday 01/25
-Currently off Bumex gtt, Bumex gtt currently off, u/o currently ~ 40 ml/hr, diuresed 1300 mL/24hrs
-Insulin gtt d/c'd per Diabetes management 01/24, started on Lantus and Novolog
-D/C'd tube feeds yesterday 01/25, tolerating IDDSI- 5 diet (minced and moist), per speech/swallow, Advance today as tolerated
-Cleared for ice-chips and sips of water by speech/swallow, currently tolerating
-Cr 1.8 today, was 1.8/1.6 yesterday. 0.9 preop
-Last CI 2.36
-Received 1u PRBC yesterday 01/25, H/H 7.9/23.2, was 7.2/21.6 yesterday. Plts 116K, was 100K yesterday. Likely hemodilutional as pts wt is up significantly from preop
-Oxygenation has improved, currently on 2L NC, O2sats 97%. F/U CXR
-Noted to have left basilar opacification on cxr S/P bronchoscopy 12/21 was unremarkable
-Echo obtained 12/21 showed a well seated AVR, PG/MG of 28/19, no AI, LVEF 55-60%. Moderate enlarged RV with hypokinesis. An echodensity @ sub-aortic extending towards left atrium (LVOT/LA jxn)
-Repeat echo scheduled for today 01/26. Noted to have 2/6 systolic murmur on auscultation
-Has autsin catheter, monitor I/O's, may need to change catheter to avoid UTI since has been in since OR. Doubt pt will tolerate condom catheter given FABIAN
-Rectal trumped d/c'd yesterday 01/25, diarrhea has resolved
-Has sternal wound-vac intact
-Wean dobutamine as tolerated
-D/C swan when able to wean off inotrope
-Maintain cordis another day for IV access
-Maintain temporary pacer wire, currently insulated (will cut before d/c home)
-OOB/Ambulate as tolerated. PT/OT/SP following
Assessment / Plan
-
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
LAD and reverse saphenous vein graft from ascending aortic graft to distal RCA; EVH of RLE; Explant of prior 21 mm trifecta aortic valve; 21 mm Medtronic Freestyle aortic root complex replacement with reimplantation of coronary buttons; Hypothermic
circulatory arrest with selective cerebral perfusion, ascending aortic replacement with a 26 mm straight tube graft pm 01/19/[address] Trivedi, pod #8
- Intraop DEMAR: LVEF preop was preserved at approximately 55 to 60%. Following surgery EF remained the same at approximate 50-55% on 5 dobutamine and some Cardene. Her RV function was normal preoperatively and mild to moderately depressed
postoperatively. Following aortic root replacement, there was no aortic valve insufficiency with a new freestyle porcine root replacement.
-Her cardiac index was depressed at approximately 1.5 on 5 dobutamine. She did not require any pacing and was on her own [place] sinus rhythm following surgery. Due to the extended pump time, mild RV dysfunction, and required multiple blood
products due to coagulopathy, chest was left open and packed with 1 vaginal pack.
S/P Removal of one vaginal packing/Evacuation of minimal clot and old fibrillar/hemostatic agents/[place] with warm saline/Placement of additional atrial pacing wires and additional ventricular pacing wire/Removal of the 28F straight chest
tube/Chest closure with 4 #7 single and 3 #8 double stainless steal wires/Application of skin vac, by Dr. Trivedi, 01/21/24, pod#6
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
- Multivessel coronary artery disease with anginal/exertional chest pain
- Class 1 obesity, BMI 33
- Hypertension
- Hyperlipidemia
- Previous PCI with cardiac stent to the OM
- Previous cardiac surgery with [place] trifecta # 21 aortic valve replacement and single-vessel bypass to the OM in 2017
- Diabetes mellitus (A1c 6.8)
- Severe carotid stenosis of the right side
(US 01/11/24: Mixed plaque within the right carotid bulb, velocity measurements suggestive of greater than 70% stenosis, internal to common carotid ratio suggestive of 50-69% stenosis)
- Hard of hearing
- WILNER
- b/l breast biopsies
- Acute postop anemia- s/p 7 pRBCs
- Acute postop coagulopathy/thrombocytopenia - s/p Factor 7 in OR, total 3 FFPs, 3 units platelets
- Acute postop atelectasis
- Acute postop hypovolemia with subsequent hypervolemia
- Acute postop hypotension d/t cardiogenic shock, requiring inotrops and pressors
- Acute postop ectopy (PACs, PVCs)- tx with Amio bolus and drip, now off - improved with discontinuing Milrinone
- Acute postop hyperkalemia
- Acute postop junctional rhythm
- Acute postop metabolic alkalosis with respiratory compensation
- Acute postop respiratory insufficiency secondary to volume overload, pulmonary edema
- Acute postop VDRF
- Acute postop bronchoscopy 01/21 -unremarkable
- Acute postop bronchoscopy 01/20 -thick secretions suctioned @ justin
- Acute postop FABIAN
- Acute postop a-fib with RVR 150's
Discussed patient care with: Cardiology, Nursing, Respiratory Therapy, Pharmacy and Care Team
Subjective
-
Date of Service: January 27, 2024
Pt c/o mild incisional pain, otherwise feels well. In good spirits and making progress daily
Objective Data
-
Lab Results
01/27/24 04:05
PT 15.0 Sec (11.4-14.6) H 01/21/24 15:02
INR 1.13 01/21/24 15:02
APTT Cancelled 01/27/24 06:00
Vital Signs
Vital Signs
Temp Pulse Resp BP Pulse Ox
97.9 F 94 20 109/52 97
01/27/24 04:00 01/27/24 04:00 01/27/24 04:00 01/27/24 04:00 01/27/24 04:00
CT Intake/Output/Weight
01/26/24 01/26/24 01/27/24
06:59 18:59 06:59
Intake Total 854.8 / 2176.5 888.0 / 1199.0 311.0 / 1199.0
Output Total 805 / 1950 645 / 1165 520 / 1165
Balance 49.8 / 226.5 243.0 / 34.0 -209.0 / 34.0
SaO2: 97 (2L)
Physical Exam
-
General: Awake, Oriented and AOx3
Cardiovascular: Regular rate & rhythm, Murmur (2/6 systolic murmur) and No Gallop
Respiratory: Decreased Breath Sounds (at bases, otherwise clear)
Sternum: Stable
Incision: Clean, Dry, Intact and Dressing Intact
Extremities: Edema +1
Data Reviewed
-
Lab Results: Results Reviewed
Medications: Active Meds Reviewed
Chest X-Ray: Report Reviewed and Image Reviewed
ECG: Report Reviewed and Image Reviewed
[2024-01-27 04:49] LABS: Blood Urea Nitrogen 76 mg/dl (7-17); Calcium 8.4 mg/dl (8.4-10.2); Carbon Dioxide 27 mmol/L (22-30); Chloride 103 mmol/L (98-107); Estimated Creatinine Clearance 29 ml/min; Glucose 133 mg/dl (70-99); Magnesium 2.3 mg/dl (1.6-2.3); Potassium 4.2 mmol/L (3.5-5.1); Sodium 140 mmol/L (135-145); eGFR 28.31
--- NOTE | 2024-01-27 05:52 | PTCARENOTE ---
Patient reassessed. SR on the vehicle monitor technician. AM labs obtained. Patient noted to be slightly hypotensive with low UOP CT PA notified no new orders at this time continue to monitor. All other VSS. Patient tolerated sips and applesauce intake without
incident.
[2024-01-27] MEDS: NOVOLOG FLEXPEN-LOW RESISTANCE SC (05:59)
[2024-01-27 06:00] LABS: Glucose - Point of Care 145 mg/dl (70-99)
[2024-01-27] MEDS: TYLENOL 1000 MG TUBE ×2 (06:02→21:06)
[2024-01-27] MEDS: ATROVENT NEBULES 0.5 MG INH ×3 (07:04→19:32)
[2024-01-27] MEDS: XOPENEX 1.25 MG INHALANT SOLUTION INH ×3 (07:04→19:32)
--- NOTE | 2024-01-27 07:46 | W.PN.CARDCBS ---
Addendum entered and electronically signed by Hieu Alford MD 01/27/24 09:35:
I saw and examined the patient.
The GAS TECHNICIAN or PA's note was reviewed and I agree with the note.
Comment: General: Well developed, well nourished in NAD.
Neck: Supple, no JVD, HJR, carotids +2 B/L, no bruits bilaterally.
Heart: Non displaced PMI, RRR, no murmurs, No S3, S4, no rubs.
Lungs: Scattered rhonchi
Sternal dressings noted
Extremities: No clubbing, cyanosis or edema bilaterally.
Neuro: Grossly nonfocal, awake, alert and oriented x3.
She continues to make slow progress. Dobutamine being weaned. She remains in sinus rhythm. Continue amiodarone and Eliquis. Check echocardiogram. Discussed with nursing.
Original Note:
Today's Communication / Plan
-
slow wean dobutamine
in SR. continue po amio/eliquis
repeat echo today
OOB/IS
Impression / Plan
-
Cardiology: Dr. Fernie Cox of [facility]
PCP: Dr. Radha Tamez
IMPRESSION:
s/p Freestyle 21 mm AV replacement with replacement of ascending aorta to innominate for and aortic insufficiency of previously placed tissue AVR 01/19/24
s/p tissue AVR 2016
Not TAVR candidate with low coronary heights and narrow SOV
CAD s/p CABG with GARCIA to LAD and SVG to RCA, Diagonal could not be grafted 01/19/24
previous CABG with SVG to OM-2 in 2016 known to be occluded since cath in 2019
Open sternotomy secondary to oozing, edema, RV dysfunction on multiple pressors dobutamine and milrinone 01/19/24 s/p closure 01/21/24
DM 2
Hyperlipidemia
Hypoxemia resulting in emergent bronch 01/22/24
Acute post op anemia/thrombocytopenia
Post op FABIAN
Post op PAF and junctional rhythm
DEMAR 01/21/24: LV underfilled with all wall segments moving normally, RV severely hypokinetic with akinesis of anterior wall, trace MR and TR, no effusions
RECOMMENDATIONS:
-patient underwent redo sternotomy with CABG x2 in situ GARCIA to LAD and rSVG from asc aortic graft to distal RCA, explant of prior aortic valve, complex Medtronic aortic root replacement, hypothermic circ arrest, ascending aorta replacement 01/19/24.
Due to prolonged pump time, chest was left open. 01/20 with periods of afib then junctional on IV amio gtt. Returned to OR 01/20 for chest closure.
-s/p bronch 01/21 due to hypoxemia and L lung whiteout on CXR with likely mucous plug. improving. remains on 2L NC, wean as able
-hgb up to 7.9 s/p 1 U PRBCs 01/25.
-IV bumex gtt stopped last evening. Cr stable at 1.8
-in SR this AM upon review of tele, had episode of afib from ~7AM to 3PM 01/25. continue po amiodarone
-started eliquis 01/25.
-remains on dobut @3. CI 2.3. to start slow wean today
-repeat echo today.
-remains with sternal wound vac, continue care
-encouraged IS, OOB
-d/w nursing, CT surgery
Progress Note - Financial Sales Associate
Subjective
Date of Service: January 27, 2024
reports feeling well. no significant pain
Objective
Labs:
01/27/24 04:05
01/27/24 04:05
Labs
Hgb 7.9 g/dL (12.0-16.0) L 01/27/24 04:05
Hct 23.2 % (37.0-47.0) L 01/27/24 04:05
Plt Count 116 10^3/uL (130-400) L 01/27/24 04:05
PT 15.0 Sec (11.4-14.6) H 01/21/24 15:02
INR 1.13 01/21/24 15:02
APTT Cancelled 01/27/24 06:00
Sodium 140 mmol/L (135-145) 01/27/24 04:05
Potassium 4.2 mmol/L (3.5-5.1) 01/27/24 04:05
BUN 76 mg/dl (7-17) H 01/27/24 04:05
Creatinine 1.8 mg/dL (0.6-1.0) H 01/27/24 04:05
Glucose 133 mg/dl (70-99) H 01/27/24 04:05
Vital Signs and I&O:
Vital Signs
Temp Pulse Resp BP Pulse Ox
97.9 F 95 16 96/56 97
01/27/24 06:00 01/27/24 07:08 01/27/24 07:08 01/27/24 06:00 01/27/24 07:08
Vital Signs
Temp Pulse Resp BP Pulse Ox
97.9 F 95 16 96/56 97
01/27/24 06:00 01/27/24 07:08 01/27/24 07:08 01/27/24 06:00 01/27/24 07:08
Intake & Output
01/24/24 01/25/24 01/26/24 01/27/24
07:59 07:59 07:59 07:59
Intake Total 3624.8 / 3737.7 3472.0 / 3623.1 2024.4 / 2132.3 1456.8 / 1456.8
Output Total 790 / 815 3965 / 4040 1949 / 1980 1260 / 1260
Balance 2834.8 / 2922.7 -493.0 / -416.9 74.4 / 152.3 196.8 / 196.8
Physical Exam
Physical Exam
GEN: No distress, awake, alert, oriented x3. on supp O2
HEENT: supple, anicteric, mmm, eomi. dobhoff in place
LUNGS: CTA B/L anterolaterally, no wheezes/rales
CV: Reg, S1/S2, 1/6 murmur
ABD: soft, BS+, NT/ND
EXT: No cyanosis, clubbing. Trace-1+ edema of B/L LE
NEURO: Gross non-focal
SKIN: Warm, pink, dry. No rash. Sternotomy with wound vac in place.
--- NOTE | 2024-01-27 08:00 | PTCARENOTE ---
Patient received from night shift supervisor resting in bed, AAO x 3, pleasant and appropriate, states pain controlled. NSR via cm, SaO2 @ 98% on 2lnc. RIJ Cordis/[place]ane catheter present - leveled, flushed, and calibrated w/good waveforms returned.
Epicardial A+V wires insulated to chest wall. Midsternal wound vac d/c'd by ALEXANDRO Conley, patient tolerated well. R christinae dobhoff in place. Patient updated to plan of care for the day, in agreement. See work list for full assessment, interventions
performed, and intravenous infusions and titrations.
--- NOTE | 2024-01-27 08:08 | PN.DE.MGMTRT ---
Insulin Management
- -
01/27/2024: Diabetes management Consult Follow up
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 Pt underwent Redo sternotomy with extensive adhesiolysis of adhesions 2/2 to previous cardiac
surgery (modifier 22); CABG x 2 [in situ GARCIA to LAD and reverse saphenous vein graft from ascending aortic graft to distal RCA, 21 mm Medtronic Freestyle aortic root complex replacement with reimplantation of coronary buttons; now POD #7. PMH: chf,
mvcad, Morbid obesity, HTN, HLD, Severe , T2DM, SALAMATOF, Prior aortic valve replacement with single-vessel bypass. Was taking Jardiance 10mg daily prior to admission. A1C 6.8%, Cr 2.2, eGFR 22.24. Reports she has a working meter with enough supplies
at home.
Pt awake alert, resting in bed offers no complaints, able to discuss diabetes management.
01/25 Transitioned from critical care glycemic protocol 01/24 to lantus 10 units with novolog 5 units Q 6 hours and moderate corrective insulin. Tube feeds @ 50 per hour until late afternoon then stopped due to patient vomiting. Patient took
minimal amount of applesauce with medications. Glucose range 174 to 267.
01/26 Will reduce AM lantus 10 units, and change Q6 hour novolog to AC with reduced dose 4 units to start with lunch, change moderate to low corrective insulin.
Discussed with patient importance of glucose control after discharge to prevent infection, she verbalized understanding. Will review again in AM times to test and target range. Diabetes education booklet provided and information regarding SBGM
highlighted.
Will follow and adjust insulin dose if needed.
Discussed with pt and Nurse.
Diabetes History
- -
Type of Diabetes: 2 requiring insulin
Pre-Admission Diabetes Regimen
01/26/24 01/27/24
16:16 04:05
Creatinine 1.6 H 1.8 H
Lab Results
Hemoglobin A1c 6.8 % (4.0-5.6) H 01/11/24 08:40
Insulin Pump Settings
IP Diabetes Regimen
01/26/24 01/26/24 01/26/24
11:53 16:16 17:33
Glucose 236 H
POC Glucose 264 H 221 H
01/27/24 01/27/24 01/27/24
00:15 04:05 05:58
Glucose 133 H
POC Glucose 174 H 145 H
Patient Education
--- NOTE | 2024-01-27 08:22 | W.PN.INTV ---
Today's Communication / Plan
Recommendations
Chest PT with sport bed
Nebulized bronchodilators with Xopenex/Atrovent and if still with poor cough will add Mucomyst for pulmonary toilet purposes
Start acapella
Aspiration precautions
Diet as per SALES REPRESENTATIVE [employer]
Monitor UOP and trend sCr
Titrate down supplemental O2 flow rate while keeping SpO2 >90-94%
Continue with inotropic support with dobutamine and trend MVO2 and CO/CI
Daily chest x-ray
Follow H&H and transfuse as necessary
Up OOB as tolerated
Encourage use of IS
Aspiration precautions
Electrical Assembly Supervisor/pulmonary service will continue to follow along.
Assessment
-
Impression:
Status post coronary artery bypass/aortic root replacement/redo sternotomy with lysis of adhesions/explant of prior aortic valve (OR date: 01/19/2024)
Open chest-status post closure 01/21/2024
Post-operative respiratory failure require mechanical ventilation --> extubated on 01/24/2024 and now on nasal cannula
Severe left lung atelectasis 01/22/2024-likely mucous plug
Bronchoscopy 01/22/2024
Conditions present prior admission:
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
Heart failure
Multivessel coronary artery disease
Morbid obesity
Hypertension
Hyperlipidemia
Coronary artery disease with prior stents
Prior aortic valve replacement with single-vessel bypass
Type 2 diabetes
Severe carotic stenosis on the right
Hard of hearing
Assessment and plan
Status post chest closure 01/21/2024.
Extubated 01/24/2024
-
Maintain SpO2 >90-94% with supplemental O2 and wean as tolerated
Encourage incentive spirometry use 10x per hour for at least 4 hrs a day
OOB as tolerated - Tenafly cuate in place
Sternal wound VAC in place
-
Chest x-ray 01/24/2024: reviewed, showed persistent LLL subsegmental atelectasis
CXR from 01/25/2024 shows mild improvement in L lung atelectasis
Pulmonary toilet is marshall --> continue Mucinex 1200mg BID with chest PT with sport bed vs percussor (still with SS-CP so unable to use percussor or vest at this time)
Start acapella
On 01/24 I started Xopenex and atrovent TID with prn doses in between for breakthrough symptoms
Suction as needed
Aspiration precautions
Keep HOB >30-45�
-
Status post bronchoscopy 01/21/2024: Scant amount of thick whitish phlegm suctioned from the justin. Otherwise patent tracheobronchial tree. No samples were sent.
Anemia noted-no evidence of acute bleeding
Status post multiple transfusions - last PRBC given on 01/21/2024
Changed from heparin gtt to Eliquis on evening of 01/25
Follow H&H serially and transfuse if needed to keep Hb>7g/dL
Continue inotrope with dobutamine with goal CI>2, trend MVO2 with goal >60-65 and maintain MAP>65
Monitor for arrhythmia
Replete K>4, Mg>2
[address] - remove as per CT surgery team
Monitor sCr, with strict I/O and monitor UOP
Trend sHCO3
Monitor K levels
Cardiology following - recs appreciated
-
Postoperative A-fib, continue amiodarone
On Heparin gtt, follow ptt per protocol
ASA
NG tube in place. SALES REPRESENTATIVE [employer] following - defer diet to them - cleared for minced/moist diet today on 01/26/2024, and now upgraded to soft/bite sized with thin liquids today (01/27/2024)
Glycemic control per protocol
Goal BG 140-180
DVT ppx: Eliquis
Electrical Assembly Supervisor/pulmonary service will continue to follow along.
Critical care statement: A total of 38 minutes of critical care time was provided for this patient today. This includes management of unstable vital signs, evaluation of the patient at bedside, reviewing the patient's pertinent medical records
including ventilator settings, arterial blood gases, radiographs, microbiology, laboratory evaluations and discussion with primary team, critical care nursing, and respiratory therapy.
Subjective Dataa
Subjective Data
Date of Service:
Date of Service: January 27, 2024
Chief Complaint: Electrical Assembly Supervisor Follow Up (Status post redo sternotomy, AVR and CABG)
Subjective:
Patient seen and evaluated today at bedside. Still getting chest PT via sport bed and is still bringing up phlegm, little bit easier today. She is sitting in a chair no acute distress. PAC in place with CO/CI: 4.69/2.45, respectively. PAP:
43/20. Heart rate 99, saturating 96% on 2 L/min nasal cannula and BP via NIBP: 102/52. She denies SOB, CARTWRIGHT, abdominal pain, nausea, vomiting, fevers or chills. Has some chest tenderness. Sternal wound VAC has been removed. Currently on Bumex and
1 mg/hr + dobutamine at 2mcg/kg/min.
Review of Systems
General: Other (Negative unless mentioned above)
Objective Data
Data Reviewed
Vital Signs / I&O / Oxygen:
Vital Signs
Temp Pulse Resp BP Pulse Ox
98.4 F 104 18 113/90 95
01/27/24 09:00 01/27/24 09:15 01/27/24 09:00 01/27/24 09:00 01/27/24 09:00
Intake and Output
01/26/24 01/27/24 01/28/24
06:59 06:59 06:59
Intake Total 2176.5 / 2176.5 1456.8 / 1480.7 46.5 / 46.5
Output Total 1950 / 1950 1260 / 1310 100 / 100
Balance 226.5 / 226.5 196.8 / 170.7 -53.5 / -53.5
SaO2 [A/C] 96
SaO2 [SIMV] 93
SaO2 95
Nasal Cannula flow liters per 2
minute
Physical Exam
General: Respiratory Distress (negative), Comfortable (On mechanical ventilation), Chills (negative), Sweats (negative) and Good Appetite
HEENT: Normocephalic and Anicteric
Cardiovascular: S1-S2 and Peripheral Edema (negative)
Respiratory: Wheeze (negative), Crackles (bilateral in posterior lung naqvi, middle to bases (R>L)), Rhonchi (negative) and Non-Labored Respirations
GI: Soft, Non Distended, Non Tender and Normal Bowel Sounds
Neurology: AO x 3 and Tremors (negative)
Skin: Warm, Dry, Cyanosis (negative) and Jaundice (negative)
Labs/Micro/Reports
Lab Data
01/27/24 04:05
Laboratory Results
01/27/24
06:00
APTT Cancelled
[2024-01-27] MEDS: DIURIL 0.5 GRAM VIAL 0.5 GRAMS IV (09:38)
[2024-01-27] MEDS: STERILE WATER FOR INJECTION 18 ML IV (09:38)
[2024-01-27] MEDS: BUMEX 50 IV (09:40)
--- NOTE | 2024-01-27 10:05 | PTOTSP ---
Speech Language Pathology
Pt seen for dysphagia tx. Pt only had applesauce and sips of water yesterday with no overt difficulty per RN report. P.O. trials of regular solids and thin liquids provided. Slightly prolonged mastication. No overt signs of aspiration. Pt denied
any odynophagia or difficulty chewing/swallowing. Plan is for calorie count to see if DHT can be removed. Pt more energetic this date, and suspect intake will be better on soft/bite sized solids compared to minced/moist solids.
Recommend:
(1) Upgrade to IDDSI Level 6 (soft/bite-sized) and Thin liquids
(2) Aspiration precautions: full supervision, slow rate, single sips, sit upright
(3) Meds crushed and via DHT as able
(4) May not need VSE if continues to tolerate P.O. intake
(5) STEEL POST INSTALLER to continue to follow
[2024-01-27] MEDS: NSS (PRESERVATIVE FREE) 10 ML IV (10:11)
[2024-01-27] MEDS: PROTONIX IV 40 MG IV (10:11)
[2024-01-27] MEDS: SENOKOT-S PO ×2 (10:12→20:25)
[2024-01-27] MEDS: LOW STRENGTH ASPIRIN 81 MG TUBE (10:12)
[2024-01-27] MEDS: MAGNESIUM OXIDE 500 MG PO ×2 (10:12→21:06)
[2024-01-27] MEDS: VITAMIN C 500 MG PO (10:13)
[2024-01-27] MEDS: PACERONE 200 MG PO ×3 (10:13→21:06)
[2024-01-27] MEDS: ELIQUIS 5 MG TUBE ×2 (10:13→21:06)
[2024-01-27] MEDS: FEOSOL 325 MG TUBE (10:13)
[2024-01-27] MEDS: NEURONTIN 100 MG TUBE ×3 (10:13→21:06)
[2024-01-27] MEDS: LIDOCAINE 4% PATCH TOPICAL (10:21)
[2024-01-27 10:25] LABS: Glucose - Point of Care 148 mg/dl (70-99)
[2024-01-27] MEDS: ROBITUSSIN 200 MG PO ×2 (11:03→21:06)
[2024-01-27] MEDS: FARXIGA 10 MG PO (11:03)
[2024-01-27] MEDS: FLEXBUMIN 100 IV ×2 (11:36→18:51)
--- NOTE | 2024-01-27 12:06 | CM ---
Priced [place] thru patient's RX plan, . Estimated cost of Eliquis is $143.48/mo.
Pt. is in her coverage gap thru Medicare. Anticipate that cost will go down March 16.
Will provide a free [address] in her chart.
[2024-01-27] MEDS: ROBITUSSIN PO ×2 (12:12→16:20)
[2024-01-27] MEDS: NOVOLOG FLEXPEN 4 UNITS SC ×2 (12:16→16:37)
[2024-01-27] MEDS: LANTUS 0.1 UNITS SC (12:16)
[2024-01-27 12:17] LABS: Glucose - Point of Care 165 mg/dl (70-99)
--- NOTE | 2024-01-27 12:27 | PTCARENOTE ---
Patient assisted oob to chair x max assist, rolling walker - tolerated well. CI remains above 2. Lunch ordered.
[2024-01-27] MEDS: TYLENOL TUBE (13:08)
[2024-01-27] MEDS: NSS IV (14:21)
[2024-01-27 14:28] LABS: Blood Urea Nitrogen 75 mg/dl (7-17); Calcium 8.6 mg/dl (8.4-10.2); Carbon Dioxide 26 mmol/L (22-30); Chloride 100 mmol/L (98-107); Estimated Creatinine Clearance 30 ml/min; Glucose 237 mg/dl (70-99); Potassium 3.8 mmol/L (3.5-5.1); Sodium 139 mmol/L (135-145); eGFR 30.32
--- NOTE | 2024-01-27 14:32 | CM ---
CM following for DC planning needs.
Prior to admission, pt. resides alone in a private 1 story home. Dtr. resides close by (across the street).
Met w/ patient at bedside. Pt. reports that she is tired today.
We discussed briefly DC planning. Pt. would prefer to go home and have dtr. assist.
Pt. is being evaluated by PT-OT and is recommended for SNF v acute. We discussed that she may improve and be able to go home but we should discuss rehab as an option. Will return to discuss with patient when she is better able to engage in lengthy
conversation.
I have asked for PMR evaluation in the event that acute rehab will be pursued.
Will follow.
[2024-01-27] MEDS: KCL 40 MEQ PO (16:07)
[2024-01-27] MEDS: NOVOLOG FLEXPEN-LOW RESISTANCE 2 UNITS SC (16:37)
[2024-01-27 16:38] LABS: Glucose - Point of Care 221 mg/dl (70-99)
[2024-01-27] MEDS: LIPITOR 80 MG TUBE (16:38)
--- NOTE | 2024-01-27 19:30 | PTCARENOTE ---
Assumed care of patient at 1800. Patient found in bed at time of assessment with family at bedside. Patient is AOx4, follows commands appropriately, moves all extremities. Lung sounds are diminished at the bases, saO2 98% on 2L via NC. Heart sounds
are irregular patient is in afib on the monitor. There is a murmur present on auscultation. Patient has normal palpable radials and weak but palpable pedals. +1 generalized anasarca is present. Patient has active BS throughout all four quadrants
patient is incontinent of stool, Crowder is present draining clear yellow urine. There is a sternal incision approx with 4x4 dressing that is CDI, 4x4 gauze dressing over CT wounds that are CDI, R groin puncture with 4x4 dressing that is CDI and RLE
incision approx with surg adhesive RUFUS and ecchymotic. There is a R IJ cordis with swan receiving dobut@2 and R AC PIV. Orders received for removal of swan will do so following patient's nebulizer treatment. VSS.
--- NOTE | 2024-01-27 20:00 | PTCARENOTE ---
[place] removed per physician order. Cordis remains in place.
[2024-01-27] MEDS: MELATONIN 5 MG PO (21:06)
[2024-01-27 23:05] LABS: Glucose - Point of Care 223 mg/dl (70-99)
[2024-01-28] VITALS (29 sets, daily range): BP systolic 86–129; BP diastolic 46–85; BMI 37.3
[2024-01-28] MEDS: FLEXBUMIN 100 IV (03:08)
[2024-01-28 03:43] LABS: Hematocrit 21.5 % (37.0-47.0); Hemoglobin 7.1 g/dL (12.0-16.0); Mean Corpuscular Hgb 31.1 pg (27.0-31.0); Mean Corpuscular Volume 94.3 fL (81.0-99.0); Mean Platelet Volume 11.5 fL (7.4-10.4); Platelet Count 106 10^3/uL (130-400); Red Blood Cell Count 2.28 10^6/uL (4.20-5.40); Red Cell Dist. Width 16.5 % (11.5-14.5); White Blood Cell Count 14.9 10^3/uL (4.8-10.8)
[2024-01-28 04:00] LABS: Blood Urea Nitrogen 78 mg/dl (7-17); Calcium 8.9 mg/dl (8.4-10.2); Carbon Dioxide 29 mmol/L (22-30); Chloride 98 mmol/L (98-107); Estimated Creatinine Clearance 30 ml/min; Glucose 178 mg/dl (70-99); Magnesium 2.4 mg/dl (1.6-2.3); Potassium 3.9 mmol/L (3.5-5.1); Sodium 140 mmol/L (135-145); eGFR 30.32
--- NOTE | 2024-01-28 05:00 | PTCARENOTE ---
Patient converted back to NSR at approx 0448. All other VSS.
--- NOTE | 2024-01-28 05:30 | W.PN.CT ---
Today's Communication / Plan
-
-pod #9
-No major issues overnight. Neurologically and hemodynamically intact, A&O x4
-swan, sternal wound vac, and Dobbhoff dcd 01/26.
-diet advanced to IDDSI 6- soft/bite-sized solids and thin liquids- appreciate speech input
-drips: Dobut 1.5
-overnight was in a-fib 90s-100s sleeping and 120s-130s when awake --converted spontaneously to nsr @ 4:50 am (less than 2 sec conversion pause)
-Eliquis started 01/25. Holding BB d/t low BP. Getting po Amio 200 tid.
-diuresed with Bumex drip on 01/26 (UO 900/3100 in 12/24 hrs). Drip is off @ 6pm--continue diuresis
-has Crowder
-Cr 1.7 today (1.7-1.8 on 01/26, peak 2.6 on 01/23 and 1.4 preop)
-h/h 7.1/21.5 today- s/p 1 pRBC on 01/25 for hg 7.2
-platelets are stable - 106K today
-s/p Echo 01/26
-maintain temporary pacer wire, currently insulated (will cut before d/c home)
-current meds (Dobut, ASA, Eliquis, Farxiga, Lipitor, 25% Albumin, Amio, Protonix, Feosol, Mg). Holding BB d/t low BP
-OOB/Ambulate as tolerated. PT/OT/SP following
-appreciate everyone's input
Assessment / Plan
-
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
LAD and reverse saphenous vein graft from ascending aortic graft to distal RCA; EVH of RLE; Explant of prior 21 mm trifecta aortic valve; 21 mm Medtronic Freestyle aortic root complex replacement with reimplantation of coronary buttons; Hypothermic
circulatory arrest with selective cerebral perfusion, ascending aortic replacement with a 26 mm straight tube graft pm 01/19/[address] Trivedi, pod #9
- Intraop DEMAR: LVEF preop was preserved at approximately 55 to 60%. Following surgery EF remained the same at approximate 50-55% on 5 dobutamine and some Cardene. Her RV function was normal preoperatively and mild to moderately depressed
postoperatively. Following aortic root replacement, there was no aortic valve insufficiency with a new freestyle porcine root replacement.
-Her cardiac index was depressed at approximately 1.5 on 5 dobutamine. She did not require any pacing and was on her own mohegan sinus rhythm following surgery. Due to the extended pump time, mild RV dysfunction, and required multiple blood
products due to coagulopathy, chest was left open and packed with 1 vaginal pack.
-S/P Removal of one vaginal packing/Evacuation of minimal clot and old fibrillar/hemostatic agents/[place] with warm saline/Placement of additional atrial pacing wires and additional ventricular pacing wire/Removal of the 28F straight chest
tube/Chest closure with 4 #7 single and 3 #8 double stainless steal wires/Application of skin vac, by Dr. Trivedi, 01/21/24, pod#7
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
- Multivessel coronary artery disease with anginal/exertional chest pain
- Class 1 obesity, BMI 33
- Hypertension
- Hyperlipidemia
- Previous PCI with cardiac stent to the OM
- Previous cardiac surgery with [place] trifecta # 21 aortic valve replacement and single-vessel bypass to the OM in 2017
- Diabetes mellitus (A1c 6.8)
- Severe carotid stenosis of the right side
(US 01/11/24: Mixed plaque within the right carotid bulb, velocity measurements suggestive of greater than 70% stenosis, internal to common carotid ratio suggestive of 50-69% stenosis)
- Hard of hearing
- WILNER
- b/l breast biopsies
- Acute postop anemia- s/p 7 pRBCs
- Acute postop coagulopathy/thrombocytopenia - s/p Factor 7 in OR, total 3 FFPs, 3 units platelets
- Acute postop atelectasis
- Acute postop hypovolemia with subsequent hypervolemia
- Acute postop hypotension d/t cardiogenic shock, requiring inotrops and pressors
- Acute postop ectopy (PACs, PVCs)- tx with Amio bolus and drip, now off - improved with discontinuing Milrinone
- Acute postop hyperkalemia
- Acute postop junctional rhythm
- Acute postop metabolic alkalosis with respiratory compensation
- Acute postop respiratory insufficiency secondary to volume overload, pulmonary edema
- Acute postop VDRF
- Acute postop bronchoscopy 01/21 -unremarkable
- Acute postop bronchoscopy 01/20 -thick secretions suctioned @ justin
- Acute postop FABIAN
- Acute postop a-fib with RVR 150's
-postop Echo 01/27/24:
Small left ventricular chamber size. Mild concentric left ventricular hypertrophy. Normal left ventricular systolic function. Left ventricular ejection fraction is 55-60% by visual assessment.
Flattened septum in systole and diastole consistent with RV pressure and volume overload.
Mildly dilated right ventricle with reduced right ventricular systolic function.
Well seated bioprosthetic aortic valve with peak/mean gradients across the aortic valve of 44/24 mmHg. No aortic regurgitation is seen.
Mild tricuspid regurgitation. Estimated pulmonary artery pressure of 30-35 mmHg, assuming a right atrial pressure of 15 mmHg.
Trivial pericardial effusion. Pleural effusion present.
Compared to prior study dated 01/22/2024, prior aortic valve gradients were peak/mean 28/19 mmHg, respectively
Discussed patient care with: Nursing and Care Team
Subjective
-
Date of Service: January 28, 2024
Objective Data
-
Lab Results
01/28/24 03:14
PT 15.0 Sec (11.4-14.6) H 01/21/24 15:02
INR 1.13 01/21/24 15:02
APTT Cancelled 01/27/24 06:00
Vital Signs
Vital Signs
Temp Pulse Resp BP Pulse Ox
99.0 F 89 20 110/50 96
01/27/24 23:00 01/28/24 03:00 01/28/24 03:00 01/28/24 03:00 01/28/24 03:00
CT Intake/Output/Weight
01/27/24 01/27/24 01/28/24
06:59 18:59 06:59
Intake Total 568.8 / 1480.7 774.5 / 1243.1 468.6 / 1243.1
Output Total 615 / 1310 2200 / 3100 900 / 3100
Balance -46.2 / 170.7 -1425.5 / -1856.9 -431.4 / -1856.9
SaO2: 96
Physical Exam
-
General: Awake, Oriented and AOx3
Cardiovascular: Irregular rate & rhythm, no murmur, no Gallop
Respiratory: Decreased Breath Sounds
Sternum: Stable
Incision: Clean, Dry, Intact and Dressing Intact
Abdomen: soft, nondistended, + bowel sounds
Extremities: Edema +2, DPs 1+ palpable b/l
Data Reviewed
-
Lab Results: Results Reviewed
Medications: Active Meds Reviewed
Chest X-Ray: Report Reviewed and Image Reviewed
ECG: Report Reviewed and Image Reviewed
[2024-01-28] MEDS: TYLENOL 1000 MG PO ×3 (06:18→22:05)
--- NOTE | 2024-01-28 07:55 | PN.DE.MGMTRT ---
Insulin Management
- -
01/28/2024: Diabetes management Consult Follow up
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 Pt underwent Redo sternotomy with extensive adhesiolysis of adhesions 2/2 to previous cardiac
surgery (modifier 22); CABG x 2 [in situ GARCIA to LAD and reverse saphenous vein graft from ascending aortic graft to distal RCA, 21 mm Medtronic Freestyle aortic root complex replacement with reimplantation of coronary buttons; now POD #9. PMH: chf,
mvcad, Morbid obesity, HTN, HLD, Severe , T2DM, SAMISH, Prior aortic valve replacement with single-vessel bypass. Was taking Jardiance 10mg daily prior to admission. A1C 6.8%, Cr 2.2, eGFR 22.24. Reports she has a working meter with enough supplies
at home.
Pt awake alert, out of bed in chair offers no complaints, able to discuss diabetes management.
01/25 Transitioned from critical care glycemic protocol 01/24 to lantus 10 units with novolog 5 units Q 6 hours and moderate corrective insulin. Tube feeds @ 50 per hour until late afternoon then stopped due to patient vomiting. Patient took
minimal amount of applesauce with medications. Glucose range 174 to 267.
01/26 AM lantus reduced to10 units, and Q6 hour novolog changed to AC with reduced dose 4 units change moderate to low corrective insulin.
01/27 Glucose range yesterday 145 to 223, diet changed from 2000, to 1800 calorie. Will increase lantus to 14 units and AC novolog to 5 units with low corrective.
Provided insulin pen instruction: action prep and injection technique. Patient seems resigned but would prefer not to take insulin. Discussed it may just be temporary as she has been through so much but main goal is glucose control.
Discussed with patient importance of glucose control after discharge to prevent infection, she verbalized understanding. Will review again in AM times to test and target range. Diabetes education booklet provided and information regarding SBGM
highlighted. Will review insulin administration.
Will follow and adjust insulin dose if needed.
Discussed with pt and Nurse.
Diabetes History
- -
Type of Diabetes: 2
Pre-Admission Diabetes Regimen
01/27/24 01/28/24
14:04 03:14
Creatinine 1.7 H 1.7 H
Lab Results
Hemoglobin A1c 6.8 % (4.0-5.6) H 01/11/24 08:40
Insulin Pump Settings
IP Diabetes Regimen
01/27/24 01/27/24 01/27/24
10:23 12:15 14:04
Glucose 237 H
POC Glucose 148 H 165 H
01/27/24 01/27/24 01/28/24
16:36 23:03 03:14
Glucose 178 H
POC Glucose 221 H 223 H
Meal type: Dinner
Meal type: Lunch
Amount consumed: 50%
Amount consumed: 50%
Patient Education
[2024-01-28] MEDS: ATROVENT NEBULES 0.5 MG INH ×3 (08:17→19:02)
[2024-01-28] MEDS: XOPENEX 1.25 MG INHALANT SOLUTION INH ×3 (08:17→19:02)
[2024-01-28 08:33] LABS: Glucose - Point of Care 199 mg/dl (70-99)
--- NOTE | 2024-01-28 08:33 | W.PN.INTV ---
Today's Communication / Plan
Recommendations
Chest PT with sport bed
Nebulized bronchodilators with Xopenex/Atrovent and if still with poor cough will add Mucomyst for pulmonary toilet purposes
Continue acapella
Aspiration precautions
Diet as per CLINICAL LABORATORY AIDES TEACHER
Monitor UOP and trend sCr
Titrate down supplemental O2 flow rate while keeping SpO2 >90-94%
Continue with inotropic support with dobutamine and trend MVO2 and CO/CI
Daily chest x-ray
Follow H&H and transfuse as necessary
Up OOB as tolerated
Encourage use of IS
Aspiration precautions
Client Operations Manager/pulmonary service will continue to follow along.
Assessment
-
Impression:
Status post coronary artery bypass/aortic root replacement/redo sternotomy with lysis of adhesions/explant of prior aortic valve (OR date: 01/19/2024)
Open chest-status post closure 01/21/2024
Post-operative respiratory failure require mechanical ventilation --> extubated on 01/24/2024 and now on nasal cannula
Severe left lung atelectasis 01/22/2024-likely mucous plug
Bronchoscopy 01/22/2024
Conditions present prior admission:
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
Heart failure
Multivessel coronary artery disease
Morbid obesity
Hypertension
Hyperlipidemia
Coronary artery disease with prior stents
Prior aortic valve replacement with single-vessel bypass
Type 2 diabetes
Severe carotic stenosis on the right
Hard of hearing
Assessment and plan
Status post chest closure 01/21/2024.
Extubated 01/24/2024
-
Maintain SpO2 >90-94% with supplemental O2 and wean as tolerated
Check ambulatory pulse oximetry prior to discharge
Encourage incentive spirometry use 10x per hour for at least 4 hrs a day
OOB as tolerated - [place] cuate in place
Sternal wound VAC in place
-
Chest x-ray 01/24/2024: reviewed, showed persistent LLL subsegmental atelectasis
CXR from 01/25/2024 shows mild improvement in L lung atelectasis
Pulmonary toilet is marshall --> continue Mucinex 1200mg BID with chest PT with sport bed vs percussor (still with SS-CP so unable to use percussor or vest at this time)
Continue acapella
On 01/24 I started Xopenex and atrovent TID with prn doses in between for breakthrough symptoms
Suction as needed
Aspiration precautions
Keep HOB >30-45�
-
Status post bronchoscopy 01/21/2024: Scant amount of thick whitish phlegm suctioned from the justin. Otherwise patent tracheobronchial tree. No samples were sent.
Anemia noted-no evidence of acute bleeding
Status post multiple transfusions - last PRBC given on 01/21/2024
Changed from heparin gtt to Eliquis on evening of 01/25
Follow H&H serially and transfuse if needed to keep Hb>7g/dL
Continue inotrope with dobutamine with goal CI>2, trend MVO2 with goal >60-65 and maintain MAP>65
Monitor for arrhythmia
Replete K>4, Mg>[address] - remove as per CT surgery team
Monitor sCr, with strict I/O and monitor UOP
Trend sHCO3
Monitor K levels
Cardiology following - recs appreciated
-
Postoperative A-fib, continue amiodarone
On Eliquis
ASA
NG tube in place. CLINICAL LABORATORY AIDES TEACHER following - defer diet to them - now on diabetic diet with ensure high protein supplements
Glycemic control per protocol
Goal BG 140-180
DVT ppx: Eliquis
Client Operations Manager/pulmonary service will continue to follow along.
Critical care statement: A total of 36 minutes of critical care time was provided for this patient today. This includes management of unstable vital signs, evaluation of the patient at bedside, reviewing the patient's pertinent medical records
including ventilator settings, arterial blood gases, radiographs, microbiology, laboratory evaluations and discussion with primary team, critical care nursing, and respiratory therapy.
Subjective Dataa
Subjective Data
Date of Service:
Date of Service: January 28, 2024
Chief Complaint: Client Operations Manager Follow Up (Status post redo sternotomy, AVR and CABG)
Subjective:
Seen and evaluated today at bedside. Remains on dobutamine at 1mcg/kg/hr, currently on 1 L/min saturating 96%, heart rate 90 and BP 107/57. Patient's daughter, Lety, and [id number], Carlotta, at bedside. All questions were answered. Patient
is still coughing up phlegm but is unable to cough it out. She denies SOB, chest pain, CARTWRIGHT, abdominal pain, nausea, fevers or chills.
Review of Systems
General: Other (Negative unless mentioned above)
Objective Data
Data Reviewed
Vital Signs / I&O / Oxygen:
Vital Signs
Temp Pulse Resp BP Pulse Ox
98.4 F 87 17 118/46 97
01/28/24 08:00 01/28/24 09:00 01/28/24 09:00 01/28/24 09:00 01/28/24 09:00
Intake and Output
01/27/24 01/28/24 01/29/24
06:59 06:59 06:59
Intake Total 1456.8 / 1480.7 1279.1 / 1279.1 65.3 / 65.3
Output Total 1260 / 1310 3285 / 3285 275 / 275
Balance 196.8 / 170.7 -2005.9 / -2005.9 -209.7 / -209.7
SaO2 [A/C] 96
SaO2 [SIMV] 93
SaO2 97
Nasal Cannula flow liters per 2
minute
Physical Exam
General: Respiratory Distress (negative), Comfortable (On mechanical ventilation), Chills (negative), Sweats (negative) and Good Appetite
HEENT: Normocephalic and Anicteric
Cardiovascular: S1-S2 and Peripheral Edema (negative)
Respiratory: Wheeze (negative), Crackles (bilateral in posterior lung naqvi, middle to bases (R>L)), Rhonchi (negative) and Non-Labored Respirations
GI: Soft, Non Distended, Non Tender and Normal Bowel Sounds
Neurology: AO x 3 and Tremors (negative)
Skin: Warm, Dry, Cyanosis (negative) and Jaundice (negative)
Labs/Micro/Reports
Lab Data
01/28/24 03:14
01/28/24 03:14
--- NOTE | 2024-01-28 08:45 | PTCARENOTE ---
Patient received from neonatal social worker RN; AAOx3, responds spontaneously to RN and follows commands; NSR on monitor; Epicardial AV wires insulated; DP and radial pulses present; Lungs diminished at basees; SpO2 94-98% on 2L NC; IS 1000 ml; Frequent
moist, non-productive cough with yellow, thick sputum; Poor appetite; Crowder draining clear, yellow urine; Surgical sites intact; +1 generalized anasarca; Right IJ Cordis with KVO and dobutamine infusing and PIVx1 - see nursing flowsheets for further
details; K repleted x1; See nursing documentation for further information.
[2024-01-28] MEDS: ROBITUSSIN 200 MG PO ×4 (08:50→22:06)
[2024-01-28] MEDS: FARXIGA 10 MG PO (08:50)
[2024-01-28] MEDS: KLOR-CON 40 MEQ PO (08:50)
[2024-01-28] MEDS: PROTONIX 40 MG PO (08:50)
[2024-01-28] MEDS: ELIQUIS 5 MG PO ×2 (08:51→19:45)
[2024-01-28] MEDS: LOW STRENGTH ASPIRIN 81 MG PO (08:51)
[2024-01-28] MEDS: PACERONE 200 MG PO ×3 (08:51→22:06)
[2024-01-28] MEDS: VITAMIN C 500 MG PO (08:51)
[2024-01-28] MEDS: FEOSOL 325 MG PO (08:51)
[2024-01-28] MEDS: NEURONTIN 100 MG PO ×3 (08:51→22:06)
[2024-01-28] MEDS: NOVOLOG FLEXPEN-LOW RESISTANCE 1 UNITS SC ×2 (08:52→16:38)
[2024-01-28] MEDS: LANTUS 0.14 UNITS SC (08:52)
[2024-01-28] MEDS: SENOKOT-S PO (08:53)
[2024-01-28] MEDS: LIDOCAINE 4% PATCH 1 PATCH TOPICAL (08:54)
[2024-01-28] MEDS: MAGNESIUM OXIDE PO (08:56)
--- NOTE | 2024-01-28 09:00 | CON.MD ---
Documented by User: Aspen Addison PA-C 01/28/24 16:28
Consultation - Medical
-
Referring Provider: Durga Trivedi
Chief Complaint: CABG
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
disease with anginal/exertional chest pain ) Admitted for complex cardiac surgery due to deemed not a candidate for percutaneous approach..
On 01/19/2024 underwent coronary artery bypass/aortic root replacement/redo sternotomy with lysis of adhesions/explant of prior aortic valve by Dr. Trivedi. Sternum left open because of oozing, edema, and RV dysfunction. She remained intubated.
Postop hypotension /t cardiogenic shock, requiring multiple inotropes/vasopressors, blood transfusion and volume resuscitation with colloids. Post operative respiratory insufficiency secondary to volume overload, pulmonary edema, resulting in
hypoxia, on bumex gtt for diuresis. Postop anemia, coagulopathy/thrombocytopenia-s/p 7 PRBC . 01/21/2024 -Status post chest closure.
Post-operative respiratory failure require mechanical ventilation. Bronchoscopy 01/22/2024 likely mucous plug> extubated on 01/24/2024
01/26- [place], [place] and [place] vac dcd . Diet advanced to IDDSI 6- soft/bite-sized solids and thin liquids-
Now on nasal cannula 2 L. Severe left lung atelectasis. Seen by pulmonary till requiring Pulmonary toilet --> continued Mucinex 1200mg BID with chest PT with sport bed vs percussor (still with SS-CP so unable to use percussor or vest at this time).
Start acapella. Cont Xopenex and atrovent TID with prn doses in between for breakthrough symptoms.
01/27- overnight was in a-fib 90s-100s sleeping and 120s-130s when awake --converted spontaneously to nsr @ 4:50 am (less than 2 sec conversion pause)
-Eliquis started 01/25. Holding BB d/t low BP. Getting po Amio 200 tid.
-diuresed with Bumex drip on 01/26 -continue diuresis
Cardio-remains grossly volume overloaded on exam. I&O negative overnight however weight up 1 pound. has been on and off of IV bumex gtt. Cr 1.7. would consider continuous IV bumex infusion. CXR 01/26 with B/L pleural effusions. consider eval for
thoracentesis. Slowly weaning off dobutamine, currently @1. -hgb down to 7.1. would consider transfusion. received 1 U PRBCs 01/25
Past Medical History: CAD, hypertension, CHF, hyperlipidemia, obesity, diabetes, KEWEENAW, valvular disease
Procedure History: CABG x 3, redo AVR, sternotomy, bioprosthetic AVR�2016, cardiac catheterization, [place], bilateral breast biopsies
Family History:
Social History:
Functional Level Premorbidly: Independent with all activities. Prior to admission was ambulating without a device. Owns a cane and rolling walker
Functional Level Currently: Bed mobility�dependent, transfers�max assist of 2 to stand from edge of bed and turned to pivot to bedside recliner with strong posterior leaning. Fourth person assisting at patient's hips/buttocks with turning to chair.
Toileting, lower extremity care�dependent
Tobacco: Denies
Alcohol: Denies
Drug use: Denies
Lives with: Alone
24-hour assistance available:
Number of floors: One-story home
# steps to enter: 1
# steps to second floor:
Potential First floor set up: yes
Driving: yes
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
Allergies:
Allergy/AdvReac Type Severity Reaction Status Date / Time
No Known Allergies Allergy Unverified 01/08/24 13:37
Review of Systems:
Constitutional: (x) fatigue
Eye: (x) Normal _
Ear/Nose/Throat: (x) Normal _
Respiratory: (x)hypoxia
Cardiovascular: (x) cabg, cardiogenic shock
Gastrointestinal: (x) Normal _
Genitourinary: (x) Normal _
Musculoskeletal: (x) Normal _
Integumentary: (x) Normal _
Neurologic: (x) Normal _
Psychiatric: (x) Normal _
Endocrine: (x) Normal _
Hematologic/Lymphatic: (x) anemia
Allergic/Immunologic: (x) Normal _
Medications:
Active Current Visit Medication List
Category Date Time Status
0.9% Sodium Chloride 500 ml [Nss] 500 ml Med 01/19/24 16:12 Active
IV CORDIS
0.9% Sodium Chloride [Nss (Preservative Free)] Med 01/20/24 10:00 Active
10 ml IV DAILY
Acetaminophen [Tylenol] Med 01/25/24 08:44 Active
1,000 mg TUBE TID@0600,1400,2200
Acetaminophen [Tylenol] Med 01/25/24 08:44 Active
650 mg TUBE Q4HPRN PRN
Albumin Human 25% 100 ml [Flexbumin] Med 01/27/24 10:55 Active
25 grams in 100 ml IV Q8H
Amiodarone [Pacerone] Med 01/19/24 16:12 Active
200 mg PO TID
Apixaban [Eliquis] Med 01/26/24 20:00 Active
5 mg TUBE BID
Ascorbic Acid [Vitamin C] Med 01/20/24 08:00 Active
500 mg PO DAILY
Aspirin Chewable [Low Strength Aspirin] Med 01/25/24 08:44 Active
81 mg TUBE DAILY
Atorvastatin [Lipitor] Med 01/25/24 08:44 Active
80 mg TUBE QPM
Bisacodyl [Dulcolax] Med 01/19/24 16:12 Active
10 mg RECTAL DAILYPRN PRN
Bumetanide 12.5 mg/50 ml [Bumex] Med 01/27/24 08:45 Active
12.5 mg in 50 ml IV ORDERED RATE
Calcium Gluconate 2 gram/100mL [Calcium Gluconate] Med 01/19/24 16:15 Active
2 gram in 100 ml IV PRN
DOBUTamine 500 MG/D5W 250 ML [Dobutrex 500 mg] Med 01/27/24 17:30 Active
500 mg in 250 ml IV PER PROTOCOL
Dapagliflozin [Farxiga] Med 01/27/24 08:00 Active
10 mg PO DAILY
Dextrose 50%-Water [Dextrose 50% Syringe] Med 01/25/24 12:04 Active
12.5 grams IV [id number] PRN
Docusate W/Senna [Senokot-S] Med 01/22/24 20:00 Active
1 tablet PO BID
Ferrous Sulfate [Feosol] Med 01/25/24 08:52 Active
325 mg TUBE DAILY
Flush (0.9% Sodium Chloride) [Flush (Nss)] Med 01/19/24 17:00 Active
See Dose Instructions IV PER PROTOCOL
Gabapentin [Neurontin] Med 01/25/24 08:52 Active
100 mg TUBE TID
Glucagon [GlucaGen] Med 01/25/24 12:04 Active
1 mg IM PRN PRN
Guaifenesin Solution [Robitussin] Med 01/25/24 13:00 Active
200 mg PO QID
Insulin Aspart Corrective Low [Novolog Flexpen-Low Med 01/27/24 11:30 Active
Resistance]
See Protocol SC AC
Insulin Aspart Pen [Novolog Flexpen] Med 01/27/24 11:30 Active
4 units SC AC
Insulin Glargine Lantus [Lantus] 10 units Med 01/28/24 08:00 Active
Subcutaneous Insulin Syringe [Syringe-Insulin] 0 unit
SC DAILY
Ipratropium Nebs [Atrovent Nebules] Med 01/25/24 14:00 Active
0.5 mg INH R TID
Ipratropium/Albuterol Sulfate [Duoneb] Med 01/25/24 12:39 Active
3 ml INH R Q4HPRN PRN
KCl 20 Meq/50 ml [KCl] Med 01/19/24 16:12 Active
20 meq in 50 ml IV PRN
Lactated Ringers Med 01/19/24 16:12 Active
250 ml IV [id number] PRN
Levalbuterol [Xopenex 1.25 mg Inhalant Solution] Med 01/25/24 14:00 Active
1.25 mg INH R TID
Lidocaine [Lidocaine 4% Patch] Med 01/20/24 08:00 Active
1 patch TOPICAL DAILY
Magnesium Hydroxide [Milk of Magnesia] Med 01/19/24 16:12 Active
30 ml PO BIDPRN PRN
Magnesium Oxide Med 01/20/24 08:00 Active
500 mg PO BID
Magnesium Sulfate 2 Gram/50 ml [Magnesium Sulfate] Med 01/19/24 16:12 Active
2 gram in 50 ml IV PRN
Melatonin Med 01/24/24 22:00 Active
5 mg PO HS
Ondansetron Injectable [Zofran] Med 01/19/24 16:12 Active
4 mg IV Q8HPRN PRN
Oxycodone [Roxicodone Oral Solution] Med 01/25/24 08:48 Active
2.5 mg TUBE Q4HPRN PRN
Oxycodone [Roxicodone Oral Solution] Med 01/25/24 08:48 Active
5 mg TUBE Q4HPRN PRN
Pantoprazole [Protonix IV] Med 01/20/24 10:00 Active
40 mg IV DAILY
Polyethylene Glycol Powder [Miralax] Med 01/25/24 08:52 Active
17 grams TUBE DAILYPRN PRN
Potassium Chloride 10% Elixir [KCl Elixir] Med 01/25/24 08:44 Active
40 meq TUBE DAILYPRN PRN
Quetiapine Fumarate [Seroquel] Med 01/25/24 08:50 Active
25 mg TUBE HSPRN PRN
Remove Patch [Remove Lidocaine Patch] Med 01/20/24 20:00 Active
1 patch REMOVE DAILY@1999
Vitals:
Temp Pulse Resp BP Pulse Ox
98.4 F 88 15 112/61 96
01/28/24 15:00 01/28/24 15:00 01/28/24 15:00 01/28/24 15:00 01/28/24 15:00
Height 5 ft 4 in
Actual Weight 98.4 kg
Body Mass Index (BMI) 37.3
Physical Exam:
General Appearance/Observation: Well-developed, well-nourished individual in no apparent distress. Tired and closing eyes intermittently
Pain/Comfort Assessment: Denies
Mood/Affect: Appropriate
Integumentary/Operative Site: sternal incision with dressing, RLE incision open to air with ecchymosis and swelling, right groin - incision with dressing, tube incisions with dressings
Pressure Ulcer Evaluation: absent over heels. wearing heel pads
Other Type of Wound: absent
Eyes: Conjunctiva/Lids: normal Pupils: pupils equal round and reactive to light and Accommodation
Ears/Nose/Throat: oral mucosa -dry, throat clear. Lips/Teeth/Gums: lips dry and with scabs
Neck: No muscle spasm or tenderness
Cardiovascular: Heart: regular, murmur
Pulses: dorsalis pedis 2+ bilaterally
Respiratory: Respiratory Effort/Chest Expansion: normal Auscultation: diminished and with wheezing
Gastrointestinal: abdomen not tender, no distension, normal abdominal bowel sounds
Genitourinary: Crowder
Extremities: Edema: legs Cyanosis: None Trophic changes: None
Neurology Exam:
Orientation: Alert, Oriented to self, Time, Place
Memory: limited interaction but able to answer basic questions regarding hospitalization- had heart surgery
Comprehension: Intact
Two step command: Intact
Naming: NT
Cranial Nerves:
CNII: Pupillary light reflex: Intact Visual Field: NT
CN III, IV, : Extraocular muscles: Intact
CN V: Facial Sensation at Forehead: Intact, Maxilla: Intact, Mandible: Intact
CN VII: Facial movement: Symmetric
CN VIII: Hearing: KEWEENAW
CN IX/X: Speech & swallow: low volume, Position of Uvula: Midline
CN XI: Shoulder shrug: Symmetric
CN XII: Tongue protrusion: Midline
Sensory:
Light touch: Intact in bilateral upper and left lower extremity. Slightly diminished in RLE
Reflexes:
Biceps: 2+ bilaterally
Brachioradialis: 2+ bilaterally
Triceps: 2+ bilaterally
Patellar: trace bilaterally
Achilles: absent bilaterally
Babinski: Down going bilaterally
Analilia: Negative bilaterally
Cerebellar: Dysmetria/Ataxia: NT
Musculoskeletal:
Motor: (Manual muscle scale 0-5)
Muscle SA EF WE EE FF FA HF KE DF EHL PF
Right� 3+ 5 5 5 2 2 5 5 5
Left 3+ 5 5 5 2 2 5 5 5
1 black small toe nail on right foot. able to lift legs off bed minimally. Attempted then plopped legs back down on bed due to fatigue, weakness
Tone: Normal in all extremities
Range of Motion: NT. Patient tired
Lab Results:
Labs
WBC 14.9 10^3/uL (4.8-10.8) H 01/28/24 03:14
RBC 2.28 10^6/uL (4.20-5.40) L 01/28/24 03:14
Hgb 7.1 g/dL (12.0-16.0) L 01/28/24 03:14
Hct 21.5 % (37.0-47.0) L 01/28/24 03:14
MCV 94.3 fL (81.0-99.0) 01/28/24 03:14
MCH 31.1 pg (27.0-31.0) H 01/28/24 03:14
MCHC 33.0 g/dL (33.0-37.0) 01/28/24 03:14
RDW 16.5 % (11.5-14.5) H 01/28/24 03:14
Plt Count 106 10^3/uL (130-400) L 01/28/24 03:14
MPV 11.5 fL (7.4-10.4) H 01/28/24 03:14
Abs Immat Gran (auto) 0.2 10^3/uL (0-0.05) H 01/21/24 10:57
Absolute Neuts (auto) 15.4 10^3/uL (1.4-6.5) H 01/21/24 10:57
Absolute Lymphs (auto) 0.4 10^3/uL (1.2-3.4) L 01/21/24 10:57
Absolute Monos (auto) 1.6 10^3/uL (0.1-0.6) H 01/21/24 10:57
Absolute Eos (auto) 0.0 10^3/uL (0-0.7) 01/21/24 10:57
Absolute Basos (auto) 0.0 10^3/uL (0-0.2) 01/21/24 10:57
Immature Gran % 0.9 % (0-0.5) H 01/21/24 10:57
Neutrophils % 87.6 % (42.2-75.2) H 01/21/24 10:57
Lymphocytes % 2.3 % (20.5-51.1) L 01/21/24 10:57
Monocytes % 9.0 % (1.7-9.3) 01/21/24 10:57
Eosinophils % 0.0 % (0-6) 01/21/24 10:57
Basophils % 0.2 % (0-2) 01/21/24 10:57
Nucleated RBC % 0.1 % 01/21/24 10:57
PT 15.0 Sec (11.4-14.6) H 01/21/24 15:02
INR 1.13 01/21/24 15:02
APTT Cancelled 01/27/24 06:00
Fibrinogen 439 MG/DL (199-459) 01/21/24 10:57
pH 7.42 (7.35-7.45) 01/25/24 04:24
pCO2 37 mmHg (32-35) H 01/25/24 04:24
pO2 105 mmHg (83-108) 01/25/24 04:24
HCO3 24.0 mmol/L (21-28) 01/25/24 04:24
Base Excess -0.4 mmol/L 01/25/24 04:24
ABG O2 Sat (Measured) 99.4 % (94-98) H 01/25/24 04:24
POC ABG O2 Sat (Calc) 99.6 % (94-98) H 01/21/24 13:24
Mixed VBG O2 Saturation 57.3 % 01/26/24 16:16
Sodium 140 mMOL/L (136-145) 01/22/24 16:59
Potassium 4.4 mMOL/L (3.5-5.1) 01/24/24 15:37
Potassium Cancelled 01/24/24 15:37
O2 Delivery Level 01/25/24 04:24
Sodium 137 mmol/L (135-145) 01/28/24 14:37
Potassium 3.9 mmol/L (3.5-5.1) 01/28/24 14:37
Chloride 96 mmol/L (98-107) L 01/28/24 14:37
Carbon Dioxide 31 mmol/L (22-30) H 01/28/24 14:37
BUN 81 mg/dl (7-17) H 01/28/24 14:37
Creatinine 1.9 mg/dL (0.6-1.0) H 01/28/24 14:37
Estimated Creat Clear 27 ml/min 01/28/24 14:37
eGFR 26.53 01/28/24 14:37
Glucose 174 mg/dl (70-99) H 01/28/24 14:37
Hemoglobin A1c 6.8 % (4.0-5.6) H 01/11/24 08:40
Lactic Acid 1.4 mmol/L (0.7-2.0) 01/21/24 10:57
Calcium 9.4 mg/dl (8.4-10.2) 01/28/24 14:37
Ionized Calcium 1.18 mMOL/L (1.15-1.33) 01/24/24 15:37
Ionized Calcium Cancelled 01/24/24 15:37
Phosphorus 4.1 mg/dl (2.5-4.5) 01/25/24 04:24
Magnesium 2.4 mg/dl (1.6-2.3) H 01/28/24 03:14
Total Bilirubin 1.2 mg/dl (0.2-1.3) 01/28/24 14:37
Direct Bilirubin 0.4 mg/dl (0.0-0.4) 01/24/24 06:20
AST 36 U/L (14-36) 01/28/24 14:37
ALT 40 U/L (0-35) H 01/28/24 14:37
Alkaline Phosphatase 73 U/L (38-126) 01/28/24 14:37
Total Protein 6.0 g/dl (6.3-8.2) L 01/28/24 14:37
Albumin 4.3 g/dl (3.5-5.0) 01/28/24 14:37
Triglycerides 80 mg/dl (10-149) 01/19/24 16:55
Urine Color Straw 01/19/24 07:30
Urine Clarity Clear (Clear) 01/19/24 07:30
Urine pH 5.0 (5.0-9.0) 01/19/24 07:30
Ur Specific [place] 1.020 (<1.030) 01/19/24 07:30
Urine Ketones Negative (Negative) 01/19/24 07:30
Ur Occult Blood Reflex Negative (Negative) 01/19/24 07:30
Urine Nitrite (Reflex) Negative (Negative) 01/19/24 07:30
Urine Bilirubin Negative (Negative) 01/19/24 07:30
Urine Urobilinogen Negative (Neg - 1+) 01/19/24 07:30
Leukocyte Esterase Rfl Negative (Negative) 01/19/24 07:30
Urine RBC 0-2 /HPF (0-2) 01/19/24 07:30
Urine WBC (Reflex) 0-2 /HPF (0-5) 01/19/24 07:30
Ur Squamous Epith Cells 3-5 /LPF (Few) 01/19/24 07:30
Ur Urothelial Cells 0-2 /LPF (FEW) 01/11/24 08:40
Urine Bacteria (Reflex) Few (Negative) A 01/19/24 07:30
Urine Osmolality 403 mOsm/kg (300-900) 01/22/24 08:41
Ur Random Microalbumin 28.3 mg/dl (0.6-1.7) H 01/22/24 08:41
Ur Random Microalbumin Cancelled 01/22/24 08:41
Ur Collection Duration Random hr 01/22/24 08:41
Ur 24 Hour Volume Random mL 01/22/24 08:41
Urine Creatinine Cancelled 01/22/24 08:41
Ur Creatinine per Vol 131 mg/dL 01/22/24 08:41
Ur Creatinine mg/24hr Not applicable mg/d (500-1400) 01/22/24 08:41
U Creat (Microalbumin) 140.400 mg/dl 01/22/24 08:41
U Creat (Microalbumin) Cancelled 01/22/24 08:41
Microalb/Creat Ratio 201.6 mg/g 01/22/24 08:41
Microalb/Creat Ratio Cancelled 01/22/24 08:41
Urine Sodium 10 mmol/L (30-90) L 01/22/24 08:41
Urine Sodium Cancelled 01/22/24 08:41
Urine Potassium 85.6 mmol/L (30-90) 01/22/24 08:41
Urine Potassium Cancelled 01/22/24 08:41
Urine Phosphorus 93 mg/dL 01/22/24 08:40
Ur Phosphorus 24 Hr Not applicable mg/d (400-1300) 01/22/24 08:40
U Phosphorus/Creat 715 mg/g 01/22/24 08:40
Urine Glucose 3+ (Negative) A 01/19/24 07:30
Urine Total Protein 36 mg/dl (0-12) H 01/22/24 08:41
Urine Total Protein Cancelled 01/22/24 08:41
Urine Albumin (Reflex) 2+ (Neg - Trace) A 01/19/24 07:30
Urine Citrate 63 mg/L 01/22/24 08:41
Urine Citrate 24 Hour Not applicable mg/d (320-1240) 01/22/24 08:41
U Citrate/Creat Ratio 48 mg/g (>=150) L 01/22/24 08:41
POC ABG Comment Post 01/19/24 16:15
POC pH 7.46 (7.35-7.45) H 01/21/24 13:24
POC Base Excess 1.3 mmol/L 01/21/24 13:24
POC pO2 173 mmHg (83-108) H 01/21/24 13:24
POC pCO2 35 mmHg (35-48) 01/21/24 13:24
POC HCO3 25 mmol/L (21-28) 01/21/24 13:24
POC Glucose 212 mg/dl (70-99) H 01/28/24 12:00
POC Glucose 187 mg/dl (70-99) H 01/21/24 13:24
POC Sodium 143 mmol/L (136-145) 01/21/24 13:24
POC Potassium 5.1 mmol/L (3.5-5.1) 01/21/24 13:24
POC Ionized Calcium 1.13 mmol/L (1.15-1.33) L 01/21/24 13:24
POC ACT+ 85 Seconds (82-134) 01/19/24 16:10
POC Hemoglobin Calc 8.2 01/21/24 13:24
POC Hematocrit 24 % PCV (37-47) L 01/21/24 13:24
POC Hemodilution No 01/21/24 13:24
Blood Type O NEG 01/27/24 04:05
Antibody Screen Negative (Negative) 01/27/24 04:05
Crossmatch IS Only See Detail 01/24/24 04:22
Diagnostic Results: as per HPI
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
chest pain ) Admitted for complex cardiac surgery. On 01/18-underwent coronary artery bypass/aortic root replacement/redo sternotomy with lysis of adhesions/explant of prior aortic valve by Dr. Trivedi.
Plan
PT/OT to increase independence with ADLs, improve balance, coordination, endurance, strength, mobility, community reintegration, decreased burden of care on others and family education.
Debility: S/p complex cardiac surgery, CABG. Cont PT/OT
S/P CABG: Sternal precautions. Eliquis, asa 81mg, Bumex, Amiodarone 200mg tid, atorvastatin, Monitor incision, pain control.
Severe left lung atelectasis:01/22/2024-likely mucous plug per pulmonary. Bronchoscopy 01/22/2024
Maintain SpO2 >90-94% with supplemental O2 and wean as tolerated.
Encourage incentive spirometry use 10x per hour for at least 4 hrs a day
Pulmonary toilet is marshall --> continue Mucinex 1200mg BID with chest PT with sport bed vs percussor (still with SS-CP so unable to use percussor or vest at this time). Start acapella
Cont Xopenex and atrovent TID with prn doses in between for breakthrough symptoms
HLD: Atorvastatin 80 mg every afternoon
Coronary artery disease : statin, off BB as of now due to low BP
Carotid stenosis on the right
CHF: Left ventricular EF 55-60% by visual assessment. Flattened septum in systole and diastole consistent with RV pressure and volume overload. Mildly dilated right ventricle with reduced right ventricular systolic
function., monitor fluid status. On IV diuresis
DM II: Accu-Cheks, insulin sliding scale, Farxiga, insulin glargine- 14 units, Aspart 5 units
Anemia: No evidence of acute bleeding. Ferrous sulfate 325mg qd
S/p multiple transfusions - last PRBC given on 01/21/2024.
Changed from heparin gtt to Eliquis on evening of 01/25
Follow H&H serially and transfuse if needed to keep Hb>7g/dL
Psych: Psychology consult. Monitor mood, adjust medications as needed.
Skin: monitor for pressure sores/rashes/lesions.
Pain: acetaminophen as needed, gabapentin
Bowel: Colace and Senna, PRN bisacodyl.
Bladder: Has Crowder - when appropriate Time void, PVRs, PRN straight cath.
GI Prophylaxis: Pantoprazole 40mg qd
DVT Prophylaxis: mechanical, Eliquis
Pulmonary: Incentive spirometry
Obesity: Continue to assistant corporation counsel patient about diet adjustments to control obesity. Body habitus and increased force to move body and extremities causes further difficulty with functional tasks.
Safety: Continue to reinforce assistance with all transfers.
Code Status: Full code or DNR ?
Dispo (date/plan/equipment needs): Home with family care Social history reviewed.
Functional and Medical Goals: Modified Independent with ADL�s, ambulation, transfers
Discharge Destination: Patient s/p complex cardiac surgery on pressors, oxygen, pulmonary treatment, fluid overload on diuretic would benefit from Acute inpatient rehabilitation once medically stable and stronger. At this time she is not ready for
either, SNF or Acute rehabilitation. Will reevaluate once more stable.
Summary of recommendations:
Debility: S/p complex cardiac surgery, CABG. Cont PT/OT
S/P CABG: Sternal precautions. Eliquis, asa 81mg, Bumex, Amiodarone 200mg tid, atorvastatin, Monitor incision, pain control.
Severe left lung atelectasis:01/22/2024-likely mucous plug per pulmonary. Bronchoscopy 01/22/2024
Maintain SpO2 >90-94% with supplemental O2 and wean as tolerated. Now on 2 L
Encourage incentive spirometry use 10x per hour for at least 4 hrs a day
Pulmonary toilet is marshall --> continue Mucinex 1200mg BID with chest PT with sport bed vs percussor (still with SS-CP so unable to use percussor or vest at this time). Start acapella
Cont Xopenex and atrovent TID with prn doses in between for breakthrough symptoms
CHF: Left ventricular EF 55-60% by visual assessment. Flattened septum in systole and diastole consistent with RV pressure and volume overload. Mildly dilated right ventricle with reduced right ventricular systolic
function., monitor fluid status. On IV diuresis. May need thoracentesis
Pain: acetaminophen as needed, gabapentin
Bowel: Colace and Senna, PRN bisacodyl.
Bladder: Has Crowder - when appropriate Time void, PVRs, PRN straight cath.
GI Prophylaxis: Pantoprazole 40mg qd
DVT Prophylaxis: mechanical, Eliquis
Pulmonary: Incentive spirometry
Thank you for allowing me to care for your patient. Please contact me with any questions or concerns.

Documented by User: René Friend MD 01/28/24 22:10
Consultation - Medical
-
Referring Provider: Durga Trivedi
Chief Complaint: CABG
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
disease with anginal/exertional chest pain ) Admitted for complex cardiac surgery due to deemed not a candidate for percutaneous approach..
On 01/19/2024 underwent coronary artery bypass/aortic root replacement/redo sternotomy with lysis of adhesions/explant of prior aortic valve by Dr. Trivedi. Sternum left open because of oozing, edema, and RV dysfunction. She remained intubated.
Postop hypotension from cardiogenic shock, requiring multiple inotropes/vasopressors, blood transfusion and volume resuscitation with colloids. Post operative respiratory insufficiency secondary to volume overload, pulmonary edema, resulting in
hypoxia, on bumex gtt for diuresis. Postop anemia, coagulopathy/thrombocytopenia-s/p 7 PRBC . 01/21/2024 -Status post chest closure.
Post-operative respiratory failure require mechanical ventilation. Bronchoscopy 01/22/2024 likely mucous plug> extubated on 01/24/2024
01/26- [place], [place] and [place] vac dcd . Diet advanced to IDDSI 6- soft/bite-sized solids and thin liquids-
Now on nasal cannula 2 L. Severe left lung atelectasis. Seen by pulmonary till requiring Pulmonary toilet --> continued Mucinex 1200mg BID with chest PT with sport bed vs percussor (still with SS-CP so unable to use percussor or vest at this time).
Start acapella. Cont Xopenex and atrovent TID with prn doses in between for breakthrough symptoms.
01/27- overnight was in a-fib 90s-100s sleeping and 120s-130s when awake --converted spontaneously to nsr @ 4:50 am (less than 2 sec conversion pause)
-Eliquis started 01/25. Holding BB d/t low BP. Getting po Amio 200 tid.
-diuresed with Bumex drip on 01/26 -continue diuresis
Cardio-remains grossly volume overloaded on exam. I&O negative overnight however weight up 1 pound. has been on and off of IV bumex gtt. Cr 1.7. would consider continuous IV bumex infusion. CXR 01/26 with B/L pleural effusions. consider eval for
thoracentesis. Slowly weaning off dobutamine, currently @1. -hgb down to 7.1. would consider transfusion. received 1 U PRBCs 01/25
Past Medical History: CAD, aortic stenosis, hypertension, CHF, hyperlipidemia, obesity, diabetes, KEWEENAW, valvular disease, carotid stenosis, angina
Procedure History: CABG x 3, redo AVR, sternotomy, bioprosthetic AVR�2016, cardiac catheterization, WILNER, bilateral breast biopsies
Family History: Father with CVA, sibling with diabetes, sibling with hypothyroidism
Social History:
Functional Level Premorbidly: Independent with all activities. Prior to admission was ambulating without a device. Owns a cane and rolling walker
Functional Level Currently: Bed mobility�dependent, transfers�max assist of 2 to stand from edge of bed and turned to pivot to bedside recliner with strong posterior leaning. Fourth person assisting at patient's hips/buttocks with turning to chair.
Toileting, lower extremity care�dependent
Tobacco: Denies
Alcohol: Denies
Drug use: Denies
Lives with: Alone
24-hour assistance available: Yes
Number of floors: One-story home
# steps to enter: 1
# steps to second floor:
Potential First floor set up: yes
Driving: yes
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
Allergies:
Allergy/AdvReac Type Severity Reaction Status Date / Time
No Known Allergies Allergy Unverified 01/08/24 13:37
Review of Systems:
Constitutional: (x) fatigue
Eye: (x) Normal _
Ear/Nose/Throat: (x) Normal _
Respiratory: (x)hypoxia
Cardiovascular: (x) cabg, cardiogenic shock
Gastrointestinal: (x) Normal _
Genitourinary: (x) Normal _
Musculoskeletal: (x) Normal _
Integumentary: (x) Normal _
Neurologic: (x) Normal _
Psychiatric: (x) Normal _
Endocrine: (x) Normal _
Hematologic/Lymphatic: (x) anemia
Allergic/Immunologic: (x) Normal _
Medications:
Active Current Visit Medication List
Category Date Time Status
0.9% Sodium Chloride 500 ml [Nss] 500 ml Med 01/19/24 16:12 Active
IV CORDIS
0.9% Sodium Chloride [Nss (Preservative Free)] Med 01/20/24 10:00 Active
10 ml IV DAILY
Acetaminophen [Tylenol] Med 01/25/24 08:44 Active
1,000 mg TUBE TID@0600,1400,2200
Acetaminophen [Tylenol] Med 01/25/24 08:44 Active
650 mg TUBE Q4HPRN PRN
Albumin Human 25% 100 ml [Flexbumin] Med 01/27/24 10:55 Active
25 grams in 100 ml IV Q8H
Amiodarone [Pacerone] Med 01/19/24 16:12 Active
200 mg PO TID
Apixaban [Eliquis] Med 01/26/24 20:00 Active
5 mg TUBE BID
Ascorbic Acid [Vitamin C] Med 01/20/24 08:00 Active
500 mg PO DAILY
Aspirin Chewable [Low Strength Aspirin] Med 01/25/24 08:44 Active
81 mg TUBE DAILY
Atorvastatin [Lipitor] Med 01/25/24 08:44 Active
80 mg TUBE QPM
Bisacodyl [Dulcolax] Med 01/19/24 16:12 Active
10 mg RECTAL DAILYPRN PRN
Bumetanide 12.5 mg/50 ml [Bumex] Med 01/27/24 08:45 Active
12.5 mg in 50 ml IV ORDERED RATE
Calcium Gluconate 2 gram/100mL [Calcium Gluconate] Med 01/19/24 16:15 Active
2 gram in 100 ml IV PRN
DOBUTamine 500 MG/D5W 250 ML [Dobutrex 500 mg] Med 01/27/24 17:30 Active
500 mg in 250 ml IV PER PROTOCOL
Dapagliflozin [Farxiga] Med 01/27/24 08:00 Active
10 mg PO DAILY
Dextrose 50%-Water [Dextrose 50% Syringe] Med 01/25/24 12:04 Active
12.5 grams IV [id number] PRN
Docusate W/Senna [Senokot-S] Med 01/22/24 20:00 Active
1 tablet PO BID
Ferrous Sulfate [Feosol] Med 01/25/24 08:52 Active
325 mg TUBE DAILY
Flush (0.9% Sodium Chloride) [Flush (Nss)] Med 01/19/24 17:00 Active
See Dose Instructions IV PER PROTOCOL
Gabapentin [Neurontin] Med 01/25/24 08:52 Active
100 mg TUBE TID
Glucagon [GlucaGen] Med 01/25/24 12:04 Active
1 mg IM PRN PRN
Guaifenesin Solution [Robitussin] Med 01/25/24 13:00 Active
200 mg PO QID
Insulin Aspart Corrective Low [Novolog Flexpen-Low Med 01/27/24 11:30 Active
Resistance]
See Protocol SC AC
Insulin Aspart Pen [Novolog Flexpen] Med 01/27/24 11:30 Active
4 units SC AC
Insulin Glargine Lantus [Lantus] 10 units Med 01/28/24 08:00 Active
Subcutaneous Insulin Syringe [Syringe-Insulin] 0 unit
SC DAILY
Ipratropium Nebs [Atrovent Nebules] Med 01/25/24 14:00 Active
0.5 mg INH R TID
Ipratropium/Albuterol Sulfate [Duoneb] Med 01/25/24 12:39 Active
3 ml INH R Q4HPRN PRN
KCl 20 Meq/50 ml [KCl] Med 01/19/24 16:12 Active
20 meq in 50 ml IV PRN
Lactated Ringers Med 01/19/24 16:12 Active
250 ml IV [id number] PRN
Levalbuterol [Xopenex 1.25 mg Inhalant Solution] Med 01/25/24 14:00 Active
1.25 mg INH R TID
Lidocaine [Lidocaine 4% Patch] Med 01/20/24 08:00 Active
1 patch TOPICAL DAILY
Magnesium Hydroxide [Milk of Magnesia] Med 01/19/24 16:12 Active
30 ml PO BIDPRN PRN
Magnesium Oxide Med 01/20/24 08:00 Active
500 mg PO BID
Magnesium Sulfate 2 Gram/50 ml [Magnesium Sulfate] Med 01/19/24 16:12 Active
2 gram in 50 ml IV PRN
Melatonin Med 01/24/24 22:00 Active
5 mg PO HS
Ondansetron Injectable [Zofran] Med 01/19/24 16:12 Active
4 mg IV Q8HPRN PRN
Oxycodone [Roxicodone Oral Solution] Med 01/25/24 08:48 Active
2.5 mg TUBE Q4HPRN PRN
Oxycodone [Roxicodone Oral Solution] Med 01/25/24 08:48 Active
5 mg TUBE Q4HPRN PRN
Pantoprazole [Protonix IV] Med 01/20/24 10:00 Active
40 mg IV DAILY
Polyethylene Glycol Powder [Miralax] Med 01/25/24 08:52 Active
17 grams TUBE DAILYPRN PRN
Potassium Chloride 10% Elixir [KCl Elixir] Med 01/25/24 08:44 Active
40 meq TUBE DAILYPRN PRN
Quetiapine Fumarate [Seroquel] Med 01/25/24 08:50 Active
25 mg TUBE HSPRN PRN
Remove Patch [Remove Lidocaine Patch] Med 01/20/24 20:00 Active
1 patch REMOVE DAILY@1999
Vitals:
Temp Pulse Resp BP Pulse Ox
98.4 F 88 15 112/61 96
01/28/24 15:00 01/28/24 15:00 01/28/24 15:00 01/28/24 15:00 01/28/24 15:00
Height 5 ft 4 in
Actual Weight 98.4 kg
Body Mass Index (BMI) 37.3
Physical Exam:
General Appearance/Observation: Well-developed, well-nourished female in no apparent distress. Tired and closing eyes intermittently
Pain/Comfort Assessment: Denies
Mood/Affect: Appropriate
Integumentary/Operative Site: sternal incision with dressing, RLE incision open to air with ecchymosis and swelling, right groin - incision with dressing, tube incisions with dressings
Pressure Ulcer Evaluation: absent over heels. wearing heel pads
Eyes: Conjunctiva/Lids: normal Pupils: pupils equal round and reactive to light and Accommodation
Ears/Nose/Throat: oral mucosa -dry, throat clear. Lips/Teeth/Gums: lips dry and with scabs
Neck: No muscle spasm or tenderness
Cardiovascular: Heart: regular, murmur
Pulses: dorsalis pedis 2+ bilaterally
Respiratory: Respiratory Effort/Chest Expansion: normal Auscultation: diminished and with wheezing
Gastrointestinal: abdomen not tender, no distension, normal abdominal bowel sounds
Genitourinary: Crowder
Extremities: Edema: legs Cyanosis: None Trophic changes: None
Neurology Exam:
Orientation: Alert, Oriented to self, Time, Place
Memory: limited interaction but able to answer basic questions regarding hospitalization- had heart surgery
Comprehension: Intact
Two step command: Intact
Naming: NT
Cranial Nerves:
CNII: Pupillary light reflex: Intact Visual Field: NT
CN III, IV, : Extraocular muscles: Intact
CN V: Facial Sensation at Forehead: Intact, Maxilla: Intact, Mandible: Intact
CN VII: Facial movement: Symmetric
CN VIII: Hearing: KEWEENAW
CN IX/X: Speech & swallow: low volume, Position of Uvula: Midline
CN XI: Shoulder shrug: Symmetric
CN XII: Tongue protrusion: Midline
Sensory:
Light touch: Intact in bilateral upper and left lower extremity. Slightly diminished in RLE
Reflexes:
Biceps: 2+ bilaterally
Brachioradialis: 2+ bilaterally
Triceps: 2+ bilaterally
Patellar: trace bilaterally
Achilles: absent bilaterally
Babinski: Down going bilaterally
Analilia: Negative bilaterally
Cerebellar: Dysmetria/Ataxia: NT
Musculoskeletal:
Motor: (Manual muscle scale 0-5)
Muscle SA EF WE EE FF FA HF KE DF EHL PF
Right� 3+ 5 5 5 2 2 5 5 5
Left 3+ 5 5 5 2 2 5 5 5
1 black small toe nail on right foot. able to lift legs off bed minimally. Attempted then plopped legs back down on bed due to fatigue, weakness
Tone: Normal in all extremities
Range of Motion: distal UE/LE intact
Lab Results:
Labs
WBC 14.9 10^3/uL (4.8-10.8) H 01/28/24 03:14
RBC 2.28 10^6/uL (4.20-5.40) L 01/28/24 03:14
Hgb 7.1 g/dL (12.0-16.0) L 01/28/24 03:14
Hct 21.5 % (37.0-47.0) L 01/28/24 03:14
MCV 94.3 fL (81.0-99.0) 01/28/24 03:14
MCH 31.1 pg (27.0-31.0) H 01/28/24 03:14
MCHC 33.0 g/dL (33.0-37.0) 01/28/24 03:14
RDW 16.5 % (11.5-14.5) H 01/28/24 03:14
Plt Count 106 10^3/uL (130-400) L 01/28/24 03:14
MPV 11.5 fL (7.4-10.4) H 01/28/24 03:14
Abs Immat Gran (auto) 0.2 10^3/uL (0-0.05) H 01/21/24 10:57
Absolute Neuts (auto) 15.4 10^3/uL (1.4-6.5) H 01/21/24 10:57
Absolute Lymphs (auto) 0.4 10^3/uL (1.2-3.4) L 01/21/24 10:57
Absolute Monos (auto) 1.6 10^3/uL (0.1-0.6) H 01/21/24 10:57
Absolute Eos (auto) 0.0 10^3/uL (0-0.7) 01/21/24 10:57
Absolute Basos (auto) 0.0 10^3/uL (0-0.2) 01/21/24 10:57
Immature Gran % 0.9 % (0-0.5) H 01/21/24 10:57
Neutrophils % 87.6 % (42.2-75.2) H 01/21/24 10:57
Lymphocytes % 2.3 % (20.5-51.1) L 01/21/24 10:57
Monocytes % 9.0 % (1.7-9.3) 01/21/24 10:57
Eosinophils % 0.0 % (0-6) 01/21/24 10:57
Basophils % 0.2 % (0-2) 01/21/24 10:57
Nucleated RBC % 0.1 % 01/21/24 10:57
PT 15.0 Sec (11.4-14.6) H 01/21/24 15:02
INR 1.13 01/21/24 15:02
APTT Cancelled 01/27/24 06:00
Fibrinogen 439 MG/DL (199-459) 01/21/24 10:57
pH 7.42 (7.35-7.45) 01/25/24 04:24
pCO2 37 mmHg (32-35) H 01/25/24 04:24
pO2 105 mmHg (83-108) 01/25/24 04:24
HCO3 24.0 mmol/L (21-28) 01/25/24 04:24
Base Excess -0.4 mmol/L 01/25/24 04:24
ABG O2 Sat (Measured) 99.4 % (94-98) H 01/25/24 04:24
POC ABG O2 Sat (Calc) 99.6 % (94-98) H 01/21/24 13:24
Mixed VBG O2 Saturation 57.3 % 01/26/24 16:16
Sodium 140 mMOL/L (136-145) 01/22/24 16:59
Potassium 4.4 mMOL/L (3.5-5.1) 01/24/24 15:37
Potassium Cancelled 01/24/24 15:37
O2 Delivery Level 01/25/24 04:24
Sodium 137 mmol/L (135-145) 01/28/24 14:37
Potassium 3.9 mmol/L (3.5-5.1) 01/28/24 14:37
Chloride 96 mmol/L (98-107) L 01/28/24 14:37
Carbon Dioxide 31 mmol/L (22-30) H 01/28/24 14:37
BUN 81 mg/dl (7-17) H 01/28/24 14:37
Creatinine 1.9 mg/dL (0.6-1.0) H 01/28/24 14:37
Estimated Creat Clear 27 ml/min 01/28/24 14:37
eGFR 26.53 01/28/24 14:37
Glucose 174 mg/dl (70-99) H 01/28/24 14:37
Hemoglobin A1c 6.8 % (4.0-5.6) H 01/11/24 08:40
Lactic Acid 1.4 mmol/L (0.7-2.0) 01/21/24 10:57
Calcium 9.4 mg/dl (8.4-10.2) 01/28/24 14:37
Ionized Calcium 1.18 mMOL/L (1.15-1.33) 01/24/24 15:37
Ionized Calcium Cancelled 01/24/24 15:37
Phosphorus 4.1 mg/dl (2.5-4.5) 01/25/24 04:24
Magnesium 2.4 mg/dl (1.6-2.3) H 01/28/24 03:14
Total Bilirubin 1.2 mg/dl (0.2-1.3) 01/28/24 14:37
Direct Bilirubin 0.4 mg/dl (0.0-0.4) 01/24/24 06:20
AST 36 U/L (14-36) 01/28/24 14:37
ALT 40 U/L (0-35) H 01/28/24 14:37
Alkaline Phosphatase 73 U/L (38-126) 01/28/24 14:37
Total Protein 6.0 g/dl (6.3-8.2) L 01/28/24 14:37
Albumin 4.3 g/dl (3.5-5.0) 01/28/24 14:37
Triglycerides 80 mg/dl (10-149) 01/19/24 16:55
Urine Color Straw 01/19/24 07:30
Urine Clarity Clear (Clear) 01/19/24 07:30
Urine pH 5.0 (5.0-9.0) 01/19/24 07:30
Ur Specific [place] 1.020 (<1.030) 01/19/24 07:30
Urine Ketones Negative (Negative) 01/19/24 07:30
Ur Occult Blood Reflex Negative (Negative) 01/19/24 07:30
Urine Nitrite (Reflex) Negative (Negative) 01/19/24 07:30
Urine Bilirubin Negative (Negative) 01/19/24 07:30
Urine Urobilinogen Negative (Neg - 1+) 01/19/24 07:30
Leukocyte Esterase Rfl Negative (Negative) 01/19/24 07:30
Urine RBC 0-2 /HPF (0-2) 01/19/24 07:30
Urine WBC (Reflex) 0-2 /HPF (0-5) 01/19/24 07:30
Ur Squamous Epith Cells 3-5 /LPF (Few) 01/19/24 07:30
Ur Urothelial Cells 0-2 /LPF (FEW) 01/11/24 08:40
Urine Bacteria (Reflex) Few (Negative) A 01/19/24 07:30
Urine Osmolality 403 mOsm/kg (300-900) 01/22/24 08:41
Ur Random Microalbumin 28.3 mg/dl (0.6-1.7) H 01/22/24 08:41
Ur Random Microalbumin Cancelled 01/22/24 08:41
Ur Collection Duration Random hr 01/22/24 08:41
Ur 24 Hour Volume Random mL 01/22/24 08:41
Urine Creatinine Cancelled 01/22/24 08:41
Ur Creatinine per Vol 131 mg/dL 01/22/24 08:41
Ur Creatinine mg/24hr Not applicable mg/d (500-1400) 01/22/24 08:41
U Creat (Microalbumin) 140.400 mg/dl 01/22/24 08:41
U Creat (Microalbumin) Cancelled 01/22/24 08:41
Microalb/Creat Ratio 201.6 mg/g 01/22/24 08:41
Microalb/Creat Ratio Cancelled 01/22/24 08:41
Urine Sodium 10 mmol/L (30-90) L 01/22/24 08:41
Urine Sodium Cancelled 01/22/24 08:41
Urine Potassium 85.6 mmol/L (30-90) 01/22/24 08:41
Urine Potassium Cancelled 01/22/24 08:41
Urine Phosphorus 93 mg/dL 01/22/24 08:40
Ur Phosphorus 24 Hr Not applicable mg/d (400-1300) 01/22/24 08:40
U Phosphorus/Creat 715 mg/g 01/22/24 08:40
Urine Glucose 3+ (Negative) A 01/19/24 07:30
Urine Total Protein 36 mg/dl (0-12) H 01/22/24 08:41
Urine Total Protein Cancelled 01/22/24 08:41
Urine Albumin (Reflex) 2+ (Neg - Trace) A 01/19/24 07:30
Urine Citrate 63 mg/L 01/22/24 08:41
Urine Citrate 24 Hour Not applicable mg/d (320-1240) 01/22/24 08:41
U Citrate/Creat Ratio 48 mg/g (>=150) L 01/22/24 08:41
POC ABG Comment Post 01/19/24 16:15
POC pH 7.46 (7.35-7.45) H 01/21/24 13:24
POC Base Excess 1.3 mmol/L 01/21/24 13:24
POC pO2 173 mmHg (83-108) H 01/21/24 13:24
POC pCO2 35 mmHg (35-48) 01/21/24 13:24
POC HCO3 25 mmol/L (21-28) 01/21/24 13:24
POC Glucose 212 mg/dl (70-99) H 01/28/24 12:00
POC Glucose 187 mg/dl (70-99) H 01/21/24 13:24
POC Sodium 143 mmol/L (136-145) 01/21/24 13:24
POC Potassium 5.1 mmol/L (3.5-5.1) 01/21/24 13:24
POC Ionized Calcium 1.13 mmol/L (1.15-1.33) L 01/21/24 13:24
POC ACT+ 85 Seconds (82-134) 01/19/24 16:10
POC Hemoglobin Calc 8.2 01/21/24 13:24
POC Hematocrit 24 % PCV (37-47) L 01/21/24 13:24
POC Hemodilution No 01/21/24 13:24
Blood Type O NEG 01/27/24 04:05
Antibody Screen Negative (Negative) 01/27/24 04:05
Crossmatch IS Only See Detail 01/24/24 04:22
Diagnostic Results: as per HPI
Assessment:
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
Admitted for complex cardiac surgery. On 01/18-underwent coronary artery bypass/aortic root replacement/redo sternotomy with lysis of adhesions/explant of prior aortic valve by Dr. Trivedi.
Plan
PT/OT to increase independence with ADLs, improve balance, coordination, endurance, strength, mobility, community reintegration, decreased burden of care on others and family education.
Debility: S/p complex cardiac surgery, CABG. Cont PT/OT
S/P CABG x 2 and aortic root replacement: Sternal precautions. Eliquis, asa 81mg, Bumex, Amiodarone 200mg tid, atorvastatin, Monitor incision, pain control.
Severe left lung atelectasis:01/22/2024-likely mucous plug per pulmonary. Bronchoscopy 01/22/2024
Maintain SpO2 >90-94% with supplemental O2 and wean as tolerated.
Encourage incentive spirometry use 10x per hour for at least 4 hrs a day
Pulmonary toilet is marshall --> continue Mucinex 1200mg BID with chest PT with sport bed vs percussor (still with SS-CP so unable to use percussor or vest at this time). Start acapella
Cont Xopenex and atrovent TID with prn doses in between for breakthrough symptoms
HLD: Atorvastatin 80 mg every afternoon
Coronary artery disease : statin, off BB as of now due to low BP
Carotid stenosis on the right
CHF: Left ventricular EF 55-60% by visual assessment. Flattened septum in systole and diastole consistent with RV pressure and volume overload. Mildly dilated right ventricle with reduced right ventricular systolic
function., monitor fluid status. On IV diuresis
DM II: Accu-Cheks, insulin sliding scale, Farxiga, insulin glargine- 14 units, Aspart 5 units
Anemia: No evidence of acute bleeding. Ferrous sulfate 325mg qd
S/p multiple transfusions - last PRBC given on 01/21/2024.
Changed from heparin gtt to Eliquis on evening of 01/25
Follow H&H serially and transfuse if needed to keep Hb>7g/dL
Psych: Psychology consult. Monitor mood, adjust medications as needed.
Skin: monitor for pressure sores/rashes/lesions.
Pain: acetaminophen as needed, gabapentin
Bowel: Colace and Senna, PRN bisacodyl.
Bladder: Has Crowder - when appropriate Time void, PVRs, PRN straight cath.
GI Prophylaxis: Pantoprazole 40mg qd
DVT Prophylaxis: mechanical, Eliquis
Pulmonary: Incentive spirometry
Obesity: Continue to assistant corporation counsel patient about diet adjustments to control obesity. Body habitus and increased force to move body and extremities causes further difficulty with functional tasks.
Safety: Continue to reinforce assistance with all transfers.
Code Status: No order in.
Dispo (date/plan/equipment needs): Home with family care Social history reviewed.
Functional and Medical Goals: Modified Independent with ADL�s, ambulation, transfers
Discharge Destination: Patient s/p complex cardiac surgery on pressors, oxygen, pulmonary treatment, fluid overload on diuretic would benefit from Acute inpatient rehabilitation once medically stable and stronger. At this time she is not ready for
either, SNF or Acute rehabilitation. Will reevaluate once more stable.
Summary of recommendations:
Debility: S/p complex cardiac surgery, CABG. Cont PT/OT
S/P CABG x 2 and aortic root replacement: Sternal precautions. Eliquis, asa 81mg, Bumex, Amiodarone 200mg tid, atorvastatin, Monitor incision, pain control.
Severe left lung atelectasis:01/22/2024-likely mucous plug per pulmonary. Bronchoscopy 01/22/2024
Maintain SpO2 >90-94% with supplemental O2 and wean as tolerated. Now on 2 L
Encourage incentive spirometry use 10x per hour for at least 4 hrs a day
Pulmonary toilet is marshall --> continue Mucinex 1200mg BID with chest PT with sport bed vs percussor (still with SS-CP so unable to use percussor or vest at this time). Start acapella
Cont Xopenex and atrovent TID with prn doses in between for breakthrough symptoms
CHF: Left ventricular EF 55-60% by visual assessment. Flattened septum in systole and diastole consistent with RV pressure and volume overload. Mildly dilated right ventricle with reduced right ventricular systolic
function., monitor fluid status. On IV diuresis. May need thoracentesis
Pain: acetaminophen as needed, gabapentin
Bowel: Colace and Senna, PRN bisacodyl.
Bladder: Has Crowder - when appropriate Time void, PVRs, PRN straight cath.
GI Prophylaxis: Pantoprazole 40mg qd
DVT Prophylaxis: mechanical, Eliquis
Pulmonary: Incentive spirometry
Attending Statement:
I saw and examined the patient today. Reviewed care plan with patient, therapy, nursing, and physician assistant produce manager. I agree with the above subjective and physical exam, and plan as documented by ALEXANDRO Addison with adjustments made as necessary.
Thank you for allowing me to care for your patient. Please contact me with any questions or concerns.
[2024-01-28] MEDS: NOVOLOG FLEXPEN SC (09:19)
[2024-01-28] MEDS: NOVOLOG FLEXPEN 5 UNITS SC ×3 (09:59→16:38)
[2024-01-28] MEDS: DIURIL 0.5 GRAM VIAL 0.5 GRAMS IV (10:15)
[2024-01-28] MEDS: STERILE WATER FOR INJECTION 18 ML IV (10:15)
--- NOTE | 2024-01-28 11:01 | W.PN.CARDCBS ---
Addendum entered and electronically signed by Carlos Manuel Martinez MD 01/28/24 13:38:
I saw and examined the patient.
The Safety Representative's note was reviewed and I agree with the note.
Comment:
GEN: No distress, awake, Ox3
HEENT: supple, anicteric, mmm
LUNGS: dec bs at bases
CV: Reg, S1/S2, 1/6 syst LSB, no gallop
ABD: soft, BS+, NT/ND
EXT: + edema
NEURO: Gross non-focal
SKIN: No rash
PLan:
Slowly improving. Will continue to diurese.
In sinus rhythm. Continue amiodarone and Eliquis.
Consider transfusion and slowly wean dobutamine.
Echo was reviewed. Echodensity around aortic annulus is likely packing. Mean gradient was 24 mmHg, however ventricle was hyperdynamic.
Continue supportive care
Original Note:
Today's Communication / Plan
-
continue IV diuresis
consider for thoracentesis
follow hgb, consider transfusion
back in SR. continue amio, eliquis
slow wean of dobutamine
Impression / Plan
-
Cardiology: Dr. Fernie Cox of [facility]
PCP: Dr. Radha Tamez
IMPRESSION:
s/p Freestyle 21 mm AV replacement with replacement of ascending aorta to innominate for and aortic insufficiency of previously placed tissue AVR 01/19/24
s/p tissue AVR 2016
Not TAVR candidate with low coronary heights and narrow SOV
CAD s/p CABG with GARCIA to LAD and SVG to RCA, Diagonal could not be grafted 01/19/24
previous CABG with SVG to OM-2 in 2016 known to be occluded since cath in 2019
Open sternotomy secondary to oozing, edema, RV dysfunction on multiple pressors dobutamine and milrinone 11/5/24 s/p closure 01/21/24
DM 2
Hyperlipidemia
Hypoxemia resulting in emergent bronch 01/22/24
Acute post op anemia/thrombocytopenia
Post op FABIAN
Post op PAF and junctional rhythm
DEMAR 01/21/24: LV underfilled with all wall segments moving normally, RV severely hypokinetic with akinesis of anterior wall, trace MR and TR, no effusions
ECHO 01/27/24: EF 55 to 60%, mild concentric LVH, flattened septum in systole and diastole consistent with RV pressure and volume overload, mildly dilated RV with reduced RV systolic function, well-seated bioprosthetic AVR with peak/mean gradients
40/ mmHg, no AR seen, mild TR, PAP 30 to 35 mmHg, trivial pericardial effusion, pleural effusion present
RECOMMENDATIONS:
-patient underwent redo sternotomy with CABG x2 in situ GARCIA to LAD and rSVG from asc aortic graft to distal RCA, explant of prior aortic valve, complex [employer] aortic root replacement, hypothermic circ arrest, ascending aorta replacement 01/19/24.
Due to prolonged pump time, chest was left open. 01/20 with periods of afib then junctional on IV amio gtt. Returned to OR 01/20 for chest closure.
-s/p bronch 01/21 due to hypoxemia and L lung whiteout on CXR with likely mucous plug. improving. remains on 2L NC, wean as able
-remains grossly volume overloaded on exam. I&O negative overnight however weight up 1 pound. has been on and off of IV bumex gtt. Cr 1.7. would consider continuous IV bumex infusion. CXR 01/26 with B/L pleural effusions. consider eval for
thoracentesis
-slowly weaning off dobutamine, currently @1.
-hgb down to 7.1. would consider transfusion. received 1 U PRBCs 01/25
-back in SR as of ~5AM. continue po amiodarone. BB on hold due to hypotension. follow on tele
-continue eliquis
-echo 01/26 with preserved EF, well seated bio AVR with elevated gradients (p 44/m 24). reportedly with small hyperdynamic LV and enlarged RV. to review echo.
-wound vac has been discontinued
-encouraged IS, OOB, PT/OT/ST
-d/w CT surgery PAs
Progress Note - E Commerce Solution Architect
Subjective
Date of Service: January 28, 2024
reports cough
Objective
Labs:
01/28/24 03:14
01/28/24 03:14
Labs
Hgb 7.1 g/dL (12.0-16.0) L 01/28/24 03:14
Hct 21.5 % (37.0-47.0) L 01/28/24 03:14
Plt Count 106 10^3/uL (130-400) L 01/28/24 03:14
PT 15.0 Sec (11.4-14.6) H 01/21/24 15:02
INR 1.13 01/21/24 15:02
APTT Cancelled 01/27/24 06:00
Sodium 140 mmol/L (135-145) 01/28/24 03:14
Potassium 3.9 mmol/L (3.5-5.1) 01/28/24 03:14
BUN 78 mg/dl (7-17) H 01/28/24 03:14
Creatinine 1.7 mg/dL (0.6-1.0) H 01/28/24 03:14
Glucose 178 mg/dl (70-99) H 01/28/24 03:14
Vital Signs and I&O:
Vital Signs
Temp Pulse Resp BP Pulse Ox
98.4 F 92 18 99/85 96
01/28/24 08:00 01/28/24 10:00 01/28/24 10:00 01/28/24 10:00 01/28/24 10:00
Vital Signs
Temp Pulse Resp BP Pulse Ox
98.4 F 92 18 99/85 96
01/28/24 08:00 01/28/24 10:00 01/28/24 10:00 01/28/24 10:00 01/28/24 10:00
Intake & Output
01/26/24 01/27/24 01/28/24 01/29/24
07:59 07:59 07:59 07:59
Intake Total 2024.4 / 2132.3 1480.7 / 1503.3 1255.2 / 1279.2 76.6 / 76.6
Output Total 1949 1310 / 1360 3235 / 3440 335 / 335
Balance 74.4 / 152.3 170.7 / 143.3 -1979.8 / -2160.8 -258.4 / -258.4
Physical Exam
Physical Exam
GEN: No distress, awake, alert, oriented x3. on supp O2. sitting in chair
HEENT: supple, anicteric, mmm, eomi.
LUNGS: Decreased BS LLB
CV: Reg, S1/S2, 1/6 murmur
ABD: soft, BS+, NT/ND
EXT: No cyanosis, clubbing. 2+ edema of RLE, trace of LLE
NEURO: Gross non-focal
SKIN: Warm, pink, dry. No rash. Sternotomy dressing c/d/i.
[2024-01-28] MEDS: BUMEX 50 IV (11:12)
[2024-01-28 12:01] LABS: Glucose - Point of Care 212 mg/dl (70-99)
[2024-01-28] MEDS: NOVOLOG FLEXPEN-LOW RESISTANCE 2 UNITS SC (12:25)
--- NOTE | 2024-01-28 12:29 | PTOTSP ---
Speech Language Pathology
Pt seen for dysphagia tx. 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 RN reported she consumed 25% of breakfast tray. She stated this was secondary to consistency of food and not finding it appetizing (was IDDSI Level 6). Seen
with bite of regular solids and 8 sips of thin liquids. Pt required mod cueing for single sips only, frequently taking consecutive sips. Cough noted x4, not always immediately after drinking. RN did not note any coughing with breakfast, WBC is
trending down, and no significant findings on CXR for aspiration. Will continue to monitor coughing. If continues/worsens with P.O. intake, will consider VSE.
Recommend:
(1) Regular solids/thin liquids
(2) Aspiration precautions: sit upright, single sips, slow rate
(3) Meds whole in puree
(4) UTILITY SYSTEMS REPAIRER OPERATOR to continue to follow
--- NOTE | 2024-01-28 12:30 | PTCARENOTE ---
Patient coughing during lunch with PO intake - VSE ordered for tomorrow; Bumex gtt restarted and IV Chlorothiazide 0.5 gm ordered and given with good effect; Patient transferred to 0 to have fully functioning Sandra lift in room; PT/OT transferred
patient to chair with assist x2 and RW
--- NOTE | 2024-01-28 12:33 | CM ---
Addendum entered by AJ Jaimes 01/28/24 16:45:
[facility] is able to accept pt. for admission.
Will await PMR eval.
Original Note:
ANDREEA continues to follow for DC planning needs.
Attempted to meet w/ patient on this date; patient was sleeping soundly-will re-attempt at a later time.
Reviewed DC plan. Anticipate need for rehab. Referral sent to [facility] for review. Spoke w/ Alexandra/ liaison. She feels that patient will be a good candidate for acute rehab, but will await PMR input. Referral placed for PMR.
Will need authorization for acute rehab placement.
Will follow.
[2024-01-28 15:10] LABS: ALT (SGPT) 40 U/L (0-35); AST (SGOT) 36 U/L (14-36); Albumin 4.3 g/dl (3.5-5.0); Alkaline Phosphatase 73 U/L (38-126); Blood Urea Nitrogen 81 mg/dl (7-17); Calcium 9.4 mg/dl (8.4-10.2); Carbon Dioxide 31 mmol/L (22-30); Chloride 96 mmol/L (98-107); Estimated Creatinine Clearance 27 ml/min; Glucose 174 mg/dl (70-99); Potassium 3.9 mmol/L (3.5-5.1); Sodium 137 mmol/L (135-145); Total Bilirubin 1.2 mg/dl (0.2-1.3); eGFR 26.53
[2024-01-28] MEDS: KCL 50 IV (15:58)
[2024-01-28] MEDS: NSS IV (15:59)
--- NOTE | 2024-01-28 16:00 | PTCARENOTE ---
IV Bumex gtt scheduled to stop at 1800; Fluid deficit of 1400 noted and CVPA Jamar L notified and aware - orders to continue Bumex infusion until 1800; IV Potassium ordered and given; Patient continues to be OOB in chair and tolerating activity
[2024-01-28 16:38] LABS: Glucose - Point of Care 185 mg/dl (70-99)
[2024-01-28] MEDS: LIPITOR 80 MG PO (17:29)
[2024-01-28] MEDS: SENOKOT-S 1 TABLET PO (19:45)
--- NOTE | 2024-01-28 20:00 | PTCARENOTE ---
Received pt from [facility]. Walking rounds completed. Pt assessment completed in bed. Pt is drowsy, oriented x4. RED DEVIL. Responds to commands appropriately. NSR on monitor HR 80's, B/P: 123/56, resp:18, POX 96% 1L. Lungs clear, diminished in bases. Pt
coughing frequently, yellow sputum noted. I/S 750 in bed. Crowder intact, clear, yellow fluid noted WNL, B/S normal, abdomen soft, non-tender to touch. IJ cordis intact, no redness or edema noted, R 18g PVA intact, no redness or edema noted. Sternal
incision dressing C/D/I, R groin dressing C/D/I, R leg incision approx. Discussed plan of care with pt.
--- NOTE | 2024-01-28 20:00 | PTCARENOTE ---
VSS. NSR on monitor. Pt
--- NOTE | 2024-01-28 20:30 | PTCARENOTE ---
VSS, Per CTPA Tslina labs drawn and sent. Pt given KCL (See Mar). Pt coughing when swallowing thin liquid noted. Will continue to assess pt needs.
[2024-01-28 21:09] LABS: Blood Urea Nitrogen 84 mg/dl (7-17); Carbon Dioxide 30 mmol/L (22-30); Chloride 96 mmol/L (98-107); Estimated Creatinine Clearance 31 ml/min; Glucose 190 mg/dl (70-99); Potassium 3.7 mmol/L (3.5-5.1); Sodium 139 mmol/L (135-145); eGFR 30.32
[2024-01-28] MEDS: KCL 40 MEQ PO (21:56)
[2024-01-28] MEDS: MELATONIN 5 MG PO (22:06)
[2024-01-28 22:13] LABS: Glucose - Point of Care 198 mg/dl (70-99)
[2024-01-28] MEDS: NSS 500 IV (23:44)
[2024-01-29] VITALS (26 sets, daily range): BP systolic 104–144; BP diastolic 46–87; PULSE 86; O2SAT 95–96; BMI 37.4
--- NOTE | 2024-01-29 00:22 | PTCARENOTE ---
VSS. NSR on monitor. HR:86, B/P: 127/56. PM care provided. Pt resting in bed. Will continue to assess pt needs.
--- NOTE | 2024-01-29 04:26 | PTCARENOTE ---
VSS. NSR on monitor HR 84, BP 122/52, resp 18, POX 95% 1L. Morning labs obtained and sent. Pt resting in bed. Will continue to monitor pt needs.
[2024-01-29 04:35] LABS: Hematocrit 21.5 % (37.0-47.0); Mean Corp Hgb Conc. 32.6 g/dL (33.0-37.0); Mean Corpuscular Hgb 30.7 pg (27.0-31.0); Mean Corpuscular Volume 94.3 fL (81.0-99.0); Mean Platelet Volume 11.1 fL (7.4-10.4); Platelet Count 125 10^3/uL (130-400); Red Blood Cell Count 2.28 10^6/uL (4.20-5.40); Red Cell Dist. Width 17.2 % (11.5-14.5); White Blood Cell Count 16.7 10^3/uL (4.8-10.8)
[2024-01-29 04:57] LABS: Blood Urea Nitrogen 82 mg/dl (7-17); Calcium 9.1 mg/dl (8.4-10.2); Carbon Dioxide 32 mmol/L (22-30); Chloride 98 mmol/L (98-107); Estimated Creatinine Clearance 32 ml/min; Glucose 136 mg/dl (70-99); Magnesium 2.5 mg/dl (1.6-2.3); Potassium 4.1 mmol/L (3.5-5.1); Sodium 140 mmol/L (135-145)
--- NOTE | 2024-01-29 05:39 | W.PN.CT ---
Addendum entered and electronically signed by Rufus Perea MD 01/29/24 09:05:
Pt coughing w/ PO intake. Will make NPO at present w/ plans for video swallow this AM.
Addendum entered and electronically signed by Rufus Perea MD 01/29/24 07:59:
I saw and examined the patient.
The PA's note was reviewed and I agree with the note.
Comment:
N: intact, pain well control, tylenol, gabapentin, lidocaine patch - no narcotic requirements
CV: wean dobutamine to OFF today as tolerated for MAPS > 65. LVEF 55-60%, mildly dilated RV w/ reduced systolic function. AV: 44/24, PAP 30-35/ mild TR. PAF - currently in sinus
P: 1L NC - wean to RA; IS 10x/hr
GI: advanced to regular diabetic diet, tolerating; last BM 2 days ago
: Creat 1.6 (stable), UO: 4200/last 24 hours; diuresis today
HEME: Hgb 7.0 from 7.1; PLT 125 from 106
ID: WBC 16.7 from 14.9, 20.1. No fevers. Off ABX
ENOD: BS 185-212; on lantus/novalog/ISS - adjust; DM FOREST ECONOMIST following
PROPH: SCDs, Eliquis, Protonix
DISPO: ICU, full code, eventual rehab
Original Note:
Today's Communication / Plan
-
-pod #10
-No major issues overnight. Feels better overall. Remains in nsr
-swan, sternal wound vac, and Dobbhoff dcd 01/26.
-diet advanced to Diabetic- appreciate speech input- getting Calorie count and Ensure. VSE today
-drips: Dobut 1
-Eliquis started 01/25. Holding BB d/t low BP. Getting po Amio 200 tid.
-diuresed with Bumex drip and Diuril on 01/27 (UO 1825/4090 in 12/24 hrs). Bicarb is trending up with diuresis - consider Samsca
-has Crowder
-Cr 1.6 today (1.7-1.8 on 01/26, peak 2.6 on 01/23 and 1.4 preop)
-h/h 7.0/21.5 today- s/p 1 pRBC on 01/25 for hg 7.2
-platelets are stable - 125 K today
-s/p Echo 01/26
-maintain temporary pacer wire, currently insulated (will cut before d/c home)
-current meds (Dobut, ASA, Eliquis, Farxiga, Lipitor, 25% Albumin, Amio, Protonix, Feosol, Mg). Holding BB d/t low BP (on Dobut)
-OOB/Ambulate as tolerated. PT/OT/SP following
-appreciate everyone's input
Assessment / Plan
-
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
LAD and reverse saphenous vein graft from ascending aortic graft to distal RCA; EVH of RLE; Explant of prior 21 mm trifecta aortic valve; 21 mm Medtronic Freestyle aortic root complex replacement with reimplantation of coronary buttons; Hypothermic
circulatory arrest with selective cerebral perfusion, ascending aortic replacement with a 26 mm straight tube graft pm 01/19/[address] Trivedi, pod #10
- Intraop DEMAR: LVEF preop was preserved at approximately 55 to 60%. Following surgery EF remained the same at approximate 50-55% on 5 dobutamine and some Cardene. Her RV function was normal preoperatively and mild to moderately depressed
postoperatively. Following aortic root replacement, there was no aortic valve insufficiency with a new freestyle porcine root replacement.
-Her cardiac index was depressed at approximately 1.5 on 5 dobutamine. She did not require any pacing and was on her own new [place] sinus rhythm following surgery. Due to the extended pump time, mild RV dysfunction, and required multiple blood
products due to coagulopathy, chest was left open and packed with 1 vaginal pack.
-S/P Removal of one vaginal packing/Evacuation of minimal clot and old fibrillar/hemostatic agents/[place] with warm saline/Placement of additional atrial pacing wires and additional ventricular pacing wire/Removal of the 28F straight chest
tube/Chest closure with 4 #7 single and 3 #8 double stainless steal wires/Application of skin vac, by Dr. Trivedi, 01/21/24, pod#8
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
- Multivessel coronary artery disease with anginal/exertional chest pain
- Class 1 obesity, BMI 33
- Hypertension
- Hyperlipidemia
- Previous PCI with cardiac stent to the OM
- Previous cardiac surgery with [facility] [place] trifecta # 21 aortic valve replacement and single-vessel bypass to the OM in 2017
- Diabetes mellitus (A1c 6.8)
- Severe carotid stenosis of the right side
(US 01/11/24: Mixed plaque within the right carotid bulb, velocity measurements suggestive of greater than 70% stenosis, internal to common carotid ratio suggestive of 50-69% stenosis)
- Hard of hearing
- WILNER
- b/l breast biopsies
- Acute postop anemia- s/p 7 pRBCs
- Acute postop coagulopathy/thrombocytopenia - s/p Factor 7 in OR, total 3 FFPs, 3 units platelets
- Acute postop atelectasis
- Acute postop hypovolemia with subsequent hypervolemia
- Acute postop hypotension d/t cardiogenic shock, requiring inotrops and pressors
- Acute postop ectopy (PACs, PVCs)- tx with Amio bolus and drip, now off - improved with discontinuing Milrinone
- Acute postop hyperkalemia
- Acute postop junctional rhythm
- Acute postop metabolic alkalosis with respiratory compensation
- Acute postop respiratory insufficiency secondary to volume overload, pulmonary edema
- Acute postop VDRF
- Acute postop bronchoscopy 01/21 -unremarkable
- Acute postop bronchoscopy 01/20 -thick secretions suctioned @ [facility]
- Acute postop FABIAN
- Acute postop a-fib with RVR 150's
-postop Echo 01/27/24:
Small left ventricular chamber size. Mild concentric left ventricular hypertrophy. Normal left ventricular systolic function. Left ventricular ejection fraction is 55-60% by visual assessment.
Flattened septum in systole and diastole consistent with RV pressure and volume overload.
Mildly dilated right ventricle with reduced right ventricular systolic function.
Well seated bioprosthetic aortic valve with peak/mean gradients across the aortic valve of 44/24 mmHg. No aortic regurgitation is seen.
Mild tricuspid regurgitation. Estimated pulmonary artery pressure of 30-35 mmHg, assuming a right atrial pressure of 15 mmHg.
Trivial pericardial effusion. Pleural effusion present.
Compared to prior study dated 01/22/2024, prior aortic valve gradients were peak/mean 28/19 mmHg, respectively
Discussed patient care with: Nursing and Care Team
Subjective
-
Date of Service: January 29, 2024
Objective Data
-
Lab Results
01/29/24 04:11
01/29/24 04:11
PT 15.0 Sec (11.4-14.6) H 01/21/24 15:02
INR 1.13 01/21/24 15:02
APTT Cancelled 01/27/24 06:00
Vital Signs
Vital Signs
Temp Pulse Resp BP Pulse Ox
98.1 F 86 18 127/52 93
01/29/24 05:00 01/29/24 05:00 01/29/24 05:00 01/29/24 04:00 01/29/24 05:00
CT Intake/Output/Weight
01/28/24 01/28/24 01/29/24
06:59 18:59 06:59
Intake Total 504.6 / 1279.1 884.0 / 1008.3 124.3 / 1008.3
Output Total 1085 / 3285 2265 / 4090 1825 / 4090
Balance -580.4 / -2005.9 -1381.0 / -3081.7 -1700.7 / -3081.7
SaO2: 93
Physical Exam
-
General: Awake and AOx3
Cardiovascular: Regular rate & rhythm, No Murmurs and No Rub
Respiratory: Decreased Breath Sounds
Sternum: Stable
Incision: Clean, Dry and Intact
Extremities: Edema +2 (2+ palpable DPs)
Abdomen: soft, nontender, nondistended
Data Reviewed
-
Lab Results: Results Reviewed
Medications: Active Meds Reviewed
Chest X-Ray: Report Reviewed and Image Reviewed
ECG: Report Reviewed and Image Reviewed
[2024-01-29] MEDS: TYLENOL 1000 MG PO ×2 (05:59→22:32)
--- NOTE | 2024-01-29 07:00 | PTCARENOTE ---
Bedside walking rounds report received. Neuro intact. Oriented x 3. Generalized weakness: PT OT on board: med max assist of 2 oob to chair: assistance of rolling walker. Plan; titrate off o2 to room air: diurese with diamox, npo pending video
swallow eval. NSR. See flowrecord for remaining assessments.
--- NOTE | 2024-01-29 07:45 | PN.DE.MGMTRT ---
Insulin Management
- -
01/29/2024: Diabetes management F/U:
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 Pt underwent Redo sternotomy with extensive adhesiolysis of adhesions 2/2 to previous cardiac
surgery (modifier 22); CABG x 2 [in situ GARCIA to LAD and reverse saphenous vein graft from ascending aortic graft to distal RCA, 21 mm Medtronic Freestyle aortic root complex replacement with reimplantation of coronary buttons; now POD #9. PMH: CHF,
MVCAD, Morbid obesity, HTN, HLD, Severe , T2DM, [place], Prior aortic valve replacement with single-vessel bypass. Was taking Jardiance 10mg daily prior to admission. A1C 6.8%, Cr 2.2, eGFR 22.24. Reports she has a working meter with enough supplies
at home.
Pt awake alert, sitting up in bed, offers no complaints, able to discuss diabetes management.
01/17 Insulin was increased Lantus to 14 units and AC NovoLog to 5.
Appetite remains poor, ate ~50% of her dinner. FBG 136(V) this AM.
01/27 premeal glucose range 185 to 212, required 1-2 additional units of corrective insulin.
Will increase Lantus to 16 units in AM and AC NovoLog to 6 units. Cont low corrective with meals.
Will follow and adjust insulin dose if needed.
Provided insulin pen instruction: action prep and injection technique. Patient seems resigned but would prefer not to take insulin. Discussed it may just be temporary as she has been through so much. Discussed with patient importance of glucose
control after discharge to prevent infection, she verbalized understanding. Will review again in AM times to test and target range. Diabetes education booklet provided and information regarding SBGM highlighted. Will review insulin administration.
Diabetes History
- -
Type of Diabetes: 2 requiring insulin
Pre-Admission Diabetes Regimen
01/28/24 01/28/24 01/29/24
14:37 20:33 04:11
Creatinine 1.9 H 1.7 H 1.6 H
Lab Results
Hemoglobin A1c 6.8 % (4.0-5.6) H 01/11/24 08:40
Insulin Pump Settings
IP Diabetes Regimen
01/28/24 01/28/24 01/28/24
08:32 12:00 14:37
Glucose 174 H
POC Glucose 199 H 212 H
01/28/24 01/28/24 01/28/24
16:37 20:33 22:12
Glucose 190 H
POC Glucose 185 H 198 H
01/29/24
04:11
Glucose 136 H
POC Glucose
Meal type: Dinner
Meal type: Lunch
Meal type: Breakfast
Amount consumed: 50%
Amount consumed: 25%
Amount consumed: 25%
Patient Education
[2024-01-29] MEDS: NOVOLOG FLEXPEN-LOW RESISTANCE SC (08:00)
--- NOTE | 2024-01-29 08:12 | W.PN.INTV ---
Today's Communication / Plan
Recommendations
Chest PT with sport bed
Nebulized bronchodilators with Xopenex/Atrovent and if still with poor cough then would add Mucomyst for pulmonary toilet purposes; currently no need for mucomyst
Continue acapella
Aspiration precautions
Diet as per TRENCH PIPE LAYER HELPER
Monitor UOP and trend sCr
Titrate down supplemental O2 flow rate while keeping SpO2 >90-94%
Now off dobutamine drip; also off bumex gtt
Follow H&H and transfuse as necessary
Up OOB as tolerated
Encourage use of IS
Aspiration precautions
Patient is now off dobutamine and Bumex drips. Likely being transitioned to CVICU�telemetry status today. Once downgraded then we will sign off. Please call back if there are any additional questions or concerns. I will arrange for outpatient
office follow-up.
Assessment
-
Impression:
Status post coronary artery bypass/aortic root replacement/redo sternotomy with lysis of adhesions/explant of prior aortic valve (OR date: 01/19/2024)
Open chest-status post closure 01/21/2024
Post-operative respiratory failure require mechanical ventilation --> extubated on 01/24/2024 and now on nasal cannula
Severe left lung atelectasis 01/22/2024-likely mucous plug
Bronchoscopy 01/22/2024
Conditions present prior admission:
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
Heart failure
Multivessel coronary artery disease
Morbid obesity
Hypertension
Hyperlipidemia
Coronary artery disease with prior stents
Prior aortic valve replacement with single-vessel bypass
Type 2 diabetes
Severe carotic stenosis on the right
Hard of hearing
Assessment and plan
Status post chest closure 01/21/2024.
Extubated 01/24/2024
-
Maintain SpO2 >90-94% with supplemental O2 and wean as tolerated
Check ambulatory pulse oximetry prior to discharge
Encourage incentive spirometry use 10x per hour for at least 4 hrs a day
OOB as tolerated - [place] cuate in place
Sternal wound VAC in place
-
Chest x-ray 01/24/2024: reviewed, showed persistent LLL subsegmental atelectasis
CXR from 01/25/2024 shows mild improvement in L lung atelectasis
Pulmonary toilet is marshall --> continue Mucinex 1200mg BID with chest PT with sport bed vs percussor (still with SS-CP so unable to use percussor or vest at this time)
Continue acapella
On 01/24 I started Xopenex and atrovent TID with prn doses in between for breakthrough symptoms
Suction as needed
Aspiration precautions
Keep HOB >30-45�
If she continues to have difficulty with her secretions and cough, then would DC home with nebulizer and advise to use DuoNebs at least BID and prn for SOB/wheezing or difficulty expectorating
-
Status post bronchoscopy 01/21/2024: Scant amount of thick whitish phlegm suctioned from the [facility]. Otherwise patent tracheobronchial tree. No samples were sent.
Anemia noted-no evidence of acute bleeding
Status post multiple transfusions - last PRBC given on 01/21/2024
Changed from heparin gtt to Eliquis on evening of 01/25
Follow H&H serially and transfuse if needed to keep Hb>7g/dL
Continue inotrope with dobutamine with goal CI>2, trend MVO2 with goal >60-65 and maintain MAP>65
Monitor for arrhythmia
Replete K>4, Mg>[address] - remove as per CT surgery team
Monitor sCr, with strict I/O and monitor UOP
Trend sHCO3
Monitor K levels
Cardiology following - recs appreciated
-
Postoperative A-fib, continue amiodarone
While on amiodarone, she should follow-up with our office for at least annual spirometry to trend FVC
On Eliquis
ASA
TRENCH PIPE LAYER HELPER following - defer diet to them - now on diabetic diet with ensure high protein supplements
Glycemic control per protocol
Goal BG 140-180
DVT ppx: Eliquis
Patient is now off dobutamine and Bumex drips. Likely being transitioned to CVICU�telemetry status today. Once downgraded then we will sign off. Please call back if there are any additional questions or concerns. I will arrange for outpatient
office follow-up.
Total time spent today was 76 minutes for this encounter. Time includes reviewing laboratory test/imaging results, reviewing pertinent medical records, obtaining and reviewing medical history, performing an appropriate exam, ordering medications,
tests and procedures. Time also includes documentation of this encounter, coordinating patient care and communicating with other healthcare professionals. Total time does not include separately billed tests performed on this date of service.
Subjective Dataa
Subjective Data
Date of Service:
Date of Service: January 29, 2024
Chief Complaint: Stogy Maker Follow Up (Status post redo sternotomy, AVR and CABG)
Subjective:
Patient was seen and evaluated today at bedside. Resting in chair in no acute distress. Currently saturating 95% on 1 L/min. Heart rate 85 and BP 122/52. No acute events reported from overnight. She is off all drips. Denies CARTWRIGHT, chest pain,
nausea, vomiting, fevers or chills.
Review of Systems
General: Other (Negative unless mentioned above)
Objective Data
Data Reviewed
Vital Signs / I&O / Oxygen:
Vital Signs
Temp Pulse Resp BP Pulse Ox
98.6 F 92 18 106/87 92
01/29/24 09:00 01/29/24 09:15 01/29/24 09:00 01/29/24 09:03 01/29/24 09:15
Intake and Output
11/14/24 11/15/24 11/16/24
06:59 06:59 06:59
Intake Total 1279.1 / 1279.1 1139.6 / 1150.9 32.6 / 32.6
Output Total 3285 / 3285 4215 / 4290 250 / 250
Balance -2005.9 / -2005.9 -3075.4 / -3139.1 -217.4 / -217.4
SaO2 [A/C] 96
SaO2 [SIMV] 93
SaO2 92
Nasal Cannula flow liters per 1
minute
Physical Exam
General: Respiratory Distress (negative), Comfortable (On mechanical ventilation), Chills (negative), Sweats (negative) and Good Appetite
HEENT: Normocephalic and Anicteric
Cardiovascular: S1-S2 and Peripheral Edema (negative)
Respiratory: Wheeze (negative), Crackles (bilateral from bases to middle lung naqvi (R>L)), Rhonchi (negative) and Non-Labored Respirations
GI: Soft, Non Distended, Non Tender and Normal Bowel Sounds
Neurology: AO x 3 and Tremors (negative)
Skin: Warm, Dry, Cyanosis (negative) and Jaundice (negative)
Labs/Micro/Reports
Lab Data
01/29/24 04:11
01/29/24 04:11
[2024-01-29] MEDS: ATROVENT NEBULES 0.5 MG INH ×3 (08:13→17:58)
[2024-01-29] MEDS: XOPENEX 1.25 MG INHALANT SOLUTION INH ×3 (08:13→17:58)
--- NOTE | 2024-01-29 08:15 | PTCARENOTE ---
CT surgical rounds: dobutrex off per Dr. Perea.
[2024-01-29] MEDS: PROTONIX 40 MG PO (09:26)
[2024-01-29] MEDS: FARXIGA 10 MG PO (09:26)
[2024-01-29] MEDS: LOW STRENGTH ASPIRIN 81 MG PO (09:27)
[2024-01-29] MEDS: DIAMOX 250 MG PO (09:27)
[2024-01-29] MEDS: PACERONE 200 MG PO ×3 (09:27→22:32)
[2024-01-29] MEDS: NEURONTIN 100 MG PO ×3 (09:27→22:32)
[2024-01-29] MEDS: VITAMIN C 500 MG PO (09:28)
[2024-01-29] MEDS: ELIQUIS 5 MG PO ×2 (09:28→21:00)
[2024-01-29] MEDS: FEOSOL 325 MG PO (09:28)
[2024-01-29] MEDS: SENOKOT-S 1 TABLET PO ×2 (09:28→21:01)
[2024-01-29] MEDS: ROBITUSSIN 200 MG PO ×3 (09:28→22:33)
[2024-01-29] MEDS: KCL 20 MEQ PO (09:28)
[2024-01-29] MEDS: LIDOCAINE 4% PATCH 1 PATCH TOPICAL (09:29)
--- NOTE | 2024-01-29 10:15 | PTCARENOTE ---
No acute changes. Patent taken for video swallow eval which was passed with no restrictions: cxr 2 view obtained prior: accompanied by roller gold leaf.
--- NOTE | 2024-01-29 10:20 | PTOTSP ---
Speech Language Pathology
VIDEOFLUOROSCOPIC SWALLOWING EXAMINATION (VSE) completed. Oropharyngeal swallow WNL. At most, trace pharyngeal residue noted. No penetration/aspiration noted with any consistencies trialed. Esophageal sweep demonstrated some residue with no
backflow.
Recommend:
(1) Regular solids/thin liquids
(2) General aspiration precautions
(3) Meds as tolerated
(4) HOME HEALTH CLINICAL SUPERVISOR to sign off. Please reconsult as indicated
--- NOTE | 2024-01-29 11:03 | CM ---
Addendum entered by AJ Jaimes 01/29/24 14:34:
Rec'd consult for Nebulizer.
Consulted with [employer] wholesale representative, Jamar. She reports that Neb can be ordered upon DC even if patient is going to be going to rehab.
Started order form w/ assist of [employer].
Will send order form prior to DC.
Original Note:
CM following for DC planning needs.
Met w/ patient at bedside. She is much more awake today and conversant.
We reviewed DC plans. Pt. still is hopeful to go home upon DC as dtr. resides across the street. We reviewed current level of care and goals but also discussed possibility of rehab, specifically @ [facility].
Referral made to [facility]; pt. has been accepted per [place]/ liaison.
PMR completed evaluation w/ goal for acute rehab.
Will follow up with medical status and progress on Thursday, 01/31.
Anticipate transfer to [facility] once medically stable and approved by insurance ([id number]).
[2024-01-29] MEDS: NOVOLOG FLEXPEN-LOW RESISTANCE 2 UNITS SC (11:14)
[2024-01-29] MEDS: NOVOLOG FLEXPEN 6 UNITS SC ×2 (11:16→16:24)
[2024-01-29 11:24] LABS: Glucose - Point of Care 237 mg/dl (70-99)
[2024-01-29] MEDS: LANTUS 0.16 UNITS SC (11:35)
--- NOTE | 2024-01-29 12:00 | PTCARENOTE ---
OOB in chair. Oxygen titrated to room air.
--- NOTE | 2024-01-29 13:33 | W.PN.CARDCBS ---
Addendum entered and electronically signed by Hieu Alford MD 01/29/24 14:12:
I saw and examined the patient.
The ELECTRICAL PROSPECTING SUPERVISOR or PA's note was reviewed and I agree with the note.
Comment: General: Well developed, well nourished in NAD.
Neck: Supple, no JVD, HJR, carotids +2 B/L, no bruits bilaterally.
Heart: Non displaced PMI, RRR, no murmurs, No S3, S4, no rubs.
Lungs: Scattered rhonchi
Extremities: No clubbing, cyanosis or edema bilaterally.
Neuro: Grossly nonfocal, awake, alert and oriented x3.
She remains in sinus rhythm. Will continue diuresis with Bumex. Await chest x-ray and video swallow. Discussed with CT surgery PA
Original Note:
Today's Communication / Plan
-
continue diuresis
follow hgb. consider transfusing
CXR and VSE pending
in SR
Impression / Plan
-
Cardiology: Dr. Fernie Cox of [facility]
PCP: Dr. Radha Tamez
IMPRESSION:
s/p Freestyle 21 mm AV replacement with replacement of ascending aorta to innominate for and aortic insufficiency of previously placed tissue AVR 01/19/24
s/p tissue AVR 2016
Not TAVR candidate with low coronary heights and narrow SOV
CAD s/p CABG with GARCIA to LAD and SVG to RCA, Diagonal could not be grafted 01/19/24
previous CABG with SVG to OM-2 in 2016 known to be occluded since cath in 2019
Open sternotomy secondary to oozing, edema, RV dysfunction on multiple pressors dobutamine and milrinone 01/19/24 s/p closure 01/21/24
DM 2
Hyperlipidemia
Hypoxemia resulting in emergent bronch 01/22/24
Acute post op anemia/thrombocytopenia
Post op FABIAN
Post op PAF and junctional rhythm
DEMAR 01/21/24: LV underfilled with all wall segments moving normally, RV severely hypokinetic with akinesis of anterior wall, trace MR and TR, no effusions
ECHO 01/27/24: EF 55 to 60%, mild concentric LVH, flattened septum in systole and diastole consistent with RV pressure and volume overload, mildly dilated RV with reduced RV systolic function, well-seated bioprosthetic AVR with peak/mean gradients
40/ mmHg, no AR seen, mild TR, PAP 30 to 35 mmHg, trivial pericardial effusion, pleural effusion present
RECOMMENDATIONS:
-patient underwent redo sternotomy with CABG x2 in situ GARCIA to LAD and rSVG from asc aortic graft to distal RCA, explant of prior aortic valve, complex Medtronic aortic root replacement, hypothermic circ arrest, ascending aorta replacement 01/19/24.
Due to prolonged pump time, chest was left open. 01/20 with periods of afib then junctional on IV amio gtt. Returned to OR 01/20 for chest closure.
-s/p bronch 01/21 due to hypoxemia and L lung whiteout on CXR with likely mucous plug. improving. remains on 1L NC, continue to wean as able
-remains volume overloaded on exam. I&O grossly negative overnight however weight uptrending if accurate. Cr 1.6. continue IV bumex infusion. CXR 01/26 with B/L pleural effusions, repeat today pending. consider eval for thoracentesis
-off dobutamine this AM
-hgb down to 7.0. consider transfusion, patient reports feeling fatigued. received 1 U PRBCs 01/25
-remains in SR upon review of tele overnight. continue po amiodarone. BB on hold due to hypotension. follow on tele
-continue eliquis
-echo 01/26 with preserved EF, well seated bio AVR with elevated gradients (p 44/m 24). with small hyperdynamic LV and enlarged RV.
-wound vac has been discontinued
-for VSE today
-encouraged IS, OOB, PT/OT/ST
-d/w CT surgery ELECTRICAL PROSPECTING SUPERVISOR
Progress Note - Breastfeeding Peer Counselor
Subjective
Date of Service: January 29, 2024
reports feeling fatigued today
Objective
Labs:
01/29/24 04:11
01/29/24 04:11
Labs
Hgb 7.0 g/dL (12.0-16.0) L 01/29/24 04:11
Hct 21.5 % (37.0-47.0) L 01/29/24 04:11
Plt Count 125 10^3/uL (130-400) L 01/29/24 04:11
PT 15.0 Sec (11.4-14.6) H 01/21/24 15:02
INR 1.13 01/21/24 15:02
APTT Cancelled 01/27/24 06:00
Sodium 140 mmol/L (135-145) 01/29/24 04:11
Potassium 4.1 mmol/L (3.5-5.1) 01/29/24 04:11
BUN 82 mg/dl (7-17) H 01/29/24 04:11
Creatinine 1.6 mg/dL (0.6-1.0) H 01/29/24 04:11
Glucose 136 mg/dl (70-99) H 01/29/24 04:11
Vital Signs and I&O:
Vital Signs
Temp Pulse Resp BP Pulse Ox
98.4 F 86 18 122/52 95
01/29/24 12:00 01/29/24 12:15 01/29/24 12:00 01/29/24 12:00 01/29/24 11:01
Vital Signs
Temp Pulse Resp BP Pulse Ox
98.4 F 86 18 122/52 95
01/29/24 12:00 01/29/24 12:15 01/29/24 12:00 01/29/24 12:00 01/29/24 11:01
Intake & Output
01/27/24 01/28/24 01/29/24 01/30/24
07:59 07:59 07:59 07:59
Intake Total 1480.7 / 1503.3 1255.2 / 1279.2 1150.9 / 1162.2 31.3 / 31.3
Output Total 1310 / 1360 3235 / 3440 4290 / 4390 255 / 255
Balance 170.7 / 143.3 -1979.8 / -2160.8 -3139.1 / -3227.8 -223.7 / -223.7
Physical Exam
Physical Exam
GEN: No distress, lethargic but awake. on supp O2. sitting in chair
HEENT: supple, anicteric, mmm, eomi.
LUNGS: Decreased BS LLB
CV: Reg, S1/S2, 1/6 murmur
ABD: soft, BS+, NT/ND
EXT: No cyanosis, clubbing. 2+ edema of RLE, 1+ of LLE
NEURO: Gross non-focal
SKIN: Warm, pink, dry. No rash. Sternotomy dressing c/d/i. RLE incisions c/d/i
[2024-01-29] MEDS: LANTUS SC (13:36)
[2024-01-29] MEDS: NOVOLOG FLEXPEN SC (13:36)
--- NOTE | 2024-01-29 16:00 | PTCARENOTE ---
No acute changes. OOB in chair and tolerating well
[2024-01-29] MEDS: TYLENOL PO (16:10)
[2024-01-29] MEDS: NOVOLOG FLEXPEN-LOW RESISTANCE 1 UNITS SC (16:24)
[2024-01-29 16:27] LABS: Glucose - Point of Care 187 mg/dl (70-99)
[2024-01-29] MEDS: ROBITUSSIN PO (18:33)
[2024-01-29] MEDS: LIPITOR 80 MG PO (18:41)
--- NOTE | 2024-01-29 20:30 | PTCARENOTE ---
Patient received OOB in chair watching television. Family at bedside. Patient A+A+Ox3. No neurological deficits noted. Patient assisted to bed with assist x2. No c/o headache, dizziness or lightheadedness. Room air. SpO2 94%. Occasional
cough. Mild SCHULZ. Sinus Rhythm. Heart rate 80's. Blood pressure 123/57 (77). Abdomen soft, round. Normoactive bowel sounds. No BM. Crowder catheter - Abby, yellow urine - Outputs as documented. Right I.J. Cordis. BMP lab collected and sent.
Sternal dressing intact. Chest tube dressing intact. Epicardial wires insulated. Right groin dressing intact. Right leg and right lower leg incisions - Surgical adhesive - Open to air. Positive, palpable pulses. Patient with no c/o back or
flank pain. Lateral rotation bed. Assessment as documented.
[2024-01-29 20:41] LABS: Blood Urea Nitrogen 69 mg/dl (7-17); Calcium 9.3 mg/dl (8.4-10.2); Carbon Dioxide 32 mmol/L (22-30); Chloride 96 mmol/L (98-107); Estimated Creatinine Clearance 31 ml/min; Glucose 182 mg/dl (70-99); Magnesium 2.5 mg/dl (1.6-2.3); Potassium 3.7 mmol/L (3.5-5.1); Sodium 137 mmol/L (135-145); eGFR 30.32
[2024-01-29 22:30] LABS: Glucose - Point of Care 184 mg/dl (70-99)
[2024-01-29] MEDS: KCL 40 MEQ PO (22:31)
[2024-01-29] MEDS: MELATONIN 5 MG PO (22:32)
--- NOTE | 2024-01-29 23:00 | PTCARENOTE ---
BMP results - Potassium level 3.7. PA for CT Surgery made aware - New order. 40 mEq KCL PO given without difficulty. Patient now sleeping without difficulty. Assessment as documented.
[2024-01-30] VITALS (17 sets, daily range): BP systolic 107–144; BP diastolic 49–79; PULSE 81; BMI 36.6
--- NOTE | 2024-01-30 04:30 | PTCARENOTE ---
Patient A+A+Ox3. No neurological deficits noted. AM lab work collected and sent. Patient given CHG bath, Crowder catheter care and linens changed. Chest tube dressing changed. OOB to chair in AM. Assessment/Interventions as documented.
[2024-01-30 04:36] LABS: Hematocrit 22.5 % (37.0-47.0); Hemoglobin 7.3 g/dL (12.0-16.0); Mean Corp Hgb Conc. 32.4 g/dL (33.0-37.0); Mean Corpuscular Hgb 31.1 pg (27.0-31.0); Mean Corpuscular Volume 95.7 fL (81.0-99.0); Mean Platelet Volume 10.5 fL (7.4-10.4); Platelet Count 146 10^3/uL (130-400); Red Blood Cell Count 2.35 10^6/uL (4.20-5.40); Red Cell Dist. Width 17.9 % (11.5-14.5); White Blood Cell Count 17.7 10^3/uL (4.8-10.8)
[2024-01-30 04:53] LABS: Blood Urea Nitrogen 67 mg/dl (7-17); Calcium 9.3 mg/dl (8.4-10.2); Carbon Dioxide 31 mmol/L (22-30); Chloride 98 mmol/L (98-107); Estimated Creatinine Clearance 31 ml/min; Glucose 135 mg/dl (70-99); Magnesium 2.6 mg/dl (1.6-2.3); Potassium 4.2 mmol/L (3.5-5.1); Sodium 139 mmol/L (135-145); eGFR 30.32
--- NOTE | 2024-01-30 05:19 | W.PN.CT ---
Addendum entered and electronically signed by Rufus Perea MD 01/30/24 08:59:
I saw and examined the patient.
The PA's note was reviewed and I agree with the note.
Comment:
POD#[id number]
No major overnight events. Doing well of dobutamine. Passed video swallow
Atelectasis vs effusion CXR (favor atelectasis) - continue chest PT, OOB, IS - follow daily CXRs
Low-dose BB today
Creat 1.6-1.7 stable, UO adequate w/ diuresis, D/C austin catheter
OOB - PT/OT - eventual SNF
Original Note:
Today's Communication / Plan
-
-pod #11
-No major issues overnight. Remains in nsr
-drips: none. Dobutamine weaned off 01/28
-swan, sternal wound vac, and Dobbhoff dcd 01/26.
-diet advanced to Diabetic- appreciate speech input- getting Calorie count and Ensure. No aspiration on VSE
-Eliquis started 01/25. Holding BB d/t low BP. Getting po Amio 200 tid.
-diuresed with Bumex drip and Diamox (UO 775/1790)- continue
-has [place]
-Cr stable @ 1.7
-h/h is low but stable 7.3/22.5 today- s/p 1 pRBC on 01/25 for hg 7.2
-platelets improving - 146 K today
-s/p Echo 01/26 ( LVEF 55-60%, mildly dilated RV w/ reduced systolic function. AV: 44/24, PAP 30-35/ mild TR)
-maintain temporary pacer wire, currently insulated (will cut before d/c home)
-current meds (ASA, Eliquis, Farxiga, Lipitor, Amio, Protonix, Feosol). Holding BB d/t low BP (improved) - consider trial of BB eventually
-OOB/Ambulate as tolerated. PT/OT/SP following
-dispo: SNF when medically ready
-appreciate everyone's input
Assessment / Plan
-
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
LAD and reverse saphenous vein graft from ascending aortic graft to distal RCA; EVH of RLE; Explant of prior 21 mm trifecta aortic valve; 21 mm Medtronic Freestyle aortic root complex replacement with reimplantation of coronary buttons; Hypothermic
circulatory arrest with selective cerebral perfusion, ascending aortic replacement with a 26 mm straight tube graft pm 01/19/[address] Trivedi, pod #11
- Intraop DEMAR: LVEF preop was preserved at approximately 55 to 60%. Following surgery EF remained the same at approximate 50-55% on 5 dobutamine and some Cardene. Her RV function was normal preoperatively and mild to moderately depressed
postoperatively. Following aortic root replacement, there was no aortic valve insufficiency with a new freestyle porcine root replacement.
-Her cardiac index was depressed at approximately 1.5 on 5 dobutamine. She did not require any pacing and was on her own yuhaaviatam sinus rhythm following surgery. Due to the extended pump time, mild RV dysfunction, and required multiple blood
products due to coagulopathy, chest was left open and packed with 1 vaginal pack.
-S/P Removal of one vaginal packing/Evacuation of minimal clot and old fibrillar/hemostatic agents/W[place]out with warm saline/Placement of additional atrial pacing wires and additional ventricular pacing wire/Removal of the 28F straight chest
tube/Chest closure with 4 #7 single and 3 #8 double stainless steal wires/Application of skin vac, by Dr. Trivedi, 01/21/24, pod#9
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
- Multivessel coronary artery disease with anginal/exertional chest pain
- Class 1 obesity, BMI 33
- Hypertension
- Hyperlipidemia
- Previous PCI with cardiac stent to the OM
- Previous cardiac surgery with [facility] trifecta # 21 aortic valve replacement and single-vessel bypass to the OM in 2017
- Diabetes mellitus (A1c 6.8)
- Severe carotid stenosis of the right side
(US 01/11/24: Mixed plaque within the right carotid bulb, velocity measurements suggestive of greater than 70% stenosis, internal to common carotid ratio suggestive of 50-69% stenosis)
- Hard of hearing
- WILNER
- b/l breast biopsies
- Acute postop anemia- s/p 7 pRBCs
- Acute postop coagulopathy/thrombocytopenia - s/p Factor 7 in OR, total 3 FFPs, 3 units platelets
- Acute postop atelectasis
- Acute postop hypovolemia with subsequent hypervolemia
- Acute postop hypotension d/t cardiogenic shock, requiring inotrops and pressors
- Acute postop ectopy (PACs, PVCs)- tx with Amio bolus and drip, now off - improved with discontinuing Milrinone
- Acute postop hyperkalemia
- Acute postop junctional rhythm
- Acute postop metabolic alkalosis with respiratory compensation
- Acute postop respiratory insufficiency secondary to volume overload, pulmonary edema
- Acute postop VDRF
- Acute postop bronchoscopy 01/21 -unremarkable
- Acute postop bronchoscopy 01/20 -thick secretions suctioned @ [facility]
- Acute postop FABIAN
- Acute postop a-fib with RVR 150's
-postop Echo 01/27/24:
Small left ventricular chamber size. Mild concentric left ventricular hypertrophy. Normal left ventricular systolic function. Left ventricular ejection fraction is 55-60% by visual assessment.
Flattened septum in systole and diastole consistent with RV pressure and volume overload.
Mildly dilated right ventricle with reduced right ventricular systolic function.
Well seated bioprosthetic aortic valve with peak/mean gradients across the aortic valve of 44/24 mmHg. No aortic regurgitation is seen.
Mild tricuspid regurgitation. Estimated pulmonary artery pressure of 30-35 mmHg, assuming a right atrial pressure of 15 mmHg.
Trivial pericardial effusion. Pleural effusion present.
Compared to prior study dated 01/22/2024, prior aortic valve gradients were peak/mean 28/19 mmHg, respectively
Discussed patient care with: Nursing and Care Team
Subjective
-
Date of Service: January 30, 2024
Objective Data
-
Lab Results
01/30/24 04:23
01/30/24 04:23
PT 15.0 Sec (11.4-14.6) H 01/21/24 15:02
INR 1.13 01/21/24 15:02
APTT Cancelled 01/27/24 06:00
Vital Signs
Vital Signs
Temp Pulse Resp BP Pulse Ox
98.0 F 80 16 118/55 95
01/30/24 04:00 01/30/24 05:00 01/30/24 04:00 01/30/24 04:00 01/30/24 04:00
CT Intake/Output/Weight
01/29/24 01/29/24 01/30/24
06:59 18:59 06:59
Intake Total 255.6 / 1150.9 932.6 / 1522.6 590 / 1522.6
Output Total 1950 / 4290 1015 / 1790 775 / 1790
Balance -1694.4 / -3139.1 -82.4 / -267.4 -185 / -267.4
SaO2: 95
Physical Exam
-
General: Awake and AOx3
Cardiovascular: Regular rate & rhythm, No Murmurs and No Rub
Respiratory: Decreased Breath Sounds
Sternum: Stable
Incision: Clean, Dry and Intact
Abdomen: soft, nontender, nondistended
Extremities: Edema +2 (2+ palpable DPs)
Data Reviewed
-
Lab Results: Results Reviewed
Medications: Active Meds Reviewed
Chest X-Ray: Report Reviewed and Image Reviewed
ECG: Report Reviewed and Image Reviewed
[2024-01-30] MEDS: TYLENOL PO (06:38)
[2024-01-30 07:36] LABS: ALT (SGPT) 32 U/L (0-35); AST (SGOT) 23 U/L (14-36); Albumin 3.4 g/dl (3.5-5.0); Alkaline Phosphatase 70 U/L (38-126); Direct Bilirubin 0.3 mg/dl (0.0-0.4); Total Bilirubin 1.2 mg/dl (0.2-1.3); Total Protein 5.3 g/dl (6.3-8.2)
[2024-01-30] MEDS: TYLENOL 1000 MG PO ×3 (07:36→22:40)
[2024-01-30] MEDS: PROTONIX 40 MG PO (07:37)
[2024-01-30] MEDS: PACERONE 200 MG PO ×3 (07:37→22:39)
[2024-01-30] MEDS: LOPRESSOR 12.5 MG PO ×2 (07:41→20:20)
[2024-01-30] MEDS: ROBITUSSIN 200 MG PO (07:42)
[2024-01-30] MEDS: FEOSOL 325 MG PO (07:42)
[2024-01-30] MEDS: FARXIGA 10 MG PO (07:42)
[2024-01-30] MEDS: VITAMIN C 500 MG PO (07:42)
[2024-01-30] MEDS: LOW STRENGTH ASPIRIN 81 MG PO (07:42)
[2024-01-30] MEDS: SENOKOT-S 1 TABLET PO ×2 (07:42→20:21)
[2024-01-30] MEDS: NEURONTIN 100 MG PO ×3 (07:42→22:39)
[2024-01-30] MEDS: ELIQUIS 5 MG PO ×2 (07:42→20:20)
[2024-01-30] MEDS: ATROVENT NEBULES 0.5 MG INH ×3 (08:06→19:36)
[2024-01-30] MEDS: XOPENEX 1.25 MG INHALANT SOLUTION INH ×3 (08:07→19:36)
[2024-01-30 08:12] LABS: Glucose - Point of Care 151 mg/dl (70-99)
[2024-01-30] MEDS: NOVOLOG FLEXPEN 6 UNITS SC ×3 (08:20→17:13)
[2024-01-30] MEDS: LANTUS 0.16 UNITS SC (08:20)
[2024-01-30] MEDS: NOVOLOG FLEXPEN-LOW RESISTANCE 1 UNITS SC ×2 (08:21→12:44)
[2024-01-30] MEDS: LIDOCAINE 4% PATCH TOPICAL (08:23)
--- NOTE | 2024-01-30 08:30 | PTCARENOTE ---
Patient received from night shift supervisor resting oob in chair, AAO x 3, medicated for mild headache, see MAR. NSR via cm, SaO2 @ 95% on RA. RIJ Cordis w/kvo infusing. Epicardial A+V wires, insulated. All procedural sites stable. Crowder catheter to gravity.
Patient updated to plan of care for the day, in agreement. See work list for full assessment and interventions performed.
--- NOTE | 2024-01-30 09:37 | W.PN.CARDCBS ---
Addendum entered and electronically signed by Hieu Alford MD 01/30/24 09:57:
I saw and examined the patient.
The TIMBER SURVEYOR or PA's note was reviewed and I agree with the note.
Comment: General: Well developed, well nourished in NAD.
Neck: Supple, no JVD, HJR, carotids +2 B/L, no bruits bilaterally.
Heart: Non displaced PMI, RRR, no murmurs, No S3, S4, no rubs.
Lungs: Scattered rhonchi
Sternal dressings noted
Extremities: No clubbing, cyanosis or edema bilaterally.
Neuro: Grossly nonfocal, awake, alert and oriented x3.
Continues to make slow progress. Remains in sinus rhythm. Dobutamine has been weaned off. Beta-silvestre to be started today. Continue Bumex for diuresis. Await chest x-ray result. Discussed with CT surgery PA.? Will need transfusion
Original Note:
Today's Communication / Plan
-
continue post op care
continued slow improvement
in SR
Impression / Plan
-
Cardiology: Dr. Fernie Cox of [facility]
PCP: Dr. Radha Tamez
IMPRESSION:
s/p Freestyle 21 mm AV replacement with replacement of ascending aorta to innominate for and aortic insufficiency of previously placed tissue AVR 01/19/24
s/p tissue AVR 2016
Not TAVR candidate with low coronary heights and narrow SOV
CAD s/p CABG with GARCIA to LAD and SVG to RCA, Diagonal could not be grafted 01/19/24
previous CABG with SVG to OM-2 in 2016 known to be occluded since cath in 2019
Open sternotomy secondary to oozing, edema, RV dysfunction on multiple pressors dobutamine and milrinone 01/19/24 s/p closure 01/21/24
DM 2
Hyperlipidemia
Hypoxemia resulting in emergent bronch 01/22/24
Acute post op anemia/thrombocytopenia
Post op FABIAN
Post op PAF and junctional rhythm
DEMAR 01/21/24: LV underfilled with all wall segments moving normally, RV severely hypokinetic with akinesis of anterior wall, trace MR and TR, no effusions
ECHO 01/27/24: EF 55 to 60%, mild concentric LVH, flattened septum in systole and diastole consistent with RV pressure and volume overload, mildly dilated RV with reduced RV systolic function, well-seated bioprosthetic AVR with peak/mean gradients
40/ mmHg, no AR seen, mild TR, PAP 30 to 35 mmHg, trivial pericardial effusion, pleural effusion present
RECOMMENDATIONS:
-patient underwent redo sternotomy with CABG x2 in situ GARCIA to LAD and rSVG from asc aortic graft to distal RCA, explant of prior aortic valve, complex Medtronic aortic root replacement, hypothermic circ arrest, ascending aorta replacement 01/19/24.
Due to prolonged pump time, chest was left open. 01/20 with periods of afib then junctional on IV amio gtt. Returned to OR 01/20 for chest closure. s/p bronch 01/21 due to hypoxemia and L lung whiteout on CXR with likely mucous plug
-weaning supp O2
-remains ~6 pounds up from admission weight if accurate. continue diuresis per surgical service. required IV bumex infusion earlier in admission. Cr stable at 1.7. CXR pending
-stable off dobutamine
-hgb 7.3. follow. continue eliquis
-remains in SR upon review of tele overnight. continue po amiodarone. low dose BB added today. follow on tele
-echo 01/26 with preserved EF, well seated bio AVR with elevated gradients (p 44/m 24). with small hyperdynamic LV and enlarged RV.
-encouraged IS, OOB, PT/OT/ST. for eventual rehab
-d/w nursing
Progress Note - Junior Analyst
Subjective
Date of Service: January 30, 2024
reports tired of sitting in chair. reports breathing ok.
Objective
Labs:
01/30/24 04:23
01/30/24 04:23
Labs
Hgb 7.3 g/dL (12.0-16.0) L 01/30/24 04:23
Hct 22.5 % (37.0-47.0) L 01/30/24 04:23
Plt Count 146 10^3/uL (130-400) 01/30/24 04:23
PT 15.0 Sec (11.4-14.6) H 01/21/24 15:02
INR 1.13 01/21/24 15:02
APTT Cancelled 01/27/24 06:00
Sodium 139 mmol/L (135-145) 01/30/24 04:23
Potassium 4.2 mmol/L (3.5-5.1) 01/30/24 04:23
BUN 67 mg/dl (7-17) H 01/30/24 04:23
Creatinine 1.7 mg/dL (0.6-1.0) H 01/30/24 04:23
Glucose 135 mg/dl (70-99) H 01/30/24 04:23
Vital Signs and I&O:
Vital Signs
Temp Pulse Resp BP Pulse Ox
97.9 F 77 16 128/59 94
01/30/24 07:44 01/30/24 09:30 01/30/24 08:21 01/30/24 08:00 01/30/24 08:26
Vital Signs
Temp Pulse Resp BP Pulse Ox
97.9 F 77 16 128/59 94
01/30/24 07:44 01/30/24 09:30 01/30/24 08:21 01/30/24 08:00 01/30/24 08:26
Intake & Output
01/28/24 01/29/24 01/30/24 01/31/24
07:59 07:59 07:59 07:59
Intake Total 1255.2 / 1279.2 1150.9 / 1162.2 1531.3 / 1791.3 270 / 270
Output Total 3235 / 3440 4290 / 4390 1914 75 / 75
Balance -1979.8 / -2160.8 -3139.1 / -3227.8 -383.7 / -198.7 195 / 195
Physical Exam
Physical Exam
GEN: No distress, awake. sitting in chair
HEENT: supple, anicteric, mmm, eomi.
LUNGS: CTA anterolaterally
CV: Reg, S1/S2, 1/6 murmur
ABD: soft, BS+, NT/ND
EXT: No cyanosis, clubbing. 2+ edema of RLE, 1+ of LLE
NEURO: Gross non-focal
SKIN: Warm, pink, dry. No rash. Sternotomy dressing c/d/i.
[2024-01-30] MEDS: DIAMOX 250 MG PO (10:32)
[2024-01-30] MEDS: KCL 40 MEQ PO (10:33)
[2024-01-30] MEDS: BUMEX 2 MG IV ×2 (10:33→14:19)
--- NOTE | 2024-01-30 12:00 | PTCARENOTE ---
VS obtained, assessment stable. Patient remains oob in chair, lunch ordered. States pain controlled.
[2024-01-30] MEDS: NSS IV (12:31)
[2024-01-30 12:39] LABS: Glucose - Point of Care 158 mg/dl (70-99)
[2024-01-30] MEDS: FLEXBUMIN 100 IV (14:15)
--- NOTE | 2024-01-30 15:43 | PTCARENOTE ---
VS obtained, assessment stable. Patient assisted oob after brief rest, worked w/PT. Settled to chair, dinner ordered. Daughter at bedside.
[2024-01-30] MEDS: LIPITOR 80 MG PO (17:01)
[2024-01-30] MEDS: NOVOLOG FLEXPEN-LOW RESISTANCE SC (17:13)
[2024-01-30 17:15] LABS: Glucose - Point of Care 143 mg/dl (70-99)
--- NOTE | 2024-01-30 20:30 | PTCARENOTE ---
Patient received resting in bed watching television. Patient A+A+Ox3. No neurological deficits noted. No c/o pain or discomfort. Room air. SpO2 95%. No c/o SOB. No s/s of respiratory distress. Occasional strong cough. Minimal productive
secretions noted. Chest tube dressing intact. Sinus Rhythm. Heart rate 70-80's. No ectopy noted. No c/o chest pain, pressure or discomfort. AV Wires insulated. Abdomen soft, round. Normoactive bowel sounds. No BM. Positive flatus. No c/o
nausea. No vomiting. External female urinary device (Pure Wick) in use. Yellow, pale urine. Sternal dressing intact. Surgical bra intact. Right groin dressing intact. Right lower extremity incisions intact - Surgical adhesive - Open to air.
Generalized edema. Positive, palpable pulses. Patient with no c/o back or flank pain. Assessment as documented.
[2024-01-30 22:35] LABS: Glucose - Point of Care 164 mg/dl (70-99)
[2024-01-30] MEDS: MELATONIN 5 MG PO (22:39)
[2024-01-30] MEDS: KCL 20 MEQ PO (22:39)
[2024-01-30] MEDS: ANESTHETIC LOZENGE PO (22:40)
--- NOTE | 2024-01-30 22:45 | PTCARENOTE ---
Patient resting in bed watching television. Patient A+A+Ox3. No neurological deficits noted. Patient given CHG bath and linens changed. Patient with urine saturated linens. New External Female Urinary Device placed. No c/o pain or discomfort.
Assessment/Interventions as documented.
[2024-01-30] MEDS: ANESTHETIC LOZENGE 1 LOZENGE PO (22:47)
[2024-01-31] VITALS (25 sets, daily range): BP systolic 90–135; BP diastolic 48–66; PULSE 73; BMI 37.6
--- NOTE | 2024-01-31 01:00 | PTCARENOTE ---
Patient sleeping without difficulty. No changes from previous assessment.
[2024-01-31] MEDS: XYLOCAINE 1% WITH EPINEPHRINE 10 ML INFIL (04:40)
[2024-01-31 04:52] LABS: Hematocrit 22.3 % (37.0-47.0); Mean Corp Hgb Conc. 31.4 g/dL (33.0-37.0); Mean Corpuscular Hgb 30.4 pg (27.0-31.0); Mean Platelet Volume 10.6 fL (7.4-10.4); Platelet Count 160 10^3/uL (130-400); Red Cell Dist. Width 18.7 % (11.5-14.5); White Blood Cell Count 16.9 10^3/uL (4.8-10.8)
[2024-01-31 05:21] LABS: Blood Urea Nitrogen 61 mg/dl (7-17); Carbon Dioxide 29 mmol/L (22-30); Chloride 99 mmol/L (98-107); Estimated Creatinine Clearance 32 ml/min; Glucose 127 mg/dl (70-99); Magnesium 2.5 mg/dl (1.6-2.3); Potassium 4.2 mmol/L (3.5-5.1); Sodium 138 mmol/L (135-145)
[2024-01-31] MEDS: TYLENOL 1000 MG PO ×3 (05:39→21:43)
[2024-01-31] MEDS: ANESTHETIC LOZENGE 1 LOZENGE PO ×2 (05:40→21:43)
--- NOTE | 2024-01-31 06:03 | W.PN.CT ---
Addendum entered and electronically signed by Rufus Perea MD 01/31/24 09:47:
I saw and examined the patient.
The PA's note was reviewed and I agree with the note.
Comment:
No major events. Drainage from L CT site, sutured. CXR significantly improved this AM.
Continued intermittent AF (4hrs overnight), on Eliquis. BB increased this AM
OOB/IS/attempt ambulation
Tolerating PO
Transition to PO lasix
Will require SNF on D/C
Original Note:
Today's Communication / Plan
-
POD #12
Converted back to rate controlled afib. Has been in & out throughout her postop course. Already anticoagulated. No interventions at this time. Consider uptitrating BB today if she can tolerate. BPs stable this AM.
Off drips. Tolerating low dose BB. Consider uptitration today.
Labs stable. Renal function at baseline. Hgb remains stable at 7.0
Stitch placed at left chest tube site for continuous oozing despite handheld pressure for 10 minutes (patient anticoagulated). Tolerated well.
Cont OOB as much as possible throughout the day
Chest x-ray shows improved left sided atelectasis after chest PT. Remained stable on room air.
Voiding into purewick however some unmeasurables noted by RN. Patient's linens saturated this AM.
Calorie count, ensures with every meal
s/p Echo 01/26 ( LVEF 55-60%, mildly dilated RV w/ reduced systolic function. AV: 44/24, PAP 30-35/ mild TR)
maintain temporary pacer wire, currently insulated (will cut before d/c home)
PT/OT/SP following
dispo: SNF when medically ready
appreciate everyone's input
Assessment / Plan
-
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
LAD and reverse saphenous vein graft from ascending aortic graft to distal RCA; EVH of RLE; Explant of prior 21 mm trifecta aortic valve; 21 mm Medtronic Freestyle aortic root complex replacement with reimplantation of coronary buttons; Hypothermic
circulatory arrest with selective cerebral perfusion, ascending aortic replacement with a 26 mm straight tube graft pm 01/19/[address] Trivedi, pod #11
- Intraop DEMAR: LVEF preop was preserved at approximately 55 to 60%. Following surgery EF remained the same at approximate 50-55% on 5 dobutamine and some Cardene. Her RV function was normal preoperatively and mild to moderately depressed
postoperatively. Following aortic root replacement, there was no aortic valve insufficiency with a new freestyle porcine root replacement.
-Her cardiac index was depressed at approximately 1.5 on 5 dobutamine. She did not require any pacing and was on her own [place] sinus rhythm following surgery. Due to the extended pump time, mild RV dysfunction, and required multiple blood
products due to coagulopathy, chest was left open and packed with 1 vaginal pack.
-S/P Removal of one vaginal packing/Evacuation of minimal clot and old fibrillar/hemostatic agents/Washout with warm saline/Placement of additional atrial pacing wires and additional ventricular pacing wire/Removal of the 28F straight chest
tube/Chest closure with 4 #7 single and 3 #8 double stainless steal wires/Application of skin vac, by Dr. Trivedi, 01/21/24, pod#9
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
- Multivessel coronary artery disease with anginal/exertional chest pain
- Class 1 obesity, BMI 33
- Hypertension
- Hyperlipidemia
- Previous PCI with cardiac stent to the OM
- Previous cardiac surgery with St Randy trifecta # 21 aortic valve replacement and single-vessel bypass to the OM in 2017
- Diabetes mellitus (A1c 6.8)
- Severe carotid stenosis of the right side
(US 01/11/24: Mixed plaque within the right carotid bulb, velocity measurements suggestive of greater than 70% stenosis, internal to common carotid ratio suggestive of 50-69% stenosis)
- Hard of hearing
- WILNER
- b/l breast biopsies
- Acute postop anemia- s/p 7 pRBCs
- Acute postop coagulopathy/thrombocytopenia - s/p Factor 7 in OR, total 3 FFPs, 3 units platelets
- Acute postop atelectasis
- Acute postop hypovolemia with subsequent hypervolemia
- Acute postop hypotension d/t cardiogenic shock, requiring inotrops and pressors
- Acute postop ectopy (PACs, PVCs)- tx with Amio bolus and drip, now off - improved with discontinuing Milrinone
- Acute postop hyperkalemia
- Acute postop junctional rhythm
- Acute postop metabolic alkalosis with respiratory compensation
- Acute postop respiratory insufficiency secondary to volume overload, pulmonary edema
- Acute postop VDRF
- Acute postop bronchoscopy 01/21 -unremarkable
- Acute postop bronchoscopy 01/20 -thick secretions suctioned @ [facility]
- Acute postop FABIAN
- Acute postop a-fib with RVR 150's
-postop Echo 01/27/24:
Small left ventricular chamber size. Mild concentric left ventricular hypertrophy. Normal left ventricular systolic function. Left ventricular ejection fraction is 55-60% by visual assessment.
Flattened septum in systole and diastole consistent with RV pressure and volume overload.
Mildly dilated right ventricle with reduced right ventricular systolic function.
Well seated bioprosthetic aortic valve with peak/mean gradients across the aortic valve of 44/24 mmHg. No aortic regurgitation is seen.
Mild tricuspid regurgitation. Estimated pulmonary artery pressure of 30-35 mmHg, assuming a right atrial pressure of 15 mmHg.
Trivial pericardial effusion. Pleural effusion present.
Compared to prior study dated 01/22/2024, prior aortic valve gradients were peak/mean 28/19 mmHg, respectively
Subjective
-
Date of Service: January 31, 2024
Feels ok, slept well
This morning her left chest tube insertion site started oozing continuously. Serosanguinous drainage.
No other new complaints.
Objective Data
-
Lab Results
01/31/24 04:24
01/31/24 04:24
PT 15.0 Sec (11.4-14.6) H 01/21/24 15:02
INR 1.13 01/21/24 15:02
APTT Cancelled 01/27/24 06:00
Vital Signs
Vital Signs
Temp Pulse Resp BP Pulse Ox
98.1 F 75 16 133/53 95
01/31/24 04:35 01/31/24 04:35 01/31/24 04:35 01/31/24 04:35 01/31/24 04:35
CT Intake/Output/Weight
01/30/24 01/30/24 01/31/24
06:59 18:59 06:59
Intake Total 600 / 1542.6 780 / 1260 480 / 1260
Output Total 900 / 1990 1555 / 1855 300 / 1855
Balance -300 / -447.4 -775 / -595 180 / -595
SaO2: 95
Physical Exam
-
General: Awake and Oriented
Cardiovascular: Irregular rate & rhythm and No Murmurs
Respiratory: Clear
Sternum: Stable
Incision: Other (Dressing intact over sternum. Leg incisions CDI.Left most chest tube insertion site with continuous serosanguinous oozing.)
Data Reviewed
-
Lab Results: Results Reviewed
Medications: Active Meds Reviewed
--- NOTE | 2024-01-31 06:15 | PTCARENOTE ---
Patient A+A+Ox3. No neurological deficits noted. Patient's hospital gown noted to have large area of blood over abdominal region. Chest tube dressing saturated. Chest tube opening on left side (Left Pleural) - oozing blood. PA for CT Surgery
made aware. Order for Lidocaine - PA administered then placed two sutures. Patient given CHG bath and linens changed. Chest tube dressing changed. AM lab work collected and sent. OOB to chair. 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
Fibrillation. HR 90-100. No c/o chest pain, pressure or discomfort. PA made aware. Assessment/Interventions as documented.
--- NOTE | 2024-01-31 06:17 | W.PN.UPDATE ---
Update Note
Progress Note Update
Noted near continuous serosanguineous oozing from left most chest tube insertion site.
This persisted despite manual pressure x 10 minutes. Note the patient is on anticoagulation.
Site cleansed with chlorhexidine and infiltrated with 5 cc of 1% lidocaine with epi.
2 simple interrupted 2-0 silk sutures placed. Oozing resolved. Patient tolerated well.
[2024-01-31 07:55] LABS: Glucose - Point of Care 124 mg/dl (70-99)
[2024-01-31] MEDS: NOVOLOG FLEXPEN-LOW RESISTANCE SC ×3 (08:13→17:27)
[2024-01-31] MEDS: LIDOCAINE 4% PATCH TOPICAL (08:14)
[2024-01-31] MEDS: XOPENEX 1.25 MG INHALANT SOLUTION INH ×3 (08:21→19:34)
[2024-01-31] MEDS: ATROVENT NEBULES 0.5 MG INH ×3 (08:21→19:34)
[2024-01-31] MEDS: NOVOLOG FLEXPEN 6 UNITS SC ×3 (08:24→17:43)
[2024-01-31] MEDS: ELIQUIS 5 MG PO ×2 (08:25→20:18)
[2024-01-31] MEDS: FARXIGA 10 MG PO (08:25)
[2024-01-31] MEDS: SENOKOT-S 1 TABLET PO ×2 (08:25→20:18)
[2024-01-31] MEDS: VITAMIN C 500 MG PO (08:25)
[2024-01-31] MEDS: LOPRESSOR 25 MG PO ×2 (08:25→20:18)
[2024-01-31] MEDS: FEOSOL 325 MG PO (08:25)
[2024-01-31] MEDS: LANTUS 0.16 UNITS SC (08:25)
[2024-01-31] MEDS: PROTONIX 40 MG PO (08:25)
[2024-01-31] MEDS: NEURONTIN 100 MG PO ×3 (08:26→21:43)
[2024-01-31] MEDS: LOW STRENGTH ASPIRIN 81 MG PO (08:26)
[2024-01-31] MEDS: PACERONE 200 MG PO ×3 (08:26→21:43)
--- NOTE | 2024-01-31 08:45 | PTCARENOTE ---
Patient received from rooter operator resting oob in chair, AAO X 3, denies pain. Afib via cm w/spontaneous conversion back to NSR approx 0730, VS stable, patient asymptomatic. SaO2 @ 95% on RA. RUE midline catheter in place. Patient assisted x heavy 2
assist to bedside commode, voided. Moderate amount serosanguineous drainage noted to chest tube puncture dressings, Karina Camilo NP notified. Patient updated to plan of care for the day, in agreement. See work list for full assessment and interventions
performed.
--- NOTE | 2024-01-31 09:58 | W.PN.CARDCBS ---
Today's Communication / Plan
-
Paroxysmal atrial fibrillation overnight
Continue Eliquis and amiodarone
Continue Bumex for diuresis
Impression / Plan
-
Cardiology: Dr. Fernie Cox of [facility]
PCP: Dr. Radha Tamez
IMPRESSION:
s/p Freestyle 21 mm AV replacement with replacement of ascending aorta to innominate for and aortic insufficiency of previously placed tissue AVR 01/19/24
s/p tissue AVR 2016
Not TAVR candidate with low coronary heights and narrow SOV
CAD s/p CABG with GARCIA to LAD and SVG to RCA, Diagonal could not be grafted 01/19/24
previous CABG with SVG to OM-2 in 2016 known to be occluded since cath in 2019
Open sternotomy secondary to oozing, edema, RV dysfunction on multiple pressors dobutamine and milrinone 01/19/24 s/p closure 01/21/24
Acute diastolic CHF
DM 2
Hyperlipidemia
Hypoxemia resulting in emergent bronch 01/22/24
Acute post op anemia
Post op FABIAN
Post op PAF and junctional rhythm
DEMAR 01/21/24: LV underfilled with all wall segments moving normally, RV severely hypokinetic with akinesis of anterior wall, trace MR and TR, no effusions
ECHO 01/27/24: EF 55 to 60%, mild concentric LVH, flattened septum in systole and diastole consistent with RV pressure and volume overload, mildly dilated RV with reduced RV systolic function, well-seated bioprosthetic AVR with peak/mean gradients
40/ mmHg, no AR seen, mild TR, PAP 30 to 35 mmHg, trivial pericardial effusion, pleural effusion present
RECOMMENDATIONS:
She continues to make slow progress
Episode of A-fib 01/30 a.m. and now in sinus rhythm
Continue amiodarone and Eliquis
Hemoglobin remains low in 7 range and may need to consider transfusion
Getting boluses of Bumex IV for diuresis with improving renal function with creatinine of 1.6 on 01/30
[facility]
Discussed with CT surgery PA
Progress Note - Rn Care Transition
Subjective
Date of Service: January 31, 2024
No complaints
Objective
Labs:
01/31/24 04:24
01/31/24 04:24
Labs
Hgb 7.0 g/dL (12.0-16.0) L 01/31/24 04:24
Hct 22.3 % (37.0-47.0) L 01/31/24 04:24
Plt Count 160 10^3/uL (130-400) 01/31/24 04:24
PT 15.0 Sec (11.4-14.6) H 01/21/24 15:02
INR 1.13 01/21/24 15:02
APTT Cancelled 01/27/24 06:00
Sodium 138 mmol/L (135-145) 01/31/24 04:24
Potassium 4.2 mmol/L (3.5-5.1) 01/31/24 04:24
BUN 61 mg/dl (7-17) H 01/31/24 04:24
Creatinine 1.6 mg/dL (0.6-1.0) H 01/31/24 04:24
Glucose 127 mg/dl (70-99) H 01/31/24 04:24
Vital Signs and I&O:
Vital Signs
Temp Pulse Resp BP Pulse Ox
98 F 74 18 127/58 95
01/31/24 08:00 01/31/24 09:30 01/31/24 08:25 01/31/24 08:31 01/31/24 08:36
Vital Signs
Temp Pulse Resp BP Pulse Ox
98 F 74 18 127/58 95
01/31/24 08:00 01/31/24 09:30 01/31/24 08:25 01/31/24 08:31 01/31/24 08:36
Intake & Output
01/29/24 01/30/24 01/31/24 02/01/24
06:59 06:59 06:59 06:59
Intake Total 1139.6 / 1150.9 1532.6 / 1542.6 1260 / 1260 250 / 250
Output Total 4215 / 4290 1914 / 1989 1954 / 1954 150 / 150
Balance -3075.4 / -3139.1 -382.4 / -447.4 -695 / -695 100 / 100
Physical Exam
Physical Exam
General: Well developed, well nourished in NAD.
Neck: Supple, no JVD, HJR, carotids +2 B/L, no bruits bilaterally.
Heart: Non displaced PMI, RRR, no murmurs, No S3, S4, no rubs.
Lungs: Scattered rhonchi
Sternal dressings noted
Extremities: No clubbing, cyanosis or edema bilaterally.
Neuro: Grossly nonfocal, awake, alert and oriented x3.
[2024-01-31] MEDS: KCL 20 MEQ PO (12:05)
--- NOTE | 2024-01-31 12:15 | PTCARENOTE ---
VS obtained, assessment stable. Awaiting lunch.
[2024-01-31] MEDS: BUMEX 2 MG IV ×2 (12:21→17:43)
[2024-01-31 12:40] LABS: Glucose - Point of Care 114 mg/dl (70-99)
[2024-01-31] MEDS: NSS IV (13:55)
--- NOTE | 2024-01-31 16:22 | PTCARENOTE ---
VS obtained, assessment stable. Patient resting comfortably, 1uprbc transfusion completed. Perusing dinner menu.
[2024-01-31 17:28] LABS: Glucose - Point of Care 131 mg/dl (70-99)
[2024-01-31] MEDS: LIPITOR 80 MG PO (17:43)
[2024-01-31] MEDS: STERILE WATER FOR INJECTION 18 ML IV (17:46)
[2024-01-31] MEDS: DIURIL 0.5 GRAM VIAL 0.5 GRAMS IV (17:46)
[2024-01-31] MEDS: MELATONIN 5 MG PO (21:43)
[2024-01-31 21:50] LABS: Glucose - Point of Care 87 mg/dl (70-99)
--- NOTE | 2024-01-31 22:00 | PTCARENOTE ---
Assumed care of pt from dayshift RN. Walking rounds completed. Pt AAOx3. [place]. Pt is SR on the tele monitor. HR 70s. Temporary epicardial A/V wires intact and insulated. BP stable. B/L radial pulses palpable. B/L DP pulses weak on palpation. +1
generalized edema. Pt on RA. POX 94-95%. Occasional harsh cough. Lung sounds diminished throughout. Deep breathing and IS encouraged. Pt completed chest PT w/ respiratory. CT dressing changed. Abdomen soft/round. +BS. Pt assisted out of the chair to
void in the commode clear/yellow urine. Pure wick in place now that pt is in bed. All surgical sites stable. Right upper arm midline and right AC PIV C/D/I. Pt assist x2 w/ rolling walker out of the chair/ to the commode/ into bed. See worklist for
full nursing assessment and interventions. Call portillo within reach.
--- NOTE | 2024-01-31 23:42 | PTCARENOTE ---
No acute change in assessment. Pt SR on the tele monitor. HR 60-70s. BP 112/55. Pt on RA. POX 95%. Pure-wick catheter in place. Pt voiding yellow urine. All surgical sites stable. Pt repositioned in bed. No c/o pain at this time. Call portillo within
reach.
[2024-02-01] VITALS (12 sets, daily range): BP systolic 105–132; BP diastolic 49–65; PULSE 75–76; O2SAT 94; BMI 35.8
--- NOTE | 2024-02-01 04:32 | PTCARENOTE ---
No acute change in assessment. Pt SR on the tele monitor. HR 70s. BP stable. Pt on RA. POX 94%. Pure-wick in place and pt voiding yellow urine. All surgical sites stable. Pt repositioned in bed. Labs drawn and sent. Call portillo within reach.
[2024-02-01 04:34] LABS: Hematocrit 27.4 % (37.0-47.0); Hemoglobin 8.8 g/dL (12.0-16.0); Mean Corp Hgb Conc. 32.1 g/dL (33.0-37.0); Mean Corpuscular Hgb 29.9 pg (27.0-31.0); Mean Corpuscular Volume 93.2 fL (81.0-99.0); Mean Platelet Volume 10.5 fL (7.4-10.4); Platelet Count 165 10^3/uL (130-400); Red Blood Cell Count 2.94 10^6/uL (4.20-5.40); White Blood Cell Count 17.4 10^3/uL (4.8-10.8)
--- NOTE | 2024-02-01 04:38 | W.PN.CT ---
Today's Communication / Plan
-
POD #13
NSR after increasing BBl.
Labs stable. Hgb 8.8 (appropriate response) after one URBC's yesterday
BUN/creat stable
Diuresing well after Bumex and diuril last evening.
Cont OOB as much as possible throughout the day
VSS
Purewick in place 2/2 incontinence
Calorie count, ensures with every meal
s/p Echo 01/26 ( LVEF 55-60%, mildly dilated RV w/ reduced systolic function. AV: 44/24, PAP 30-35/ mild TR)
maintain temporary pacer wire, currently insulated (will cut before d/c home)
PT/OT/SP following
dispo: SNF when medically ready
Assessment / Plan
-
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
LAD and reverse saphenous vein graft from ascending aortic graft to distal RCA; EVH of RLE; Explant of prior 21 mm trifecta aortic valve; 21 mm Medtronic Freestyle aortic root complex replacement with reimplantation of coronary buttons; Hypothermic
circulatory arrest with selective cerebral perfusion, ascending aortic replacement with a 26 mm straight tube graft pm 01/19/[address] Trivedi, pod #11
- Intraop DEMAR: LVEF preop was preserved at approximately 55 to 60%. Following surgery EF remained the same at approximate 50-55% on 5 dobutamine and some Cardene. Her RV function was normal preoperatively and mild to moderately depressed
postoperatively. Following aortic root replacement, there was no aortic valve insufficiency with a new freestyle porcine root replacement.
-Her cardiac index was depressed at approximately 1.5 on 5 dobutamine. She did not require any pacing and was on her own [place] sinus rhythm following surgery. Due to the extended pump time, mild RV dysfunction, and required multiple blood
products due to coagulopathy, chest was left open and packed with 1 vaginal pack.
-S/P Removal of one vaginal packing/Evacuation of minimal clot and old fibrillar/hemostatic agents/Washout with warm saline/Placement of additional atrial pacing wires and additional ventricular pacing wire/Removal of the 28F straight chest
tube/Chest closure with 4 #7 single and 3 #8 double stainless steal wires/Application of skin vac, by Dr. Trivedi, 01/21/24, pod#9
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
- Multivessel coronary artery disease with anginal/exertional chest pain
- Class 1 obesity, BMI 33
- Hypertension
- Hyperlipidemia
- Previous PCI with cardiac stent to the OM
- Previous cardiac surgery with St Randy trifecta # 21 aortic valve replacement and single-vessel bypass to the OM in 2017
- Diabetes mellitus (A1c 6.8)
- Severe carotid stenosis of the right side
(US 01/11/24: Mixed plaque within the right carotid bulb, velocity measurements suggestive of greater than 70% stenosis, internal to common carotid ratio suggestive of 50-69% stenosis)
- Hard of hearing
- WILNER
- b/l breast biopsies
- Acute postop anemia- s/p 7 pRBCs
- Acute postop coagulopathy/thrombocytopenia - s/p Factor 7 in OR, total 3 FFPs, 3 units platelets
- Acute postop atelectasis
- Acute postop hypovolemia with subsequent hypervolemia
- Acute postop hypotension d/t cardiogenic shock, requiring inotrops and pressors
- Acute postop ectopy (PACs, PVCs)- tx with Amio bolus and drip, now off - improved with discontinuing Milrinone
- Acute postop hyperkalemia
- Acute postop junctional rhythm
- Acute postop metabolic alkalosis with respiratory compensation
- Acute postop respiratory insufficiency secondary to volume overload, pulmonary edema
- Acute postop VDRF
- Acute postop bronchoscopy 01/21 -unremarkable
- Acute postop bronchoscopy 11/7 -thick secretions suctioned @ [facility]
- Acute postop FABIAN
- Acute postop a-fib with RVR 150's
-postop Echo 01/27/24:
Small left ventricular chamber size. Mild concentric left ventricular hypertrophy. Normal left ventricular systolic function. Left ventricular ejection fraction is 55-60% by visual assessment.
Flattened septum in systole and diastole consistent with RV pressure and volume overload.
Mildly dilated right ventricle with reduced right ventricular systolic function.
Well seated bioprosthetic aortic valve with peak/mean gradients across the aortic valve of 44/24 mmHg. No aortic regurgitation is seen.
Mild tricuspid regurgitation. Estimated pulmonary artery pressure of 30-35 mmHg, assuming a right atrial pressure of 15 mmHg.
Trivial pericardial effusion. Pleural effusion present.
Compared to prior study dated 01/22/2024, prior aortic valve gradients were peak/mean 28/19 mmHg, respectively
Subjective
Procedure
Coronary bypass grafting x 2 [in situ GARCIA to LAD and reverse saphenous vein graft from ascending aortic graft to distal RCA, Explant of prior 21 mm trifecta aortic valve, and Freestyle aortic root replacement with reimplantation of coronary buttons
on 01/19/24
-
Date of Service: February 01, 2024
Objective Data
-
Lab Results
02/01/24 04:22
02/01/24 04:22
PT 15.0 Sec (11.4-14.6) H 01/21/24 15:02
INR 1.13 01/21/24 15:02
APTT Cancelled 01/27/24 06:00
Vital Signs
Vital Signs
Temp Pulse Resp BP Pulse Ox
98.9 F 72 18 132/52 94
02/01/24 04:15 02/01/24 04:15 02/01/24 04:15 02/01/24 04:15 02/01/24 04:15
CT Intake/Output/Weight
01/31/24 01/31/24 02/01/24
06:59 18:59 06:59
Intake Total 480 / 1260 900 / 900
Output Total 400 / 5 1125 / 2725 1600 / 2725
Balance 80 / -695 -225 / -1825 -1600 / -1824
SaO2: 94
Physical Exam
-
General: Awake and Oriented
Cardiovascular: Regular rate & rhythm
Respiratory: Clear
Sternum: Stable
Incision: Dressing Intact and Other (chest tube site with scant drainage)
[2024-02-01 04:59] LABS: Blood Urea Nitrogen 60 mg/dl (7-17); Carbon Dioxide 29 mmol/L (22-30); Chloride 97 mmol/L (98-107); Estimated Creatinine Clearance 33 ml/min; Glucose 130 mg/dl (70-99); Magnesium 2.3 mg/dl (1.6-2.3); Phosphorus 3.9 mg/dl (2.5-4.5); Sodium 138 mmol/L (135-145)
[2024-02-01] MEDS: TYLENOL 1000 MG PO (06:28)
[2024-02-01] MEDS: XOPENEX 1.25 MG INHALANT SOLUTION INH ×3 (07:14→19:25)
[2024-02-01] MEDS: ATROVENT NEBULES 0.5 MG INH ×2 (07:14→19:25)
[2024-02-01] MEDS: NOVOLOG FLEXPEN-LOW RESISTANCE SC ×3 (08:00→18:28)
[2024-02-01] MEDS: NOVOLOG FLEXPEN 6 UNITS SC ×3 (08:01→18:25)
--- NOTE | 2024-02-01 08:46 | PN.DE.MGMTRT ---
Insulin Management
- -
02/01/2024: Diabetes management F/U:
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 Pt underwent Redo sternotomy with extensive adhesiolysis of adhesions 2/2 to previous cardiac
surgery (modifier 22); CABG x 2 [in situ GARCIA to LAD and reverse saphenous vein graft from ascending aortic graft to distal RCA, 21 mm Medtronic Freestyle aortic root complex replacement with reimplantation of coronary buttons; now POD #9. PMH: CHF,
MVCAD, Morbid obesity, HTN, HLD, Severe , T2DM, [place], Prior aortic valve replacement with single-vessel bypass. Was taking Jardiance 10mg daily prior to admission. A1C 6.8%, Reports she has a working meter with enough supplies at home.
Pt awake alert, sitting up in bed, offers no complaints, able to discuss diabetes management, Cr 2.2-->1.6, eGFR 32.60
Appetite remains poor, eating ~50% of her meals. Glucose stable and in range, premeal 114 to 131, FBG 130(V) this AM.
Will make no changes to current regimen: Lantus 16 units in AM and AC NovoLog 6 units. Cont low corrective with meals.
Will follow and adjust insulin dose if needed.
Provided insulin pen instruction: action prep and injection technique. Patient seems resigned but would prefer not to take insulin. Discussed it may just be temporary as she has been through so much. Discussed with patient importance of glucose
control after discharge to prevent infection, she verbalized understanding. Will review again in AM times to test and target range. Diabetes education booklet provided and information regarding SBGM highlighted. Will review insulin administration.
Diabetes History
- -
Type of Diabetes: 2 requiring insulin
Pre-Admission Diabetes Regimen
02/01/24
04:22
Creatinine 1.6 H
Lab Results
Hemoglobin A1c 6.8 % (4.0-5.6) H 01/11/24 08:40
Insulin Pump Settings
IP Diabetes Regimen
01/31/24 01/31/24 01/31/24
12:39 17:26 21:48
Glucose
POC Glucose 114 H 131 H 87
02/01/24
04:22
Glucose 130 H
POC Glucose
Meal type: Lunch
Amount consumed: 50%
Patient Education
[2024-02-01] MEDS: BUMEX 2 MG IV (09:06)
[2024-02-01] MEDS: LOW STRENGTH ASPIRIN 81 MG PO (09:07)
[2024-02-01] MEDS: LOPRESSOR 25 MG PO (09:07)
[2024-02-01] MEDS: KCL 40 MEQ PO (09:07)
[2024-02-01] MEDS: NEURONTIN 100 MG PO ×3 (09:07→21:00)
[2024-02-01] MEDS: PACERONE 200 MG PO ×3 (09:07→21:01)
[2024-02-01] MEDS: FARXIGA 10 MG PO (09:07)
[2024-02-01] MEDS: PROTONIX 40 MG PO (09:08)
[2024-02-01] MEDS: VITAMIN C 500 MG PO (09:08)
[2024-02-01] MEDS: FEOSOL 325 MG PO (09:08)
[2024-02-01] MEDS: ELIQUIS 5 MG PO ×2 (09:08→19:54)
[2024-02-01] MEDS: ZAROXOLYN 5 MG PO (09:08)
[2024-02-01] MEDS: LANTUS 0.16 UNITS SC (09:08)
[2024-02-01] MEDS: SENOKOT-S 1 TABLET PO ×2 (09:08→19:54)
[2024-02-01] MEDS: LIDOCAINE 4% PATCH 1 PATCH TOPICAL (09:08)
[2024-02-01] MEDS: MIRALAX 17 GRAMS PO (09:08)
--- NOTE | 2024-02-01 10:16 | PTCARENOTE ---
assumed care of pt from previous shift RN, sinus rhythm on tele, VSS, + peripheral pulses, +1 edema to lower extremities. Lungs diminished, pox 100% on RA, coughing and deep breathing encouraged. +bs, tolerating PO intake. Pt voids spontaneously,
incont at times. Right PVI and midline catheter flush easily. MSI w dressing intact. Assisted pt w ambulating to restroom using rolling walker, pt weak but tolerated short walk. Plan of care reviewed w the pt and questions encouraged.
--- NOTE | 2024-02-01 12:46 | PTCARENOTE ---
pt remains seated in chair, incont care provided, VSS, pt denies pain.
[2024-02-01 13:37] LABS: Glucose - Point of Care 149 mg/dl (70-99)
[2024-02-01] MEDS: TYLENOL PO ×2 (14:08→21:03)
[2024-02-01] MEDS: NSS IV (15:11)
--- NOTE | 2024-02-01 16:07 | W.PN.CARDCBS ---
Addendum entered and electronically signed by René Case MD 02/01/24 17:11:
Attending addendum: Patient seen and examined. PA note reviewed and findings confirmed. She is sitting in a chair and quite interactive. No complaints aside from stating I'm so tired of being tired
RECOMMENDATIONS:
-Afib on apixaban 5mg bid and aspirin
-Supportive care
-Encouraged incentive spirometer.
-Will follow
Original Note:
Today's Communication / Plan
-
Continue diuresis
In SR on review of tele, continue amiodarone, lopressor
Hgb improved following transfusion
Continue Eliquis
Continue post op care
Impression / Plan
-
Cardiology: Dr. Fernie Cox of [facility]
PCP: Dr. Radha Tamez
IMPRESSION:
s/p Freestyle 21 mm AV replacement with replacement of ascending aorta to innominate for and aortic insufficiency of previously placed tissue AVR 01/19/24
s/p tissue AVR 2016
Not TAVR candidate with low coronary heights and narrow SOV
CAD s/p CABG with GARCIA to LAD and SVG to RCA, Diagonal could not be grafted 01/19/24
previous CABG with SVG to OM-2 in 2016 known to be occluded since cath in 2019
Open sternotomy secondary to oozing, edema, RV dysfunction on multiple pressors dobutamine and milrinone 01/19/24 s/p closure 01/21/24
Acute diastolic CHF
DM 2
Hyperlipidemia
Hypoxemia resulting in emergent bronch 01/22/24
Acute post op anemia
Post op FABIAN
Post op PAF and junctional rhythm
DEMAR 01/21/24: LV underfilled with all wall segments moving normally, RV severely hypokinetic with akinesis of anterior wall, trace MR and TR, no effusions
ECHO 01/27/24: EF 55 to 60%, mild concentric LVH, flattened septum in systole and diastole consistent with RV pressure and volume overload, mildly dilated RV with reduced RV systolic function, well-seated bioprosthetic AVR with peak/mean gradients
40/24 mmHg, no AR seen, mild TR, PAP 30 to 35 mmHg, trivial pericardial effusion, pleural effusion present
Plan:
-Underwent redo sternotomy with CABG x2 (in situ GARCIA to LAD and rSVG from asc aortic graft to distal RCA), explant of prior aortic valve, complex Medtronic aortic root replacement, hypothermic circ arrest, ascending aorta replacement 01/19/24. Due
to prolonged pump time, chest was left open. 01/20 with periods of afib then junctional on IV amio gtt. Returned to OR 01/20 for chest closure. s/p bronch 01/21 due to hypoxemia and L lung whiteout on CXR with likely mucous plug.
-Episode of afib noted in AM 01/30, back in SR on review of telemetry. Continue amiodarone and lopressor 25mg BID. HR stable.
-Continue Eliquis 5mg BID and aspirin 81mg daily.
-Hgb stable at 8.8 following transfusion 01/30.
-Continue diuresis per surgical team. s/p bumex and metolazone this AM, plan is for lasix this afternoon. Creat stable at 1.6, weight 208lbs.
-Plan is for SNF at discharge.
-Continue post op care
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
Subjective
Date of Service: February 01, 2024
Slowly improving. No chest pain.
Objective
Labs:
02/01/24 04:22
02/01/24 04:22
Labs
Hgb 8.8 g/dL (12.0-16.0) L D 02/01/24 04:22
Hct 27.4 % (37.0-47.0) L 02/01/24 04:22
Plt Count 165 10^3/uL (130-400) 02/01/24 04:22
PT 15.0 Sec (11.4-14.6) H 01/21/24 15:02
INR 1.13 01/21/24 15:02
APTT Cancelled 01/27/24 06:00
Sodium 138 mmol/L (135-145) 02/01/24 04:22
Potassium 4.0 mmol/L (3.5-5.1) 02/01/24 04:22
BUN 60 mg/dl (7-17) H 02/01/24 04:22
Creatinine 1.6 mg/dL (0.6-1.0) H 02/01/24 04:22
Glucose 130 mg/dl (70-99) H 02/01/24 04:22
Vital Signs and I&O:
Vital Signs
Temp Pulse Resp BP Pulse Ox
97.6 F 71 18 128/65 98
02/01/24 11:21 02/01/24 12:00 02/01/24 11:21 02/01/24 11:21 02/01/24 11:21
Vital Signs
Temp Pulse Resp BP Pulse Ox
97.6 F 71 18 128/65 98
02/01/24 11:21 02/01/24 12:00 02/01/24 11:21 02/01/24 11:21 02/01/24 11:21
Intake & Output
01/30/24 01/31/24 02/01/24 02/02/24
06:59 06:59 06:59 06:59
Intake Total 1532.6 / 1542.6 1260 / 1260 900 / 900
Output Total 1914 / 1954 2975 / 2975 400 / 400
Balance -382.4 / -447.4 -695 / -695 -2075 / -2075 -400 / -400
Physical Exam
Physical Exam
GEN: No distress, awake. sitting in chair
HEENT: supple, anicteric, mmm, eomi.
LUNGS: crackles at b/l bases
CV: Reg, S1/S2, 1/6 murmur
EXT: No cyanosis, clubbing. +1 edema b/l LE
NEURO: Gross non-focal
SKIN: Warm, pink, dry. No rash. Sternotomy dressing c/d/i.
[2024-02-01] MEDS: LIPITOR 80 MG PO (16:29)
[2024-02-01] MEDS: LASIX 80 MG PO (16:29)
--- NOTE | 2024-02-01 16:53 | PTCARENOTE ---
VSS, pt lethargic but easily arousable. Lasix administered as ordered, purewick placed.
[2024-02-01] MEDS: ATROVENT NEBULES INH (16:59)
--- NOTE | 2024-02-01 17:09 | CM ---
spoke to pt in room, dc plan is for [facility] tomorrow if medically stable. authorization approved , bed is available.
--- NOTE | 2024-02-01 17:14 | W.PN.REHAB ---
Today's Communication / Plan
-
Acute inpatient rehabilitation
Assessment/Function
-
Assessment:
General Appearance/Observation: Well-developed, well-nourished female in no apparent distress. Tired and closing eyes intermittently
Pain/Comfort Assessment: Denies
Mood/Affect: Appropriate
Integumentary/Operative Site: sternal incision with dressing, RLE incision open to air with ecchymosis and swelling, right groin - incision with dressing, tube incisions with dressings
Eyes: Conjunctiva/Lids: normal Pupils: pupils equal round and reactive to light and Accommodation
Ears/Nose/Throat: oral mucosa -dry, throat clear. Lips/Teeth/Gums: lips dry and with scabs
Cardiovascular: Heart: regular, murmur
Pulses: dorsalis pedis 2+ bilaterally
Respiratory: Respiratory Effort/Chest Expansion: normal Auscultation: diminished and with wheezing
Gastrointestinal: abdomen not tender, no distension, normal abdominal bowel sounds
Genitourinary: Crowder
Extremities: Edema: legs Cyanosis: None Trophic changes: None
Neurology Exam:
Orientation: Alert, Oriented to self, Time, Place
Memory: limited interaction but able to answer basic questions regarding hospitalization- had heart surgery
Comprehension: Intact
Two step command: Intact
Naming: NT
Cranial Nerves:
CNII: Pupillary light reflex: Intact Visual Field: NT
CN III, IV, : Extraocular muscles: Intact
CN V: Facial Sensation at Forehead: Intact, Maxilla: Intact, Mandible: Intact
CN VII: Facial movement: Symmetric
CN VIII: Hearing: SA[place]
CN IX/X: Speech & swallow: low volume, Position of Uvula: Midline
CN XI: Shoulder shrug: Symmetric
CN XII: Tongue protrusion: Midline
Sensory:
Light touch: Intact in bilateral upper and left lower extremity. Slightly diminished in RLE
The
Musculoskeletal:
Motor: (Manual muscle scale 0-5)
Muscle SA EF WE EE FF FA HF KE DF EHL PF
Right� 3+ 5 5 5 2+ 3 5 5 5
Left 3+ 5 5 5 2+ 3 5 5 5
Function:
Bed Mobility:
Transfers: Mod assist
Ambulation:
Steps:
ADL's:toileting mod assistance.
Plan
-
Assessment:
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
Admitted for complex cardiac surgery. On 01/18-underwent coronary artery bypass/aortic root replacement/redo sternotomy with lysis of adhesions/explant of prior aortic valve by Dr. Trivedi.
Plan
PT/OT to increase independence with ADLs, improve balance, coordination, endurance, strength, mobility, community reintegration, decreased burden of care on others and family education.
Debility: S/p complex cardiac surgery, CABG. Cont PT/OT
S/P CABG x 2 and aortic root replacement: Sternal precautions. Eliquis, asa 81mg, Bumex, Amiodarone 200mg tid, atorvastatin, Monitor incision, pain control.
Severe left lung atelectasis:01/22/2024-likely mucous plug per pulmonary. Bronchoscopy 01/22/2024
-Maintain SpO2 >90-94% with supplemental O2 and wean as tolerated.
-Encourage incentive spirometry use 10x per hour for at least 4 hrs a day
-Pulmonary toilet is marshall --> continue Mucinex 1200mg BID with chest PT with sport bed vs percussor (still with SS-CP so unable to use percussor or vest at this time). Start acapella
- Xopenex and atrovent TID with prn doses in between for breakthrough symptoms
HLD: Atorvastatin 80 mg every afternoon
Coronary artery disease : statin, off BB as of now due to low BP
Carotid stenosis on the right: Noted
FABIAN: Improving. BUN/creatinine 60/1.6.
CHF: Left ventricular EF 55-60% by visual assessment. Flattened septum in systole and diastole consistent with RV pressure and volume overload. Mildly dilated right ventricle with reduced right ventricular systolic
function., monitor fluid status. Diuresis
DM II: Accu-Cheks, insulin sliding scale, Farxiga, insulin glargine- 14 units, Aspart 5 units
Leukocytosis: Has been in the 16-17 range over the past 4 days
Anemia: No evidence of acute bleeding. Ferrous sulfate 325mg qd. Hemoglobin 8.8 from 7
-S/p multiple transfusions - last 01/21/2024.
Psych: Psychology consult. Monitor mood, adjust medications as needed.
Skin: monitor for pressure sores/rashes/lesions.
Pain: acetaminophen as needed, gabapentin
Bowel: Colace and Senna, PRN bisacodyl.
Bladder: Has Crowder - when appropriate Time void, PVRs, PRN straight cath.
GI Prophylaxis: Pantoprazole 40mg qd
DVT Prophylaxis: mechanical, Eliquis
Pulmonary: Incentive spirometry
Obesity: Continue to res counselor patient about diet adjustments to control obesity. Body habitus and increased force to move body and extremities causes further difficulty with functional tasks.
Safety: Continue to reinforce assistance with all transfers.
Code Status: No order in.
Dispo (date/plan/equipment needs): Home with family care Social history reviewed.
Functional and Medical Goals: Modified Independent with ADL�s, ambulation, transfers
Discharge Destination: Patient s/p complex cardiac surgery on pressors, oxygen, pulmonary treatment, fluid overload on diuretic would benefit from Acute inpatient rehabilitation once medically stable and stronger. At this time she is not ready for
either, SNF or Acute rehabilitation. Will reevaluate once more stable.
Subjective
-
Patient seen and examined today. Overall continues to make progress. Making progress each day. Looking forward to getting into rehab and then getting back home. Denies any new concerns overnight. Denies any fevers, chills, chest pain, shortness
of breath, nausea, vomiting, abdominal pain, dysuria, or diarrhea. Tolerating therapy.
Vital Signs / Labs
-
Vital Signs and Labs:
Temp Pulse Resp BP Pulse Ox
99.1 F 77 16 123/54 97
02/01/24 16:12 02/01/24 16:12 02/01/24 16:12 02/01/24 16:12 02/01/24 16:12
02/01/24 04:22
02/01/24 04:22
01/31/24 02/01/24 02/01/24
17:26 04:22 13:36
WBC 17.4 H
RBC 2.94 L
Hgb 8.8 L D
Hct 27.4 L
MCHC 32.1 L
RDW 21.0 H
MPV 10.5 H
Chloride 97 L
BUN 60 H
Creatinine 1.6 H
Glucose 130 H
POC Glucose 131 H 149 H
[2024-02-01 18:23] LABS: Glucose - Point of Care 143 mg/dl (70-99)
--- NOTE | 2024-02-01 20:00 | PTCARENOTE ---
Assumed care of the patient at 1900. Patient OOB to chair, family at bedside. AOx3, CHILKAT, drowsy, no c/o pain. SR on the monitor, rate 80's; murmur on auscultation, pulses palpable, trace anasarca, AV present, insulated. Lungs diminished throughout,
on RA, occasional moist cough, IS encouraged. BS, abdomen SNT, obese, appetite good. Patient incontinent of urine, x1 saturated pad before being placed back into bed with a Purewick. Midsternal chest incision dressing CDI, R groin side CDI
ecchymotic, RSVG site CDI well approximated, dark ecchymosis. Single lumen midline in place RUE and an RAC20 PIV. Patient assist x2 to move from the chair to the bed. Attempted to use commode before getting back into bed but could not tolerate
standing long enough to transfer x2. Metoprolol 12.5 mg given en lieu of 25 mg for lower BP. Assessment of need ongoing, call portillo within reach.
[2024-02-01] MEDS: LOPRESSOR PO (20:41)
[2024-02-01] MEDS: LOPRESSOR 12.5 MG PO (21:00)
[2024-02-01] MEDS: MELATONIN 5 MG PO (21:00)
[2024-02-01 21:36] LABS: Glucose - Point of Care 113 mg/dl (70-99)
[2024-02-02 00:02] VITALS: BP 117/52
--- NOTE | 2024-02-02 00:06 | PTCARENOTE ---
Patient sleeping soundly between care. Warm blanket provided, tele batteries changed, call portillo within reach. Assessment ongoing.
--- NOTE | 2024-02-02 04:00 | PTCARENOTE ---
VSS, no changes in assessment. Patient sleeping soundly between care.
[2024-02-02 04:10] VITALS: BP 126/51
--- NOTE | 2024-02-02 04:26 | W.PN.CT ---
Today's Communication / Plan
-
Plan:
-No major issues overnight. Hemodynamically and neurologically intact. Pt's in good spirits
-Currently in NSR @ 80 bpm. On Amiodarone and Lopressor
-Having some urinary incontinence and has Pure-wick applied
-Diuresing well with Zaroxolyn and IV Bumex, transitioned to PO Lasix 80 mg BID and Zaroxolyn 2.5 mg po daily. Replete electrolytes
-Received 1 PRBC on 01/30. H/H stable @ 9.0/27.3 today
-Creatinine 1.6, was 0.9 preop
-Cont. current meds (ASA, Eliquis, Amiodarone, Lopressor, Lipitor, Zaroxolyn, Lasix, Farxiga, Lantus, Novolog)
-Stable echo from 01/26: LVEF 55-60%, mildly dilated RV w/ reduced systolic function. AV: 44/24, PAP 30-35/ mild TR
-Tolerating diabetic diet
-Has left basilar opacification on cxr suggestive of small effusion/atelectasis, improving, cont. to follow
-Encourage use of IS (1500 mL max so far)
-OOB into chair/PT-OT following
-Physiatry evaluating for acute rehab/swartz placement, per Physiatry pt not stable enough for SNF or acute rehab at this time
Assessment / Plan
-
Assessment:
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
LAD and reverse saphenous vein graft from ascending aortic graft to distal RCA; EVH of RLE; Explant of prior 21 mm trifecta aortic valve; 21 mm Medtronic Freestyle aortic root complex replacement with reimplantation of coronary buttons; Hypothermic
circulatory arrest with selective cerebral perfusion, ascending aortic replacement with a 26 mm straight tube graft pm 01/19/[address] Trivedi, pod #[id number]
- Intraop DEMAR: LVEF preop was preserved at approximately 55 to 60%. Following surgery EF remained the same at approximate 50-55% on 5 dobutamine and some Cardene. Her RV function was normal preoperatively and mild to moderately depressed
postoperatively. Following aortic root replacement, there was no aortic valve insufficiency with a new freestyle porcine root replacement.
-Her cardiac index was depressed at approximately 1.5 on 5 dobutamine. She did not require any pacing and was on her own [place] sinus rhythm following surgery. Due to the extended pump time, mild RV dysfunction, and required multiple blood
products due to coagulopathy, chest was left open and packed with 1 vaginal pack.
-S/P Removal of one vaginal packing/Evacuation of minimal clot and old fibrillar/hemostatic agents/[place] with warm saline/Placement of additional atrial pacing wires and additional ventricular pacing wire/Removal of the 28F straight chest
tube/Chest closure with 4 #7 single and 3 #8 double stainless steal wires/Application of skin vac, by Dr. Trivedi, 01/21/24, pod#12
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
- Multivessel coronary artery disease with anginal/exertional chest pain
- Class 1 obesity, BMI 33
- Hypertension
- Hyperlipidemia
- Previous PCI with cardiac stent to the OM
- Previous cardiac surgery with [facility] trifecta # 21 aortic valve replacement and single-vessel bypass to the OM in 2017
- Diabetes mellitus (A1c 6.8)
- Severe carotid stenosis of the right side
(US 01/11/24: Mixed plaque within the right carotid bulb, velocity measurements suggestive of greater than 70% stenosis, internal to common carotid ratio suggestive of 50-69% stenosis)
- Hard of hearing
- WILNER
- b/l breast biopsies
- Acute postop anemia- s/p 7 pRBCs
- Acute postop coagulopathy/thrombocytopenia - s/p Factor 7 in OR, total 3 FFPs, 3 units platelets
- Acute postop atelectasis
- Acute postop hypovolemia with subsequent hypervolemia
- Acute postop hypotension d/t cardiogenic shock, requiring inotrops and pressors
- Acute postop ectopy (PACs, PVCs)- tx with Amio bolus and drip, now off - improved with discontinuing Milrinone
- Acute postop hyperkalemia
- Acute postop junctional rhythm
- Acute postop metabolic alkalosis with respiratory compensation
- Acute postop respiratory insufficiency secondary to volume overload, pulmonary edema
- Acute postop VDRF
- Acute postop bronchoscopy 01/21 -unremarkable
- Acute postop bronchoscopy 01/20 -thick secretions suctioned @ [facility]
- Acute postop FABIAN
- Acute postop a-fib with RVR 150's
-postop Echo 01/27/24:
Small left ventricular chamber size. Mild concentric left ventricular hypertrophy. Normal left ventricular systolic function. Left ventricular ejection fraction is 55-60% by visual assessment.
Flattened septum in systole and diastole consistent with RV pressure and volume overload.
Mildly dilated right ventricle with reduced right ventricular systolic function.
Well seated bioprosthetic aortic valve with peak/mean gradients across the aortic valve of 44/24 mmHg. No aortic regurgitation is seen.
Mild tricuspid regurgitation. Estimated pulmonary artery pressure of 30-35 mmHg, assuming a right atrial pressure of 15 mmHg.
Trivial pericardial effusion. Pleural effusion present.
Compared to prior study dated 01/22/2024, prior aortic valve gradients were peak/mean 28/19 mmHg, respectively
Discussed patient care with: Cardiology, Nursing, Respiratory Therapy, Pharmacy and Care Team
Subjective
-
Date of Service: February 02, 2024
Pt c/o mild incisional pain, otherwise feels well. Ambulating in room with assistance
Objective Data
-
PT 15.0 Sec (11.4-14.6) H 01/21/24 15:02
INR 1.13 01/21/24 15:02
APTT Cancelled 01/27/24 06:00
Vital Signs
Vital Signs
Temp Pulse Resp BP Pulse Ox
97.9 F 77 19 126/51 97
02/02/24 04:12 02/02/24 04:12 02/02/24 04:12 02/02/24 04:10 02/02/24 04:12
CT Intake/Output/Weight
02/01/24 02/01/24 02/02/24
06:59 18:59 06:59
Intake Total
Output Total 1850 / 2975 400 / 400
Balance -1850 / -2075 -400 / -375 25 / -375
SaO2: 97 (2L)
Physical Exam
-
General: Awake, Oriented and AOx3
Cardiovascular: Regular rate & rhythm, Murmur (2/6 systolic), No Rub and No Gallop
Respiratory: Decreased Breath Sounds (at bases, rhonchi @ left base)
Sternum: Stable
Incision: Clean, Dry, Intact and Dressing Intact
Extremities: Edema +1
Data Reviewed
-
Lab Results: Results Reviewed
Medications: Active Meds Reviewed
Chest X-Ray: Report Reviewed and Image Reviewed
ECG: Report Reviewed and Image Reviewed
[2024-02-02 04:40] LABS: Hematocrit 27.3 % (37.0-47.0); Mean Corpuscular Hgb 30.1 pg (27.0-31.0); Mean Corpuscular Volume 91.3 fL (81.0-99.0); Mean Platelet Volume 10.4 fL (7.4-10.4); Platelet Count 188 10^3/uL (130-400); Red Blood Cell Count 2.99 10^6/uL (4.20-5.40); Red Cell Dist. Width 20.6 % (11.5-14.5); White Blood Cell Count 18.2 10^3/uL (4.8-10.8)
[2024-02-02 04:57] LABS: Blood Urea Nitrogen 63 mg/dl (7-17); Calcium 9.3 mg/dl (8.4-10.2); Carbon Dioxide 33 mmol/L (22-30); Chloride 93 mmol/L (98-107); Estimated Creatinine Clearance 32 ml/min; Glucose 114 mg/dl (70-99); Magnesium 2.2 mg/dl (1.6-2.3); Potassium 3.6 mmol/L (3.5-5.1); Sodium 139 mmol/L (135-145)
[2024-02-02] MEDS: KCL 40 MEQ PO (05:32)
[2024-02-02] MEDS: TYLENOL 1000 MG PO ×2 (05:32→13:49)
[2024-02-02 06:00] VITALS: BMI 34.6
--- NOTE | 2024-02-02 06:15 | PTCARENOTE ---
SpO2 filed in error, pleth not good on monitor, see VS flowsheet for O2 saturation.
--- NOTE | 2024-02-02 07:20 | W.PN.UPDATE ---
Update Note
Progress Note Update
Patient seen by me, still requires nebulizers at this time for cough and mucous clearing TID and as needed.
[2024-02-02 07:44] VITALS: BP 109/49
[2024-02-02] MEDS: XOPENEX 1.25 MG INHALANT SOLUTION INH ×2 (07:57→14:06)
[2024-02-02] MEDS: ATROVENT NEBULES 0.5 MG INH (07:57)
[2024-02-02] MEDS: LOW STRENGTH ASPIRIN 81 MG PO (08:22)
[2024-02-02] MEDS: FARXIGA 10 MG PO (08:22)
[2024-02-02] MEDS: ZAROXOLYN 2.5 MG PO (08:22)
[2024-02-02] MEDS: LASIX 80 MG PO (08:22)
[2024-02-02] MEDS: PROTONIX 40 MG PO (08:22)
[2024-02-02] MEDS: VITAMIN C 500 MG PO (08:23)
[2024-02-02] MEDS: LANTUS 0.16 UNITS SC (08:23)
[2024-02-02] MEDS: LIDOCAINE 4% PATCH 1 PATCH TOPICAL (08:23)
[2024-02-02] MEDS: PACERONE 200 MG PO (08:23)
[2024-02-02] MEDS: SENOKOT-S 1 TABLET PO (08:23)
[2024-02-02] MEDS: FEOSOL 325 MG PO (08:23)
[2024-02-02] MEDS: NEURONTIN 100 MG PO (08:23)
[2024-02-02] MEDS: ELIQUIS 5 MG PO (08:23)
[2024-02-02] MEDS: CITROMA 300 ML PO (08:25)
[2024-02-02] MEDS: NOVOLOG FLEXPEN-LOW RESISTANCE SC (08:25)
[2024-02-02 08:26] LABS: Glucose - Point of Care 109 mg/dl (70-99)
[2024-02-02] MEDS: MIRALAX 17 GRAMS PO (08:26)
[2024-02-02] MEDS: NOVOLOG FLEXPEN 6 UNITS SC ×2 (08:26→13:50)
--- NOTE | 2024-02-02 09:20 | PN.DE.MGMTRT ---
Insulin Management
- -
02/02/2024: Diabetes management Follow up:
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 Pt underwent Redo sternotomy with extensive adhesiolysis of adhesions 2/2 to previous cardiac
surgery (modifier 22); CABG x 2 [in situ GARCIA to LAD and reverse saphenous vein graft from ascending aortic graft to distal RCA, 21 mm Medtronic Freestyle aortic root complex replacement with reimplantation of coronary buttons; now POD #13. PMH:
CHF, MVCAD, Morbid obesity, HTN, HLD, Severe , T2DM, MANZANITA, Prior aortic valve replacement with single-vessel bypass. Was taking Jardiance 10mg daily prior to admission. A1C 6.8%, Reports she has a working meter with enough supplies at home.
Pt awake alert, sitting up in bed, offers no complaints, able to discuss diabetes management.
Appetite remains has improved, now eating 85 to 90% of meals. Glucose stable and in range, premeal 113 to 149.
02/01 POD 13 glucose remains stable, fasting this AM 109. Will make no change to regimen, lantus 16 units in AM with AC novolog6 units and low corrective. Patient for transfer to [place] today.
Provided insulin pen instruction: action prep and injection technique. Patient seems resigned but would prefer not to take insulin. Discussed it may just be temporary as she has been through so much. Discussed with patient importance of glucose
control after discharge to prevent infection, she verbalized understanding. Diabetes education booklet provided and information regarding SBGM highlighted. Will review insulin administration.
Diabetes History
- -
Type of Diabetes: 2 requiring insulin
Pre-Admission Diabetes Regimen
02/02/24
04:22
Creatinine 1.6 H
Lab Results
Hemoglobin A1c 6.8 % (4.0-5.6) H 01/11/24 08:40
Insulin Pump Settings
IP Diabetes Regimen
02/01/24 02/01/24 02/01/24
13:36 18:22 21:34
Glucose
POC Glucose 149 H 143 H 113 H
02/02/24 02/02/24
04:22 08:18
Glucose 114 H
POC Glucose 109 H
Meal type: Dinner
Meal type: Breakfast
Amount consumed: 95%
Amount consumed: 100%
Patient Education
--- NOTE | 2024-02-02 09:25 | PTCARENOTE ---
Received pt from mine shifter RN; pt AAOx3 and resting comfortably in chair; NSR on monitor and VSS; Epicardial A/V wires insulated; Lungs diminished; IS 1000; occasional cough; positive bowel sounds; pt voiding yellow urine; palpable pulses
throughout; trace generalized edema; all surgical sites C/D/I; see nursing documentation for further details.
--- NOTE | 2024-02-02 09:36 | W.DCSUMMARY ---
Discharge Summary
Discharge Data
Date of Admission: 01/19/24
Date of Discharge: 02/02/24
Total time spent discharging patient (in min): 55
-
Pending Results: No
Hospital Course
Primary care physician:
Dr. Tamez
Outpatient cafe or restaurant manager:
Dr. Cox
Inpatient consultants:
DCA, brake repair mechanic, DM management jewelry sales representative
Procedures:
1. 01/18 Redo sternotomy with extensive adhesiolysis needed secondary to previous cardiac surgery (modifier 22), Coronary bypass grafting x 2 [in situ GARCIA to LAD and reverse saphenous vein graft from ascending aortic graft to distal RCA, Explant
of prior 21 mm trifecta aortic valve, Freestyle aortic root replacement with reimplantation of coronary buttons, Hypothermic circulatory arrest with selective cerebral perfusion, ascending aortic replacement with a 26 mm straight tube graft.
Return to CVICU with open chest
2. 01/20 Chest washout and sternal closure
Primary Diagnosis:
1. 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
Secondary Diagnoses:
1. post-operative atrial fibrillation
2. Multivessel coronary artery disease with anginal/exertional chest pain
3. Morbidly obese with a BMI of greater than 30
4. Hypertension
5. Hyperlipidemia
6. Previous PCI with cardiac stent to the OM
7. Previous cardiac surgery with aortic valve replacement and single-vessel bypass to the OM
7. Diabetes mellitus
8. Severe carotid stenosis of the right side
9. Hard of hearing
10. Acute postop anemia- s/p 7 pRBCs
11. Acute postop coagulopathy/thrombocytopenia - s/p Factor 7 in OR, total 3 FFPs, 3 units platelets
12. Acute postop atelectasis
13. Acute postop hypovolemia with subsequent hypervolemia
14. Acute postop hypotension d/t cardiogenic shock, requiring inotrops and pressors
15. Acute postop ectopy (PACs, PVCs)- tx with Amio bolus and drip, now off - improved with discontinuing Milrinone
16. Acute postop hyperkalemia
17. Acute postop junctional rhythm
18. Acute postop metabolic alkalosis with respiratory compensation
19. Acute postop respiratory insufficiency secondary to volume overload, pulmonary edema
20. Acute postop VDRF
21. Acute postop FABIAN
HPI: 78-year-old female seen in the office with Dr. Trivedi returns to [facility] on 01/18 for a redo sternotomy aortic valve replacement.
Hospital course: Patient was taken to the CV OR on 01/18. Postoperatively she returned to the CVICU after her extensive procedure with an open chest. She has some mild bleeding and was given 1 unit of platelets and 1 pool of FFP. We also started
milrinone at 0.375 and we were able to wean off Cardene and improve her cardiac index. She was started on Levophed for blood pressure support and an OG tube was inserted and placed to low intermittent suction. Sedation was changed from Precedex to
fentanyl and propofol. On 01/19 postoperative day 1 patient was transitioned off milrinone due to high Levophed requirements. She was continued on open chest antibiotic protocol. Patient was then started on vasopressin for blood pressure control.
She had intermittent hypotension secondary to a junctional rhythm. She received 1 unit of packed red blood cells and was started on a Bumex drip throughout the day. She was starting to have runs of atrial fibrillation with RVR so amiodarone was
restarted at 0.5. On 01/20 postoperative day 2 patient was started on an amnio drip and bolus for SVT up into the 150s. She returned to the OR for sternal closure and washout. She returned to the CVICU again with 2 mediastinal's and 1 pleural
chest tube. A Prevena wound VAC was applied to assist in wound healing. Fentanyl and propofol drip was weaned off and patient was transition to a Precedex infusion. On her postop chest x-ray patient appeared to have a mucous plug and aggressive
suction and irrigation was done by respiratory and chest x-ray improved afterwards. On 01/21 postoperative day 3 patient received a bronchoscopy by pulmonary in the morning which did not show a mucous plug at that time or large amounts of
secretions. Patient's FiO2 was weaned to 60% and 8 of PEEP and patient was able to tolerate a spontaneous breathing trial for 2 hours. A Bumex drip was again started at 0.5 mg an hour for 12 hours. Patient was following commands however due to
her high vent requirements she was not extubated. Her index was 1.6 so a milrinone infusion was resumed at 0.125 along with dobutamine and nitroglycerin. Her cardiac index improved to 2.4 and her creatinine peaked at 2.2. She again converted into
atrial tach/A-fib atrial fibrillation and was given another amiodarone bolus. On 01/22 postoperative day 4 patient was weaned down on her vent and drips remained. She was continued on tube feeds for nutrition. Patient was also started on a heparin
infusion. On 01/23 postoperative day 5 patient was extubated in the morning to mid flow dobutamine was weaned down to 4 and milrinone was discontinued. Bumex drip was started at 1 and was given Diuril for augmentation. A Dobbhoff tube was
inserted in the nares for continuous tube feeds. Pleural chest tube was removed. On 01/24 postoperative day 6 patient remained in sinus rhythm. Speech therapy saw the patient and cleared her for sips and ice chips. Tube feeds were continued at
goal. Mediastinal chest tubes were discontinued, epicardial wires were insulated, and patient was again diuresed. On 01/25 postoperative day 7 patient was given 1 unit of packed red blood cells and Bumex drip was again started from 10 AM to 10 PM.
Out of bed to the chair. She was started on Eliquis for recurrent A-fib and discontinued on heparin infusion. On 01/26 postoperative day 8 patient was again diuresed with Bumex and Diuril she was given albumin. Echocardiogram was performed to
bedside. Dobutamine was down titrated to 2 wound VAC was removed patient's diet was advancing well so Dobbhoff was removed. On 01/27 postoperative day 9 dobutamine was weaned down to 1 she was weaned down to 1 L nasal cannula and diuresed
aggressively through the day. Speech therapy advanced her diet however still felt like she needed a video barium swallow. On 01/28 postoperative day 10, dobutamine was weaned off patient passed her video barium swallow and was started on a regular
diet. Chest x-ray showed severe atelectasis so she was started on aggressive chest PT, I-S, Pep therapy. She again was diuresed. On 01/29 postoperative day 11, Crowder and Cordis were removed patient she was diuresed with IV pushes of Bumex and
Diamox. Since dobutamine was weaned off yesterday she was started on metoprolol 12.5 mg twice daily. Chest x-ray that day showed some improvement. On 01/30 postoperative day 12 patient was again aggressively diuresed. She was given 1 unit of
packed red blood cells for anemia. Patient had an episode of atrial fibrillation overnight and was increased on her Lopressor to 25 mg twice daily. On 01/31 postoperative day 13, she was diuresed with Bumex and metolazone and was working with
physical therapy aggressively. On 02/01 postoperative day 14 patient's epicardial wires were cut at the skin. She was given an aggressive bowel regimen and she was deemed stable for discharge to [facility].
Home medication changes:
see below
Discharge Plan
-
Patient Disposition: Home (Routine Discharge)
Discharge Diagnosis/Procedures: redo AVR, ascending aortic replacement, CABG x 2 (chest open). Return to OR for chest closure
Condition: Good
Diet: Low Cholesterol, Low Sodium and Diabetic, Carb Controlled
Activity: No strenuous activity
Driving Restrictions: Not until seen by your Dr
Bathing Restrictions: OK to Shower
Blood Work: please check electrolytes q48hrs
Other Services: Cardiac Rehab
Specialty Instructions: Weigh Daily- Call MD for wt gain/loss 3 lbs overnight/5 lbs in 1 week
Activity Restrictions/Additional Instructions:
Please call [facility] Cardiac [facility] to schedule your first visit at [phone] when medically ready.
ACTIVITY:
-No strenuous activity: no heavy lifting, pushing, pulling anything over 15 pounds for one month
-continue to use stairs as tolerated
DRIVING RESTRICTIONS:
-No driving for one month or until approved by your surgeon
WOUND CARE:
-Shower daily. Use soap & water.
-No lotions, creams or powders on incision area.
DIET:
-continue a low fat/low cholesterol diet.
-IF you are diabetic, continue carb controlled diet.
CARDIAC REHAB:
-Please make appointment to start in 5-6 weeks with your local hospital program. (See Cardiac Rehabilitation Discharge Booklet).
SPECIALTY INSTRUCTIONS:
-Weigh yourself daily. Call your physician for any weight gain/loss of 3 lbs overnight or 5 lbs in one week.
-REPORT any clicking noise or uneven appearance of your sternum to your surgeon immediately.
-If you smoke, you are instructed to quit. The [place] smoking hotline phone number is [phone]
Referrals:
CT Transitional Care Nurse [Outside] (The Cardiothoracic Transitional Care Nurse will call you to set up a visit in 1-2 days.)
Tim Cox MD [Affiliate] - 03/02/24 1:15 pm
Radha Tamez DO [Family Provider] -
Sunil Fong MD [Active] - in two to four weeks (full PFTs on day of office visit)
Durga Trivedi MD [Active] - 02/18/24 2:00 pm
Prescriptions:
New
amiodarone 200 mg Tablet
200 mg PO TID Qty: 0 0RF
Rx Instructions:
please continue 200mg Twice a day for 2 weeks and then 200mg daily
ferrous sulfate [FeroSul] 325 mg (65 mg iron) Tablet
325 mg PO DAILY Qty: 0 0RF
levalbuterol HCl 1.25 mg/3 mL Solution For Nebulization
1.25 mg inhalation R TID Qty: 0 0RF
ipratropium bromide 0.02 % Solution
0.5 mg inhalation R TID Qty: 0 0RF
Eliquis 5 mg Tablet
5 mg PO BID Qty: 0 0RF
atorvastatin 80 mg Tablet
80 mg PO QPM Qty: 0 0RF
metolazone 2.5 mg Tablet
2.5 mg PO DAILY Qty: 0 0RF
acetaminophen 325 mg Tablet
650 mg feeding tube Q4HPRN PRN (Reason: mild pain,headache,temp >101F ) Qty: 0 0RF
polyethylene glycol 3350 17 gram Powder In Packet
17 g PO DAILY Qty: 0 0RF
potassium chloride 20 mEq Tablet,Er Particles/Crystals
40 meq PO DAILY Qty: 0 0RF
furosemide 80 mg Tablet
80 mg PO BID@0800,1600 Qty: 0 0RF
pantoprazole 40 mg Tablet,Delayed Release (Dr/Ec)
40 mg PO DAILY Qty: 0 0RF
magnesium oxide 500 mg magnesium Tablet
500 mg PO DAILY Qty: 0 0RF
metoprolol tartrate 25 mg Tablet
25 mg PO BID Qty: 0 0RF
Chloraseptic Sore Throat 6-10 mg Lozenge
1 stacy PO Q4HPRN PRN (Reason: sore throat) Qty: 0 0RF
dapagliflozin propanediol 10 mg Tablet
10 mg PO DAILY Qty: 0 0RF
insulin aspart U-100 100 unit/mL (3 mL) Insulin Pen
6 unit SC AC Qty: 0 0RF
Insulin Glargine Lantus [Lantus] 16 UNITS
Subcutaneous Insulin Syringe [Syringe-Insulin] 0 UNIT
As Directed mls/hr SC DAILY
Reason for use: Diabetes
Ordered By: Denice Prather CRNP
Last Taken: 02/02/24 08:23 0.16 mls
lidocaine 4 % Adhesive Patch,Medicated
1 patch topical DAILY Qty: 0 0RF
ascorbic acid (vitamin C) [Vitamin C] 500 mg Tablet
500 mg PO DAILY Qty: 0 0RF
melatonin 5 mg Tablet
5 mg PO HS Qty: 0 0RF
Remove Patch [Remove Lidocaine Patch]
1 patch REMOVE DAILY@2000 Qty: 0 0RF
insulin aspart U-100 100 unit/mL (3 mL) insulin pen
1 sliding scale dose SC DIRECTED Qty: 15 0RF
Continued
aspirin [Aspir-Low] 81 MG tablet,delayed release (DR/EC)
81 mg PO DAILY
Discontinued
metoprolol tartrate 50 MG tablet
50 mg PO BID
Patient Comments:
Patient states she takes this medication once a day in the morning
atorvastatin 20 MG tablet
20 mg PO QPM
clopidogrel 75 MG tablet
75 mg PO DAILY Qty: 90 3RF
isosorbide mononitrate 30 mg Tablet Extended Release 24 Hr
30 mg PO DAILY
amlodipine 5 mg Tablet
5 mg PO DAILY
spironolactone 25 mg Tablet
25 mg PO DAILY
furosemide 20 mg Tablet
20 mg PO DAILY
valsartan 160 mg Tablet
160 mg PO BID
Jardiance 25 mg Tablet
25 mg PO DAILY
Discharge Orders:
Discharge Patient (As Directed); Ordered 02/02/24
Ordered By: Denice Prather
Care Plan Goals
Care Plan Goals:
Problem: Readiness for enhanced knowledge related to diagnosis and treatment plan
Goal: Understand your diagnosis and treatment plan needs, including medications if applicable.
Instructions: Know your diagnosis, underlying causes and treatment plan options, including medications if applicable. Consult with your health care team to learn about your diagnosis and treatment plan, including medications if applicable.
Discharge Date and Time
Print Language: LAO
[2024-02-02] MEDS: LOPRESSOR 25 MG PO (09:51)
[2024-02-02] MEDS: DULCOLAX 10 MG RECTAL (09:51)
--- NOTE | 2024-02-02 10:12 | PTCARENOTE ---
A/V wires cut by CVNP; chest tube sutures also removed by CVNP and dressing applied.
--- NOTE | 2024-02-02 10:21 | W.PN.UPDATE ---
Update Note
Progress Note Update
Further requirements for temporary pacing. Area cleansed with CHG. 2 atrial wires and 1 bipolar ventricular wire were clipped at skin level. No surrounding erythema was noted. Chest tube sutures x 2 also clipped.
[2024-02-02 10:33] LABS: COVID-19 Antigen Negative (Negative)
--- NOTE | 2024-02-02 11:46 | W.PN.UPDATE ---
Update Note
Progress Note Update
Patient scheduled for discharge to [place] today
Decrease amiodarone to 200 BID not tid
She should continue Eliquis
GI Prophylaxis ordered
Will need close followup with Dr. Cox post discharge
[2024-02-02 11:56] VITALS: BP 111/39
[2024-02-02 11:56] LABS: Glucose - Point of Care 171 mg/dl (70-99)
--- NOTE | 2024-02-02 11:58 | PTCARENOTE ---
Assessment unchanged; NSR on monitor and VSS; pt resting comfortably in chair awaiting lunch.
[2024-02-02] MEDS: NOVOLOG FLEXPEN-LOW RESISTANCE 1 UNITS SC (13:50)
[2024-02-02] MEDS: ATROVENT NEBULES INH (14:06)
--- NOTE | 2024-02-02 14:51 | PTCARENOTE ---
Report given to Coral JIMENES in [facility]; pt belongings set with pt; Midline IV to be removed by IV team in [facility]; family updated on pt new room.
[2024-02-02 16:59] LABS: Glucose - Point of Care 151 mg/dl (70-99)
== END 2024-02-02 14:57 | DRG 219 ==
LOC: CVICU 04:38
PROVIDERS: Anesthesiology; Clinical Nurse Specialist Acute Care; Nurse Practitioner; Physician Assistant Medical; ADMITTING PHYSICIAN Thoracic Surgery (Cardiothoracic Vascular Surgery); CONSULT PHYSICIAN Internal Medicine Critical Care Medicine; CONSULT PHYSICIAN Physical Medicine & Rehabilitation; FAMILY PHYSICIAN Family Medicine; OTHER PHYSICIAN Internal Medicine Interventional Cardiology
PROC: 06BP4ZZ Excision of Right Saphenous Vein, Percutaneous Endoscopic Approach (ICD-10-PCS; 2024-01-19)
PROC: 30233N1 Transfusion of Nonautologous Red Blood Cells into Peripheral Vein, Percutaneous Approach (ICD-10-PCS; 2024-01-19)
PROC: 0BH17EZ Insertion of Endotracheal Airway into Trachea, Via Natural or Artificial Opening (ICD-10-PCS; 2024-01-19)
PROC: 5A1955Z Respiratory Ventilation, Greater than 96 Consecutive Hours (ICD-10-PCS; 2024-01-19)
PROC: 02NN0ZZ Release Pericardium, Open Approach (ICD-10-PCS; 2024-01-19)
PROC: 30233R1 Transfusion of Nonautologous Platelets into Peripheral Vein, Percutaneous Approach (ICD-10-PCS; 2024-01-19)
PROC: 02UX0JZ Supplement Thoracic Aorta, Ascending/Arch with Synthetic Substitute, Open Approach (ICD-10-PCS; 2024-01-19)
PROC: 021009W Bypass Coronary Artery, One Artery from Aorta with Autologous Venous Tissue, Open Approach (ICD-10-PCS; 2024-01-19)
PROC: B24BZZ4 Ultrasonography of Heart with Aorta, Transesophageal (ICD-10-PCS; 2024-01-19)
PROC: 5A1221Z Performance of Cardiac Output, Continuous (ICD-10-PCS; 2024-01-19)
PROC: 02100Z9 Bypass Coronary Artery, One Artery from Left Internal Mammary, Open Approach (ICD-10-PCS; 2024-01-19)
PROC: 02RF08Z Replacement of Aortic Valve with Zooplastic Tissue, Open Approach (ICD-10-PCS; 2024-01-19)
PROC: 30233K1 Transfusion of Nonautologous Frozen Plasma into Peripheral Vein, Percutaneous Approach (ICD-10-PCS; 2024-01-19)
PROC: 0WCC0ZZ Extirpation of Matter from Mediastinum, Open Approach (ICD-10-PCS; 2024-01-21)
PROC: 0BJ08ZZ Inspection of Tracheobronchial Tree, Via Natural or Artificial Opening Endoscopic (ICD-10-PCS; 2024-01-22)
DX: T82.898A Other specified complication of vascular prosthetic devices, implants and grafts, initial encounter (principal); I50.33 Acute on chronic diastolic (congestive) heart failure; J95.821 Acute postprocedural respiratory failure; T81.11XA Postprocedural cardiogenic shock, initial encounter; D62 Acute posthemorrhagic anemia; D68.8 Other specified coagulation defects; I31.0 Chronic adhesive pericarditis; I50.32 Chronic diastolic (congestive) heart failure; J91.8 Pleural effusion in other conditions classified elsewhere; J98.11 Atelectasis; E87.3 Alkalosis; N17.9 Acute kidney failure, unspecified; I47.10 Supraventricular tachycardia, unspecified; I25.118 Atherosclerotic heart disease of native coronary artery with other forms of angina pectoris; I11.0 Hypertensive heart disease with heart failure; I35.2 Nonrheumatic aortic (valve) stenosis with insufficiency; E78.5 Hyperlipidemia, unspecified; E11.9 Type 2 diabetes mellitus without complications; I65.21 Occlusion and stenosis of right carotid artery; H91.93 Unspecified hearing loss, bilateral; Y83.2 Surgical operation with anastomosis, bypass or graft as the cause of abnormal reaction of the patient, or of later complication, without mention of misadventure at the time of the procedure; D69.59 Other secondary thrombocytopenia; I48.91 Unspecified atrial fibrillation; E86.1 Hypovolemia; I49.3 Ventricular premature depolarization; E87.5 Hyperkalemia; N99.0 Postprocedural (acute) (chronic) kidney failure; E66.811 Obesity, class 1; I48.0 Paroxysmal atrial fibrillation; Z11.52 Encounter for screening for COVID-19; Z68.34 Body mass index [BMI] 34.0-34.9, adult; Z79.02 Long term (current) use of antithrombotics/antiplatelets; Z79.82 Long term (current) use of aspirin; Z79.84 Long term (current) use of oral hypoglycemic drugs; Z79.899 Other long term (current) drug therapy; Z95.1 Presence of aortocoronary bypass graft; Z95.3 Presence of xenogenic heart valve; Z95.5 Presence of coronary angioplasty implant and graft
CPT/HCPCS: 88300; 88305; 88311; 93308; 36415; 71045; 71046; 74018; 74230; 80048; 80053; 80076; 81003; 81015; 82043; 82248; 82330; 82507; 82565; 82570; 82805; 82810; 82947; 82962; 83036; 83605; 83735; 83935; 84100; 84105; 84132; 84133; 84156; 84300; 84302; 84478; 84520; 85014; 85018; 85025; 85027; 85049; 85347; 85384; 85576; 85610; 85730; 86850; 86900; 86901; 86920; 87070; 87077; 87086; 87186; 87811; 92526; 92610; 92611; 93005; 93312; 93320; 93321; 93325; 93880; 93970; 94002; 94003; 94640; 94667; 94669; 97110; 97116; 97163; 97167; 97530; 97535; C1768; J1205; J1325; J2260; J2916; J7189; P9016; P9047; P9059; P9073

== ENCOUNTER → 2024-02-29 13:32 | Outpatient (REF) | payer OTHER, SELFPAY | LOC: RAD 13:32 | PROVIDERS: ATTENDING PHYSICIAN Thoracic Surgery (Cardiothoracic Vascular Surgery); FAMILY PHYSICIAN Family Medicine | DX: J95.811 Postprocedural pneumothorax (principal) | CPT/HCPCS: 71046 ==

== ENCOUNTER → 2024-03-04 08:53 | Outpatient (REF) | payer OTHER, SELFPAY ==
[2024-03-04 09:07] VITALS: BP 125/61; BP_SYST 71
[2024-03-04 09:33] VITALS: BP 108/54; BP_SYST 70
== END ==
LOC: RADI 08:53
PROVIDERS: ATTENDING PHYSICIAN Thoracic Surgery (Cardiothoracic Vascular Surgery)
DX: J90 Pleural effusion, not elsewhere classified (principal)
CPT/HCPCS: 32555; 71045

== ENCOUNTER → 2024-11-25 13:50 | Outpatient (REF) | payer OTHER, SELFPAY | LOC: HWRCS 13:50 | PROVIDERS: ATTENDING PHYSICIAN Thoracic Surgery (Cardiothoracic Vascular Surgery); FAMILY PHYSICIAN Family Medicine | DX: Z95.3 Presence of xenogenic heart valve (principal); Z95.1 Presence of aortocoronary bypass graft | CPT/HCPCS: 93306 ==